=== PATIENT | male | born 1965 | race Caucasian/White ===

== ENCOUNTER 2019-01-01 19:01 | Inpatient (IN) | payer MEDICAID, SELFPAY ==
[2019-01-01 19:13] VITALS: BP 130/84; PULSE 109; RESP 20; TEMP 36.8; O2SAT 98
[2019-01-01] MEDS: Normal Saline 1,000 ML 1000 ML IV (19:34)
[2019-01-01] MEDS: Ondansetron 4 MG/2 ML VIAL IVP (19:34)
[2019-01-01] MEDS: MORPHine 10 MG/ML VIAL 4 MG IVP (19:34)
[2019-01-01 20:32] LABS: Abs Immature Grans 0.02 k/cumm (0.0-0.09); Absolute Basophil Count 0.01 k/cumm (0.0-0.2); Absolute Eosinophil Count 0.01 k/cumm (0.0-0.7); Absolute Lymphocyte Count 0.67 k/cumm (1.2-3.4); Absolute Monocyte Count 0.59 k/cumm (0.11-0.7); Absolute Neutrophil Count 7.16 k/cumm (1.2-6.7); Basophils % 0.1; Eosinophils % 0.1; HGB 15.4 g/dL (13.5-17.5); Immature Grans % 0.2; Lymphocytes % 7.9; Mean Corp. HGB Concentration 32.8 g/dL (32.0-36.0); Mean Corpuscular Hemoglobin 29.2 pg (27.0-33.0); Mean Platelet Volume 9.8 fL (8.0-11.0); Neutrophils % 84.7; Platelet Count 214 x1000/uL (130-400); RBC 5.28 m/cumm (4.50-6.00); RBC Distribution Width 14.1 % (11.8-14.1); White Blood Cell Count 8.46 k/cumm (4.4-10.8)
[2019-01-01 20:46] LABS: ALT 18 U/L (12-78); AST 14 U/L (15-37); Albumin 3.4 g/dL (3.4-5.0); Alkaline Phosphatase 112 U/L (46-116); Anion Gap 7.7 mmol/L (3-11); BUN 26 mg/dL (7-18); Bilirubin, Total 0.3 mg/dL (0.2-1.0); CO2 29.3 mmol/L (21.0-32.0); CREATININE 1.11 mg/dL (0.70-1.30); Calcium 8.3 mg/dL (8.5-10.1); Chloride 107 mmol/L (98-107); Glucose 132 mg/dL (70-100); Potassium 3.6 mmol/L (3.5-5.1); Sodium 144 mmol/L (136-145)
[2019-01-01 21:02] VITALS: BP 134/76; PULSE 68; RESP 18; TEMP 36.7; O2SAT 98
[2019-01-01] MEDS: Omnipaque 350 MG/ML 100 ML BTL IJ (21:10)
[2019-01-01] MEDS: Normal Saline Flush 10 ML SYR IVP (21:11)
--- NOTE | 2019-01-01 21:15 | DI.CT_ITS ---
SYMPTOM/DIAGNOSIS: DIFFUSE ABD PAIN, H/O SMALL BOWEL OBSTRUCTION,CONSTIPATION, VOMITING, ? SMALL BOWEL OBSTRUCTION ABDOMEN AND PELVIC CT: Comparison is made with 08/13/16. CT scan of the abdomen and pelvis was performed following the uneventful administration of intravenous contrast material. Dependent infiltrates are seen in the lung bases. This may represent atelectasis or pneumonia. There do appear to be emphysematous changes in the lung bases. The liver is normal in size. There are areas of fatty infiltration adjacent to the falciform ligament. No hepatic mass is seen. The portal, superior mesenteric and splenic veins are patent. The gallbladder is negative. No biliary ductal dilatation is seen. The pancreas, spleen and adrenal glands are unremarkable. The kidneys show normal and symmetric enhancement. No evidence of a solid renal mass or obstruction. The urinary bladder is intact. The reproductive organs are unremarkable. There is atherosclerosis of the abdominal aorta but no aneurysmal dilatation is present. No significant abdominal or pelvic adenopathy, ascites or pneumoperitoneum is present. There is moderate dilatation of small bowel loops proximally. The distal small bowel appears normal caliber. The transition appears to lie in the pelvis. The colon is of normal caliber. No evidence of inflammatory or infectious process. No findings to suggest an acute appendicitis are present. A normal appendix is seen in the right lower quadrant of the abdomen. Degenerative changes are present in the spine. IMPRESSION: 1. Dilated small bowel proximally. This may represent an obstruction or ileus. The transition appears to lie in the pelvis. 2. Opacities in the dependent portion of the lungs bilaterally. This may represent atelectasis or pneumonia.
--- NOTE | 2019-01-01 21:47 | DI.VRAD_ITS ---
EXAM: CT Abdomen and Pelvis With Contrast EXAM DATE/TIME: 01/01/2019 7:37 PM CLINICAL HISTORY: 53 years old, male; Signs and symptoms; Constipation and nausea and vomiting; Prior surgery; Surgery date: 6+ months; Surgery type: L inguinal hernia repair; Patient HX: Vomiting, constipation, nause TECHNIQUE: Axial computed tomography images of the abdomen and pelvis with intravenous contrast. All CT scans at this facility use at least one of these dose optimization techniques: automated exposure control; mA and/or kV adjustment per patient size (includes targeted exams where dose is matched to clinical indication); or iterative reconstruction. Coronal and sagittal reformatted images were created and reviewed. CONTRAST: 100 ml of omnipaque 350 administered intravenously. COMPARISON: CT ABD PELVIS WITH CONTRAST 08/13/2016 6:26 PM FINDINGS: Lower thorax: Opacities in the lower lobes may represent atelectasis or pneumonia. ABDOMEN: Liver: Normal. No mass. Gallbladder and bile ducts: Normal. No calcified stones. No ductal dilation. Pancreas: Normal. No ductal dilation. Spleen: Normal. No splenomegaly. Adrenals: Normal. No mass. Kidneys and ureters: Normal. No hydronephrosis. Stomach and bowel: Multiple loops of dilated small bowel may represent obstruction or ileus. Transition point is in the pelvis. Appendix: No evidence of appendicitis. PELVIS: Bladder: Unremarkable as visualized. Reproductive: Unremarkable as visualized. ABDOMEN and PELVIS: Intraperitoneal space: Normal. No free air. No significant fluid collection. Bones/joints: No acute fracture. No dislocation. Soft tissues: Unremarkable. Vasculature: Normal. No abdominal aortic aneurysm. Lymph nodes: Normal. No enlarged lymph nodes. IMPRESSION: 1. Opacities in the lower lobes may represent atelectasis or pneumonia. 2. Multiple loops of dilated small bowel may represent obstruction or ileus. Transition point is in the pelvis. Dictated and Authenticated by: Britney Moya MD. Ordering:JYOTHI Canseco MD
[2019-01-01] MEDS: Normal Saline 1,000 ML 125 ML IV (21:50)
[2019-01-01] MEDS: Ketorolac 30 MG/ML VIAL IVP (22:28)
[2019-01-01 22:33] VITALS: BP 156/97; PULSE 67; RESP 18; TEMP 36.8; O2SAT 98
--- NOTE | 2019-01-01 22:48 | ED.GENADUL_ITS ---
Discharge Plan Disposition Patient Disposition: [facility] INPATIENT Condition: Stable Discharge Details Chief Complaint: Abd Prob Clinical Impression: SBO (small bowel obstruction), Nausea and vomiting Reason For Visit: SMALL BOWEL OBSTRUCTION Admit Date/Time: 01/01/19 22:00 Admit Provider: Emy Nugent Attending Provider: Emy Nugent Primary Care Provider: Marco Antonio Villa ED Provider: Harleen Barron Discharge Data Discharge Date/Time-TO BE ENTERED AT DEPARTURE: 01/01/19 23:10 Medical Decision Making 53-year-old male with history of imperforate anus status post repair as an , hernia repair, as well as multiple small bowel obstructions who presents with abdominal pain and vomiting since last night consistent with previous small bowel obstruction. Heart rate tachycardic on arrival, otherwise vitals within normal limits. Afebrile. Abdomen soft and minimally tender in the left mid abdomen. Will place an IV, bolus IV fluids, labs, CT abdomen and pelvis and give a dose of morphine. 2100 --labs and imaging reviewed. Normal white blood cell count, electrolytes. CT notes multiple loops of dilated small bowel which may represent obstruction. There are also opacities in the lower lobes which may represent atelectasis or pneumonia. Patient has a chronic cough, is a smoker but has no fever and a normal white blood cell count. 2144 --findings discussed with general surgery Dr. Nugent -will admit patient overnight for serial abdominal exams and observation. Recommends Toradol, Tylenol, n.p.o. and IV fluids and no narcotics. Hold on NG tube at this time. 2199 --plan was discussed with patient and he was initially agreeable to admission, but then stated he wanted to leave AMA if he did not get morphine. Explained to patient that with constipation, narcotics would not be recommended continually for pain as it can worsen constipation and pain. Patient states the morphine is the only thing that works for his pain. Patient stated fk them and I would rather go home and than stay here and not get morphine. Discussed with patient that as he has had consistent vomiting, and unable to keep any food or medication down, it would be recommended that he stay for IV fluids and continued monitoring. He is now agreeable to stay. A dose of Toradol was given. Medical Records Medical records reviewed: Yes I reviewed the patient's medical records. Imaging Data Radiologic Study: Radiologist's impression: CT Abdomen and Pelvis With Contrast EXAM DATE/TIME: 01/01/2019 7:37 PM FINDINGS: Lower thorax: Opacities in the lower lobes may represent atelectasis or pneumonia. ABDOMEN: Liver: Normal. No mass. Gallbladder and bile ducts: Normal. No calcified stones. No ductal dilation. Pancreas: Normal. No ductal dilation. Spleen: Normal. No splenomegaly. Adrenals: Normal. No mass. Kidneys and ureters: Normal. No hydronephrosis. Stomach and bowel: Multiple loops of dilated small bowel may represent obstruction or ileus. Transition point is in the pelvis. Appendix: No evidence of appendicitis. PELVIS: Bladder: Unremarkable as visualized. Reproductive: Unremarkable as visualized. ABDOMEN and PELVIS: Intraperitoneal space: Normal. No free air. No significant fluid collection. Bones/joints: No acute fracture. No dislocation. Soft tissues: Unremarkable. Vasculature: Normal. No abdominal aortic aneurysm. Lymph nodes: Normal. No enlarged lymph nodes. IMPRESSION: 1. Opacities in the lower lobes may represent atelectasis or pneumonia. 2. Multiple loops of dilated small bowel may represent obstruction or ileus. Transition point is in the pelvis. Lab Data Lab results reviewed: Yes I reviewed the patient's lab results. Laboratory Tests Range/Units 01/01/19 01/01/19 01/01/19 19:25 19:25 20:20 WBC Cancelled 8.46 RBC Cancelled 5.28 Hgb Cancelled 15.4 Hct Cancelled 47.0 MCV Cancelled 89.0 MCH Cancelled 29.2 MCHC Cancelled 32.8 RDW Cancelled 14.1 Plt Count Cancelled 214 MPV Cancelled 9.8 Abs Immat Gran (auto) Cancelled Immature Gran % Cancelled 0.2 Neutrophils % Cancelled 84.7 Band Neutrophils % Cancelled Lymphocytes % Cancelled 7.9 Atypical Lymphs % Cancelled Monocytes % Cancelled 7.0 Eosinophils % Cancelled 0.1 Basophils % Cancelled 0.1 Absolute Neutrophils Cancelled 7.16 H Absolute Lymphocytes Cancelled 0.67 L Absolute Monocytes Cancelled 0.59 Absolute Eosinophils Cancelled 0.01 Absolute Basophils Cancelled 0.01 Metamyelocytes Cancelled Myelocytes Cancelled Promyelocytes Cancelled Nucleated RBCs Cancelled Differential Comment Cancelled Other Cell Type Cancelled RBC Morphology Cancelled Polychromasia Cancelled Hypochromasia Cancelled Poikilocytosis Cancelled Basophilic Stippling Cancelled Anisocytosis Cancelled Microcytosis Cancelled Macrocytosis Cancelled Spherocytes Cancelled Target Cells Cancelled Tear Drop Cells Cancelled Ovalocytes Cancelled Stomatocytes Cancelled [place] Bodies Cancelled Daniel Cells Cancelled Acanthocytes (Spur) Cancelled Schistocytes Cancelled Sodium Cancelled Potassium Cancelled Chloride Cancelled Carbon Dioxide Cancelled Anion Gap Cancelled BUN Cancelled Creatinine Cancelled Estimated GFR/1.73 m2 Cancelled Glucose Cancelled Calcium Cancelled Total Bilirubin Cancelled AST Cancelled ALT Cancelled Alkaline Phosphatase Cancelled Total Protein Cancelled Albumin Cancelled Range/Units 01/01/19 20:20 WBC RBC Hgb Hct MCV MCH MCHC RDW Plt Count MPV Abs Immat Gran (auto) Immature Gran % Neutrophils % Band Neutrophils % Lymphocytes % Atypical Lymphs % Monocytes % Eosinophils % Basophils % Absolute Neutrophils Absolute Lymphocytes Absolute Monocytes Absolute Eosinophils Absolute Basophils Metamyelocytes Myelocytes Promyelocytes Nucleated RBCs Differential Comment Other Cell Type RBC Morphology Polychromasia Hypochromasia Poikilocytosis Basophilic Stippling Anisocytosis Microcytosis Macrocytosis Spherocytes Target Cells Tear Drop Cells Ovalocytes Stomatocytes [place] Bodies Bovey Cells Acanthocytes (Spur) Schistocytes Sodium 144 Potassium 3.6 Chloride 107 Carbon Dioxide 29.3 Anion Gap 7.7 BUN 26 H Creatinine 1.11 Estimated GFR/1.73 m2 >= 60.00 Glucose 132 H Calcium 8.3 L Total Bilirubin 0.3 AST 14 L ALT 18 Alkaline Phosphatase 112 Total Protein 7.0 Albumin 3.4 HPI General Mode of arrival: ambulatory . Date/Time Provider Initiated Documentation: 01/01/19 19:21 . Limitations to Documentation: no limitations . Information obtained by: patient . HPI Narrative: Patient is a 53 male with a history of multiple small bowel obstructions, imperforate anus at with surgery repair, as well as hernia repair who presents with abdominal pain since yesterday. States the pain feels consistent with previous small bowel obstructions. He states the pain is radiating from his upper abdomen down to his lower abdomen. He denies any pain at present. Patient states he has been vomiting nonstop since last night and is unable to keep down any medications for pain. States his last bowel movement was 3 days ago which is not unusual for him. He was last admitted here in May 2018 for small bowel obstruction. He denies any fever. Related Data Home Medications Medication Instructions Recorded Confirmed Unknown [No Known Home Meds] 05/17/18 01/01/19 Allergies Allergy/AdvReac Type Severity Reaction Status Date / Time No Known Allergies Allergy Unverified 05/28/18 10:32 General Stated Complaint: Abd Prob CHAVO: 3 Review of Systems Review of Systems All systems reviewed & are unremarkable except as noted in HPI and below Constitutional Reports as per HPI, Denies chills and Denies fever(s) Eyes Denies blurry vision ENT Denies dizziness, Denies sore throat and Denies throat swelling Cardiovascular Denies chest pain and Denies dyspnea Respiratory Denies cough and Denies dyspnea Gastrointestinal Reports abdominal pain, Denies diarrhea and Reports vomiting Genitourinary Denies hematuria and Denies dysuria Musculoskeletal Denies back pain and Denies numbness Integumentary/Breasts Denies lesions and Denies rash Neurologic Denies dizziness, Denies focal weakness and Denies numbness Allergic/Immunologic Denies throat swelling PFSH Medical History Small bowel obstruction (Acute) Congenital imperforate anus Undescended testicle, unilateral Surgical History Repair of inguinal hernia (02/02/18) Revision, Scar eye surgery imperforate anus repair Social History Smoking and Tabacco status: Current every day alcohol intake: never substance use type: does not use Exam Const General: cooperative, healthy appearing and no acute distress HENMT Head: normal to inspection Face and sinus: normal facial exam Eyes General: appearance normal, both eyes and all related structures EOM: EOM intact bilaterally Neck Neck: normal visual inspection and No submandibular swelling Lymphatic: no lymphadenopathy noted Chest Chest: normal inspection of the chest and no tenderness Resp Effort & Inspection: normal respiratory effort and able to speak in complete sentences Auscultation: clear to auscultation bilaterally Cardio Rate: regular rate Rhythm: regular rhythm GI Inspection: normal to inspection Palpation: soft, not firm, not rigid and tender (L mid abdomen) Auscultation: normal bowel sounds Male General Exam: Yes normal external exam Scrotum: scrotum normal Testes: normal Skin General skin exam: no rashes or lesions noted Neuro General: alert, awake and oriented x3 Cognition: normal cognition Speech: speech normal Motor: muscle tone normal throughout Sensory Exam: no sensory deficits noted Extrem General: normal to inspection, full ROM, normal capillary refill, no calf tenderness bilaterally and no edema Psych Appearance: grossly normal Mental Status: mental status grossly normal Speech and Movement: speech and movement normal Affect: normal affect Course Vital Signs Temperature 98.2 F 01/01/19 19:13 Pulse 109 H 01/01/19 19:13 Respiratory Rate 20 01/01/19 19:13 Blood Pressure 130/84 01/01/19 19:13 Pulse Oximetry 98 01/01/19 19:13 Temperature 98.2 F 01/01/19 22:33 Temperature Source Skin 01/01/19 22:33 Pulse 67 01/01/19 22:33 Respiratory Rate 18 01/01/19 22:33 Respiratory Effort Non-Labored 01/01/19 21:03 Blood Pressure 156/97 H 01/01/19 22:33 Blood Pressure Position Sitting 01/01/19 19:13 Pulse Oximetry 98 01/01/19 22:33 Oxygen Delivery Method Room Air 01/01/19 22:33 Oxygen Flow Rate 0 01/01/19 22:33 Pain Level 2 01/01/19 22:28 Lab/Test Results Lab/Test Results: Laboratory Tests Range/Units 01/01/19 01/01/19 01/01/19 19:25 19:25 20:20 WBC Cancelled 8.46 RBC Cancelled 5.28 Hgb Cancelled 15.4 Hct Cancelled 47.0 MCV Cancelled 89.0 MCH Cancelled 29.2 MCHC Cancelled 32.8 RDW Cancelled 14.1 Plt Count Cancelled 214 MPV Cancelled 9.8 Abs Immat Gran (auto) Cancelled Immature Gran % Cancelled 0.2 Neutrophils % Cancelled 84.7 Band Neutrophils % Cancelled Lymphocytes % Cancelled 7.9 Atypical Lymphs % Cancelled Monocytes % Cancelled 7.0 Eosinophils % Cancelled 0.1 Basophils % Cancelled 0.1 Absolute Neutrophils Cancelled 7.16 H Absolute Lymphocytes Cancelled 0.67 L Absolute Monocytes Cancelled 0.59 Absolute Eosinophils Cancelled 0.01 Absolute Basophils Cancelled 0.01 Metamyelocytes Cancelled Myelocytes Cancelled Promyelocytes Cancelled Nucleated RBCs Cancelled Differential Comment Cancelled Other Cell Type Cancelled RBC Morphology Cancelled Polychromasia Cancelled Hypochromasia Cancelled Poikilocytosis Cancelled Basophilic Stippling Cancelled Anisocytosis Cancelled Microcytosis Cancelled Macrocytosis Cancelled Spherocytes Cancelled Target Cells Cancelled Tear Drop Cells Cancelled Ovalocytes Cancelled Stomatocytes Cancelled [place] Bodies Cancelled [place]y Cells Cancelled Acanthocytes (Spur) Cancelled Schistocytes Cancelled Sodium Cancelled Potassium Cancelled Chloride Cancelled Carbon Dioxide Cancelled Anion Gap Cancelled BUN Cancelled Creatinine Cancelled Estimated GFR/1.73 m2 Cancelled Glucose Cancelled Calcium Cancelled Total Bilirubin Cancelled AST Cancelled ALT Cancelled Alkaline Phosphatase Cancelled Total Protein Cancelled Albumin Cancelled Range/Units 01/01/19 20:20 WBC RBC Hgb Hct MCV MCH MCHC RDW Plt Count MPV Abs Immat Gran (auto) Immature Gran % Neutrophils % Band Neutrophils % Lymphocytes % Atypical Lymphs % Monocytes % Eosinophils % Basophils % Absolute Neutrophils Absolute Lymphocytes Absolute Monocytes Absolute Eosinophils Absolute Basophils Metamyelocytes Myelocytes Promyelocytes Nucleated RBCs Differential Comment Other Cell Type RBC Morphology Polychromasia Hypochromasia Poikilocytosis Basophilic Stippling Anisocytosis Microcytosis Macrocytosis Spherocytes Target Cells Tear Drop Cells Ovalocytes Stomatocytes [place] Bodies Daniel Cells Acanthocytes (Spur) Schistocytes Sodium 144 Potassium 3.6 Chloride 107 Carbon Dioxide 29.3 Anion Gap 7.7 BUN 26 H Creatinine 1.11 Estimated GFR/1.73 m2 >= 60.00 Glucose 132 H Calcium 8.3 L Total Bilirubin 0.3 AST 14 L ALT 18 Alkaline Phosphatase 112 Total Protein 7.0 Albumin 3.4
[2019-01-01 23:20] VITALS: BP 133/77; PULSE 90; RESP 18; TEMP 37.4; O2SAT 95
[2019-01-02] MEDS: Ketorolac 30 MG/ML VIAL IM ×3 (05:01→19:20)
[2019-01-02 05:02] VITALS: BP 108/74; PULSE 83; RESP 18; TEMP 37.1; O2SAT 95
[2019-01-02] MEDS: Normal Saline 1,000 ML 125 ML IV ×3 (05:02→20:28)
[2019-01-02 07:53] VITALS: BP 107/64; PULSE 71; RESP 19; TEMP 36.6; O2SAT 95
[2019-01-02 11:20] VITALS: BP 107/67; PULSE 72; RESP 18; TEMP 36.9; O2SAT 96
--- NOTE | 2019-01-02 13:07 | W.PM.HP.N ---
Date of service: 01/02/19 Time of Service: 07:00 Assessment and Plan (1) SBO (small bowel obstruction): Current visit: No Status: Acute A\\ SBO vs ileus. Known history of SBO P\\ Continue NPO status Up ambulating 3 x a day Toradol and Tylenol for pain ISP q1 hour while awake IV fluids for hydration History of Present Illness Chief Complaint: SBO Narrative: Mr. Galarza is a 53 year old male who came to the ER last night with N/V and abdominal pain. The patient is well known to us from previous admissions for SBO. He has had abdominal surgeries in the past as a child. His last admission was in May of 2018. He had one episode of emesis after admission and none since then. This morning he was complaining of abdominal pain and upset about not getting any morphine for pain. He has Toradol and Acetaminophen ordered. He states that he has passed some flatus. No BM yet. He wants a elle hua. Labs were unremarkable in the ER last night. Review of Systems Constitutional Denies chills and Denies fever(s) Cardiovascular Denies chest pain, Denies chest pain at rest, Denies chest pain with activity, Denies diaphoresis, Denies rapid heart rate, Denies irregular heart rhythm, Denies palpitations, Denies dyspnea and Denies dyspnea on exertion Respiratory Denies chest congestion, Denies cough, Denies dyspnea and Denies dyspnea on exertion Gastrointestinal Reports as per HPI Genitourinary Denies hematuria, Denies difficulty urinating and Denies dysuria Musculoskeletal Reports system reviewed and no additional complaints, except as docu Neurologic Reports system reviewed and no additional complaints, except as docu Endocrine Denies palpitations Hematologic/Lymphatic Denies easy bleeding and Denies easy bruising [facility] Medical History Small bowel obstruction (Acute) Congenital imperforate anus Undescended testicle, unilateral Surgical History Repair of inguinal hernia (02/02/18) Revision, Scar eye surgery imperforate anus repair Social History Smoking and Tabacco status: Current every day alcohol intake: never substance use type: does not use Meds Home Medications Medication Instructions Recorded Confirmed Type Unknown [No Known Home Meds] 05/17/18 01/01/19 History Allergies Allergy/AdvReac Type Severity Reaction Status Date / Time No Known Allergies Allergy Unverified 05/28/18 10:32 Exam Const General: cooperative and no acute distress Orientation: alert and oriented x3 Eyes Pupils: PERRL Resp Effort & Inspection: normal respiratory effort Auscultation: clear to auscultation bilaterally and diminished lung sounds bilaterally in the lower lung montez Cardio Rate: regular rate Rhythm: regular rhythm Heart Sounds: no gallops, no murmurs and no rubs GI Inspection: normal to inspection Palpation: soft, no hepatosplenomegaly and nontender Auscultation: hyperactive bowel sounds Results Labs : 01/01/19 20:20 01/01/19 20:20 Laboratory Results - last 24 hr 01/01/19 01/01/19 01/01/19 19:25 19:25 20:20 WBC Cancelled 8.46 RBC Cancelled 5.28 Hgb Cancelled 15.4 Hct Cancelled 47.0 MCV Cancelled 89.0 MCH Cancelled 29.2 MCHC Cancelled 32.8 RDW Cancelled 14.1 Plt Count Cancelled 214 MPV Cancelled 9.8 Abs Immat Gran (auto) Cancelled Immature Gran % Cancelled 0.2 Neutrophils % Cancelled 84.7 Band Neutrophils % Cancelled Lymphocytes % Cancelled 7.9 Atypical Lymphs % Cancelled Monocytes % Cancelled 7.0 Eosinophils % Cancelled 0.1 Basophils % Cancelled 0.1 Absolute Neutrophils Cancelled 7.16 H Absolute Lymphocytes Cancelled 0.67 L Absolute Monocytes Cancelled 0.59 Absolute Eosinophils Cancelled 0.01 Absolute Basophils Cancelled 0.01 Metamyelocytes Cancelled Myelocytes Cancelled Promyelocytes Cancelled Nucleated RBCs Cancelled Differential Comment Cancelled Other Cell Type Cancelled RBC Morphology Cancelled Polychromasia Cancelled Hypochromasia Cancelled Poikilocytosis Cancelled Basophilic Stippling Cancelled Anisocytosis Cancelled Microcytosis Cancelled Macrocytosis Cancelled Spherocytes Cancelled Target Cells Cancelled Tear Drop Cells Cancelled Ovalocytes Cancelled Stomatocytes Cancelled [place] Bodies Cancelled [place] Cells Cancelled Acanthocytes (Spur) Cancelled Schistocytes Cancelled Sodium Cancelled Potassium Cancelled Chloride Cancelled Carbon Dioxide Cancelled Anion Gap Cancelled BUN Cancelled Creatinine Cancelled Estimated GFR/1.73 m2 Cancelled Glucose Cancelled Calcium Cancelled Total Bilirubin Cancelled AST Cancelled ALT Cancelled Alkaline Phosphatase Cancelled Total Protein Cancelled Albumin Cancelled 01/01/19 20:20 WBC RBC Hgb Hct MCV MCH MCHC RDW Plt Count MPV Abs Immat Gran (auto) Immature Gran % Neutrophils % Band Neutrophils % Lymphocytes % Atypical Lymphs % Monocytes % Eosinophils % Basophils % Absolute Neutrophils Absolute Lymphocytes Absolute Monocytes Absolute Eosinophils Absolute Basophils Metamyelocytes Myelocytes Promyelocytes Nucleated RBCs Differential Comment Other Cell Type RBC Morphology Polychromasia Hypochromasia Poikilocytosis Basophilic Stippling Anisocytosis Microcytosis Macrocytosis Spherocytes Target Cells Tear Drop Cells Ovalocytes Stomatocytes [place] Bodies Daniel Cells Acanthocytes (Spur) Schistocytes Sodium 144 Potassium 3.6 Chloride 107 Carbon Dioxide 29.3 Anion Gap 7.7 BUN 26 H Creatinine 1.11 Estimated GFR/1.73 m2 >= 60.00 Glucose 132 H Calcium 8.3 L Total Bilirubin 0.3 AST 14 L ALT 18 Alkaline Phosphatase 112 Total Protein 7.0 Albumin 3.4 Last Vital Signs Temp 97.9 F 01/02/19 07:53 Pulse 71 01/02/19 07:53 Resp 19 01/02/19 07:53 BP 107/64 01/02/19 07:53 Pulse Ox 95 01/02/19 07:53
--- NOTE | 2019-01-02 13:15 | W.PM.PROGNOT ---
Date of Service Date of service: 01/02/19 Time of Service: 13:15 Assessment and Plan (1) SBO (small bowel obstruction): Current visit: No Status: Acute A\\ May be starting to resolve P\\ Give him ice chips and sips of water needs to ambulate Subjective Interval history since last seen: Patient states pain is better and that he is passing a lot of flatus. No BM Continues to complain that I didn't order any Morphine Is asking for Mónica hua Exam GI Inspection: normal to inspection Palpation: soft, no hepatosplenomegaly and nontender Auscultation: normal bowel sounds Objective Objective Clinical Data: Abnormal lab results 01/01/19 01/01/19 Range/Units 20:20 20:20 Absolute Neutrophils 7.16 H (1.2-6.7) k/cumm Absolute Lymphocytes 0.67 L (1.2-3.4) k/cumm BUN 26 H (7-18) mg/dL Glucose 132 H (70-100) mg/dL Calcium 8.3 L (8.5-10.1) mg/dL AST 14 L (15-37) U/L Vital Signs Temperature 97.9 F 01/02/19 07:53 Temperature Source Tympanic 01/02/19 07:53 Pulse 71 01/02/19 07:53 Pulse Rhythm Regular 01/01/19 23:20 Respiratory Rate 19 01/02/19 07:53 Respiratory Effort 01/01/19 23:20 Respiratory Depth Normal 01/01/19 23:20 Respiratory Pattern Normal 01/01/19 23:20 Blood Pressure 107/64 01/02/19 07:53 Blood Pressure Position Sitting 01/01/19 19:13 Pulse Oximetry 95 01/02/19 07:53 Oxygen Delivery Method Room Air 01/02/19 07:53 Oxygen Flow Rate 0 01/02/19 07:53 Pain Level 3 01/02/19 12:56 Intake & Output 01/01/19 01/02/19 01/02/19 23:59 11:59 23:59 Intake Total 1000 / 1000 900 / 1875 975 / 1875 Output Total 300 / 300 Balance 1000 / 1000 600 / 1575 975 / 1575 Weight 155 lb 0.006 oz Intake: IV 1000 / 1000 900 / 1875 975 / 1875 Output: Emesis 300 / 300 Other: Urine Appearance Clear Emesis Description Undigested Food Bile Laboratory Results WBC 8.46 k/cumm (4.4-10.8) 01/01/19 20:20 RBC 5.28 m/cumm (4.50-6.00) 01/01/19 20:20 Hgb 15.4 g/dL (13.5-17.5) 01/01/19 20:20 Hct 47.0 % (40.0-50.0) 01/01/19 20:20 MCV 89.0 fL (80-95) 01/01/19 20:20 MCH 29.2 pg (27.0-33.0) 01/01/19 20:20 MCHC 32.8 g/dL (32.0-36.0) 01/01/19 20:20 RDW 14.1 % (11.8-14.1) 01/01/19 20:20 Plt Count 214 x1000/uL (130-400) 01/01/19 20:20 MPV 9.8 fL (8.0-11.0) 01/01/19 20:20 Abs Immat Gran (auto) Cancelled 01/01/19 19:25 Immature Gran % 0.2 01/01/19 20:20 Neutrophils % 84.7 01/01/19 20:20 Band Neutrophils % Cancelled 01/01/19 19:25 Lymphocytes % 7.9 01/01/19 20:20 Atypical Lymphs % Cancelled 01/01/19 19:25 Monocytes % 7.0 01/01/19 20:20 Eosinophils % 0.1 01/01/19 20:20 Basophils % 0.1 01/01/19 20:20 Absolute Neutrophils 7.16 k/cumm (1.2-6.7) H 01/01/19 20:20 Absolute Lymphocytes 0.67 k/cumm (1.2-3.4) L 01/01/19 20:20 Absolute Monocytes 0.59 k/cumm (0.11-0.7) 01/01/19 20:20 Absolute Eosinophils 0.01 k/cumm (0.0-0.7) 01/01/19 20:20 Absolute Basophils 0.01 k/cumm (0.0-0.2) 01/01/19 20:20 Metamyelocytes Cancelled 01/01/19 19:25 Myelocytes Cancelled 01/01/19 19:25 Promyelocytes Cancelled 01/01/19 19:25 Nucleated RBCs Cancelled 01/01/19 19:25 Differential Comment Cancelled 01/01/19 19:25 Other Cell Type Cancelled 01/01/19 19:25 RBC Morphology Cancelled 01/01/19 19:25 Polychromasia Cancelled 01/01/19 19:25 Hypochromasia Cancelled 01/01/19 19:25 Poikilocytosis Cancelled 01/01/19 19:25 Basophilic Stippling Cancelled 01/01/19 19:25 Anisocytosis Cancelled 01/01/19 19:25 Microcytosis Cancelled 01/01/19 19:25 Macrocytosis Cancelled 01/01/19 19:25 Spherocytes Cancelled 01/01/19 19:25 Target Cells Cancelled 01/01/19 19:25 Tear Drop Cells Cancelled 01/01/19 19:25 Ovalocytes Cancelled 01/01/19 19:25 Stomatocytes Cancelled 01/01/19 19:25 [place] Bodies Cancelled 01/01/19 19:25 [place] Cells Cancelled 01/01/19 19:25 Acanthocytes (Spur) Cancelled 01/01/19 19:25 Schistocytes Cancelled 01/01/19 19:25 Sodium 144 mmol/L (136-145) 01/01/19 20:20 Potassium 3.6 mmol/L (3.5-5.1) 01/01/19 20:20 Chloride 107 mmol/L (98-107) 01/01/19 20:20 Carbon Dioxide 29.3 mmol/L (21.0-32.0) 01/01/19 20:20 Anion Gap 7.7 mmol/L (3-11) 01/01/19 20:20 BUN 26 mg/dL (7-18) H 01/01/19 20:20 Creatinine 1.11 mg/dL (0.70-1.30) 01/01/19 20:20 Estimated GFR/1.73 m2 >= 60.00 (mL/min/1.73m2) 01/01/19 20:20 Glucose 132 mg/dL (70-100) H 01/01/19 20:20 Calcium 8.3 mg/dL (8.5-10.1) L 01/01/19 20:20 Total Bilirubin 0.3 mg/dL (0.2-1.0) 01/01/19 20:20 AST 14 U/L (15-37) L 01/01/19 20:20 ALT 18 U/L (12-78) 01/01/19 20:20 Alkaline Phosphatase 112 U/L (46-116) 01/01/19 20:20 Total Protein 7.0 g/dL (6.4-8.2) 01/01/19 20:20 Albumin 3.4 g/dL (3.4-5.0) 01/01/19 20:20
--- NOTE | 2019-01-02 15:01 | CHAPLAIN ---
Bebeto said he is feeling a bit better. He and daughter will be in to visit after his is done working today. I explained my role and offered support.
[2019-01-02 16:12] VITALS: BP 111/66; PULSE 66; RESP 18; TEMP 37.1; O2SAT 97
--- NOTE | 2019-01-02 17:37 | PDOC.CMIN ---
Care Management Initial Assess REASON FOR HOSPITALIZATION:: SBO PAST MEDICAL HISTORY/PAST SURGICAL HISTORY:: congenital imperforate anus, undescended testicle unilateral, cataracts, hernia repair, rt eye surgery, revision scar, hx of SBO PREVIOUS FUNCTIONAL STATUS/SOCIAL/FAMILY SUPPORTS:: Bebeto resides with his , Юлия and their daughter in [place], [place]. 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 He reports a long history of bowel issues and reports feeling confident in managing his needs. CURRENT FUNCTIONAL STATUS:: Drake was lying in bed when CM met with him. He reports feeling better. He was forthcoming with information and appropriate in interaction. ADVANCE DIRECTIVES:: None on file. Has patient been provided with information about the portal?: Yes Did the patient sign up for the portal?: No CODE STATUS:: Full Code INSURANCE COVERAGE / FINANCIAL ISSUES:: Medicaid CURRENT HOME/COMMUNITY SERVICES/EQUIPMENT:: No current equipment or services. PRIMARY CARE PHYSICIAN:: Marco Antonio Villa MD: [facility] POTENTIAL DISCHARGE NEEDS:: Follow up appointments. PATIENT/FAMILY EDUCATION NEEDS:: Review discharge instructions, follow up plan of care. ANTICIPATED BARRIERS TO DISCHARGE:: None identifed. TRANSPORTATION:: Via private vehicle with his . PLAN:: Bebeto will return home when ready per MD. He will follow up with his plan of care as prescribed. He will transport via private vehicle with his .
--- NOTE | 2019-01-02 17:41 | INITIAL_ITS ---
Care Management Initial Assess REASON FOR HOSPITALIZATION:: SBO PAST MEDICAL HISTORY/PAST SURGICAL HISTORY:: congenital imperforate anus, undescended testicle unilateral, cataracts, hernia repair, rt eye surgery, revision scar, hx of SBO PREVIOUS FUNCTIONAL STATUS/SOCIAL/FAMILY SUPPORTS:: Bebeto resides with his , Юлия and their daughter in [place], [place]. 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 He reports a long history of bowel issues and reports feeling confident in managing his needs. CURRENT FUNCTIONAL STATUS:: Drake was lying in bed when CM met with him. He reports feeling better. He was forthcoming with information and appropriate in interaction. ADVANCE DIRECTIVES:: None on file. Has patient been provided with information about the portal?: Yes Did the patient sign up for the portal?: No CODE STATUS:: Full Code INSURANCE COVERAGE / FINANCIAL ISSUES:: Medicaid CURRENT HOME/COMMUNITY SERVICES/EQUIPMENT:: No current equipment or services. PRIMARY CARE PHYSICIAN:: Marco Antonio Villa MD: [facility] POTENTIAL DISCHARGE NEEDS:: Follow up appointments. PATIENT/FAMILY EDUCATION NEEDS:: Review discharge instructions, follow up plan of care. ANTICIPATED BARRIERS TO DISCHARGE:: None identifed. TRANSPORTATION:: Via private vehicle with his . PLAN:: Bebeto will return home when ready per MD. He will follow up with his plan of care as prescribed. He will transport via private vehicle with his .
[2019-01-02] MEDS: Normal Saline Flush 10 ML SYR IVP (19:22)
--- NOTE | 2019-01-02 19:34 | NUR.NOTE ---
Nursing Note: Report received from off going nurse, patient is currently in stable condition, resting in bed, reporting abdominal pain at 4/10 and requesting prn pain medication which will be given per MD orders. The bed is in the low and locked position, side rails up x2, call light within reach.
[2019-01-02 19:53] VITALS: BP 132/74; PULSE 72; RESP 18; TEMP 36.7; O2SAT 95
--- NOTE | 2019-01-02 21:53 | NUR.NOTE ---
Nursing Note: Called to bedside by patient, he had vomited in the emesis bag provided to him. Pt. reports that he feels better now no nausea at this time. I offered the patient water to wash his mouth out and a cool washcloth. No further needs at this time.
[2019-01-03] MEDS: Ketorolac 30 MG/ML VIAL IM ×2 (01:29→07:48)
[2019-01-03] MEDS: Normal Saline Flush 10 ML SYR IVP ×3 (01:30→16:57)
[2019-01-03] MEDS: Normal Saline 1,000 ML 125 ML IV ×3 (03:59→19:39)
[2019-01-03] MEDS: Pantoprazole 40 MG VIAL IVP (07:06)
[2019-01-03] MEDS: Enoxaparin 40 MG/0.4 ML SYR SC (07:06)
--- NOTE | 2019-01-03 07:08 | PGE_ITS ---
Date of Service Date of service: 01/03/19 Time of Service: 07:04 Assessment and Plan (1) SBO (small bowel obstruction): Current visit: No Status: Acute A\\ SBO vs ileus. Known history of SBO. Discussed the benefits of NG tube for bowel compression. Reviewed risks and benefits. declines an NG tube at this time. Spoke with his nurse for today, whom will continue patient education re: NG tube placement and will place one if he changes his mind. P\\ Continue NPO status Up ambulating 3 x a day Toradol and Tylenol for pain ISP q1 hour while awake IV fluids for hydration Subjective Interval history since last seen: Mr. Galarza reports that he continues to have abdominal discomfort and that he has been vomiting early this morning. He reports he has stopped taking in PO clear liquids due to his nausea and vomiting. He states that he has been passing gas. Exam Const General: cooperative, healthy appearing and no acute distress Orientation: alert and oriented x3 Resp Effort & Inspection: normal respiratory effort, no audible wheezes and cough Cardio Jugular venous pressure: no JVD Rate: regular rate Rhythm: regular rhythm Heart Sounds: S1 normal, S2 normal and no murmurs GI Inspection: distended Palpation: soft, guarding and tender Percussion: tympanic to percussion Auscultation: normal bowel sounds Objective Objective Clinical Data: Vital Signs Temperature 36.7 C 01/02/19 19:53 Temperature Source Tympanic 01/02/19 19:53 Pulse 72 01/02/19 19:53 Pulse Rhythm Regular 01/02/19 19:41 Respiratory Rate 18 01/02/19 19:53 Respiratory Effort 01/02/19 19:41 Respiratory Depth Normal 01/02/19 19:41 Respiratory Pattern Normal 01/02/19 19:41 Blood Pressure 132/74 01/02/19 19:53 Blood Pressure Position Sitting 01/01/19 19:13 Pulse Oximetry 95 01/02/19 19:53 Oxygen Delivery Method Room Air 01/02/19 19:53 Oxygen Flow Rate 0 01/02/19 19:53 Pain Level 2 01/03/19 02:29 Intake & Output 01/02/19 01/02/19 01/03/19 11:59 23:59 11:59 Intake Total 900 / 2829.167 1929.167 / 2829.167 1000 / 1000 Output Total 300 / 750 450 / 750 350 / 350 Balance 600 / 2078.167 1479.167 / 2078.167 650 / 650 Intake: IV 900 / 9.167 1929.167 / 2828.167 1000 / 999 Output: Urine 200 / 200 Emesis 300 / 750 450 / 750 150 / 150 Other: Urine Color Light Annie Urine Appearance Clear Comment pt stated that he voided once this morning, didnt know how much, stated it was a large amount Emesis Description Undigested Food Undigested Food Bile Bile Bile Clear/Water Voiding Methods Urinal Laboratory Results WBC 8.46 k/cumm (4.4-10.8) 01/01/19 20:20 RBC 5.28 m/cumm (4.50-6.00) 01/01/19 20:20 Hgb 15.4 g/dL (13.5-17.5) 01/01/19 20:20 Hct 47.0 % (40.0-50.0) 01/01/19 20:20 MCV 89.0 fL (80-95) 01/01/19 20:20 MCH 29.2 pg (27.0-33.0) 01/01/19 20:20 MCHC 32.8 g/dL (32.0-36.0) 01/01/19 20:20 RDW 14.1 % (11.8-14.1) 01/01/19 20:20 Plt Count 214 x1000/uL (130-400) 01/01/19 20:20 MPV 9.8 fL (8.0-11.0) 01/01/19 20:20 Abs Immat Gran (auto) Cancelled 01/01/19 19:25 Immature Gran % 0.2 01/01/19 20:20 Neutrophils % 84.7 01/01/19 20:20 Band Neutrophils % Cancelled 01/01/19 19:25 Lymphocytes % 7.9 01/01/19 20:20 Atypical Lymphs % Cancelled 01/01/19 19:25 Monocytes % 7.0 01/01/19 20:20 Eosinophils % 0.1 01/01/19 20:20 Basophils % 0.1 01/01/19 20:20 Absolute Neutrophils 7.16 k/cumm (1.2-6.7) H 01/01/19 20:20 Absolute Lymphocytes 0.67 k/cumm (1.2-3.4) L 01/01/19 20:20 Absolute Monocytes 0.59 k/cumm (0.11-0.7) 01/01/19 20:20 Absolute Eosinophils 0.01 k/cumm (0.0-0.7) 01/01/19 20:20 Absolute Basophils 0.01 k/cumm (0.0-0.2) 01/01/19 20:20 Metamyelocytes Cancelled 01/01/19 19:25 Myelocytes Cancelled 01/01/19 19:25 Promyelocytes Cancelled 01/01/19 19:25 Nucleated RBCs Cancelled 01/01/19 19:25 Differential Comment Cancelled 01/01/19 19:25 Other Cell Type Cancelled 01/01/19 19:25 RBC Morphology Cancelled 01/01/19 19:25 Polychromasia Cancelled 01/01/19 19:25 Hypochromasia Cancelled 01/01/19 19:25 Poikilocytosis Cancelled 01/01/19 19:25 Basophilic Stippling Cancelled 01/01/19 19:25 Anisocytosis Cancelled 01/01/19 19:25 Microcytosis Cancelled 01/01/19 19:25 Macrocytosis Cancelled 01/01/19 19:25 Spherocytes Cancelled 01/01/19 19:25 Target Cells Cancelled 01/01/19 19:25 Tear Drop Cells Cancelled 01/01/19 19:25 Ovalocytes Cancelled 01/01/19 19:25 Stomatocytes Cancelled 01/01/19 19:25 [place] Bodies Cancelled 01/01/19 19:25 Daniel Cells Cancelled 01/01/19 19:25 Acanthocytes (Spur) Cancelled 01/01/19 19:25 Schistocytes Cancelled 01/01/19 19:25 Sodium 144 mmol/L (136-145) 01/01/19 20:20 Potassium 3.6 mmol/L (3.5-5.1) 01/01/19 20:20 Chloride 107 mmol/L (98-107) 01/01/19 20:20 Carbon Dioxide 29.3 mmol/L (21.0-32.0) 01/01/19 20:20 Anion Gap 7.7 mmol/L (3-11) 01/01/19 20:20 BUN 26 mg/dL (7-18) H 01/01/19 20:20 Creatinine 1.11 mg/dL (0.70-1.30) 01/01/19 20:20 Estimated GFR/1.73 m2 >= 60.00 (mL/min/1.73m2) 01/01/19 20:20 Glucose 132 mg/dL (70-100) H 01/01/19 20:20 Calcium 8.3 mg/dL (8.5-10.1) L 01/01/19 20:20 Total Bilirubin 0.3 mg/dL (0.2-1.0) 01/01/19 20:20 AST 14 U/L (15-37) L 01/01/19 20:20 ALT 18 U/L (12-78) 01/01/19 20:20 Alkaline Phosphatase 112 U/L (46-116) 01/01/19 20:20 Total Protein 7.0 g/dL (6.4-8.2) 01/01/19 20:20 Albumin 3.4 g/dL (3.4-5.0) 01/01/19 20:20
[2019-01-03] MEDS: Ondansetron 4 MG/2 ML VIAL IVP ×2 (07:48→16:56)
[2019-01-03 08:00] VITALS: BP 131/77; PULSE 68; RESP 18; TEMP 37; O2SAT 95
[2019-01-03 08:14] LABS: Abs Immature Grans 0.01 k/cumm (0.0-0.09); Absolute Basophil Count 0.01 k/cumm (0.0-0.2); Absolute Eosinophil Count 0.02 k/cumm (0.0-0.7); Absolute Lymphocyte Count 1.05 k/cumm (1.2-3.4); Absolute Monocyte Count 0.82 k/cumm (0.11-0.7); Absolute Neutrophil Count 4.15 k/cumm (1.2-6.7); Basophils % 0.2; Eosinophils % 0.3; HCT 43.7 % (40.0-50.0); HGB 14.1 g/dL (13.5-17.5); Immature Grans % 0.2; Lymphocytes % 17.3; Mean Corp. HGB Concentration 32.3 g/dL (32.0-36.0); Mean Corpuscular Hemoglobin 29.1 pg (27.0-33.0); Mean Corpuscular Volume 90.3 fL (80-95); Mean Platelet Volume 9.9 fL (8.0-11.0); Monocytes % 13.5; Neutrophils % 68.5; Platelet Count 210 x1000/uL (130-400); RBC 4.84 m/cumm (4.50-6.00); RBC Distribution Width 13.7 % (11.8-14.1); White Blood Cell Count 6.06 k/cumm (4.4-10.8)
[2019-01-03 08:28] LABS: ALT 14 U/L (12-78); AST 14 U/L (15-37); Albumin 2.9 g/dL (3.4-5.0); Alkaline Phosphatase 92 U/L (46-116); Anion Gap 10.3 mmol/L (3-11); BUN 30 mg/dL (7-18); Bilirubin, Total 0.5 mg/dL (0.2-1.0); CO2 25.7 mmol/L (21.0-32.0); CREATININE 0.96 mg/dL (0.70-1.30); Calcium 8.4 mg/dL (8.5-10.1); Chloride 110 mmol/L (98-107); Glucose 93 mg/dL (70-100); Potassium 3.9 mmol/L (3.5-5.1); Sodium 146 mmol/L (136-145); Total Protein 6.1 g/dL (6.4-8.2)
[2019-01-03 10:20] VITALS: O2SAT 95
--- NOTE | 2019-01-03 10:32 | PHARADMIT ---
Admission Pharmacy Clinical Review SMALL BOWEL OBSTRUCTION Code Status Full Code Current Weight Wgt-70.3 kg Renally Cleared and Narrow Therapeutic Index Meds CrCl~ 85 mL/min Meds-OK QTc Value / Action Taken NONE BP Control, Fever BP- 131/77 Tmax- 37.4C Electrolytes reviewed Na- 146 K+3.9 DVT Prophylaxis Lovenox Opiate Usage / Scheduled Bowel Regimen Ordered No No Plt/SCr for Heparin / Enoxaparin Plts-210 SCr-0.96 INR for Warfarin NA H/H stable, WBC/Bands H&H- 14.1/43.7 WBC-6.06 Antibiotic appropriateness none Cultures and Sensitivities NONE Surgical ABX d/c within 24 hr na DM control / Insulin Dosing BG- 93 Heart Failure (Check EF%) (FLAVIO's, B-Block, Diuretics) none IV to PO Switch No Home Meds Reviewed Yes Home Meds Not Ordered No Known meds Comments
[2019-01-03 11:50] VITALS: BP 118/75; PULSE 75; RESP 18; TEMP 36.9; O2SAT 94
--- NOTE | 2019-01-03 13:36 | PDOC.CMPRO ---
- If Service Date Differs Date of service: 01/03/19 Time of Service: 13:36 Care Management Progress Note S/O: Bebeto is lying in bed this morning when this handbook writer visits, he is pleasant and receptive to discussion. Bebeto continues to state that he is not feeling well, and having abdominal pain, he states that his nurse is aware. Per provider note Drake is declining NG tube placement at this time. No change in DC plan. A: 53 y/o male admitted 01/01/19 for small bowel obstruction. P: Bebeto will return home with no anticipated services, he will F/U with Dr. Nugent and plan of care as prescribed. Bebeto's will transport when ready.
--- NOTE | 2019-01-03 14:19 | CMPROGNOTE_ITS ---
- If Service Date Differs Date of service: 01/03/19 Time of Service: 13:36 Care Management Progress Note S/O: Bebeto is lying in bed this morning when this ad copy writer visits, he is pleasant and receptive to discussion. Bebeto continues to state that he is not feeling well, and having abdominal pain, he states that his nurse is aware. Per provider note Drake is declining NG tube placement at this time. No change in DC plan. A: 53 y/o male admitted 01/01/19 for small bowel obstruction. P: Bebeto will return home with no anticipated services, he will F/U with Dr. Nugent and plan of care as prescribed. Bebeto's will transport when ready.
--- NOTE | 2019-01-03 14:29 | PGE_ITS ---
Date of Service Date of service: 01/03/19 Time of Service: 14:22 Assessment and Plan (1) SBO (small bowel obstruction): Current visit: No Status: Acute A\\ Patient states he is passing flatus and is feeling well. he wants to go home. I discussed with him that he his abdomen is still distended, he has minimal bowel sounds and he was vomiting all night. P\\ I will give the patient some sips of clears and see how he does. The plan would be to slowly advance his diet as tolerated over the next 24 hours. Patient tells me that he wants to leave AMA. We will provide him with the forms. Subjective Interval history since last seen: Patient tells me has had had no N/V or pain since this am. He had 600 cc of emesis overnight. He tells me that his will be getting of work at 14:30 and he is going home. Exam Const General: comfortable and no acute distress Resp Effort & Inspection: normal respiratory effort Auscultation: clear to auscultation bilaterally Cardio Rate: regular rate Rhythm: regular rhythm Heart Sounds: no gallops, no murmurs and no rubs GI Inspection: normal to inspection and distended Palpation: soft Auscultation: hypoactive bowel sounds Objective Objective Clinical Data: Abnormal lab results 01/03/19 01/03/19 Range/Units 08:00 08:00 Absolute Lymphocytes 1.05 L (1.2-3.4) k/cumm Absolute Monocytes 0.82 H (0.11-0.7) k/cumm Sodium 146 H (136-145) mmol/L Chloride 110 H (98-107) mmol/L BUN 30 H (7-18) mg/dL Calcium 8.4 L (8.5-10.1) mg/dL AST 14 L (15-37) U/L Total Protein 6.1 L (6.4-8.2) g/dL Albumin 2.9 L (3.4-5.0) g/dL Vital Signs Temperature 98.6 F 01/03/19 08:00 Temperature Source Tympanic 01/03/19 08:00 Pulse 68 01/03/19 08:00 Pulse Rhythm Regular 01/03/19 07:33 Respiratory Rate 18 01/03/19 08:00 Respiratory Effort Non-Labored 01/03/19 07:33 Respiratory Depth Normal 01/03/19 07:33 Respiratory Pattern Normal 01/03/19 07:33 Blood Pressure 131/77 01/03/19 08:00 Blood Pressure Position Sitting 01/01/19 19:13 Pulse Oximetry 95 01/03/19 10:20 Oxygen Delivery Method Room Air 01/03/19 10:20 Oxygen Flow Rate 0 01/03/19 10:20 Pain Level 0 01/03/19 08:48 Intake & Output 01/02/19 01/03/19 01/03/19 23:59 11:59 23:59 Intake Total 1928.167 / 2829.167 Output Total 450 / 750 350 / 650 300 / 650 Balance 1479.167 / 2078.167 164.167 / 1348.167 -300 / 1348.167 Intake: IV 1928. / 2828.167 Output: Urine 200 / 500 300 / 500 Emesis 450 / 750 150 / 150 Other: Urine Color Light Annie Light Annie Dark Annie Urine Appearance Clear Clear Urine Odor None Comment pt stated that he voided once this morning, didnt know how much, stated it was a large amount Void x1 in the urinal. Emesis Description Undigested Food Bile Bile Clear/Water Voiding Methods Urinal Urinal Laboratory Results WBC 6.06 k/cumm (4.4-10.8) 01/03/19 08:00 RBC 4.84 m/cumm (4.50-6.00) 01/03/19 08:00 Hgb 14.1 g/dL (13.5-17.5) 01/03/19 08:00 Hct 43.7 % (40.0-50.0) 01/03/19 08:00 MCV 90.3 fL (80-95) 01/03/19 08:00 MCH 29.1 pg (27.0-33.0) 01/03/19 08:00 MCHC 32.3 g/dL (32.0-36.0) 01/03/19 08:00 RDW 13.7 % (11.8-14.1) 01/03/19 08:00 Plt Count 210 x1000/uL (130-400) 01/03/19 08:00 MPV 9.9 fL (8.0-11.0) 01/03/19 08:00 Abs Immat Gran (auto) Cancelled 01/01/19 19:25 Immature Gran % 0.2 01/03/19 08:00 Neutrophils % 68.5 01/03/19 08:00 Band Neutrophils % Cancelled 01/01/19 19:25 Lymphocytes % 17.3 01/03/19 08:00 Atypical Lymphs % Cancelled 01/01/19 19:25 Monocytes % 13.5 01/03/19 08:00 Eosinophils % 0.3 01/03/19 08:00 Basophils % 0.2 01/03/19 08:00 Absolute Neutrophils 4.15 k/cumm (1.2-6.7) 01/03/19 08:00 Absolute Lymphocytes 1.05 k/cumm (1.2-3.4) L 01/03/19 08:00 Absolute Monocytes 0.82 k/cumm (0.11-0.7) H 01/03/19 08:00 Absolute Eosinophils 0.02 k/cumm (0.0-0.7) 01/03/19 08:00 Absolute Basophils 0.01 k/cumm (0.0-0.2) 01/03/19 08:00 Metamyelocytes Cancelled 01/01/19 19:25 Myelocytes Cancelled 01/01/19 19:25 Promyelocytes Cancelled 01/01/19 19:25 Nucleated RBCs Cancelled 01/01/19 19:25 Differential Comment Cancelled 01/01/19 19:25 Other Cell Type Cancelled 01/01/19 19:25 RBC Morphology Cancelled 01/01/19 19:25 Polychromasia Cancelled 01/01/19 19:25 Hypochromasia Cancelled 01/01/19 19:25 Poikilocytosis Cancelled 01/01/19 19:25 Basophilic Stippling Cancelled 01/01/19 19:25 Anisocytosis Cancelled 01/01/19 19:25 Microcytosis Cancelled 01/01/19 19:25 Macrocytosis Cancelled 01/01/19 19:25 Spherocytes Cancelled 01/01/19 19:25 Target Cells Cancelled 01/01/19 19:25 Tear Drop Cells Cancelled 01/01/19 19:25 Ovalocytes Cancelled 01/01/19 19:25 Stomatocytes Cancelled 01/01/19 19:25 [place] Bodies Cancelled 01/01/19 19:25 Daniel Cells Cancelled 01/01/19 19:25 Acanthocytes (Spur) Cancelled 01/01/19 19:25 Schistocytes Cancelled 01/01/19 19:25 Sodium 146 mmol/L (136-145) H 01/03/19 08:00 Potassium 3.9 mmol/L (3.5-5.1) 01/03/19 08:00 Chloride 110 mmol/L (98-107) H 01/03/19 08:00 Carbon Dioxide 25.7 mmol/L (21.0-32.0) 01/03/19 08:00 Anion Gap 10.3 mmol/L (3-11) 01/03/19 08:00 BUN 30 mg/dL (7-18) H 01/03/19 08:00 Creatinine 0.96 mg/dL (0.70-1.30) 01/03/19 08:00 Estimated GFR/1.73 m2 >= 60.00 (mL/min/1.73m2) 01/03/19 08:00 Glucose 93 mg/dL (70-100) 01/03/19 08:00 Calcium 8.4 mg/dL (8.5-10.1) L 01/03/19 08:00 Total Bilirubin 0.5 mg/dL (0.2-1.0) 01/03/19 08:00 AST 14 U/L (15-37) L 01/03/19 08:00 ALT 14 U/L (12-78) 01/03/19 08:00 Alkaline Phosphatase 92 U/L (46-116) 01/03/19 08:00 Total Protein 6.1 g/dL (6.4-8.2) L 01/03/19 08:00 Albumin 2.9 g/dL (3.4-5.0) L 01/03/19 08:00
[2019-01-03 16:27] VITALS: BP 157/87; PULSE 68; RESP 18; TEMP 37.3; O2SAT 95
[2019-01-03] MEDS: Ketorolac 30 MG/ML VIAL IM/IV (16:57)
[2019-01-03 23:49] VITALS: BP 155/83; PULSE 73; RESP 20; TEMP 37.5; O2SAT 96
[2019-01-04] MEDS: Ketorolac 30 MG/ML VIAL IM/IV (01:17)
[2019-01-04] MEDS: Ondansetron 4 MG/2 ML VIAL IVP (01:18)
[2019-01-04] MEDS: Normal Saline Flush 10 ML SYR IVP (01:18)
[2019-01-04] MEDS: Pantoprazole 40 MG VIAL IVP (07:00)
--- NOTE | 2019-01-04 07:21 | W.PM.PROGNOT ---
Date of Service Date of service: 01/04/19 Time of Service: 07:21 Assessment and Plan (1) SBO (small bowel obstruction): Current visit: No Status: Acute Subjective Interval history since last seen: Mr. Galarza reports that he is feeling better this morning. He is having BMs and has tolerated clear liquids over night. Denies nausea or vomiting. Does report feeling gas. Exam Const General: cooperative, healthy appearing and comfortable Orientation: alert and oriented x3 Resp Effort & Inspection: normal respiratory effort and no audible wheezes GI Inspection: normal to inspection and distended Palpation: soft, no guarding and nontender Objective Objective Clinical Data: Abnormal lab results 01/03/19 01/03/19 Range/Units 08:00 08:00 Absolute Lymphocytes 1.05 L (1.2-3.4) k/cumm Absolute Monocytes 0.82 H (0.11-0.7) k/cumm Sodium 146 H (136-145) mmol/L Chloride 110 H (98-107) mmol/L BUN 30 H (7-18) mg/dL Calcium 8.4 L (8.5-10.1) mg/dL AST 14 L (15-37) U/L Total Protein 6.1 L (6.4-8.2) g/dL Albumin 2.9 L (3.4-5.0) g/dL Vital Signs Temperature 37.5 C 01/03/19 23:49 Temperature Source Tympanic 01/03/19 23:49 Pulse 73 01/03/19 23:49 Pulse Rhythm Regular 01/03/19 20:05 Respiratory Rate 20 01/03/19 23:49 Respiratory Effort Non-Labored 01/03/19 20:05 Respiratory Depth Normal 01/03/19 20:05 Respiratory Pattern Normal 01/03/19 20:05 Blood Pressure 155/83 H 01/03/19 23:49 Blood Pressure Position Sitting 01/01/19 19:13 Pulse Oximetry 96 01/03/19 23:49 Oxygen Delivery Method Room Air 01/03/19 23:49 Oxygen Flow Rate 0 01/03/19 23:49 Pain Level 2 01/04/19 02:17 Intake & Output 01/03/19 01/03/19 01/04/19 11:59 23:59 11:59 Intake Total 1998.167 / 3649.167 1650 / 3649.167 1200 / 1200 Output Total 350 / 650 300 / 650 200 / 200 Balance 1649.167 / 2999.167 1350 / 2999.167 1000 / 1000 Intake: IV 1998.167 / 3049.167 1050 / 3049.167 1000 / 1000 Oral 600 / 600 200 / 200 Output: Urine 200 / 500 300 / 500 200 / 200 Emesis 150 / 150 Other: Urine Color Light Annie Light Annie Yellow Dark Annie Urine Appearance Clear Clear Urine Odor None Normal Comment Void x1 in the urinal. Emesis Description Bile Clear/Water Voiding Methods Urinal Urinal Laboratory Results WBC 6.06 k/cumm (4.4-10.8) 01/03/19 08:00 RBC 4.84 m/cumm (4.50-6.00) 01/03/19 08:00 Hgb 14.1 g/dL (13.5-17.5) 01/03/19 08:00 Hct 43.7 % (40.0-50.0) 01/03/19 08:00 MCV 90.3 fL (80-95) 01/03/19 08:00 MCH 29.1 pg (27.0-33.0) 01/03/19 08:00 MCHC 32.3 g/dL (32.0-36.0) 01/03/19 08:00 RDW 13.7 % (11.8-14.1) 01/03/19 08:00 Plt Count 210 x1000/uL (130-400) 01/03/19 08:00 MPV 9.9 fL (8.0-11.0) 01/03/19 08:00 Abs Immat Gran (auto) Cancelled 01/01/19 19:25 Immature Gran % 0.2 01/03/19 08:00 Neutrophils % 68.5 01/03/19 08:00 Band Neutrophils % Cancelled 01/01/19 19:25 Lymphocytes % 17.3 01/03/19 08:00 Atypical Lymphs % Cancelled 01/01/19 19:25 Monocytes % 13.5 01/03/19 08:00 Eosinophils % 0.3 01/03/19 08:00 Basophils % 0.2 01/03/19 08:00 Absolute Neutrophils 4.15 k/cumm (1.2-6.7) 01/03/19 08:00 Absolute Lymphocytes 1.05 k/cumm (1.2-3.4) L 01/03/19 08:00 Absolute Monocytes 0.82 k/cumm (0.11-0.7) H 01/03/19 08:00 Absolute Eosinophils 0.02 k/cumm (0.0-0.7) 01/03/19 08:00 Absolute Basophils 0.01 k/cumm (0.0-0.2) 01/03/19 08:00 Metamyelocytes Cancelled 01/01/19 19:25 Myelocytes Cancelled 01/01/19 19:25 Promyelocytes Cancelled 01/01/19 19:25 Nucleated RBCs Cancelled 01/01/19 19:25 Differential Comment Cancelled 01/01/19 19:25 Other Cell Type Cancelled 01/01/19 19:25 RBC Morphology Cancelled 01/01/19 19:25 Polychromasia Cancelled 01/01/19 19:25 Hypochromasia Cancelled 01/01/19 19:25 Poikilocytosis Cancelled 01/01/19 19:25 Basophilic Stippling Cancelled 01/01/19 19:25 Anisocytosis Cancelled 01/01/19 19:25 Microcytosis Cancelled 01/01/19 19:25 Macrocytosis Cancelled 01/01/19 19:25 Spherocytes Cancelled 01/01/19 19:25 Target Cells Cancelled 01/01/19 19:25 Tear Drop Cells Cancelled 01/01/19 19:25 Ovalocytes Cancelled 01/01/19 19:25 Stomatocytes Cancelled 01/01/19 19:25 [place] Bodies Cancelled 01/01/19 19:25 Daniel Cells Cancelled 01/01/19 19:25 Acanthocytes (Spur) Cancelled 01/01/19 19:25 Schistocytes Cancelled 01/01/19 19:25 Sodium 146 mmol/L (136-145) H 01/03/19 08:00 Potassium 3.9 mmol/L (3.5-5.1) 01/03/19 08:00 Chloride 110 mmol/L (98-107) H 01/03/19 08:00 Carbon Dioxide 25.7 mmol/L (21.0-32.0) 01/03/19 08:00 Anion Gap 10.3 mmol/L (3-11) 01/03/19 08:00 BUN 30 mg/dL (7-18) H 01/03/19 08:00 Creatinine 0.96 mg/dL (0.70-1.30) 01/03/19 08:00 Estimated GFR/1.73 m2 >= 60.00 (mL/min/1.73m2) 01/03/19 08:00 Glucose 93 mg/dL (70-100) 01/03/19 08:00 Calcium 8.4 mg/dL (8.5-10.1) L 01/03/19 08:00 Total Bilirubin 0.5 mg/dL (0.2-1.0) 01/03/19 08:00 AST 14 U/L (15-37) L 01/03/19 08:00 ALT 14 U/L (12-78) 01/03/19 08:00 Alkaline Phosphatase 92 U/L (46-116) 01/03/19 08:00 Total Protein 6.1 g/dL (6.4-8.2) L 01/03/19 08:00 Albumin 2.9 g/dL (3.4-5.0) L 01/03/19 08:00
[2019-01-04 07:50] VITALS: BP 132/75; PULSE 73; RESP 20; TEMP 36.6; O2SAT 96
--- NOTE | 2019-01-04 09:21 | PGE_ITS ---
Date of Service Date of service: 01/04/19 Time of Service: 09:18 Assessment and Plan (1) SBO (small bowel obstruction): Start date: 01/04/19 Start time: 09:20 Current visit: No Status: Acute pt symptoms have resolved denies N/V tolerating liquids will advance poss dc today Subjective Patient reports: no new complaints, feels better, pain is less, tolerating liquids well and voiding w/o difficulty Interval history since last seen: SBO seems to have resolved Exam Const General: cooperative Nutritional Appearance: average body habitus Orientation: alert, awake and oriented x3 GI Inspection: normal to inspection and distended Palpation: soft Percussion: normal to percussion Auscultation: normal bowel sounds Objective Objective Clinical Data: Vital Signs Temperature 36.6 C 01/04/19 07:50 Temperature Source Tympanic 01/04/19 07:50 Pulse 73 01/04/19 07:50 Pulse Rhythm Regular 01/03/19 20:05 Respiratory Rate 20 01/04/19 07:50 Respiratory Effort Non-Labored 01/03/19 20:05 Respiratory Depth Normal 01/03/19 20:05 Respiratory Pattern Normal 01/03/19 20:05 Blood Pressure 132/75 01/04/19 07:50 Blood Pressure Position Sitting 01/01/19 19:13 Pulse Oximetry 96 01/04/19 07:50 Oxygen Delivery Method Room Air 01/04/19 07:50 Oxygen Flow Rate 0 01/04/19 07:50 Pain Level 2 01/04/19 02:17 Intake & Output 01/03/19 01/03/19 01/04/19 11:59 23:59 11:59 Intake Total 1998.167 / 3649.167 1650 / 3649.167 1200 / 1200 Output Total 350 / 650 300 / 650 200 / 200 Balance 1649.167 / 2999.167 1350 / 2999.167 1000 / 1000 Intake: IV 1998.167 / 3049.167 1050 / 3049.167 1000 / 1000 Oral 600 / 600 200 / 200 Output: Urine 200 / 500 300 / 500 200 / 200 Emesis 150 / 150 Other: Urine Color Light Annie Light Annie Yellow Dark Annie Urine Appearance Clear Clear Urine Odor None Normal Comment Void x1 in the urinal. Emesis Description Bile Clear/Water Voiding Methods Urinal Urinal Laboratory Results WBC 6.06 k/cumm (4.4-10.8) 01/03/19 08:00 RBC 4.84 m/cumm (4.50-6.00) 01/03/19 08:00 Hgb 14.1 g/dL (13.5-17.5) 01/03/19 08:00 Hct 43.7 % (40.0-50.0) 01/03/19 08:00 MCV 90.3 fL (80-95) 01/03/19 08:00 MCH 29.1 pg (27.0-33.0) 01/03/19 08:00 MCHC 32.3 g/dL (32.0-36.0) 01/03/19 08:00 RDW 13.7 % (11.8-14.1) 01/03/19 08:00 Plt Count 210 x1000/uL (130-400) 01/03/19 08:00 MPV 9.9 fL (8.0-11.0) 01/03/19 08:00 Abs Immat Gran (auto) Cancelled 01/01/19 19:25 Immature Gran % 0.2 01/03/19 08:00 Neutrophils % 68.5 01/03/19 08:00 Band Neutrophils % Cancelled 01/01/19 19:25 Lymphocytes % 17.3 01/03/19 08:00 Atypical Lymphs % Cancelled 01/01/19 19:25 Monocytes % 13.5 01/03/19 08:00 Eosinophils % 0.3 01/03/19 08:00 Basophils % 0.2 01/03/19 08:00 Absolute Neutrophils 4.15 k/cumm (1.2-6.7) 01/03/19 08:00 Absolute Lymphocytes 1.05 k/cumm (1.2-3.4) L 01/03/19 08:00 Absolute Monocytes 0.82 k/cumm (0.11-0.7) H 01/03/19 08:00 Absolute Eosinophils 0.02 k/cumm (0.0-0.7) 01/03/19 08:00 Absolute Basophils 0.01 k/cumm (0.0-0.2) 01/03/19 08:00 Metamyelocytes Cancelled 01/01/19 19:25 Myelocytes Cancelled 01/01/19 19:25 Promyelocytes Cancelled 01/01/19 19:25 Nucleated RBCs Cancelled 01/01/19 19:25 Differential Comment Cancelled 01/01/19 19:25 Other Cell Type Cancelled 01/01/19 19:25 RBC Morphology Cancelled 01/01/19 19:25 Polychromasia Cancelled 01/01/19 19:25 Hypochromasia Cancelled 01/01/19 19:25 Poikilocytosis Cancelled 01/01/19 19:25 Basophilic Stippling Cancelled 01/01/19 19:25 Anisocytosis Cancelled 01/01/19 19:25 Microcytosis Cancelled 01/01/19 19:25 Macrocytosis Cancelled 01/01/19 19:25 Spherocytes Cancelled 01/01/19 19:25 Target Cells Cancelled 01/01/19 19:25 Tear Drop Cells Cancelled 01/01/19 19:25 Ovalocytes Cancelled 01/01/19 19:25 Stomatocytes Cancelled 01/01/19 19:25 [place] Bodies Cancelled 01/01/19 19:25 [place] Cells Cancelled 01/01/19 19:25 Acanthocytes (Spur) Cancelled 01/01/19 19:25 Schistocytes Cancelled 01/01/19 19:25 Sodium 146 mmol/L (136-145) H 01/03/19 08:00 Potassium 3.9 mmol/L (3.5-5.1) 01/03/19 08:00 Chloride 110 mmol/L (98-107) H 01/03/19 08:00 Carbon Dioxide 25.7 mmol/L (21.0-32.0) 01/03/19 08:00 Anion Gap 10.3 mmol/L (3-11) 01/03/19 08:00 BUN 30 mg/dL (7-18) H 01/03/19 08:00 Creatinine 0.96 mg/dL (0.70-1.30) 01/03/19 08:00 Estimated GFR/1.73 m2 >= 60.00 (mL/min/1.73m2) 01/03/19 08:00 Glucose 93 mg/dL (70-100) 01/03/19 08:00 Calcium 8.4 mg/dL (8.5-10.1) L 01/03/19 08:00 Total Bilirubin 0.5 mg/dL (0.2-1.0) 01/03/19 08:00 AST 14 U/L (15-37) L 01/03/19 08:00 ALT 14 U/L (12-78) 01/03/19 08:00 Alkaline Phosphatase 92 U/L (46-116) 01/03/19 08:00 Total Protein 6.1 g/dL (6.4-8.2) L 01/03/19 08:00 Albumin 2.9 g/dL (3.4-5.0) L 01/03/19 08:00
--- NOTE | 2019-01-04 09:22 | DSE_ITS ---
Date of service: 01/04/19 Time of Service: 09:22 DS: Diagnosis Discharge Diagnosis (1) SBO (small bowel obstruction): Status: Acute Discharge Plan Disposition Patient Disposition: HOME Condition: Stable Discharge Details Chief Complaint: Abd Prob Clinical Impression: SBO (small bowel obstruction), Nausea and vomiting Reason For Visit: SMALL BOWEL OBSTRUCTION Admit Date/Time: 01/01/19 22:00 Admit Provider: Emy Nugent Attending Provider: Emy Nugent Primary Care Provider: Marco Antonio Villa ED Provider: Harleen Barron Hospital Course Hospital Course: Patient was admitted from the emergency department with signs and symptoms of a small bowel obstruction. Patient has a long history of multiple surgeries and multiple small bowel obstructions over the years since . Patient was instructed that he needed an NG tube upon admission and refused. Patient also was continuing to drink water while he was n.p.o. and was noncompliant with his treatment. Despite this activity the patient's condition improved with passing of gas and no longer having any nausea or vomiting. Patient was started on clear liquid diet which he tolerated well and advance this morning. Patient was instructed on his condition as well as the possibility for a need for surgery and a future NG tube if this were to recur patient is well aware and is refusing all other activities saying that the frequency is anywhere from 3-5 years that this happens to him and he is willing to indoor this type of symptoms. Patient CT was reviewed in total and there appears to be a transition point most likely consistent with adhesions. Patient to be discharged today with advancing of diet as tolerated at home. Patient to follow-up in the office in 2-3 weeks. Home Meds and New Rx's Prescriptions: Continued No Known Home Meds RF: 0 Discharge Instructions Referrals: Emy Nugent MD [ [facility] STAFF PHYSICIAN] - Activity:: Activity as Tolerated Equipment/Supplies:: No Equipment Needed Diet:: As Tolerated Discharge Orders Discharge Orders: Discharge Order (Routine); Ordered 01/04/19 Ordered By: Obdulio Soler III DS: Data Vitals/I&O Vitals and I&O: Vital Signs Temperature 36.6 C 01/04/19 07:50 Temperature Source Tympanic 01/04/19 07:50 Pulse 73 01/04/19 07:50 Pulse Rhythm Regular 01/03/19 20:05 Respiratory Rate 20 02/14/19 07:50 Respiratory Effort Non-Labored 01/03/19 20:05 Respiratory Depth Normal 01/03/19 20:05 Respiratory Pattern Normal 01/03/19 20:05 Blood Pressure 132/75 01/04/19 07:50 Blood Pressure Position Sitting 01/01/19 19:13 Pulse Oximetry 96 01/04/19 07:50 Oxygen Delivery Method Room Air 01/04/19 07:50 Oxygen Flow Rate 0 01/04/19 07:50 Pain Level 2 01/04/19 02:17 Intake & Output 01/03/19 01/03/19 01/04/19 11:59 23:59 11:59 Intake Total 1998.167 / 3649.167 1650 / 3649.167 1200 / 1200 Output Total 350 / 650 300 / 650 200 / 200 Balance 1649.167 / 2999.167 1350 / 2999.167 1000 / 1000 Intake: IV 1998.167 / 3049.167 1050 / 3049.167 1000 / 1000 Oral 600 / 600 200 / 200 Output: Urine 200 / 500 300 / 500 200 / 200 Emesis 150 / 150 Other: Urine Color Light Annie Light Annie Yellow Dark Annie Urine Appearance Clear Clear Urine Odor None Normal Comment Void x1 in the urinal. Emesis Description Bile Clear/Water Voiding Methods Urinal Urinal [facility] Medical History Small bowel obstruction (Acute) Congenital imperforate anus Undescended testicle, unilateral Surgical History Repair of inguinal hernia (02/02/18) Revision, Scar eye surgery imperforate anus repair Social History Smoking and Tabacco status: Current every day alcohol intake: never substance use type: does not use
--- NOTE | 2019-01-04 17:57 | PDOC.CMDIS ---
LACE Index Scoring Tool - Questions: Length of Stay (in days): 4 - 6 Acuity (Admit via E.D.?): Yes E.D. Visits: 3 - Answers: Total Score: 10 Risk of Readmission: High Risk Care Management Discharge Reason for Hospitalization: SBO Discharge Plan: Drake will return home when ready per MD. He will follow up with his plan of care as prescribed as well as Dr. Nugent and his PCP. He will transport via private vehicle with his . Patient/Family Education Needs: Review of discharge instructions, discuss Ask Me Three.
== END 2019-01-04 14:20 | disposition home or self-care (01) | DRG 390 ==
LOC: ER 22:47 → MS 23:20
PROVIDERS: Admitting Provider Surgery; Emergency Provider Physician Assistant; PCP Internal Medicine; Visit Provider Surgery
DX: K56.50 Intestinal adhesions [bands], unspecified as to partial versus complete obstruction (principal); R11.10 Vomiting, unspecified; Z91.19 Patient's noncompliance with other medical treatment and regimen; F17.210 Nicotine dependence, cigarettes, uncomplicated; Z98.890 Other specified postprocedural states
CPT/HCPCS: 36415; 80053; 96361; 96372; 96374; 96375; 99223; 99232; 99285; J1650; NC; 74177; 85025; G0378; J1885; J2270; J2405; J3490

== ENCOUNTER 2019-01-10 18:11 | Inpatient (IN) | payer MEDICAID, SELFPAY ==
[2019-01-10 18:14] VITALS: BP 113/76; PULSE 100; RESP 14; TEMP 36.3; O2SAT 96
--- NOTE | 2019-01-10 18:42 | DI.CT_ITS ---
SYMPTOM/DIAGNOSIS: ABD PAIN, H/O SMALL BOWEL OBSTRUCTION ABDOMEN AND PELVIC CT: CT scan of the abdomen and pelvis was performed following the uneventful administration of intravenous and oral contrast. Comparison is made with 01/01/19. There is dependent atelectasis in the lung bases, right greater than left. The liver is normal in size. No suspicious hepatic mass is seen. The portal, superior mesenteric and splenic veins are patent. The gallbladder is negative. No biliary ductal dilatation is seen. The pancreas, spleen and adrenal glands are unremarkable. The kidneys show no evidence of obstruction or inflammation. The urinary bladder is intact. The reproductive organs appear grossly unremarkable. The aorta is of normal caliber. No significant abdominal or pelvic adenopathy or pneumoperitoneum is seen. There is a trace amount of perihepatic and pelvic ascites present. There are markedly dilated loops of small bowel proximally. The distal small bowel is of normal caliber as is the colon. There is a normal appendix present. IMPRESSION: Findings suggestive of small bowel obstruction.
[2019-01-10] MEDS: Normal Saline 1,000 ML 1000 ML IV (19:10)
[2019-01-10 19:26] LABS: Abs Immature Grans 0.04 k/cumm (0.0-0.09); Absolute Basophil Count 0.04 k/cumm (0.0-0.2); Absolute Eosinophil Count 0.48 k/cumm (0.0-0.7); Absolute Monocyte Count 1.23 k/cumm (0.11-0.7); Basophils % 0.3; Eosinophils % 3.8; HGB 15.7 g/dL (13.5-17.5); Immature Grans % 0.3; Lymphocytes % 15.8; Mean Corp. HGB Concentration 33.4 g/dL (32.0-36.0); Mean Corpuscular Hemoglobin 29.3 pg (27.0-33.0); Mean Corpuscular Volume 87.9 fL (80-95); Mean Platelet Volume 9.6 fL (8.0-11.0); Monocytes % 9.7; Neutrophils % 70.1; Platelet Count 293 x1000/uL (130-400); RBC 5.35 m/cumm (4.50-6.00); RBC Distribution Width 13.8 % (11.8-14.1); White Blood Cell Count 12.65 k/cumm (4.4-10.8)
[2019-01-10 19:27] LABS: Absolute Neutrophil Count 8.87 k/cumm (1.2-6.7)
[2019-01-10 19:44] LABS: ALT 57 U/L (12-78); AST 25 U/L (15-37); Albumin 3.4 g/dL (3.4-5.0); Alkaline Phosphatase 114 U/L (46-116); Anion Gap 11.1 mmol/L (3-11); BUN 17 mg/dL (7-18); Bilirubin, Total 0.4 mg/dL (0.2-1.0); CO2 28.9 mmol/L (21.0-32.0); CREATININE 0.91 mg/dL (0.70-1.30); Calcium 9.1 mg/dL (8.5-10.1); Chloride 103 mmol/L (98-107); Glucose 101 mg/dL (70-100); Lipase 53 U/L (73-393); Potassium 4.2 mmol/L (3.5-5.1); Sodium 143 mmol/L (136-145); Total Protein 7.3 g/dL (6.4-8.2)
[2019-01-10] MEDS: Breeza Beverage 473 ML BTL PO (20:29)
[2019-01-10] MEDS: Omnipaque 350 MG/ML 100 ML BTL IJ (20:30)
[2019-01-10 21:24] LABS: Bilirubin Small (Negative); Blood Negative (Negative); Clarity Clear; Glucose Negative (Negative); Ketones 40 mg/dL (Negative); Leukocyte Esterase Negative (Negative); Nitrite Negative (Negative); pH 6.5 (5-8)
[2019-01-10 21:29] LABS: Bacteria Rare HPF (Negative); C & S Indicated? No; Casts Negative LPF (Negative); Crystals Negative HPF (Negative); Epithelial Cells Rare HPF (Negative); Mucus Negative (Negative); RBC 0-2 (0-2); WBC 0-2 HPF (0-5)
[2019-01-10] MEDS: Omnipaque 350 MG/ML 50 ML BTL IJ (21:36)
[2019-01-10 22:01] VITALS: BP 152/92; PULSE 73; RESP 16; TEMP 36.6; O2SAT 96
[2019-01-10 22:04] VITALS: O2SAT 96
--- NOTE | 2019-01-10 22:07 | DI.VRAD_ITS ---
EXAM: CT Abdomen and Pelvis With Contrast EXAM DATE/TIME: 01/10/2019 6:43 PM CLINICAL HISTORY: 53 years old, male; Signs and symptoms; Bloating; Additional info: HX sbo x1week ago TECHNIQUE: Axial computed tomography images of the abdomen and pelvis with intravenous contrast. All CT scans at this facility use at least one of these dose optimization techniques: automated exposure control; mA and/or kV adjustment per patient size (includes targeted exams where dose is matched to clinical indication); or iterative reconstruction. Coronal and sagittal reformatted images were created and reviewed. CONTRAST: Contrast Material: 97 ml of [id number]; Contrast Route: iv COMPARISON: CT ABDOMEN PELVIS W 01/01/2019 9:07 PM FINDINGS: Lower thorax: Minimal dependent atelectasis. ABDOMEN: Liver: No suspicious lesions. Gallbladder and bile ducts: No acute or concerning findings. Pancreas: Unremarkable. No ductal dilation. Spleen: No suspicious lesions. Adrenals: Unremarkalbe. No suspicious mass. Kidneys and ureters: Unremarkable. No hydro. No suspicious lesions. Stomach and bowel: Proximal small bowel loops are very dilated. There are air fluid levels. Distal small bowel loops are decompressed. Appendix: No evidence of appendicitis. PELVIS: Bladder: Unremarkable as visualized. Reproductive: Unremarkable as visualized. ABDOMEN and PELVIS: Intraperitoneal space: No free air. No significant fluid collection. Bones/joints: No acute fracture. No dislocation. Soft tissues: Unremarkable. Vasculature: Unremarkable. No acute findings Lymph nodes: Unremarkable. IMPRESSION: Small bowel obstruction, most likely from adhesions. Dictated and Authenticated by: Marco Antonio Lerner MD. Ordering:SHA Rosales MD
--- NOTE | 2019-01-10 22:33 | ED.GENADUL_ITS ---
Discharge Plan Disposition Patient Disposition: [facility] INPATIENT Condition: Stable Discharge Details Chief Complaint: Abd Prob Clinical Impression: SBO (small bowel obstruction), Left lower quadrant pain, Nausea and vomiting Reason For Visit: SBO Admit Date/Time: 01/10/19 22:34 Admit Provider: Shani Bynum Attending Provider: Shani Bynum Primary Care Provider: Marco Antonio Villa ED Provider: Bobby Jeffries Discharge Data Discharge Date/Time-TO BE ENTERED AT DEPARTURE: 01/11/19 00:40 Medical Decision Making Patient presenting the emergency department for chief complaint of abdominal pain for the past 2 days. Patient states long ongoing history of small bowel obstructions due to multiple adhesions from surgeries he had as a child. Patient states similar presentation to other episodes that he has been having f or 30 years. Patient states some nausea and vomiting subsided this morning. Patient denies any fever chills, and states he is passing gas. Abdominal is diffusely tender with more tenderness in the left lower quadrant, no CVA tenderness, normal cardiac and respiratory examination, hyperactive bowel sounds in all 4 quadrants. Patient does state that pain is intermittent. Plan to do labs and repeat CT imaging with oral contrast. Pending results patient given IV fluids, Phenergan, and morphine for pain. Review of labs shows nonspecific leukocytosis without bandemia, no lipase elevation, nondiagnostic CMP. CT scan shows small bowel obstruction with concern for adhesion. General surgeon was called and agreed to have patient admitted and placed orders. Patient is agreeable to this plan. HPI General Mode of arrival: ambulatory . Date/Time Provider Initiated Documentation: 01/10/19 18:24 . Limitations to Documentation: no limitations . Information obtained by: patient and RN notes reviewed . History of Present Illness 53 year old M presents to the emergency department with the chief complaint of abd pain, described as similar to prior episodes, with intensity rated at 8. Quality is described as sharp, and is localized to the abdomen. Patient started experiencing this day(s) (2) and it has been intermittent. Patient notes no other symptoms.. Patient did receive the following treatments prior to arrival, none Related Data Home Medications Medication Instructions Recorded Confirmed Unknown [No Known Home Meds] 05/17/18 01/11/19 ibuprofen See Rx Instructions .ROUTE 01/11/19 01/11/19 .COMPLEX PRN Allergies Allergy/AdvReac Type Severity Reaction Status Date / Time No Known Allergies Allergy Unverified 05/28/18 10:32 General Stated Complaint: Abd Prob CHAVO: 3 Review of Systems Constitutional Denies chills, Denies fever(s) and Reports poor appetite Cardiovascular Denies chest pain and Denies dyspnea Respiratory Denies cough and Denies dyspnea Gastrointestinal Reports as per HPI, Reports abdominal pain, Denies melena, Denies change in bowel habits, Denies constipation, Denies diarrhea, Reports nausea and Reports vomiting Genitourinary Denies hematuria, Denies difficulty urinating, Denies urinary hesitancy, Denies urinary incontinence and Denies urinary urgency Integumentary/Breasts Denies rash [facility] Medical History Small bowel obstruction (Acute) Congenital imperforate anus Undescended testicle, unilateral Surgical History Repair of inguinal hernia (02/02/18) Revision, Scar eye surgery imperforate anus repair Social History Smoking and Tabacco status: Current every day alcohol intake: never substance use type: does not use Exam Const General: cooperative Orientation: alert, awake and oriented x3 Resp Effort & Inspection: normal respiratory effort and able to speak in complete sentences Auscultation: clear to auscultation bilaterally Cardio Rate: regular rate Rhythm: regular rhythm Heart Sounds: S1 normal and S2 normal GI Palpation: soft, no hepatosplenomegaly, not firm, no guarding, no masses, no pulsatile masses, not rigid, no splenomegaly and tender in the LLQ and other (difuse) Auscultation: hyperactive bowel sounds Back/Spine/Pelvis Back: no CVA tenderness Neuro General: alert, awake, oriented x3, gait normal and moves all extremities Course Vital Signs Temperature 36.3 C L 01/10/19 18:14 Pulse 100 H 01/10/19 18:14 Respiratory Rate 14 01/10/19 18:14 Blood Pressure 113/76 01/10/19 18:14 Pulse Oximetry 96 01/10/19 18:14 Temperature 36.6 C 01/10/19 22:01 Temperature Source Skin 01/10/19 22:01 Pulse 73 01/10/19 22:01 Respiratory Rate 16 01/10/19 22:01 Respiratory Effort Non-Labored 01/10/19 18:16 Blood Pressure 152/92 H 01/10/19 22:01 Blood Pressure Position Sitting 01/10/19 18:14 Pulse Oximetry 96 01/10/19 22:04 Oxygen Delivery Method Room Air 01/10/19 22:01 Oxygen Flow Rate 0 01/10/19 22:01 Pain Level 3 01/10/19 18:14 Lab/Test Results Lab/Test Results: Laboratory Tests Range/Units 01/10/19 01/10/19 01/10/19 19:10 19:10 19:10 WBC (4.4-10.8) k/cumm 12.65 H RBC (4.50-6.00) m/cumm 5.35 Hgb (13.5-17.5) g/dL 15.7 Hct (40.0-50.0) % 47.0 MCV (80-95) fL 87.9 MCH (27.0-33.0) pg 29.3 MCHC (32.0-36.0) g/dL 33.4 RDW (11.8-14.1) % 13.8 Plt Count (130-400) x1000/uL 293 MPV (8.0-11.0) fL 9.6 Immature Gran % 0.3 Neutrophils % 70.1 Lymphocytes % 15.8 Monocytes % 9.7 Eosinophils % 3.8 Basophils % 0.3 Absolute Neutrophils (1.2-6.7) k/cumm 8.87 H Absolute Lymphocytes (1.2-3.4) k/cumm 2.00 Absolute Monocytes (0.11-0.7) k/cumm 1.23 H Absolute Eosinophils (0.0-0.7) k/cumm 0.48 Absolute Basophils (0.0-0.2) k/cumm 0.04 Sodium (136-145) mmol/L 143 Potassium (3.5-5.1) mmol/L 4.2 Chloride (98-107) mmol/L 103 Carbon Dioxide (21.0-32.0) mmol/L 28.9 Anion Gap (3-11) mmol/L 11.1 H BUN (7-18) mg/dL 17 Creatinine (0.70-1.30) mg/dL 0.91 Estimated GFR/1.73 m2 (mL/min/1.73m2) >= 60.00 Glucose (70-100) mg/dL 101 H Lactate (0.6-1.4) mmol/L 1.0 Calcium (8.5-10.1) mg/dL 9.1 Total Bilirubin (0.2-1.0) mg/dL 0.4 AST (15-37) U/L 25 ALT (12-78) U/L 57 Alkaline Phosphatase (46-116) U/L 114 Total Protein (6.4-8.2) g/dL 7.3 Albumin (3.4-5.0) g/dL 3.4 Lipase (73-393) U/L 53 L Urine Color (Yellow) Urine Clarity Urine pH (5-8) Ur Specific Brandt (1.005-1.025) Urine Protein (Negative) mg/dL Urine Ketones (Negative) mg/dL Urine Blood (Negative) Urine Nitrite (Negative) Urine Bilirubin (Negative) Urine Urobilinogen (Up TO 0.2) EU/dL Ur Leukocyte Esterase (Negative) Urine RBC (0-2) Urine WBC (0-5) HPF Ur Epithelial Cells (Negative) HPF Urine Crystals (Negative) HPF Urine Bacteria (Negative) HPF Urine Casts (Negative) LPF Urine Mucus (Negative) Ur Culture Indicated? Urine Glucose (Negative) mg/dL Range/Units 01/10/19 21:05 WBC (4.4-10.8) k/cumm RBC (4.50-6.00) m/cumm Hgb (13.5-17.5) g/dL Hct (40.0-50.0) % MCV (80-95) fL MCH (27.0-33.0) pg MCHC (32.0-36.0) g/dL RDW (11.8-14.1) % Plt Count (130-400) x1000/uL MPV (8.0-11.0) fL Immature Gran % Neutrophils % Lymphocytes % Monocytes % Eosinophils % Basophils % Absolute Neutrophils (1.2-6.7) k/cumm Absolute Lymphocytes (1.2-3.4) k/cumm Absolute Monocytes (0.11-0.7) k/cumm Absolute Eosinophils (0.0-0.7) k/cumm Absolute Basophils (0.0-0.2) k/cumm Sodium (136-145) mmol/L Potassium (3.5-5.1) mmol/L Chloride (98-107) mmol/L Carbon Dioxide (21.0-32.0) mmol/L Anion Gap (3-11) mmol/L BUN (7-18) mg/dL Creatinine (0.70-1.30) mg/dL Estimated GFR/1.73 m2 (mL/min/1.73m2) Glucose (70-100) mg/dL Lactate (0.6-1.4) mmol/L Calcium (8.5-10.1) mg/dL Total Bilirubin (0.2-1.0) mg/dL AST (15-37) U/L ALT (12-78) U/L Alkaline Phosphatase (46-116) U/L Total Protein (6.4-8.2) g/dL Albumin (3.4-5.0) g/dL Lipase (73-393) U/L Urine Color (Yellow) Yellow Urine Clarity Clear Urine pH (5-8) 6.5 Ur Specific Brandt (1.005-1.025) 1.020 Urine Protein (Negative) mg/dL Trace H Urine Ketones (Negative) mg/dL 40 H Urine Blood (Negative) Negative Urine Nitrite (Negative) Negative Urine Bilirubin (Negative) Small H Urine Urobilinogen (Up TO 0.2) EU/dL 1.0 H Ur Leukocyte Esterase (Negative) Negative Urine RBC (0-2) 0-2 Urine WBC (0-5) HPF 0-2 Ur Epithelial Cells (Negative) HPF Rare Urine Crystals (Negative) HPF Negative Urine Bacteria (Negative) HPF Rare Urine Casts (Negative) LPF Negative Urine Mucus (Negative) Negative Ur Culture Indicated? No Urine Glucose (Negative) mg/dL Negative
[2019-01-10 23:01] VITALS: BP 142/89; PULSE 57
[2019-01-11 00:05] LABS: Magnesium 2.2 mg/dL (1.8-2.4)
[2019-01-11] MEDS: MORPHine 10 MG/ML VIAL 4 MG IVP (00:20)
[2019-01-11] MEDS: Normal Saline Flush 10 ML SYR IVP (00:21)
[2019-01-11 00:48] VITALS: BP 119/71; PULSE 67; RESP 18; TEMP 37.1; O2SAT 95
--- NOTE | 2019-01-11 00:51 | NUR.NOTE ---
Nursing Note: Patient arrived to floor in stable condition. HELMET BINDER assisting with admission.
[2019-01-11] MEDS: Lactated Ringers 1,000 ML 125 ML IV ×3 (01:14→18:35)
[2019-01-11] MEDS: FAMOTIDINE 20 MG/50 ML BAG 200 MG IVPB ×2 (01:14→22:57)
[2019-01-11 02:03] VITALS: BP 125/86; PULSE 75; RESP 16; TEMP 36.5; O2SAT 96
[2019-01-11 07:18] LABS: Platelet Count 251 x1000/uL (130-400)
[2019-01-11 07:35] VITALS: BP 116/75; PULSE 73; RESP 16; TEMP 36.5; O2SAT 94
[2019-01-11 07:37] LABS: Anion Gap 9.4 mmol/L (3-11); BUN 15 mg/dL (7-18); CO2 26.6 mmol/L (21.0-32.0); CREATININE 0.81 mg/dL (0.70-1.30); Calcium 8.5 mg/dL (8.5-10.1); Chloride 106 mmol/L (98-107); Glucose 80 mg/dL (70-100); Potassium 4.4 mmol/L (3.5-5.1); Sodium 142 mmol/L (136-145)
--- NOTE | 2019-01-11 08:36 | DI.RAD_ITS ---
SYMPTOMS/DIAGNOSIS: SMALL BOWEL OBSTRUCTION, RECURRENT FLAT AND UPRIGHT ABDOMEN: There are again seen dilated loops of small bowel with fluid levels present. The contrast has passed into the colon. No pneumoperitoneum or organomegaly is seen. The visualized lung bases are clear. Degenerative changes are seen in the spine. There is contrast seen in the urinary bladder. IMPRESSION: The oral contrast has advanced into the colon. The findings may represent a partial obstruction vs ileus.
--- NOTE | 2019-01-11 08:58 | W.PM.HP.N ---
Date of service: 01/11/19 Time of Service: 08:59 Assessment and Plan (1) SBO (small bowel obstruction): Current visit: Yes Status: Acute -pt has a hx of intermittent SBO secondary to sx as child. currently feeling better. wants to eat- try sips and chips. if has bm can progress to cl liq ambulate -still signif obs on xray today in sm bowl- but does have contrast in colon. repeat xray in am -supportive care pt has a long standing hx of SBO. Pt also has a hx of medical non compliance. He was in last week w/ SBO. He refused an NGT. When he couldn't get narcotics he left ama. He returns b/c of continuing n/v. Review of Systems Review of Systems All systems reviewed & are unremarkable except as noted in HPI and below ENT Reports system reviewed and no additional complaints, except as docu Comments: + glasses Cardiovascular Reports system reviewed and no additional complaints, except as docu Respiratory Reports system reviewed and no additional complaints, except as docu Gastrointestinal Comments: last pm very distended and bloated. +N/V. today he is passing some gas. no pain. he has not had bm yet. Genitourinary Comments: no pain or burning w/ urination. no blood Endocrine Comments: no DM PFSH Medical History Small bowel obstruction (Acute) Congenital imperforate anus Undescended testicle, unilateral Surgical History Repair of inguinal hernia (02/02/18) Revision, Scar eye surgery imperforate anus repair Social History Smoking and Tabacco status: Current every day alcohol intake: never substance use type: does not use Meds Home Medications Medication Instructions Recorded Confirmed Type Unknown [No Known Home Meds] 05/17/18 01/11/19 History ibuprofen See Rx Instructions .ROUTE 01/11/19 01/11/19 History .COMPLEX PRN Allergies Allergy/AdvReac Type Severity Reaction Status Date / Time No Known Allergies Allergy Unverified 05/28/18 10:32 Exam Const General: cooperative, healthy appearing, no acute distress and well developed Nutritional Appearance: average body habitus and well nourished Orientation: alert and oriented x3 HENMT Head: normal to inspection Teeth and gingiva: dentition normal Eyes Conjunctivae: conjunctivae normal Sclera: sclerae normal Chest Chest: normal inspection of the chest Resp Effort & Inspection: normal respiratory effort Auscultation: clear to auscultation bilaterally Cardio Palpation: normal PMI Rate: regular rate Rhythm: regular rhythm GI Inspection: normal to inspection and scar (pot sx changes noted. no hernias.) Palpation: soft, no hepatosplenomegaly, no hernias and no masses Auscultation: normal bowel sounds Skin General skin exam: no rashes or lesions noted Hair: normal Extrem General: normal to inspection, full ROM and no clubbing, cyanosis or edema Results Labs : 01/11/19 06:58 01/11/19 06:58 Laboratory Results - last 24 hr 01/10/19 01/10/19 01/10/19 19:01 19:10 19:10 WBC RBC Hgb Hct MCV MCH MCHC RDW Plt Count MPV Immature Gran % Neutrophils % Lymphocytes % Monocytes % Eosinophils % Basophils % Absolute Neutrophils Absolute Lymphocytes Absolute Monocytes Absolute Eosinophils Absolute Basophils Sodium 143 Potassium 4.2 Chloride 103 Carbon Dioxide 28.9 Anion Gap 11.1 H BUN 17 Creatinine 0.91 Estimated GFR/1.73 m2 >= 60.00 Glucose 101 H Lactate 1.0 Calcium 9.1 Magnesium 2.2 Total Bilirubin 0.4 AST 25 ALT 57 Alkaline Phosphatase 114 Total Protein 7.3 Albumin 3.4 Lipase 53 L Urine Color Urine Clarity Urine pH Ur Specific Nicholson Urine Protein Urine Ketones Urine Blood Urine Nitrite Urine Bilirubin Urine Urobilinogen Ur Leukocyte Esterase Urine RBC Urine WBC Ur Epithelial Cells Urine Crystals Urine Bacteria Urine Casts Urine Mucus Ur Culture Indicated? Urine Glucose 01/10/19 01/10/19 01/11/19 19:10 21:05 06:58 WBC 12.65 H RBC 5.35 Hgb 15.7 Hct 47.0 MCV 87.9 MCH 29.3 MCHC 33.4 RDW 13.8 Plt Count 293 MPV 9.6 Immature Gran % 0.3 Neutrophils % 70.1 Lymphocytes % 15.8 Monocytes % 9.7 Eosinophils % 3.8 Basophils % 0.3 Absolute Neutrophils 8.87 H Absolute Lymphocytes 2.00 Absolute Monocytes 1.23 H Absolute Eosinophils 0.48 Absolute Basophils 0.04 Sodium Potassium Chloride Carbon Dioxide Anion Gap BUN Creatinine Estimated GFR/1.73 m2 Glucose Lactate Calcium Magnesium 2.0 Total Bilirubin AST ALT Alkaline Phosphatase Total Protein Albumin Lipase Urine Color Yellow Urine Clarity Clear Urine pH 6.5 Ur Specific Nicholson 1.020 Urine Protein Trace H Urine Ketones 40 H Urine Blood Negative Urine Nitrite Negative Urine Bilirubin Small H Urine Urobilinogen 1.0 H Ur Leukocyte Esterase Negative Urine RBC 0-2 Urine WBC 0-2 Ur Epithelial Cells Rare Urine Crystals Negative Urine Bacteria Rare Urine Casts Negative Urine Mucus Negative Ur Culture Indicated? No Urine Glucose Negative 01/11/19 01/11/19 06:58 06:58 WBC RBC Hgb Hct MCV MCH MCHC RDW Plt Count 251 MPV Immature Gran % Neutrophils % Lymphocytes % Monocytes % Eosinophils % Basophils % Absolute Neutrophils Absolute Lymphocytes Absolute Monocytes Absolute Eosinophils Absolute Basophils Sodium 142 Potassium 4.4 Chloride 106 Carbon Dioxide 26.6 Anion Gap 9.4 BUN 15 Creatinine 0.81 Estimated GFR/1.73 m2 >= 60.00 Glucose 80 Lactate Calcium 8.5 Magnesium Total Bilirubin AST ALT Alkaline Phosphatase Total Protein Albumin Lipase Urine Color Urine Clarity Urine pH Ur Specific Nicholson Urine Protein Urine Ketones Urine Blood Urine Nitrite Urine Bilirubin Urine Urobilinogen Ur Leukocyte Esterase Urine RBC Urine WBC Ur Epithelial Cells Urine Crystals Urine Bacteria Urine Casts Urine Mucus Ur Culture Indicated? Urine Glucose Last Vital Signs Temp 36.5 C 01/11/19 07:35 Pulse 73 01/11/19 07:35 Resp 16 01/11/19 07:35 BP 116/75 01/11/19 07:35 Pulse Ox 94 L 01/11/19 07:35
--- NOTE | 2019-01-11 09:23 | NUR.NOTE ---
Nursing Note: patient declined to receive his ordered enoxaparin. He was given information r/t benefits and risks of medication, he refused a second time. no further intervention at this time
[2019-01-11 11:43] VITALS: BP 132/75; PULSE 65; RESP 18; TEMP 36.5; O2SAT 98
--- NOTE | 2019-01-11 13:51 | PDOC.CMIN ---
Care Management Initial Assess REASON FOR HOSPITALIZATION:: SBO PAST MEDICAL HISTORY/PAST SURGICAL HISTORY:: congenital imperforate anus, undescended testicle unilateral, cataracts, hernia repair, rt eye surgery, revision scar, hx of SBO PREVIOUS FUNCTIONAL STATUS/SOCIAL/FAMILY SUPPORTS:: Bebeto resides with his , Юлия and their daughter in [place], [place]. 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 He reports a long history of bowel issues and reports feeling confident in managing his needs. CURRENT FUNCTIONAL STATUS:: Drake was lying in bed when CM met with him. He shared concerns around changes in treatment upon admission. He stated he has had recurrent symptoms and SBO since 2008, and has always responded well to IV Morphine and was usually home within fourty eight hours as he reports the Morphine relaxed his bowels enough to move. He reported now he is being given alternative medications that do not manage his pain as the MD is stating morphine has been found to slow down bowel movement and cause constipation. He states he is an active citizen and not a drug seeker but feels his recovery is being delayed by changes in treatment approach. ADVANCE DIRECTIVES:: None on file. Has patient been provided with information about the portal?: Yes Did the patient sign up for the portal?: No CODE STATUS:: Full Code INSURANCE COVERAGE / FINANCIAL ISSUES:: Medicaid CURRENT HOME/COMMUNITY SERVICES/EQUIPMENT:: No current equipment or services. PRIMARY CARE PHYSICIAN:: Marco Antonio Villa MD: [facility] POTENTIAL DISCHARGE NEEDS:: Follow up appointments. PATIENT/FAMILY EDUCATION NEEDS:: Review discharge instructions, follow up plan of care. ANTICIPATED BARRIERS TO DISCHARGE:: None identifed. TRANSPORTATION:: Via private vehicle with his . PLAN:: Bebeto will return home when ready per MD. He will follow up with his plan of care as prescribed. He will transport via private vehicle with his . Readmission - Within the Past 30 Days Yes or No: Y - Date of First Admission Date of 1st Admission: 01/01/19 - Date of this Admission Date of Admission: 01/10/19 This admission was: Through ED - Office Visit Since 1st Admission Have you seen your PCP in the office since discharge?: No Had an appointment Been Scheduled?: No - Ask the Care Team Members: What do you think caused the patient to be readmitted: Recurrence of symptoms, refusal of NGT. - ED visits How many ED visits in the past 12 months: 4 - Assessment for Readmission Summary of readmission circumstances, based upon interviews: RECURRENCE OF SYMPTOMS Drake was lying in bed when CM met with him. He shared concerns around changes in treatment upon admission. He stated he has had recurrent symptoms and SBO since 2008, and has always responded well to IV Morphine and was usually home within fourty eight hours as he reports the Morphine relaxed his bowels enough to move. He reported now he is being given alternative medications that do not manage his pain as the MD is stating morphine has been found to slow down bowel movement and cause constipation. He states he is an active citizen and not a drug seeker but feels his recovery is being delayed by changes in treatment approach.
--- NOTE | 2019-01-11 14:29 | INITIAL_ITS ---
Care Management Initial Assess REASON FOR HOSPITALIZATION:: SBO PAST MEDICAL HISTORY/PAST SURGICAL HISTORY:: congenital imperforate anus, undescended testicle unilateral, cataracts, hernia repair, rt eye surgery, revision scar, hx of SBO PREVIOUS FUNCTIONAL STATUS/SOCIAL/FAMILY SUPPORTS:: Bebeto resides with his , Юлия and their daughter in [place], [place]. 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 and is independent with all ADLs in the community. He reports a long history of bowel issues and reports feeling confident in managing his needs. CURRENT FUNCTIONAL STATUS:: Drake was lying in bed when CM met with him. He shared concerns around changes in treatment upon admission. He stated he has had recurrent symptoms and SBO since 2008, and has always responded well to IV Morphine and was usually home within fourty eight hours as he reports the Mor[place] ne relaxed his bowels enough to move. He reported now he is being given alternative medications that do not manage his pain as the MD is stating morphine has been found to slow down bowel movement and cause constipation. He states he is an active citizen and not a drug seeker but feels his recovery is being delayed by changes in treatment approach. ADVANCE DIRECTIVES:: None on file. Has patient been provided with information about the portal?: Yes Did the patient sign up for the portal?: No CODE STATUS:: Full Code INSURANCE COVERAGE / FINANCIAL ISSUES:: Medicaid CURRENT HOME/COMMUNITY SERVICES/EQUIPMENT:: No current equipment or services. PRIMARY CARE PHYSICIAN:: Marco Antonio Villa MD: [facility] POTENTIAL DISCHARGE NEEDS:: Follow up appointments. PATIENT/FAMILY EDUCATION NEEDS:: Review discharge instructions, follow up plan of care. ANTICIPATED BARRIERS TO DISCHARGE:: None identifed. TRANSPORTATION:: Via private vehicle with his . PLAN:: Bebeto will return home when ready per MD. He will follow up with his plan of care as prescribed. He will transport via private vehicle with his . Readmission - Within the Past 30 Days Yes or No: Y - Date of First Admission Date of 1st Admission: 01/01/19 - Date of this Admission Date of Admission: 01/10/19 This admission was: Through ED - Office Visit Since 1st Admission Have you seen your PCP in the office since discharge?: No Had an appointment Been Scheduled?: No - Ask the Care Team Members: What do you think caused the patient to be readmitted: Recurrence of symptoms, refusal of NGT. - ED visits How many ED visits in the past 12 months: 4 - Assessment for Readmission Summary of readmission circumstances, based upon interviews: RECURRENCE OF SYMPTOMS Drake was lying in bed when CM met with him. He shared concerns around changes in treatment upon admission. He stated he has had recurrent symptoms and SBO since 2008, and has always responded well to IV Morphine and was usually home within fourty eight hours as he reports the Morphine relaxed his bowels enough to move. He reported now he is being given alternative medications that do not manage his pain as the MD is stating morphine has been found to slow down bowel movement and cause constipation. He states he is an active citizen and not a drug seeker but feels his recovery is being delayed by changes in treatment approach.
[2019-01-11 17:10] VITALS: BP 142/81; PULSE 72; RESP 18; TEMP 36.6; O2SAT 95
[2019-01-11 18:35] LABS: CRP, High Sensitivity 5.95 mg/L
--- NOTE | 2019-01-12 | DI.RAD_ITS ---
SYMPTOM/DIAGNOSIS: RECURRENT SMALL BOWEL OBSTRUCTION ABDOMEN: Three views were obtained and show contrast material in the colon following contrast enhanced CT of 01/10. There is decreased prominence of small bowel dilatation although some dilatated small bowel loops persist, particularly in the left upper quadrant. CONCLUSION: Findings consistent with partial small bowel obstruction with improvement since 01/11.
--- NOTE | 2019-01-12 00:18 | NUR.NOTE ---
Nursing Note: Patient is on NPO yet insists to have atleast a popsicle to eat. Education given to patient regarding significance of NPO and being not allowed to have popsicle. Patient stated if you are not gonna allow me then i will just take this IV and go down to the vending machine Patient got out of bed and left his room going to the elevators. This RN and Charge Nurse Richard reminded him of his NPO status and that he is not allowed to leave the floor. He was given an option to sign AMA so he could leave. Patient did not want to call his at this late to get him. Patient went back to his room displeased. Patient refused to be hooked back to IV fluids. This RN will continue to monitor through out the night.
[2019-01-12 01:20] VITALS: BP 160/91; PULSE 74; RESP 18; TEMP 36.8; O2SAT 96
[2019-01-12 08:39] VITALS: BP 143/78; PULSE 68; RESP 20; TEMP 36.7; O2SAT 96
--- NOTE | 2019-01-12 10:18 | PGE_ITS ---
Date of Service Date of service: 01/12/19 Time of Service: 10:12 Assessment and Plan (1) SBO (small bowel obstruction): Current visit: Yes Status: Acute Recurrent partial small bowel obstruction. Discussed with patient that follow-up AXR this am shows improvement with some decreased distention of the small bowel and oral contrast throughout the colon. Discussed starting him on a clear liquid diet and slowly advancing to a regular diet as tolerated. Discussed that diet should be advanced slowly as liquids are likely to pass easier than solids. Discussed possible discharge 01/13/19 if he is able to tolerate a diet and have a bowel movement. Patient indicated that he is awaiting his 's arrival and intends to cut out today. We discussed that I would recommend the plan as outlined above but it is his decision if he wishes to leave against medical advice. Discussed with patient's nurse. Subjective Interval history since last seen: Patient is passing some flatus but no BM. Notes active bowel sounds. C/o headache. Refused IVF per nurse. AXR this am showed further passage of oral contrast into colon with some decreased small bowel distention. Films and report reviewed. Exam Const General: no acute distress Nutritional Appearance: well nourished Orientation: alert and oriented x3 Eyes Sclera: sclerae normal Resp Effort & Inspection: normal respiratory effort and able to speak in complete sentences GI Palpation: soft, not firm, no guarding, not rigid and nontender Auscultation: normal bowel sounds Skin General skin exam: no rashes or lesions noted and no jaundice Objective Objective Clinical Data: Vital Signs Temperature 36.7 C 01/12/19 08:39 Temperature Source Tympanic 01/12/19 08:39 Pulse 68 01/12/19 08:39 Pulse Rhythm Regular 01/12/19 02:18 Respiratory Rate 20 01/12/19 08:39 Respiratory Effort 01/12/19 02:18 Respiratory Depth Normal 01/12/19 02:18 Respiratory Pattern Normal 01/12/19 02:18 Blood Pressure 143/78 H 01/12/19 08:39 Blood Pressure Mean 104 01/10/19 23:01 Blood Pressure Position Sitting 01/10/19 18:14 Pulse Oximetry 96 01/12/19 08:39 Oxygen Delivery Method Room Air 01/12/19 08:39 Oxygen Flow Rate 0 01/12/19 08:39 Pain Level 0 01/11/19 11:43 Intake & Output 01/11/19 01/11/19 01/12/19 11:59 23:59 11:59 Intake Total 1050 / 2100 1050 / 2100 1570.834 / 1570.834 Output Total 340 / 340 1000 / 1000 Balance 1050 / 1760 710 / 1760 570.834 / 570.834 Weight 68 kg Intake: IV 1050 / 2100 1050 / 2100 1570.834 / 1570.834 Output: Urine 340 / 340 1000 / 1000 Other: Urine Color Light Annie Straw Urine Appearance Clear Clear Clear Urine Odor None Voiding Methods Diaper Urinal Laboratory Results WBC 12.65 k/cumm (4.4-10.8) H 01/10/19 19:10 RBC 5.35 m/cumm (4.50-6.00) 01/10/19 19:10 Hgb 15.7 g/dL (13.5-17.5) 01/10/19 19:10 Hct 47.0 % (40.0-50.0) 01/10/19 19:10 MCV 87.9 fL (80-95) 01/10/19 19:10 MCH 29.3 pg (27.0-33.0) 01/10/19 19:10 MCHC 33.4 g/dL (32.0-36.0) 01/10/19 19:10 RDW 13.8 % (11.8-14.1) 01/10/19 19:10 Plt Count 251 x1000/uL (130-400) 01/11/19 06:58 MPV 9.6 fL (8.0-11.0) 01/10/19 19:10 Immature Gran % 0.3 01/10/19 19:10 Neutrophils % 70.1 01/10/19 19:10 Lymphocytes % 15.8 01/10/19 19:10 Monocytes % 9.7 01/10/19 19:10 Eosinophils % 3.8 01/10/19 19:10 Basophils % 0.3 01/10/19 19:10 Absolute Neutrophils 8.87 k/cumm (1.2-6.7) H 01/10/19 19:10 Absolute Lymphocytes 2.00 k/cumm (1.2-3.4) 01/10/19 19:10 Absolute Monocytes 1.23 k/cumm (0.11-0.7) H 01/10/19 19:10 Absolute Eosinophils 0.48 k/cumm (0.0-0.7) 01/10/19 19:10 Absolute Basophils 0.04 k/cumm (0.0-0.2) 01/10/19 19:10 Sodium 142 mmol/L (136-145) 01/11/19 06:58 Potassium 4.4 mmol/L (3.5-5.1) 01/11/19 06:58 Chloride 106 mmol/L (98-107) 01/11/19 06:58 Carbon Dioxide 26.6 mmol/L (21.0-32.0) 01/11/19 06:58 Anion Gap 9.4 mmol/L (3-11) 01/11/19 06:58 BUN 15 mg/dL (7-18) 01/11/19 06:58 Creatinine 0.81 mg/dL (0.70-1.30) 01/11/19 06:58 Estimated GFR/1.73 m2 >= 60.00 (mL/min/1.73m2) 01/11/19 06:58 Glucose 80 mg/dL (70-100) 01/11/19 06:58 Lactate 1.0 mmol/L (0.6-1.4) 01/10/19 19:10 Calcium 8.5 mg/dL (8.5-10.1) 01/11/19 06:58 Magnesium 2.0 mg/dL (1.8-2.4) 01/11/19 06:58 Total Bilirubin 0.4 mg/dL (0.2-1.0) 01/10/19 19:10 AST 25 U/L (15-37) 01/10/19 19:10 ALT 57 U/L (12-78) 01/10/19 19:10 Alkaline Phosphatase 114 U/L (46-116) 01/10/19 19:10 C-React Prot High Sens 5.95 mg/L 01/11/19 06:58 Total Protein 7.3 g/dL (6.4-8.2) 01/10/19 19:10 Albumin 3.4 g/dL (3.4-5.0) 01/10/19 19:10 Lipase 53 U/L (73-393) L 01/10/19 19:10 Urine Color Yellow (Yellow) 01/10/19 21:05 Urine Clarity Clear 01/10/19 21:05 Urine pH 6.5 (5-8) 01/10/19 21:05 Ur Specific [place] 1.020 (1.005-1.025) 01/10/19 21:05 Urine Protein Trace mg/dL (Negative) H 01/10/19 21:05 Urine Ketones 40 mg/dL (Negative) H 01/10/19 21:05 Urine Blood Negative (Negative) 01/10/19 21:05 Urine Nitrite Negative (Negative) 01/10/19 21:05 Urine Bilirubin Small (Negative) H 01/10/19 21:05 Urine Urobilinogen 1.0 EU/dL (Up TO 0.2) H 01/10/19 21:05 Ur Leukocyte Esterase Negative (Negative) 01/10/19 21:05 Urine RBC 0-2 (0-2) 01/10/19 21:05 Urine WBC 0-2 HPF (0-5) 01/10/19 21:05 Ur Epithelial Cells Rare HPF (Negative) 01/10/19 21:05 Urine Crystals Negative HPF (Negative) 01/10/19 21:05 Urine Bacteria Rare HPF (Negative) 01/10/19 21:05 Urine Casts Negative LPF (Negative) 01/10/19 21:05 Urine Mucus Negative (Negative) 01/10/19 21:05 Ur Culture Indicated? No 01/10/19 21:05 Urine Glucose Negative mg/dL (Negative) 01/10/19 21:05 Objective Narrative Objective Narrative: Patient Name: TRESSA GONSALVES #: [id number]: MS Ordering Provider: Shani Bynum DOAccount #: [id number]: ADM IN Primary Care Provider: Marco Antonio Villa M.D.Date of Exam: 01/12/19Sex: M Admission Date: 01/10/19 : 1965 Age: 53 Exam(s) a RAD:XR abdomen flat & upright SYMPTOM/DIAGNOSIS: RECURRENT SMALL BOWEL OBSTRUCTION ABDOMEN: Three views were obtained and show contrast material in the colon following contrast enhanced CT of 01/10. There is decreased prominence of small bowel dilatation although some dilatated small bowel loops persist, particularly in the left upper quadrant. CONCLUSION: Findings consistent with partial small bowel obstruction with improvement since 01/11. Ordered By: Shani Bynum DO CC: Dictated By: Bennett Esquivel M.D. 01/12/19 0850 Transcribed By: Megan Rhodes 01/12/19 0932 This is privileged, confidential information intended only for the provider named. Any use or distribution by any person other than this provider is strictly prohibited. If you receive this report in error, please notify us immediately at [phone] and return the original report to us at the address above. Thank-you.
[2019-01-12] MEDS: Ibuprofen 400 MG TAB PO (10:26)
[2019-01-12 11:10] VITALS: BP 131/65; PULSE 68; RESP 20; TEMP 37.1; O2SAT 98
--- NOTE | 2019-01-12 11:13 | PDOC.CMPRO ---
Care Management Progress Note S/O: Bebeto continues to share frustrations around his treatment, please note excerpt from initial assessment. He states he is attuned to his body and knows what he needs to recover. He stated upon admission it was like getting punched in the gut every few minutes. He feels he is not being heard and is consistent with his concerns. He shared concerns around changes in treatment upon admission. He stated he has had recurrent symptoms and SBO since 2008, and has always responded well to IV Morphine and was usually home within forty eight hours as he reports the Morphine relaxed his bowels enough to move. He reported now he is being given alternative medications that do not manage his pain as the MD is stating morphine has been found to slow down bowel movement and cause constipation. He states he is an active citizen and not a drug seeker but feels his recovery is being delayed by changes in treatment approach. He reported not requiring pain medication and ambulating through the hallways regularly. CM to discuss concerns with surgical services due to patient mistrust and frustration. Per report, Bebeto has consistently been reporting wanting to leave AMA. A: 53 year old male admitted to [facility] 01/10/19 for SBO P: Bebeto will return home when ready per MD. He will follow up with his plan of care as prescribed. He will transport via private vehicle with his .
--- NOTE | 2019-01-12 11:28 | CMPROGNOTE_ITS ---
Care Management Progress Note S/O: Bebeto continues to share frustrations around his treatment, please note excerpt from initial assessment. He states he is attuned to his body and knows what he needs to recover. He stated upon admission it was like getting punched in the gut every few minutes. He feels he is not being heard and is consistent with his concerns. He shared concerns around changes in treatment upon admission. He stated he has had recurrent symptoms and SBO since 2008, and has always responded well to IV Morphine and was usually home within forty eight hours as he reports the Morphine relaxed his bowels enough to move. He reported now he is being given alternative medications that do not manage his pain as the MD is stating morphi ne has been found to slow down bowel movement and cause constipation. He states he is an active citizen and not a drug seeker but feels his recovery is being delayed by changes in treatment approach. He reported not requiring pain medication and ambulating through the hallways regularly. CM to discuss concerns with surgical services due to patient mistrust and frustration. Per report, Bebeto has consistently been reporting wanting to leave AMA. A: 53 year old male admitted to [facility] 01/10/19 for SBO P: Bebeto will return home when ready per MD. He will follow up with his plan of care as prescribed. He will transport via private vehicle with his .
--- NOTE | 2019-01-12 13:15 | W.PM.DS.N ---
Date of service: 01/12/19 Time of Service: 13:15 DS: Diagnosis Discharge Diagnosis (1) SBO (small bowel obstruction): Status: Acute Discharge Plan Disposition Patient Disposition: AGAINST MEDICAL ADVICE Condition: Stable Discharge Details Chief Complaint: Abd Prob Reason For Visit: SBO Admit Date/Time: 01/10/19 22:34 Admit Provider: Shani Bynum Attending Provider: Shani Bynum Primary Care Provider: Marco Antonio Villa ED Provider: Bobby Jeffries Hospital Course Hospital Course: 53 y/o male with a history or recurrent partial small bowel obstructions including admission last week with discharge on 01/04/19. He was readmitted on 01/11/19 for recurrent nausea and vomiting. Symptoms improved and he was passing some flatus but no bowel movement. CT scan with oral contrast was performed on this admission. The contrast did progress to his colon on subsequent abdominal xrays. Patient was started on clear liquids today. Plan of care reviewed with patient as noted in progress notes. We discussed advancing his diet slowly as tolerated and possible discharge in a day or so if he is tolerating a diet and having bowel movements. However, patient insisted on leaving against medical advice today. Home Meds and New Rx's Prescriptions: No Action ibuprofen 200 mg Tablet See Rx Instructions .ROUTE .COMPLEX PRNRF: 0 No Known Home Meds RF: 0 Discharge Instructions Equipment/Supplies:: No Equipment Needed Discharge Data Discharge Date/Time-TO BE ENTERED AT DEPARTURE: 01/12/19 12:47 DS: Data Vitals/I&O Vitals and I&O: Vital Signs Temperature 37.1 C 01/12/19 11:10 Temperature Source Tympanic 01/12/19 11:10 Pulse 68 01/12/19 11:10 Pulse Rhythm Regular 01/12/19 12:29 Respiratory Rate 20 01/12/19 11:10 Respiratory Effort 01/12/19 12:29 Respiratory Depth Normal 01/12/19 12:29 Respiratory Pattern Normal 01/12/19 12:29 Blood Pressure 131/65 01/12/19 11:10 Blood Pressure Mean 104 01/10/19 23:01 Blood Pressure Position Sitting 01/10/19 18:14 Pulse Oximetry 98 01/12/19 11:10 Oxygen Delivery Method Room Air 01/12/19 11:10 Oxygen Flow Rate 0 01/12/19 11:10 Pain Level 6 01/12/19 10:26 Intake & Output 01/11/19 01/12/19 01/12/19 23:59 11:59 23:59 Intake Total 1050 / 2100 1570.834 / 1570.834 Output Total 340 / 340 1000 / 1000 Balance 710 / 1760 570.834 / 570.834 Intake: IV 1050 / 2100 1570.834 / 1570.834 Output: Urine 340 / 340 1000 / 1000 Other: Urine Color Light Annie Straw Urine Appearance Clear Clear Clear Urine Odor None Voiding Methods Diaper Urinal Labs on day of discharge: Labs from last 24 hours 01/12/19 01/11/19 14:01 06:58 WBC Pending RBC Pending Hgb Pending Hct Pending MCV Pending MCH Pending MCHC Pending RDW Pending Plt Count Pending MPV Pending Immature Gran % Pending Neutrophils % Pending Lymphocytes % Pending Monocytes % Pending Eosinophils % Pending Basophils % Pending Absolute Neutrophils Pending Absolute Lymphocytes Pending Absolute Monocytes Pending Absolute Eosinophils Pending Absolute Basophils Pending C-React Prot High Sens 5.95 PFSH Medical History Small bowel obstruction (Acute) Congenital imperforate anus Undescended testicle, unilateral Surgical History Repair of inguinal hernia (02/02/18) Revision, Scar eye surgery imperforate anus repair Social History Smoking and Tabacco status: Current every day alcohol intake: never substance use type: does not use
--- NOTE | 2019-01-12 15:55 | PDOC.CMDIS ---
LACE Index Scoring Tool - Questions: Length of Stay (in days): 3 Acuity (Admit via E.D.?): Yes E.D. Visits: 4 - Answers: Total Score: 10 Risk of Readmission: High Risk Care Management Discharge Reason for Hospitalization: SBO Discharge Plan: AMA
== END 2019-01-12 12:47 | disposition left against medical advice (07) | DRG 390 ==
LOC: ER 01-11 00:41 → MS 01-11 00:41
PROVIDERS: Admitting Provider Surgery; Emergency Provider Nurse Practitioner Family; PCP Internal Medicine; Visit Provider Surgery
DX: K56.600 Partial intestinal obstruction, unspecified as to cause (principal); Z53.21 Procedure and treatment not carried out due to patient leaving prior to being seen by health care provider; F17.210 Nicotine dependence, cigarettes, uncomplicated
CPT/HCPCS: 36415; 80048; 80053; 83690; 86141; 96361; 96365; 96375; 99223; 99232; 99238; 99285; 74019; 74177; 81003; 81015; 83605; 83735; 85025; 85049; 99284; J2270; J3490; Q9967

== ENCOUNTER 2019-01-23 08:28 | Inpatient (IN) | payer MEDICAID, SELFPAY ==
[2019-01-23 08:49] VITALS: BP 115/80; PULSE 87; RESP 18; TEMP 36.6; O2SAT 98
--- NOTE | 2019-01-23 09:33 | W.ED.GENAD ---
Discharge Plan Disposition Patient Disposition: [facility] INPATIENT Condition: Stable Discharge Details Chief Complaint: Abd Prob Clinical Impression: SBO (small bowel obstruction) Primary Care Provider: None,None ED Provider: Bennett Galo Home Meds and New Rx's Prescriptions: No Action ibuprofen 200 mg Tablet See Rx Instructions .ROUTE .COMPLEX PRNRF: 0 No Known Home Meds RF: 0 Medical Decision Making 53-year-old male with history of recurrent small bowel obstructions. He arrives with normal vital signs, mild distention of the abdomen and mild tenderness but does not demonstrate a surgical abdomen. He is noted to have left the hospital AGAINST MEDICAL ADVICE during recent admission at the end of December. He does voice some frustrations with previous care both in the emergency department as as an inpatient Differential includes ileus, constipation, small bowel obstruction, dehydrate. Patient IV access established, labs obtained, patient given fluids. He was offered antiemetics and analgesics at the bedside which he deferred. He did also complain of sebaceous cyst at the occipital area which was anesthetized, cleansed, incised with 18-gauge needle and 1-2 cc of thick gelatinous material removed. Normal CBC. Chemistries were reassuring with a BUN of 17, creatinine 0.8, anion gap of 12. Plain radiograph reviewed, consistent with a small bowel obstruction with some improvement when compared with the previous exam. After 2L IVF, patient with some improvement. He voices concern regarding inability to take liquids by mouth. He certainly does have partial small bowel obstruction. After 7 hours of care in the ER he has not progressed to the point of discharge and will be admitted to the surgical service Lab Data Lab results reviewed: Yes I reviewed the patient's lab results. Laboratory Results - last 24 hr 01/23/19 01/23/19 01/23/19 10:25 10:25 10:25 WBC 8.02 RBC 4.92 Hgb 14.4 Hct 43.2 MCV 87.8 MCH 29.3 MCHC 33.3 RDW 13.4 Plt Count 236 MPV 9.8 Immature Gran % 0.2 Neutrophils % 59.9 Lymphocytes % 25.4 Monocytes % 11.0 Eosinophils % 3.1 Basophils % 0.4 Absolute Neutrophils 4.80 Absolute Lymphocytes 2.04 Absolute Monocytes 0.88 H Absolute Eosinophils 0.25 Absolute Basophils 0.03 Sodium 141 Potassium 3.6 Chloride 104 Carbon Dioxide 24.7 Anion Gap 12.3 H BUN 17 Creatinine 0.87 Estimated GFR/1.73 m2 >= 60.00 Glucose 84 Calcium 8.4 L Magnesium 1.8 Total Bilirubin 0.3 AST 11 L ALT 15 Alkaline Phosphatase 105 Total Protein 6.2 L Albumin 3.3 L Lipase 44 L HPI General Mode of arrival: ambulatory. Date/Time Provider Initiated Documentation: 01/23/19 09:19. Limitations to Documentation: no limitations. Information obtained by: patient. History of Present Illness 53 year old M presents to the emergency department with the chief complaint of Recurrent abdominal pain, described as similar to prior episodes, Quality is described as dull and constant, and is localized to the abdomen. Patient reports no radiation. Patient started experiencing this day(s) and it has been constant. No relieving factors improve symptom(s), No exacerbating factors reported . Patient notes denies fever/chills. Patient did receive the following treatments prior to arrival, none Related Data Home Medications Medication Instructions Recorded Confirmed Unknown [No Known Home Meds] 05/17/18 01/11/19 ibuprofen See Rx Instructions .ROUTE 01/11/19 01/11/19 .COMPLEX PRN Allergies Allergy/AdvReac Type Severity Reaction Status Date / Time No Known Allergies Allergy Unverified 05/28/18 10:32 General Stated Complaint: Abd Prob CHAVO: 3 Review of Systems Review of Systems Last admitted for recurrent small bowel obstruction January 12 and left AGAINST MEDICAL ADVICE. Denies other complaint. 6 systems reviewed and otherwise negative [facility] Medical History Small bowel obstruction (Acute) Congenital imperforate anus Undescended testicle, unilateral Surgical History Repair of inguinal hernia (02/02/18) Revision, Scar eye surgery imperforate anus repair Social History Smoking and Tabacco status: Current every day alcohol intake: never substance use type: does not use Exam Narrative Exam Narrative: GEN: awake, alert, oriented 3. Pleasant, well groomed, interactive. HEAD: Normocephalic, atraumatic ENT: Mucous membranes moist, oropharynx unremarkable, External ear exam unremarkable EYES: PERRL, EOMI NECK: Full ROM, no STEFANY, no menigismus. Probable left posterior superior neck sebaceous cyst with prominent swelling and mild tenderness. CHEST/RESP: Nontender, clear to auscultation bilateral, no wheeze/rhonchi/rales CARDIOVASCULAR: RRR, no murmur, rub nory. 2+ Rad pulse bilateral ABDOMEN: Soft, distended, slightly tympanitic. EXT: Full ROM, no edema, no rash Neuro: Grossly normal neurologic exam, conversant, interactive. Psych: Speech fluent, thoughts congruent, affect normal Course Vital Signs Temperature 36.6 C 01/23/19 08:49 Pulse 87 01/23/19 08:49 Respiratory Rate 18 01/23/19 08:49 Blood Pressure 115/80 01/23/19 08:49 Pulse Oximetry 98 01/23/19 08:49 Temperature 36.6 C 01/23/19 08:49 Temperature Source Temporal Artery Scan 01/23/19 08:49 Pulse 87 01/23/19 08:49 Respiratory Rate 18 01/23/19 08:49 Respiratory Effort Non-Labored 01/23/19 08:53 Blood Pressure 115/80 01/23/19 08:49 Blood Pressure Position Sitting 01/23/19 08:49 Pulse Oximetry 98 01/23/19 08:49 Oxygen Delivery Method Room Air 01/23/19 08:49 Oxygen Flow Rate 0 01/23/19 08:49 Pain Level 0 01/23/19 08:49 Procedures Abscess I/D Site: Scalp Local Anesthetic: Lidocaine 1% Amount of anesthesia used (mL): 2 Technique: Needle Aspiration Amount of fluid expressed (mL): 2
--- NOTE | 2019-01-23 09:53 | DI.RAD_ITS ---
SYMPTOMS/DIAGNOSIS: RECURRENT SMALL BOWEL OBSTRUCTION, ABD PAIN PA CHEST AND FLAT AND UPRIGHT ABDOMEN: Comparison is made with [id number]. There is a dilated loop of small bowel in the left upper quadrant with an air fluid level. The findings are slightly less prominent when compared with the previous exam. Stool is seen throughout the colon. The colon is not abnormally dilated. No free air is seen. The heart size is normal. The lungs are clear. IMPRESSION: Findings consistent with a small bowel obstruction with some improvement when compared with the previous exam.
[2019-01-23] MEDS: Normal Saline 1,000 ML 1000 ML IV (10:02)
[2019-01-23 10:33] LABS: Abs Immature Grans 0.02 k/cumm (0.0-0.09); Absolute Basophil Count 0.03 k/cumm (0.0-0.2); Absolute Eosinophil Count 0.25 k/cumm (0.0-0.7); Absolute Lymphocyte Count 2.04 k/cumm (1.2-3.4); Absolute Monocyte Count 0.88 k/cumm (0.11-0.7); Basophils % 0.4; Eosinophils % 3.1; HCT 43.2 % (40.0-50.0); HGB 14.4 g/dL (13.5-17.5); Immature Grans % 0.2; Lymphocytes % 25.4; Mean Corp. HGB Concentration 33.3 g/dL (32.0-36.0); Mean Corpuscular Hemoglobin 29.3 pg (27.0-33.0); Mean Corpuscular Volume 87.8 fL (80-95); Mean Platelet Volume 9.8 fL (8.0-11.0); Neutrophils % 59.9; Platelet Count 236 x1000/uL (130-400); RBC 4.92 m/cumm (4.50-6.00); RBC Distribution Width 13.4 % (11.8-14.1); White Blood Cell Count 8.02 k/cumm (4.4-10.8)
[2019-01-23 10:41] LABS: Lipase 44 U/L (73-393); Magnesium 1.8 mg/dL (1.8-2.4)
[2019-01-23] MEDS: Lactated Ringers 1,000 ML 1000 ML IV (10:41)
--- NOTE | 2019-01-23 10:41 | NUR.NOTE ---
Nursing Note: Pt off unit in XR at this time
[2019-01-23 10:47] LABS: ALT 15 U/L (12-78); AST 11 U/L (15-37); Albumin 3.3 g/dL (3.4-5.0); Alkaline Phosphatase 105 U/L (46-116); Anion Gap 12.3 mmol/L (3-11); BUN 17 mg/dL (7-18); Bilirubin, Total 0.3 mg/dL (0.2-1.0); CO2 24.7 mmol/L (21.0-32.0); CREATININE 0.87 mg/dL (0.70-1.30); Calcium 8.4 mg/dL (8.5-10.1); Chloride 104 mmol/L (98-107); Glucose 84 mg/dL (70-100); Potassium 3.6 mmol/L (3.5-5.1); Sodium 141 mmol/L (136-145); Total Protein 6.2 g/dL (6.4-8.2)
[2019-01-23 11:09] VITALS: BP 132/80; PULSE 73; RESP 18; TEMP 36.6; O2SAT 97
[2019-01-23 14:03] VITALS: BP 132/84; PULSE 71; RESP 18; TEMP 36.9; O2SAT 98
--- NOTE | 2019-01-23 15:06 | NUR.NOTE ---
Nursing Note: Provider in speaking with patient at this time
--- NOTE | 2019-01-23 16:13 | NUR.NOTE ---
Nursing Note: Admission paged out, awaiting bed placement and call back for report. Pt medicated with 2mg morphine per verbal order from MD Galo. no acute distress. will continue to monitor.
--- NOTE | 2019-01-23 16:25 | W.PM.HP.N ---
Date of service: 01/23/19 Time of Service: 16:25 Assessment and Plan (1) Left lower quadrant pain: Current visit: No Status: Acute as below (2) Nausea and vomiting: Current visit: No Status: Acute As below Qualifiers: Vomiting Intractability: non-intractable (3) Constipation by delayed colonic transit: Current visit: Yes Status: Acute As below (4) Partial small bowel obstruction: Current visit: Yes Status: Acute Patient returns today with partial SBO. He still has contrast in his colon for the last hospital admission. He will be admitted for IV hydration NG tube decompression. His pain will be controlled with nonnarcotic adjuvants. Patient needs to have a bowel movement. Make citrate written for. (5) Smoker unmotivated to quit: Current visit: Yes Status: Acute As above (6) Noncompliance by refusing intervention or support: Current visit: Yes Status: Acute As above History of Present Illness Chief Complaint: N/V & ABDOM PAIN Consults Consult date: 01/23/19 Requesting physician: NISHANT HERRING Narrative: pt returns to ED c/o n/v and abdom pain for third time in 3 wks. He leaves AMA b/c he doesn't get narcotics and before he has a BM. He still has contrast in colon from last time he has here. No fever or chills. Positive nausea and vomiting. He has been having small bowel movements. No blood. Abdominal pain which is diffuse in nature. He has a incision in the left lower quadrant. He had a hernia repair in the past. He did receive 2 mg of morphine in the ED. Currently he is comfortable and has no pain. He has no peritonitis he is hemodynamically stable. I did review his x-ray, he has a few small dilated loops of small bowel. He still is contrast in his colon from his last admission. Review of Systems Review of Systems All systems reviewed & are unremarkable except as noted in HPI and below Constitutional Reports anorexia, Reports body ache(s) and Reports poor appetite Eyes Reports as per HPI ENT Reports system reviewed and no additional complaints, except as docu Comments: His membranes are moist. Dentition is fair. No eye pain or eye redness. Cardiovascular Denies chest pain, Denies pedal edema, Denies leg ulcers and Denies dyspnea on exertion Respiratory Denies chest congestion, Denies cough and Denies dyspnea on exertion Gastrointestinal Reports as per HPI Comments: Third bowel obstruction in 3 weeks. He is never had a complete bowel movement. He leaves all AMA when he cannot get narcotics, and before he has a. Genitourinary Reports system reviewed and no additional complaints, except as docu Musculoskeletal Reports system reviewed and no additional complaints, except as docu Comments: No joint pain or swelling Integumentary/Breasts Denies bleeding lesions Comments: No rashes or lesions Hematologic/Lymphatic Denies easy bleeding, Denies easy bruising and Denies lymphadenopathy [facility] Medical History Small bowel obstruction (Acute) Congenital imperforate anus Undescended testicle, unilateral Surgical History Repair of inguinal hernia (02/02/18) Revision, Scar eye surgery imperforate anus repair Social History Smoking and Tabacco status: Current every day alcohol intake: never substance use type: does not use Meds Home Medications Medication Instructions Recorded Confirmed Type Unknown [No Known Home Meds] 05/17/18 01/11/19 History Allergies Allergy/AdvReac Type Severity Reaction Status Date / Time No Known Allergies Allergy Unverified 05/28/18 10:32 Exam Const General: healthy appearing and comfortable Orientation: alert, awake and oriented x3 HENMT Head: normal to inspection, normocephalic and atraumatic Ears: hearing grossly normal bilaterally General nose exam: external nose normal Face and sinus: normal facial exam and sinuses nontender Mouth: oral mucosae normal and moist mucous membranes Teeth and gingiva: fair dentition Eyes Conjunctivae: conjunctivae normal Sclera: sclerae normal Chest Chest: normal inspection of the chest Resp Effort & Inspection: normal respiratory effort Auscultation: no rales, no rhonchi and no wheezes Cardio Rate: regular rate Rhythm: regular rhythm GI Inspection: normal to inspection, abdominal wall ecchymosis and incision (Postsurgical changes noted. Well-healed. No open areas. No hernias. ) Palpation: soft, no hernias and No ascites Auscultation: normal bowel sounds Skin General skin exam: no rashes or lesions noted Wounds: no wounds Neuro General: alert, awake, oriented x3 and CN's II-XI intact bilaterally Extrem General: normal to inspection, full ROM, no joint enlargement, no clubbing, cyanosis or edema and no pedal edema Results Labs : 01/23/19 10:25 01/23/19 10:25 Laboratory Results - last 24 hr 01/23/19 01/23/19 01/23/19 10:25 10:25 10:25 WBC 8.02 RBC 4.92 Hgb 14.4 Hct 43.2 MCV 87.8 MCH 29.3 MCHC 33.3 RDW 13.4 Plt Count 236 MPV 9.8 Immature Gran % 0.2 Neutrophils % 59.9 Lymphocytes % 25.4 Monocytes % 11.0 Eosinophils % 3.1 Basophils % 0.4 Absolute Neutrophils 4.80 Absolute Lymphocytes 2.04 Absolute Monocytes 0.88 H Absolute Eosinophils 0.25 Absolute Basophils 0.03 Sodium 141 Potassium 3.6 Chloride 104 Carbon Dioxide 24.7 Anion Gap 12.3 H BUN 17 Creatinine 0.87 Estimated GFR/1.73 m2 >= 60.00 Glucose 84 Calcium 8.4 L Magnesium 1.8 Total Bilirubin 0.3 AST 11 L ALT 15 Alkaline Phosphatase 105 Total Protein 6.2 L Albumin 3.3 L Lipase 44 L Last Vital Signs Temp 36.9 C 01/23/19 14:03 Pulse 71 01/23/19 14:03 Resp 18 01/23/19 14:03 BP 132/84 01/23/19 14:03 Pulse Ox 98 01/23/19 14:03
[2019-01-23 16:45] VITALS: BP 121/73; PULSE 89; RESP 12; TEMP 36.6; O2SAT 99
[2019-01-23] MEDS: Normal Saline 1,000 ML 125 ML IV (18:00)
[2019-01-23 19:15] VITALS: BP 125/79; PULSE 74; RESP 18; TEMP 37.1; O2SAT 100
[2019-01-24 00:10] VITALS: BP 127/79; PULSE 79; RESP 17; TEMP 37.1; O2SAT 97
[2019-01-24] MEDS: Normal Saline 1,000 ML 125 ML IV ×3 (02:03→20:03)
[2019-01-24] MEDS: Ondansetron 4 MG/2 ML VIAL IVP (06:52)
--- NOTE | 2019-01-24 07:00 | DI.RAD_ITS ---
SYMPTOM/DIAGNOSIS: F/U SMALL BOWEL OBSTRUCTION FLAT AND UPRIGHT ABDOMEN: Comparison is made with 01/23/19. There is again seen residual oral contrast in the descending sigmoid colon and rectum. There are again seen dilated loops of small bowel with air fluid levels in the right upper quadrant. This may represent an ileus versus partial small bowel obstruction. No organomegaly or pneumoperitoneum is seen. The lung bases are clear. Degenerative changes are seen in the spine. IMPRESSION: Overall the appearance of the abdomen is unchanged compared to 01/23/19. Ileus versus partial small bowel obstruction.
[2019-01-24 07:10] VITALS: BP 142/80; PULSE 74; RESP 16; TEMP 36.8; O2SAT 97
--- NOTE | 2019-01-24 10:11 | PDOC.CMIN ---
Care Management Initial Assess REASON FOR HOSPITALIZATION:: Partial SBO PAST MEDICAL HISTORY/PAST SURGICAL HISTORY:: congenital imperforate anus, undescended testicle unilateral, cataracts, hernia repair, rt eye surgery, revision scar, hx of SBO PREVIOUS FUNCTIONAL STATUS/SOCIAL/FAMILY SUPPORTS:: Bebeto resides with his , Юлия and their daughter in [place], [place]. 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 He reports a long history of bowel issues and reports feeling confident in managing his needs. CURRENT FUNCTIONAL STATUS:: From last admission: Drake continues to share concerns around changes in treatment upon admission. He stated he has had recurrent symptoms and SBO since 2008, and has always responded well to IV Morphine and was usually home within fourty eight hours as he reports the Morphine relaxed his bowels enough to move. He reported now he is being given alternative medications that do not manage his pain as the MD is stating morphine has been found to slow down bowel movement and cause constipation. He states he is an active citizen and not a drug seeker but feels his recovery is being delayed by changes in treatment approach. ADVANCE DIRECTIVES:: None on file. Has patient been provided with information about the portal?: Yes Did the patient sign up for the portal?: No CODE STATUS:: Full Code INSURANCE COVERAGE / FINANCIAL ISSUES:: Medicaid CURRENT HOME/COMMUNITY SERVICES/EQUIPMENT:: No current equipment or services. PRIMARY CARE PHYSICIAN:: Marco Antonio Villa MD: [facility] POTENTIAL DISCHARGE NEEDS:: Follow up appointments. PATIENT/FAMILY EDUCATION NEEDS:: Review discharge instructions, follow up plan of care. ANTICIPATED BARRIERS TO DISCHARGE:: None identifed. TRANSPORTATION:: Via private vehicle with his . PLAN:: Bebeto will return home when ready per MD. He will follow up with his plan of care as prescribed. He will transport via private vehicle with his . Readmission - Assessment for Readmission Summary of readmission circumstances, based upon interviews: Medical staff feels Drake is seeking opiates, and re-admissions will cease if Morphine is not readily available. Drake feels his SBO are only managed with the use of morphine and is frustrated with what he identifies as shifts in treatments that worked prior. CM consulted with Dr. Murguia who then had P2P with Dr. Nugent re; Drake's care. Will consider PC consult in future if trend of re-admissions continues.
--- NOTE | 2019-01-24 10:27 | INITIAL_ITS ---
Care Management Initial Assess REASON FOR HOSPITALIZATION:: Partial SBO PAST MEDICAL HISTORY/PAST SURGICAL HISTORY:: congenital imperforate anus, undescended testicle unilateral, cataracts, hernia repair, rt eye surgery, revision scar, hx of SBO PREVIOUS FUNCTIONAL STATUS/SOCIAL/FAMILY SUPPORTS:: Bebeto resides with his , Юлия and their daughter in [place], [place]. 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 He reports a long history of bowel issues and reports feeling confident in managing his needs. CURRENT FUNCTIONAL STATUS:: From last admission: Drake continues to share concerns around changes in treatment upon admission. He stated he has had recurrent symptoms and SBO since 2008, and has always responded well to IV Morphine and was usually home within fourty eight hours as he reports the Morphi ne relaxed his bowels enough to move. He reported now he is being given alternative medications that do not manage his pain as the MD is stating morphine has been found to slow down bowel movement and cause constipation. He states he is an active citizen and not a drug seeker but feels his recovery is being delayed by changes in treatment approach. ADVANCE DIRECTIVES:: None on file. Has patient been provided with information about the portal?: Yes Did the patient sign up for the portal?: No CODE STATUS:: Full Code INSURANCE COVERAGE / FINANCIAL ISSUES:: Medicaid CURRENT HOME/COMMUNITY SERVICES/EQUIPMENT:: No current equipment or services. PRIMARY CARE PHYSICIAN:: Marco Antonio Villa MD: [facility] POTENTIAL DISCHARGE NEEDS:: Follow up appointments. PATIENT/FAMILY EDUCATION NEEDS:: Review discharge instructions, follow up plan of care. ANTICIPATED BARRIERS TO DISCHARGE:: None identifed. TRANSPORTATION:: Via private vehicle with his . PLAN:: Bebeto will return home when ready per MD. He will follow up with his plan of care as prescribed. He will transport via private vehicle with his . Readmission - Assessment for Readmission Summary of readmission circumstances, based upon interviews: Medical staff feels Drake is seeking opiates, and re-admissions will cease if Morphine is not readily available. Drake feels his SBO are only managed with the use of morphine and is frustrated with what he identifies as shifts in treatments that worked prior. CM consulted with Dr. Murguia who then had P2P with Dr. Nugent re; Drake's care. Will consider PC consult in future if trend of re-admissions continues.
--- NOTE | 2019-01-24 11:44 | W.PM.PROGNOT ---
Date of Service Date of service: 01/24/19 Time of Service: 11:00 Assessment and Plan (1) Partial small bowel obstruction: Current visit: Yes Status: Acute A\\ PSBO or ileus P\\ Long discussion with Mr. Galarza again regarding NG tube placement for decompression. This may finally open his PSBO completely. Patient still frustrated about not getting morphine for pain. Has toradol and Tylenol. Patient agreeable for NG tube now. Will give him some ativan and will use lidocaine ointment for his nose. May compromise and give him some morphine. Subjective Interval history since last seen: Just had about 2L of emesis. Bilious. Continues to want Morphine This has always worked for me in the past. Has lost some weight. Has been admitted x3. leaves AMA after a few days. Exam GI Palpation: soft and nontender Auscultation: normal bowel sounds Objective Objective Clinical Data: Vital Signs Temperature 98.2 F 01/24/19 07:10 Temperature Source Tympanic 01/24/19 07:10 Pulse 74 01/24/19 07:10 Pulse Rhythm Regular 01/24/19 00:12 Respiratory Rate 16 01/24/19 07:10 Respiratory Effort 01/24/19 08:30 Respiratory Depth Normal 01/24/19 00:12 Respiratory Pattern Normal 01/24/19 00:12 Blood Pressure 142/80 H 01/24/19 07:10 Blood Pressure Position Sitting 01/23/19 08:49 Pulse Oximetry 97 01/24/19 07:10 Oxygen Delivery Method Room Air 01/24/19 07:10 Oxygen Flow Rate 0 01/24/19 07:10 Pain Level 8 01/24/19 00:10 Comment 01/24/19 00:10 Intake & Output 01/23/19 01/23/19 01/24/19 11:59 23:59 11:59 Intake Total 1999 1030 / 1030 Output Total 2400 / 2400 Balance 1999 -1370 / -1370 Weight 138 lb 0.009 oz 138 lb 0.009 oz Intake: IV 1999 1000 / 1000 Oral 30 / 30 Output: Urine 400 / 400 Emesis 1999 Other: Urine Color Yellow Urine Appearance Clear Clear Urine Odor Normal Comment pt gets up AD MISTY to void. Voiding Methods Urinal Laboratory Results WBC 8.02 k/cumm (4.4-10.8) 01/23/19 10:25 RBC 4.92 m/cumm (4.50-6.00) 01/23/19 10:25 Hgb 14.4 g/dL (13.5-17.5) 01/23/19 10:25 Hct 43.2 % (40.0-50.0) 01/23/19 10:25 MCV 87.8 fL (80-95) 01/23/19 10:25 MCH 29.3 pg (27.0-33.0) 01/23/19 10:25 MCHC 33.3 g/dL (32.0-36.0) 01/23/19 10:25 RDW 13.4 % (11.8-14.1) 01/23/19 10:25 Plt Count 236 x1000/uL (130-400) 01/23/19 10:25 MPV 9.8 fL (8.0-11.0) 01/23/19 10:25 Immature Gran % 0.2 01/23/19 10:25 Neutrophils % 59.9 01/23/19 10:25 Lymphocytes % 25.4 01/23/19 10:25 Monocytes % 11.0 01/23/19 10:25 Eosinophils % 3.1 01/23/19 10:25 Basophils % 0.4 01/23/19 10:25 Absolute Neutrophils 4.80 k/cumm (1.2-6.7) 01/23/19 10:25 Absolute Lymphocytes 2.04 k/cumm (1.2-3.4) 01/23/19 10:25 Absolute Monocytes 0.88 k/cumm (0.11-0.7) H 01/23/19 10:25 Absolute Eosinophils 0.25 k/cumm (0.0-0.7) 01/23/19 10:25 Absolute Basophils 0.03 k/cumm (0.0-0.2) 01/23/19 10:25 Sodium 141 mmol/L (136-145) 01/23/19 10:25 Potassium 3.6 mmol/L (3.5-5.1) 01/23/19 10:25 Chloride 104 mmol/L (98-107) 01/23/19 10:25 Carbon Dioxide 24.7 mmol/L (21.0-32.0) 01/23/19 10:25 Anion Gap 12.3 mmol/L (3-11) H 01/23/19 10:25 BUN 17 mg/dL (7-18) 01/23/19 10:25 Creatinine 0.87 mg/dL (0.70-1.30) 01/23/19 10:25 Estimated GFR/1.73 m2 >= 60.00 (mL/min/1.73m2) 01/23/19 10:25 Glucose 84 mg/dL (70-100) 01/23/19 10:25 Calcium 8.4 mg/dL (8.5-10.1) L 01/23/19 10:25 Magnesium 1.8 mg/dL (1.8-2.4) 01/23/19 10:25 Total Bilirubin 0.3 mg/dL (0.2-1.0) 01/23/19 10:25 AST 11 U/L (15-37) L 01/23/19 10:25 ALT 15 U/L (12-78) 01/23/19 10:25 Alkaline Phosphatase 105 U/L (46-116) 01/23/19 10:25 Total Protein 6.2 g/dL (6.4-8.2) L 01/23/19 10:25 Albumin 3.3 g/dL (3.4-5.0) L 01/23/19 10:25 Lipase 44 U/L (73-393) L 01/23/19 10:25
[2019-01-24] MEDS: LORazepam 2 MG/ML VIAL 1 MG IVP (12:02)
[2019-01-24] MEDS: Lidocaine 2% Jelly 6 ML SYR TP (12:06)
--- NOTE | 2019-01-24 12:08 | W.PM.PROGNOT ---
Date of Service Date of service: 01/24/19 Time of Service: 12:09 Assessment and Plan (1) Skin lesion: Current visit: Yes Status: Acute ? Sebaceous cyst. Significant swelling and erythema surrounding the nodule. Drained the nodule of thick, white what appeared to be sebacous material. Covered the area with gauze and a band-aid. Patient tolerated the procedure well. Subjective Interval history since last seen: Complaints of a lump on posterior neck, that he had drained in the ER, however it continues to be painful and he would like the area looked at. Exam Const General: cooperative, healthy appearing and comfortable Orientation: alert and oriented x3 Skin Full body images: 1. 3 cm Nodule with surrounding erythema with a punture wound from previous drainage in the ER. Pain with palpation. Area of fluctulance over the superior portion of the nodule. Objective Objective Clinical Data: Vital Signs Temperature 36.8 C 01/24/19 07:10 Temperature Source Tympanic 01/24/19 07:10 Pulse 74 01/24/19 07:10 Pulse Rhythm Regular 01/24/19 00:12 Respiratory Rate 16 01/24/19 07:10 Respiratory Effort 01/24/19 08:30 Respiratory Depth Normal 01/24/19 00:12 Respiratory Pattern Normal 01/24/19 00:12 Blood Pressure 142/80 H 01/24/19 07:10 Blood Pressure Position Sitting 01/23/19 08:49 Pulse Oximetry 97 01/24/19 07:10 Oxygen Delivery Method Room Air 01/24/19 07:10 Oxygen Flow Rate 0 01/24/19 07:10 Pain Level 8 01/24/19 00:10 Comment 01/24/19 00:10 Intake & Output 01/23/19 01/24/19 01/24/19 23:59 11:59 23:59 Intake Total 2029 Output Total 2400 / 2400 Balance -370 / -370 Weight 62.596 kg Intake: IV 1999 Oral Output: Urine 400 / 400 Emesis 1999 Other: Urine Color Yellow Urine Appearance Clear Clear Urine Odor Normal Comment pt gets up AD MISTY to void. Voiding Methods Urinal Laboratory Results WBC 8.02 k/cumm (4.4-10.8) 01/23/19 10:25 RBC 4.92 m/cumm (4.50-6.00) 01/23/19 10:25 Hgb 14.4 g/dL (13.5-17.5) 01/23/19 10:25 Hct 43.2 % (40.0-50.0) 01/23/19 10:25 MCV 87.8 fL (80-95) 01/23/19 10:25 MCH 29.3 pg (27.0-33.0) 01/23/19 10:25 MCHC 33.3 g/dL (32.0-36.0) 01/23/19 10:25 RDW 13.4 % (11.8-14.1) 01/23/19 10:25 Plt Count 236 x1000/uL (130-400) 01/23/19 10:25 MPV 9.8 fL (8.0-11.0) 01/23/19 10:25 Immature Gran % 0.2 01/23/19 10:25 Neutrophils % 59.9 01/23/19 10:25 Lymphocytes % 25.4 01/23/19 10:25 Monocytes % 11.0 01/23/19 10:25 Eosinophils % 3.1 01/23/19 10:25 Basophils % 0.4 01/23/19 10:25 Absolute Neutrophils 4.80 k/cumm (1.2-6.7) 01/23/19 10:25 Absolute Lymphocytes 2.04 k/cumm (1.2-3.4) 01/23/19 10:25 Absolute Monocytes 0.88 k/cumm (0.11-0.7) H 01/23/19 10:25 Absolute Eosinophils 0.25 k/cumm (0.0-0.7) 01/23/19 10:25 Absolute Basophils 0.03 k/cumm (0.0-0.2) 01/23/19 10:25 Sodium 141 mmol/L (136-145) 01/23/19 10:25 Potassium 3.6 mmol/L (3.5-5.1) 01/23/19 10:25 Chloride 104 mmol/L (98-107) 01/23/19 10:25 Carbon Dioxide 24.7 mmol/L (21.0-32.0) 01/23/19 10:25 Anion Gap 12.3 mmol/L (3-11) H 01/23/19 10:25 BUN 17 mg/dL (7-18) 01/23/19 10:25 Creatinine 0.87 mg/dL (0.70-1.30) 01/23/19 10:25 Estimated GFR/1.73 m2 >= 60.00 (mL/min/1.73m2) 01/23/19 10:25 Glucose 84 mg/dL (70-100) 01/23/19 10:25 Calcium 8.4 mg/dL (8.5-10.1) L 01/23/19 10:25 Magnesium 1.8 mg/dL (1.8-2.4) 01/23/19 10:25 Total Bilirubin 0.3 mg/dL (0.2-1.0) 01/23/19 10:25 AST 11 U/L (15-37) L 01/23/19 10:25 ALT 15 U/L (12-78) 01/23/19 10:25 Alkaline Phosphatase 105 U/L (46-116) 01/23/19 10:25 Total Protein 6.2 g/dL (6.4-8.2) L 01/23/19 10:25 Albumin 3.3 g/dL (3.4-5.0) L 01/23/19 10:25 Lipase 44 U/L (73-393) L 01/23/19 10:25 Procedures Abscess I/D Site: neck Site: neck Anesthetic used: lidocaine 2% (4cc) Technique: incised with #11 blade Amount of fluid (mL): 6 Irrigation: No Packing used?: none
--- NOTE | 2019-01-24 12:30 | DI.RAD_ITS ---
SYMPTOMS/DIAGNOSIS: NG TUBE PLACEMENT PORTABLE SINGLE FRONTAL VIEW OF THE CHEST: Comparison 01/23/19. The heart size and pulmonary vasculature are within normal limits. The lungs are clear. There has been interval placement of a nasogastric tube. The tip of the nasogastric tube is seen beneath the hemidiaphragms in the stomach. The bones appear intact. IMPRESSION: Tip of the nasogastric tube is seen in the stomach.
--- NOTE | 2019-01-24 12:32 | PHARADMIT ---
Addendum entered by Juan Carlos Ellsworth III 02/09/19 17:00: Pharmacy Note Subjective TPN restarted late (1800) Objective VS-OK Lytes,SCr,H&H, Assessment Plan Plan is for possible transfer to [facility] no MD note Addendum entered by Juan Carlos Ellsworth III 02/08/19 11:07: Pharmacy Note Subjective Patient not feeling well, has refused IV Famotidine & Metoclopramide. Provider to discuss future plan with patient today. Objective VS-OK Pain:02/28 No Labs, Wgt-61.8 kg No BM passing flatus Assessment TPN DC'D, Using IV Toradol, PO APA for pain. Plan Continue ambulation Addendum entered by Alessandra Coles 02/04/19 14:29: Pharmacy Note Subjective pt post op having some liquid stools and gas pains, no N/V Objective mag 1.7,labs stable, vs ok, Assessment epidural stopped, Iv mag ordered Plan expect TPN to be weaned starting possibly tomorrow if pt able to eat Addendum entered by Juan Carlos Ellsworth III 02/02/19 11:36: Pharmacy Note Subjective Continues ambulation, passing flatus Objective VS-OK Na-143 K+3.6 Phos-2.3 Mag-1.7 SCr-0.73 No BM yet Assessment Epidural controlling pain adequately. Plan Trial no Epidural tomorrow, if tolerates pull catheter on Tuesday. Addendum entered by Juan Carlos Ellsworth III 02/01/19 16:17: Pharmacy Note Subjective No new MD note today, CM notes patient is ambulating. Objective VS-OK Na-131 K+3.4 Phos-2.6 Mag-1.8 H&H-OK Plts-131 WBC-7.22 Assessment Epidural continues, followed by anesthesia Plan Zosyn continues Original Note: Addendum entered by Cindy Mercer 01/31/19 15:58: Pharmacy Note Subjective low urine output overnight per nursing Objective VS-okay h/h-13.1/39.4 Assessment TPN continues zosyn continue (day 2 starts this evening) epidural for pain control Lactated ringers rate increased Plan continue to watch labs, VS and for med changes Original Note: Addendum entered by Che Martinez 01/29/19 16:24: Pharmacy Note Subjective Per MD, no improvement in SBO, unable to eat, going to the OR Tuesday01/30/19 Pt is frustrated per nursing Objective Afebrile, VS ok, Lytes in range, Albumin 2.8 Assessment TPN started 01/28/19 evening, formula reviewed by Dietary 01/29/19 as appropriate formulation No additional electrolytes needed Refusing Famotidine IVPB for many days Refusing Gabpentin Lovenox on hold for procedure He is an active smoker, but declining replacement Last BM reported as 01/27/19 Plan Unasyn 3gram 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 to the OR for 01/30/19...med in Med surg , we are almost out of stock of Unasyn, if MD orders it post-op, it will need to be changed, [facility] back order MD mentions possible epidural for post-op pain, anticipated post-op recovery one week Original Note: Admission Pharmacy Clinical Review partial SBO Code Status Full Code Current Weight Wgt-62.6 kg Renally Cleared and Narrow Therapeutic Index Meds CrCl~ 85.9 mL/min QTc Value / Action Taken NA BP Control, Fever BP- 142/80 Tmax-37.1C Electrolytes reviewed Na- 141 K+3.6 Mag-1.8 DVT Prophylaxis Lovenox Opiate Usage / Scheduled Bowel Regimen Ordered Yes No Plt/SCr for Heparin / Enoxaparin Plts- 236 SCr-0.87 INR for Warfarin na H/H stable, WBC/Bands H&H- 14.4/43.2 WBC- 8.02 Antibiotic appropriateness none Cultures and Sensitivities none Surgical ABX d/c within 24 hr na DM control / Insulin Dosing BG-84 Heart Failure (Check EF%) (FLAVIO's, B-Block, Diuretics) none IV to PO Switch No Home Meds Reviewed Yes Home Meds Not Ordered Ibuprofen Comments
[2019-01-24 15:35] VITALS: BP 134/88; PULSE 77; RESP 18; TEMP 36.7; O2SAT 94
--- NOTE | 2019-01-24 16:11 | W.PM.PROGNOT ---
Date of Service Date of service: 01/24/19 Time of Service: 16:30 Assessment and Plan (1) SBO (small bowel obstruction): Current visit: No Status: Acute still no bm. cont supportive care. my require CR consult for eval. pt may require sx for lysis of adhesions. Pt complicated hx should be sent to [facility] pt has a Hx of noncompliance and drug seeking behaviors. see orders cont concervative medical measure adn supportive care. Subjective Interval history since last seen: pt still sleeping from NGT insertion. d/w RN's. pt not passing gas. refused Mag Citrate. no BM. had lg emesis this am and agreed to NGT. pt still has constrast from last CT. Pt states he nl has to use an enema to have BM. pt has hx of imperferate anus. Exam Const Other: pt sleeping and pt not examined Objective Objective Clinical Data: Vital Signs Temperature 36.8 C 01/24/19 07:10 Temperature Source Tympanic 01/24/19 07:10 Pulse 74 01/24/19 07:10 Pulse Rhythm Regular 01/24/19 00:12 Respiratory Rate 16 01/24/19 07:10 Respiratory Effort 01/24/19 08:30 Respiratory Depth Normal 01/24/19 00:12 Respiratory Pattern Normal 01/24/19 00:12 Blood Pressure 142/80 H 01/24/19 07:10 Blood Pressure Position Sitting 01/23/19 08:49 Pulse Oximetry 97 01/24/19 07:10 Oxygen Delivery Method Room Air 01/24/19 07:10 Oxygen Flow Rate 0 01/24/19 07:10 Pain Level 8 01/24/19 00:10 Comment 01/24/19 00:10 Intake & Output 01/23/19 01/24/19 01/24/19 23:59 11:59 23:59 Intake Total 2029 / 2557.083 527.083 / 2557.083 Output Total 2400 / 2700 300 / 2700 Balance -370 / -142.917 227.083 / -142.917 Weight 62.596 kg Intake: IV 1999.083 527.083 / 2527.083 Oral 30 / 30 Output: Gastric Drainage 300 / 300 Right Nare 300 / 300 Urine 400 / 400 Emesis 1999 Other: Urine Color Yellow Urine Appearance Clear Clear Urine Odor Normal Comment pt gets up AD MISTY to void. Gastric Occult Blood Right Nare Negative Voiding Methods Urinal Laboratory Results WBC 8.02 k/cumm (4.4-10.8) 01/23/19 10:25 RBC 4.92 m/cumm (4.50-6.00) 01/23/19 10:25 Hgb 14.4 g/dL (13.5-17.5) 01/23/19 10:25 Hct 43.2 % (40.0-50.0) 01/23/19 10:25 MCV 87.8 fL (80-95) 01/23/19 10:25 MCH 29.3 pg (27.0-33.0) 01/23/19 10:25 MCHC 33.3 g/dL (32.0-36.0) 01/23/19 10:25 RDW 13.4 % (11.8-14.1) 01/23/19 10:25 Plt Count 236 x1000/uL (130-400) 01/23/19 10:25 MPV 9.8 fL (8.0-11.0) 01/23/19 10:25 Immature Gran % 0.2 01/23/19 10:25 Neutrophils % 59.9 01/23/19 10:25 Lymphocytes % 25.4 01/23/19 10:25 Monocytes % 11.0 01/23/19 10:25 Eosinophils % 3.1 01/23/19 10:25 Basophils % 0.4 01/23/19 10:25 Absolute Neutrophils 4.80 k/cumm (1.2-6.7) 01/23/19 10:25 Absolute Lymphocytes 2.04 k/cumm (1.2-3.4) 01/23/19 10:25 Absolute Monocytes 0.88 k/cumm (0.11-0.7) H 01/23/19 10:25 Absolute Eosinophils 0.25 k/cumm (0.0-0.7) 01/23/19 10:25 Absolute Basophils 0.03 k/cumm (0.0-0.2) 01/23/19 10:25 Sodium 141 mmol/L (136-145) 01/23/19 10:25 Potassium 3.6 mmol/L (3.5-5.1) 01/23/19 10:25 Chloride 104 mmol/L (98-107) 01/23/19 10:25 Carbon Dioxide 24.7 mmol/L (21.0-32.0) 01/23/19 10:25 Anion Gap 12.3 mmol/L (3-11) H 01/23/19 10:25 BUN 17 mg/dL (7-18) 01/23/19 10:25 Creatinine 0.87 mg/dL (0.70-1.30) 01/23/19 10:25 Estimated GFR/1.73 m2 >= 60.00 (mL/min/1.73m2) 01/23/19 10:25 Glucose 84 mg/dL (70-100) 01/23/19 10:25 Calcium 8.4 mg/dL (8.5-10.1) L 01/23/19 10:25 Magnesium 1.8 mg/dL (1.8-2.4) 01/23/19 10:25 Total Bilirubin 0.3 mg/dL (0.2-1.0) 01/23/19 10:25 AST 11 U/L (15-37) L 01/23/19 10:25 ALT 15 U/L (12-78) 01/23/19 10:25 Alkaline Phosphatase 105 U/L (46-116) 01/23/19 10:25 Total Protein 6.2 g/dL (6.4-8.2) L 01/23/19 10:25 Albumin 3.3 g/dL (3.4-5.0) L 01/23/19 10:25 Lipase 44 U/L (73-393) L 01/23/19 10:25
[2019-01-25 00:30] VITALS: BP 141/83; PULSE 80; RESP 16; TEMP 36.2; O2SAT 94
[2019-01-25] MEDS: Normal Saline Flush 10 ML SYR IVP ×3 (02:37→22:06)
[2019-01-25 08:00] VITALS: BP 169/90; PULSE 70; RESP 20; TEMP 36.8; O2SAT 96
--- NOTE | 2019-01-25 09:39 | W.PM.PROGNOT ---
Documented by User: YESI Lange 01/25/19 09:44 Date of Service Date of service: 01/25/19 Time of Service: 07:00 Assessment and Plan (1) Partial small bowel obstruction: Current visit: Yes Status: Acute NG tube is in place, however does not appear to have been on suction overnight. Once replaced on suction was able to get an additional 350ccs out of green, thick material. Following this abdomen was soft and less tender with palpation. Offered benzacaine lozenges for comfort with NG tube, which patient declined. DIET- NPO, Ice chips only. ACTIVITY- Encouraged ambulation and sitting up out of bed. Abdominal Xray PENDING P// Continue with bowel rest with NG tube in place. Subjective Interval history since last seen: I slept okay. I haven't been having as much gas pain. The patient reports the NG tube has been irritating his Right eye, causing it to be sore and tearful. Denies nausea or vomiting. Exam Const General: cooperative and comfortable Orientation: alert and oriented x3 Resp Effort & Inspection: normal respiratory effort, no audible wheezes and no cough Auscultation: clear to auscultation bilaterally Cardio Jugular venous pressure: no JVD Palpation: normal PMI Heart Sounds: S1 normal, S2 normal and no murmurs GI Inspection: normal to inspection and distended Palpation: not soft, no guarding and tender in the RLQ and in the LUQ Auscultation: hypoactive bowel sounds Objective Objective Clinical Data: Vital Signs Temperature 36.8 C 01/25/19 08:00 Temperature Source Tympanic 01/25/19 08:00 Pulse 70 01/25/19 08:00 Pulse Rhythm Regular 01/24/19 21:32 Respiratory Rate 20 01/25/19 08:00 Respiratory Effort 01/24/19 21:32 Respiratory Depth Normal 01/24/19 21:32 Respiratory Pattern Normal 01/24/19 21:32 Blood Pressure 169/90 H 01/25/19 08:00 Blood Pressure Position Sitting 01/23/19 08:49 Pulse Oximetry 96 01/25/19 08:00 Oxygen Delivery Method Room Air 01/25/19 08:00 Oxygen Flow Rate 0 01/25/19 08:00 Pain Level 2 01/25/19 02:38 Comment 01/24/19 00:10 Intake & Output 01/24/19 01/24/19 01/25/19 11:59 23:59 11:59 Intake Total 2029 / 3030.000 1000.000 / 3030.000 120 / 120 Output Total 2400 / 2950 550 / 2950 1150 / 1150 Balance -370 / 80.000 450.000 / 80.000 -1030 / -1030 Intake: IV 1999 / 3000.000 1000.000 / 3000.000 0 / 0 Oral 30 / 30 120 / 120 Output: Gastric Drainage 300 / 300 800 / 800 Right Nare 300 / 300 800 / 800 Urine 400 / 650 250 / 650 350 / 350 Emesis 1999 Other: Urine Color Yellow Yellow Yellow Urine Appearance Clear Clear Clear Urine Odor Normal Normal Comment pt gets up AD MISTY to void. Gastric Occult Blood Right Nare Negative Voiding Methods Urinal Urinal Urinal Laboratory Results WBC 8.02 k/cumm (4.4-10.8) 01/23/19 10:25 RBC 4.92 m/cumm (4.50-6.00) 01/23/19 10:25 Hgb 14.4 g/dL (13.5-17.5) 01/23/19 10:25 Hct 43.2 % (40.0-50.0) 01/23/19 10:25 MCV 87.8 fL (80-95) 01/23/19 10:25 MCH 29.3 pg (27.0-33.0) 01/23/19 10:25 MCHC 33.3 g/dL (32.0-36.0) 01/23/19 10:25 RDW 13.4 % (11.8-14.1) 01/23/19 10:25 Plt Count 236 x1000/uL (130-400) 01/23/19 10:25 MPV 9.8 fL (8.0-11.0) 01/23/19 10:25 Immature Gran % 0.2 01/23/19 10:25 Neutrophils % 59.9 01/23/19 10:25 Lymphocytes % 25.4 01/23/19 10:25 Monocytes % 11.0 01/23/19 10:25 Eosinophils % 3.1 01/23/19 10:25 Basophils % 0.4 01/23/19 10:25 Absolute Neutrophils 4.80 k/cumm (1.2-6.7) 01/23/19 10:25 Absolute Lymphocytes 2.04 k/cumm (1.2-3.4) 01/23/19 10:25 Absolute Monocytes 0.88 k/cumm (0.11-0.7) H 01/23/19 10:25 Absolute Eosinophils 0.25 k/cumm (0.0-0.7) 01/23/19 10:25 Absolute Basophils 0.03 k/cumm (0.0-0.2) 01/23/19 10:25 Sodium 141 mmol/L (136-145) 01/23/19 10:25 Potassium 3.6 mmol/L (3.5-5.1) 01/23/19 10:25 Chloride 104 mmol/L (98-107) 01/23/19 10:25 Carbon Dioxide 24.7 mmol/L (21.0-32.0) 01/23/19 10:25 Anion Gap 12.3 mmol/L (3-11) H 01/23/19 10:25 BUN 17 mg/dL (7-18) 01/23/19 10:25 Creatinine 0.87 mg/dL (0.70-1.30) 01/23/19 10:25 Estimated GFR/1.73 m2 >= 60.00 (mL/min/1.73m2) 01/23/19 10:25 Glucose 84 mg/dL (70-100) 01/23/19 10:25 Calcium 8.4 mg/dL (8.5-10.1) L 01/23/19 10:25 Magnesium 1.8 mg/dL (1.8-2.4) 01/23/19 10:25 Total Bilirubin 0.3 mg/dL (0.2-1.0) 01/23/19 10:25 AST 11 U/L (15-37) L 01/23/19 10:25 ALT 15 U/L (12-78) 01/23/19 10:25 Alkaline Phosphatase 105 U/L (46-116) 01/23/19 10:25 Total Protein 6.2 g/dL (6.4-8.2) L 01/23/19 10:25 Albumin 3.3 g/dL (3.4-5.0) L 01/23/19 10:25 Lipase 44 U/L (73-393) L 01/23/19 10:25 Documented by User: Shani Wilkins Fletcher, 01/25/19 11:28 Assessment and Plan (1) Partial small bowel obstruction: Current visit: Yes Status: Acute pt seen and examined by myself. agree w/ above pt has extensive Hx of non compliance. Did not take Mg Citrate. still has at least 300cc out via NGT per shift. (NGT was hooked up wrong last pm and was not drawing) Abdom is soft and flat today. no peritonitis. He has nl BS. Still has dilated loops of sm bowel on xray. -don't want to pull NGT or give anything orally. can clamp NGT to walk -will try to stimulate gut from below w/ enemas and x1 low dose reglan. -pt dose not like NGT and is threatening to pull it out. -d/w pt that if he continues in this fashion- that he is hampering his own health care and is not going to get better. -pt does have narcotics ordered (which hill hamper and slow down return of bowel function). pt demands that he receives narcotics. *staff has been extremely accommodating to pt and to try to meet there demands and to make him comfortable. continue supportive care. -eventually pt should see colorectal and have a colonic transit time eval and poss elective laprascopic lysis of adhesions. 45 mins was spent w/ pt, YESI Rosales, and nursing in d/w pt and reviewing his care and progress. (2) Constipation by delayed colonic transit: Current visit: Yes Status: Acute (3) Noncompliance by refusing intervention or support: Current visit: Yes Status: Acute
--- NOTE | 2019-01-25 10:18 | CMPROGNOTE_ITS ---
- If Service Date Differs Date of service: 01/25/19 Time of Service: 10:18 Care Management Progress Note S/O: Bebeto continues to have an NG tube in place, and is NPO at this time. Ricardo is scheduled for an abdominal xray for today. No change in plan. A: 53 y/o male admitted 01/23/19 for Partial SBO P: Bebeto will return home with no services. He will F/U with [facility] and plan of care as prescribed. Family to transport.
--- NOTE | 2019-01-25 10:42 | DI.RAD_ITS ---
SYMPTOMS/DIAGNOSIS: SMALL BOWEL OBSTRUCTION FLAT AND UPRIGHT ABDOMEN: Comparison 01/24/19. There has been interval placement of a nasogastric tube. The tip of the catheter is seen in the stomach. There is residual oral contrast seen in the distal colon. There are persistent mildly dilated loops of small bowel predominantly in the left upper quadrant with air fluid levels. Overall the appearance of the bowel is unchanged compared to 01/24/19. No pneumoperitoneum or organomegaly is seen. The lung bases are clear. Degenerative changes are seen in the spine. IMPRESSION: Stable appearance of the abdomen with persistent mildly dilated loops of small bowel present in the upper abdomen.
[2019-01-25] MEDS: Mineral Oil-Enema 133 ML BTL PR (11:18)
[2019-01-25] MEDS: Metoclopramide 10 MG/2 ML VIAL 5 MG IVP (12:55)
[2019-01-25] MEDS: Normal Saline 1,000 ML 125 ML IV ×2 (12:55→20:50)
[2019-01-25] MEDS: Ondansetron 4 MG/2 ML VIAL IVP ×2 (12:56→22:02)
--- NOTE | 2019-01-25 14:59 | W.PM.PROGNOT ---
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 We discussed his AXR films which still show some dilated small bowel loops and retained barium in the colon. There also appears to be a fair amount of stool in the right colon on my review of the films. Discussed with patient re: trying a dose of Magnesium citrate via the NG tube with clamping x 1 hour. Discussed with him that if he fails to improve with NG decompression and laxatives/enemas, then we may need to consider surgery. Patient is adamant that he does not wish to consider surgical intervention. He is agreeable to trying the Magnesium citrate. Will check another follow-up AXR in the am. Subjective Interval history since last seen: Patient c/o NG tube bothering his right eye. He had previous traumatic cataract surgery in his right eye. Self-administered enema with result of small, soft, formed stool balls. AXR today essentially unchanged from 01/24/19 per report. On my review of films, there appears to be a fair amount of stool in his right colon. Exam Const General: cooperative and no acute distress Orientation: alert and oriented x3 HENMT Head: normocephalic and atraumatic Resp Effort & Inspection: normal respiratory effort and able to speak in complete sentences Cardio Jugular venous pressure: no JVD GI Inspection: non-distended, scar and other (NG - green, bilious fluid in tubing/canister; 450 cc x 8 hours) Palpation: soft, not firm, no guarding, no masses and not rigid Auscultation: normal bowel sounds Objective Objective Clinical Data: Vital Signs Temperature 36.8 C 01/25/19 08:00 Temperature Source Tympanic 01/25/19 08:00 Pulse 70 01/25/19 08:00 Pulse Rhythm Regular 01/24/19 21:32 Respiratory Rate 20 01/25/19 08:00 Respiratory Effort 01/24/19 21:32 Respiratory Depth Normal 01/24/19 21:32 Respiratory Pattern Normal 01/24/19 21:32 Blood Pressure 169/90 H 01/25/19 08:00 Blood Pressure Position Sitting 01/23/19 08:49 Pulse Oximetry 96 01/25/19 08:00 Oxygen Delivery Method Room Air 01/25/19 08:00 Oxygen Flow Rate 0 01/25/19 08:00 Pain Level 2 01/25/19 02:38 Comment 01/24/19 00:10 Intake & Output 01/24/19 01/25/19 01/25/19 23:59 11:59 23:59 Intake Total 1000.000 / 3030.000 120 / 1120 1000 / 1120 Output Total 550 / 2950 1550 / 1550 Balance 450.000 / 80.000 -1430 / -430 1000 / -430 Intake: IV 1000.000 / 3000.000 0 / 1000 1000 / 1000 Oral 120 / 120 Output: Gastric Drainage 300 / 300 1200 / 1200 Right Nare 300 / 300 1200 / 1200 Urine 250 / 650 350 / 350 Other: Urine Color Yellow Yellow Urine Appearance Clear Clear Urine Odor Normal Gastric Occult Blood Right Nare Negative Voiding Methods Urinal Urinal Laboratory Results WBC 8.02 k/cumm (4.4-10.8) 01/23/19 10:25 RBC 4.92 m/cumm (4.50-6.00) 01/23/19 10:25 Hgb 14.4 g/dL (13.5-17.5) 01/23/19 10:25 Hct 43.2 % (40.0-50.0) 01/23/19 10:25 MCV 87.8 fL (80-95) 01/23/19 10:25 MCH 29.3 pg (27.0-33.0) 01/23/19 10:25 MCHC 33.3 g/dL (32.0-36.0) 01/23/19 10:25 RDW 13.4 % (11.8-14.1) 01/23/19 10:25 Plt Count 236 x1000/uL (130-400) 01/23/19 10:25 MPV 9.8 fL (8.0-11.0) 01/23/19 10:25 Immature Gran % 0.2 01/23/19 10:25 Neutrophils % 59.9 01/23/19 10:25 Lymphocytes % 25.4 01/23/19 10:25 Monocytes % 11.0 01/23/19 10:25 Eosinophils % 3.1 01/23/19 10:25 Basophils % 0.4 01/23/19 10:25 Absolute Neutrophils 4.80 k/cumm (1.2-6.7) 01/23/19 10:25 Absolute Lymphocytes 2.04 k/cumm (1.2-3.4) 01/23/19 10:25 Absolute Monocytes 0.88 k/cumm (0.11-0.7) H 01/23/19 10:25 Absolute Eosinophils 0.25 k/cumm (0.0-0.7) 01/23/19 10:25 Absolute Basophils 0.03 k/cumm (0.0-0.2) 01/23/19 10:25 Sodium 141 mmol/L (136-145) 01/23/19 10:25 Potassium 3.6 mmol/L (3.5-5.1) 01/23/19 10:25 Chloride 104 mmol/L (98-107) 01/23/19 10:25 Carbon Dioxide 24.7 mmol/L (21.0-32.0) 01/23/19 10:25 Anion Gap 12.3 mmol/L (3-11) H 01/23/19 10:25 BUN 17 mg/dL (7-18) 01/23/19 10:25 Creatinine 0.87 mg/dL (0.70-1.30) 01/23/19 10:25 Estimated GFR/1.73 m2 >= 60.00 (mL/min/1.73m2) 01/23/19 10:25 Glucose 84 mg/dL (70-100) 01/23/19 10:25 Calcium 8.4 mg/dL (8.5-10.1) L 01/23/19 10:25 Magnesium 1.8 mg/dL (1.8-2.4) 01/23/19 10:25 Total Bilirubin 0.3 mg/dL (0.2-1.0) 01/23/19 10:25 AST 11 U/L (15-37) L 01/23/19 10:25 ALT 15 U/L (12-78) 01/23/19 10:25 Alkaline Phosphatase 105 U/L (46-116) 01/23/19 10:25 Total Protein 6.2 g/dL (6.4-8.2) L 01/23/19 10:25 Albumin 3.3 g/dL (3.4-5.0) L 01/23/19 10:25 Lipase 44 U/L (73-393) L 01/23/19 10:25
[2019-01-25] MEDS: Magnesium Citrate 300 ML BTL PO (15:44)
[2019-01-25 20:23] VITALS: BP 150/92; PULSE 86; RESP 18; TEMP 37.3; O2SAT 97
--- NOTE | 2019-01-25 21:09 | NUR.NOTE ---
Nursing Note: 3-7 nurse reports canister was changed on her shift. Another nurse checked on pt tonight and set sx to continuous and got out 1000cc brown fluid. Canister changed and no additional drainage so returned setting to LIS as ordered. Tubing disconnected to confirm suction is on. Pt is cooperative and apologetic about his rude behavior and explains how he is extremely frustrated. He states that he refuses surgery, will go home and under a tree or his surgery will be with a .40 colin. He rants a little, talking to himself about how his bowels need to move and that it needs to get out of there. He states he needs to just hit it and make it move, then he does actually hit his abdomen 3 times with a closed fist. I was next to his bed hanging IV fluid, when my arms were up putting it on pole pt poked MY stomach to show me where he thought his blockage was. He didn't hurt me or intend to but was inappropriate. I did not say anything to him, just moved away. Pt refuses pain medication even though rates at 5/10. States it will not help anyway and he believes he should have received Morphine for this issue at the beginning of this hospital stay or a month ago if we wanted to help him. I believe the pt has misconstrued views of his condition and what an effective treatment and healthy diet look like. He stated he will pull the tube out, cannot stand it and will eat all the pizza he wants. I listed to pt emphatically and let him vent, asked him to hang in there with us and allow treatment. He does not have any needs I can help him with at this time but I encouraged him to call if I can help.
[2019-01-26] MEDS: Normal Saline 1,000 ML 125 ML IV (04:34)
[2019-01-26 06:30] VITALS: BP 126/78; PULSE 72; RESP 16; TEMP 37.2; O2SAT 96
--- NOTE | 2019-01-26 07:06 | NUR.NOTE ---
Nursing Note: LIS suspected to not be working correctly. NOC shift attempted to trouble-shoot to no avail. It was partially working but because of recent issues the unit was checked every hour from 2330 to 0630, and at every check the unit was turned to cont. sx to clear tubing (approx 20-30 seconds each time) and returned to LIS until next hour check. There are notes in charting for amounts each hour, the shift total from 1900 on 01/25 to 0630 on 01/26 is 3,075cc brown to green colored bile (green beginning of shift, changed to brown last few hours). Pt c/o nausea and at hs took zofran x 1, Morphine 2mg x 1 for rumbling in his intestines and pain about 2. Denied nausea and pain was zero to two rest of shift. No pain or nausea at 0600 and VSS. Reported to charge nurse that labs had not been done since 01/23. Pt slept well and appeared comfortable t.o shift.
--- NOTE | 2019-01-26 07:12 | NUR.NOTE ---
Nursing Note: Last urine output at hs for 300 clear yellow.
[2019-01-26 07:30] LABS: Platelet Count 200 x1000/uL (130-400)
[2019-01-26 07:41] VITALS: BP 124/76; PULSE 78; RESP 16; TEMP 37.2; O2SAT 95
[2019-01-26 08:18] LABS: Anion Gap 9.9 mmol/L (3-11); BUN 7 mg/dL (7-18); CO2 25.1 mmol/L (21.0-32.0); CREATININE 0.79 mg/dL (0.70-1.30); Calcium 8.5 mg/dL (8.5-10.1); Chloride 100 mmol/L (98-107); Glucose 53 mg/dL (70-100); Potassium 3.7 mmol/L (3.5-5.1); Sodium 135 mmol/L (136-145)
--- NOTE | 2019-01-26 08:42 | DI.RAD_ITS ---
SYMPTOM/DIAGNOSIS: F/U SMALL BOWEL OBSTRUCTION FLAT AND UPRIGHT ABDOMEN: The lung bases are clear. There is a nasogastric tube seen in the stomach. The mildly dilated loop of small bowel in the upper abdomen appears stable. This is nonspecific and may represent an ileus. Oral contrast is again seen in the colon. No organomegaly or pneumoperitoneum is seen. Overall the appearance of the abdomen is stable.
--- NOTE | 2019-01-26 09:39 | NUR.NOTE ---
Nursing Note: 0745: RN and PA in room with pt. pt makes statement if this xray is not better, I'm pulling this out (in reference to the NG tube), getting out of here and going home to lay under a tree outside and let nature take it's course. RN unsettled by this statement and discusses concern with PA outside the room. RN discussed need for mental health consult with PA. PA states she will discuss with MD. continue to monitor.
--- NOTE | 2019-01-26 11:26 | W.PM.PROGNOT ---
Documented by User: YESI Lange 01/26/19 11:34 Date of Service Date of service: 01/26/19 Time of Service: 11:27 Assessment and Plan (1) Partial small bowel obstruction: Current visit: Yes Status: Acute NG tube remains in place 3L out overnight. ? Passing gas. ABD Xray showed continued ileus with contrast in the colon. Minimal/no response to Mag citrate or enema's performed yesterday. P// Mental Health Consult for evaluation of suicidal ideations. Continue NPO with NG tube in place to decompress bowel (2) Constipation by delayed colonic transit: Current visit: Yes Status: Acute (3) Noncompliance by refusing intervention or support: Current visit: Yes Status: Acute Subjective Interval history since last seen: Mr. Galarza reports his stomach is feeling better. At times there is a lot of gurgling. He reports that he has started passing flatus. Denies nausea or vomiting. Mr. Galarza also reported frustration with having to be in the hospital and that he feels that he has not had much improvement. He then proceeded to make comments about suicidal ideation, I am ready just go home and lay under a tree to . Hypothermia will take care of me. Exam Const General: cooperative and comfortable Orientation: alert and oriented x3 Resp Effort & Inspection: normal respiratory effort, no audible wheezes and no cough Auscultation: clear to auscultation bilaterally Cardio Rate: regular rate Rhythm: regular rhythm Heart Sounds: S1 normal, S2 normal and no murmurs GI Inspection: normal to inspection and non-distended Palpation: soft, no guarding and tender in the LUQ Auscultation: high-pitched sounds Objective Objective Clinical Data: Abnormal lab results 01/26/19 Range/Units 07:15 Sodium 135 L (136-145) mmol/L Glucose 53 L (70-100) mg/dL Vital Signs Temperature 37.2 C 01/26/19 07:41 Temperature Source Tympanic 01/26/19 07:41 Pulse 78 01/26/19 07:41 Pulse Rhythm Regular 01/25/19 16:10 Respiratory Rate 16 01/26/19 07:41 Respiratory Effort Non-Labored 01/25/19 16:10 Respiratory Depth Normal 01/25/19 16:10 Respiratory Pattern Normal 01/25/19 16:10 Blood Pressure 124/76 01/26/19 07:41 Blood Pressure Position Sitting 01/23/19 08:49 Pulse Oximetry 95 01/26/19 07:41 Oxygen Delivery Method Room Air 01/26/19 07:41 Oxygen Flow Rate 0 01/26/19 07:41 Pain Level 0 01/26/19 07:41 Comment 01/25/19 15:59 Intake & Output 01/25/19 01/25/19 01/26/19 11:59 23:59 11:59 Intake Total 120 / 2349.583 2229.583 / 2349.583 966.667 / 966.667 Output Total 1550 / 4575 3025 / 4575 1000 / 1000 Balance -1430 / -2225.417 -795.417 / -2225.417 -33.333 / -33.333 Intake: IV 0 / 2625.097 9260.583 / 1988.583 966.667 / 966.667 Oral 120 / 360 240 / 360 Output: Gastric Drainage 1200 / 3225 2025 / 3225 1000 / 1000 Right Nare 1200 / 3225 2025 / 3225 1000 / 1000 Urine 350 / 1350 1000 / 1350 Other: Urine Color Yellow Yellow Urine Appearance Clear Clear Urine Odor None Comment reports voiding w/o difficulty Voiding Methods Urinal Urinal Laboratory Results WBC 8.02 k/cumm (4.4-10.8) 01/23/19 10:25 RBC 4.92 m/cumm (4.50-6.00) 01/23/19 10:25 Hgb 14.4 g/dL (13.5-17.5) 01/23/19 10:25 Hct 43.2 % (40.0-50.0) 01/23/19 10:25 MCV 87.8 fL (80-95) 01/23/19 10:25 MCH 29.3 pg (27.0-33.0) 01/23/19 10:25 MCHC 33.3 g/dL (32.0-36.0) 01/23/19 10:25 RDW 13.4 % (11.8-14.1) 01/23/19 10:25 Plt Count 200 x1000/uL (130-400) 01/26/19 06:10 MPV 9.8 fL (8.0-11.0) 01/23/19 10:25 Immature Gran % 0.2 01/23/19 10:25 Neutrophils % 59.9 01/23/19 10:25 Lymphocytes % 25.4 01/23/19 10:25 Monocytes % 11.0 01/23/19 10:25 Eosinophils % 3.1 01/23/19 10:25 Basophils % 0.4 01/23/19 10:25 Absolute Neutrophils 4.80 k/cumm (1.2-6.7) 01/23/19 10:25 Absolute Lymphocytes 2.04 k/cumm (1.2-3.4) 01/23/19 10:25 Absolute Monocytes 0.88 k/cumm (0.11-0.7) H 01/23/19 10:25 Absolute Eosinophils 0.25 k/cumm (0.0-0.7) 01/23/19 10:25 Absolute Basophils 0.03 k/cumm (0.0-0.2) 01/23/19 10:25 Sodium 135 mmol/L (136-145) L 01/26/19 07:15 Potassium 3.7 mmol/L (3.5-5.1) 01/26/19 07:15 Chloride 100 mmol/L (98-107) 01/26/19 07:15 Carbon Dioxide 25.1 mmol/L (21.0-32.0) 01/26/19 07:15 Anion Gap 9.9 mmol/L (3-11) 01/26/19 07:15 BUN 7 mg/dL (7-18) 01/26/19 07:15 Creatinine 0.79 mg/dL (0.70-1.30) 01/26/19 07:15 Estimated GFR/1.73 m2 >= 60.00 (mL/min/1.73m2) 01/26/19 07:15 Glucose 53 mg/dL (70-100) L 01/26/19 07:15 Calcium 8.5 mg/dL (8.5-10.1) 01/26/19 07:15 Magnesium 1.8 mg/dL (1.8-2.4) 01/23/19 10:25 Total Bilirubin 0.3 mg/dL (0.2-1.0) 01/23/19 10:25 AST 11 U/L (15-37) L 01/23/19 10:25 ALT 15 U/L (12-78) 01/23/19 10:25 Alkaline Phosphatase 105 U/L (46-116) 01/23/19 10:25 Total Protein 6.2 g/dL (6.4-8.2) L 01/23/19 10:25 Albumin 3.3 g/dL (3.4-5.0) L 01/23/19 10:25 Lipase 44 U/L (73-393) L 01/23/19 10:25 Documented by User: Shani Bynum DO 01/26/19 14:26
--- NOTE | 2019-01-26 11:35 | W.INMHPGNOTE ---
Date of service: 01/26/19 Time of Service: 11:36 Mental Health Crisis Note Presenting Issue How did you arrive at the ED and why did you come: Ricardo has been getting treatment for on-going bowel blockage for approximately 30 years. He recently came in for treatment and reports he had some complications with his care. Through frustration he had made some comments to a nurse that was interpreted as passive suicidal ideation with a plan that could potentially lead to a suicide during this time of year due to freezing temperatures. Precipitating Factors Ricardo does not report a history of suicidal ideation, planning, intent, or attempts. He owned the comment he told the nurse and explained to this typewriter assembler his frustration with the complexity of his treatment when he feels his treatment was working previously. He identified his and family as strong supports. Furthermore, he reports he has never run away from home when he is angry. He also identified wanting to return to his job. He was futuristic and was able to focus his thought process on the frustration specific to his medical issue and the care he receives for it. Disposition BEHAVIOR: cooperative, elaborate, relaxed EYE CONTACT: good MOOD: euthymic AFFECT: full APPETITE: good SLEEP(trouble falling/staying asleep: no issues reported Plan Plan will be to continue with medical treatment at [facility] that he was admitted for and be discharged according to initial plan set by [facility] medical and care team. Signature Clinician's Name/Title: Charly López MA [facility] [place]
--- NOTE | 2019-01-26 11:43 | MHPN_ITS ---
Date of service: 01/26/19 Time of Service: 11:36 Mental Health Crisis Note Presenting Issue How did you arrive at the ED and why did you come: Ricardo has been getting treatment for on-going bowel blockage for approximately 30 years. He recently came in for treatment and reports he had some complications with his care. Through frustration he had made some comments to a nurse that was interpreted as passive suicidal ideation with a plan that could potentially lead to a suicide during this time of year due to freezing temperatures. Precipitating Factors Ricardo does not report a history of suicidal ideation, planning, intent, or attempts. He owned the comment he told the nurse and explained to this va underwriter his frustration with the complexity of his treatment when he feels his treatment was working previously. He identified his and family as strong supports. Furthermore, he reports he has never run away from home when he is angry. He also identified wanting to return to his job. He was futuristic and was able to focus his thought process on the frustration specific to his medical issue and the care he receives for it. Disposition BEHAVIOR: cooperative, elaborate, relaxed EYE CONTACT: good MOOD: euthymic AFFECT: full APPETITE: good SLEEP(trouble falling/staying asleep: no issues reported Plan Plan will be to continue with medical treatment at [facility] that he was admitted for and be discharged according to initial plan set by [facility] medical and care team. Signature Clinician's Name/Title: Charly López MA [facility]
--- NOTE | 2019-01-26 11:47 | PDOC.CMPRO ---
Care Management Progress Note S/O: Bebeto continues to have an NG tube in place, and is NPO at this time. CM checked in with Bebeto and his , they again reviewed their frustrations with Bebeto's care over the last month central to changes in how his care is managed, discharge readiness and lack of bed availability. They stated Ricardo was discharged a month ago after four days without repeat imaging. They reported he was going to be discharged from the ED due to lack of bed availability and did not feel confident that course of action was considered. PA: Maritza called to notify this justowriter operator of concerns she had regarding Drake's mental status due to SI statements he reportedly made during her interaction with him. She reported speaking to Dr. Mendoza who directed her to call [facility] for a MH Crisis Screening. CM met with Denilson [facility] and provided case review, please see his note for more details. CM will continue to follow. A: 53 y/o male admitted 01/23/19 for Partial SBO P: Bebeto will return home with no services. He will F/U with [facility] Surgical associates and plan of care as prescribed. Family to transport.
[2019-01-26] MEDS: DEXTROSE 5%-LACTATED RINGERS 1,000 ML 125 ML IV ×2 (12:24→20:47)
[2019-01-26] MEDS: Normal Saline Flush 10 ML SYR IVP ×2 (12:39→20:46)
--- NOTE | 2019-01-26 14:27 | W.PM.PROGNOT ---
Date of Service Date of service: 01/26/19 Time of Service: 14:29 Assessment and Plan (1) Noncompliance by refusing intervention or support: Current visit: Yes Status: Acute as below (2) Smoker unmotivated to quit: Current visit: Yes Status: Acute spirometry walk (3) Partial small bowel obstruction: Current visit: Yes Status: Acute d/w pt taking medication for SBO. pt refuses to take meds b/c he is worried about side affects. d/w pt that there are more S.A. from morphine than tylenol. Pt is concerned that he is not getting enough fluids. assured him that we are following his I/O and he is not dehydrated. I did d/w pt that it is vital that he is up walking. He needs to do this to stimulate bowel function to get them working. Pt said he would do an enema- but wanted to do it himself. Pt is frustrated that he isn't getting better- but he is refusing all medications/refusing to walk/refusing to participate in cares He says he is passing gas. He does have good BS and no fever/elevated WBC and no signs of peritonitis- cont. w/ conservative care at this time. Upon d/c I think pt should F/u w/ colorectal for further work-Up and consideration of elective laprascopic lysis of adhesions 30mins spent w/ pt and reviewing case w/ nursing Subjective Interval history since last seen: pt threatened suicide earlier today. He did have a mental health eval adn was determined not to be a harm to himself. Currently pt is refusing to do all medical interventions to try to help resolve the SBO. He says he is passing gas. He can't walk right now b/c he has a headache. which he refuses tylenol for and willl only take morphine. He is worried about the side affects of medications, but trusts morphine b/c he has taken it before. once the headache is resolved he says he will ealk. He says he will do an enema tonight Exam Chest Other: no CP or SOB. no productive cough. NSR VSS Resp Effort & Inspection: normal respiratory effort and able to speak in complete sentences Auscultation: clear to auscultation bilaterally, no rales, no rhonchi and no wheezes Cardio Rate: regular rate Rhythm: regular rhythm GI Inspection: normal to inspection Palpation: soft Rectal Exam: visual inspection normal Other: post sx changes noted. no hernias. +BS. no peritonitis. no R/R/G Skin Other: no breakdown Extrem General: normal to inspection and no clubbing, cyanosis or edema Objective Objective Clinical Data: Abnormal lab results 01/26/19 Range/Units 07:15 Sodium 135 L (136-145) mmol/L Glucose 53 L (70-100) mg/dL Vital Signs Temperature 37.2 C 01/26/19 07:41 Temperature Source Tympanic 01/26/19 07:41 Pulse 78 01/26/19 07:41 Pulse Rhythm Regular 01/26/19 12:41 Respiratory Rate 16 01/26/19 07:41 Respiratory Effort Non-Labored 01/26/19 12:41 Respiratory Depth Normal 01/26/19 12:41 Respiratory Pattern Normal 01/26/19 12:41 Blood Pressure 124/76 01/26/19 07:41 Blood Pressure Position Sitting 01/23/19 08:49 Pulse Oximetry 95 01/26/19 07:41 Oxygen Delivery Method Room Air 01/26/19 07:41 Oxygen Flow Rate 0 01/26/19 07:41 Pain Level 0 01/26/19 07:41 Comment 01/26/19 13:10 Intake & Output 01/25/19 01/26/19 01/26/19 23:59 11:59 23:59 Intake Total 2229.583 / 2349.583 96.7 / 2018.58 105584 Output Total 3025 / 4575 999 / 2049 1049 / 2049 Balance -795.417 / -2225.417 -33.333 / -30.416 2.917 / -30.416 Intake: IV 58 / 58.7 / 4044.233 1820.7 / 1973.584 Oral 240 / 360 45 / 45 Output: Gastric Drainage 2024 1000 / 1750 750 / 1750 Right Nare 2024 / 1750 750 / 1750 Urine 1000 / 1350 300 / 300 Other: Urine Color Yellow Light Annie Urine Appearance Clear Clear Urine Odor None Normal Comment reports voiding w/o difficulty Voiding Methods Urinal Urinal Laboratory Results WBC 8.02 k/cumm (4.4-10.8) 01/23/19 10:25 RBC 4.92 m/cumm (4.50-6.00) 01/23/19 10:25 Hgb 14.4 g/dL (13.5-17.5) 01/23/19 10:25 Hct 43.2 % (40.0-50.0) 01/23/19 10:25 MCV 87.8 fL (80-95) 01/23/19 10:25 MCH 29.3 pg (27.0-33.0) 01/23/19 10:25 MCHC 33.3 g/dL (32.0-36.0) 01/23/19 10:25 RDW 13.4 % (11.8-14.1) 01/23/19 10:25 Plt Count 200 x1000/uL (130-400) 01/26/19 06:10 MPV 9.8 fL (8.0-11.0) 01/23/19 10:25 Immature Gran % 0.2 01/23/19 10:25 Neutrophils % 59.9 01/23/19 10:25 Lymphocytes % 25.4 01/23/19 10:25 Monocytes % 11.0 01/23/19 10:25 Eosinophils % 3.1 01/23/19 10:25 Basophils % 0.4 01/23/19 10:25 Absolute Neutrophils 4.80 k/cumm (1.2-6.7) 01/23/19 10:25 Absolute Lymphocytes 2.04 k/cumm (1.2-3.4) 01/23/19 10:25 Absolute Monocytes 0.88 k/cumm (0.11-0.7) H 01/23/19 10:25 Absolute Eosinophils 0.25 k/cumm (0.0-0.7) 01/23/19 10:25 Absolute Basophils 0.03 k/cumm (0.0-0.2) 01/23/19 10:25 Sodium 135 mmol/L (136-145) L 01/26/19 07:15 Potassium 3.7 mmol/L (3.5-5.1) 01/26/19 07:15 Chloride 100 mmol/L (98-107) 01/26/19 07:15 Carbon Dioxide 25.1 mmol/L (21.0-32.0) 01/26/19 07:15 Anion Gap 9.9 mmol/L (3-11) 01/26/19 07:15 BUN 7 mg/dL (7-18) 01/26/19 07:15 Creatinine 0.79 mg/dL (0.70-1.30) 01/26/19 07:15 Estimated GFR/1.73 m2 >= 60.00 (mL/min/1.73m2) 01/26/19 07:15 Glucose 53 mg/dL (70-100) L 01/26/19 07:15 Calcium 8.5 mg/dL (8.5-10.1) 01/26/19 07:15 Magnesium 1.8 mg/dL (1.8-2.4) 01/23/19 10:25 Total Bilirubin 0.3 mg/dL (0.2-1.0) 01/23/19 10:25 AST 11 U/L (15-37) L 01/23/19 10:25 ALT 15 U/L (12-78) 01/23/19 10:25 Alkaline Phosphatase 105 U/L (46-116) 01/23/19 10:25 Total Protein 6.2 g/dL (6.4-8.2) L 01/23/19 10:25 Albumin 3.3 g/dL (3.4-5.0) L 01/23/19 10:25 Lipase 44 U/L (73-393) L 01/23/19 10:25
[2019-01-26 16:14] VITALS: BP 143/75; PULSE 66; RESP 17; TEMP 36.7; O2SAT 97
--- NOTE | 2019-01-26 18:30 | CMPROGNOTE_ITS ---
Care Management Progress Note S/O: Bebeto continues to have an NG tube in place, and is NPO at this time. CM checked in with Bebeto and his , they again reviewed their frustrations with Bebeto's care over the last month central to changes in how his care is managed, discharge readiness and lack of bed availability. They stated Ricardo was discharged a month ago after four days without repeat imaging. They reported he was going to be discharged from the ED due to lack of bed availability and did not feel confident that course of action was considered. PA: Maritza called to notify this film writer of concerns she had regarding Drake's mental status due to SI statements he reportedly made during her interaction with him. She reported speaking to Dr. Mendoza who directed her to call [facility] for a MH Crisis Screening. CM met with Denilson [facility] and provided case review, please see his note for more details. CM will continue to follow. A: 53 y/o male admitted 01/23/19 for Partial SBO P: Bebeto will return home with no services. He will F/U with [facility] Surgical associates and plan of care as prescribed. Family to transport.
--- NOTE | 2019-01-27 07:00 | DI.RAD_ITS ---
SYMPTOM/DIAGNOSIS: F/U SMALL BOWEL OBSTRUCTION, CONSTIPATION FLAT AND UPRIGHT ABDOMEN: Comparison is made with 01/26/19. The visualized lung bases are clear. There are again seen dilated loops of small bowel with air fluid levels in the central abdomen. No organomegaly or pneumoperitoneum is seen. Degenerative changes are seen in the spine. IMPRESSION: Findings suspicious for small bowel obstruction versus ileus.
[2019-01-27 07:11] LABS: Abs Immature Grans 0.02 k/cumm (0.0-0.09); Absolute Basophil Count 0.03 k/cumm (0.0-0.2); Absolute Eosinophil Count 0.24 k/cumm (0.0-0.7); Absolute Lymphocyte Count 1.27 k/cumm (1.2-3.4); Absolute Neutrophil Count 6.02 k/cumm (1.2-6.7); Basophils % 0.4; Eosinophils % 2.9; HGB 14.9 g/dL (13.5-17.5); Immature Grans % 0.2; Lymphocytes % 15.2; Mean Corp. HGB Concentration 33.9 g/dL (32.0-36.0); Mean Corpuscular Hemoglobin 29.4 pg (27.0-33.0); Mean Platelet Volume 10.1 fL (8.0-11.0); Monocytes % 9.5; Neutrophils % 71.8; Platelet Count 225 x1000/uL (130-400); RBC 5.06 m/cumm (4.50-6.00); RBC Distribution Width 13.3 % (11.8-14.1); White Blood Cell Count 8.38 k/cumm (4.4-10.8)
[2019-01-27 07:24] VITALS: BP 119/75; PULSE 74; RESP 16; TEMP 35.9; O2SAT 96
[2019-01-27 07:42] LABS: Anion Gap 11.2 mmol/L (3-11); BUN 7 mg/dL (7-18); CO2 27.8 mmol/L (21.0-32.0); CREATININE 1.01 mg/dL (0.70-1.30); Calcium 9.1 mg/dL (8.5-10.1); Chloride 104 mmol/L (98-107); Glucose 129 mg/dL (70-100); Magnesium 1.7 mg/dL (1.8-2.4); Potassium 3.4 mmol/L (3.5-5.1); Sodium 143 mmol/L (136-145)
[2019-01-27 07:55] LABS: PHOSPHORUS 2.4 mg/dL (2.6-4.7)
--- NOTE | 2019-01-27 08:34 | DI.VRAD_ITS ---
EXAM: XR Abdomen, 2 Views EXAM DATE/TIME: 01/27/2019 12:01 AM CLINICAL HISTORY: 53 years old, male; Signs and symptoms; Constipation; Patient HX: Small bowel obstruction, constipation TECHNIQUE: Frontal view of the abdomen/pelvis with upright view of the abdomen. COMPARISON: CR XR abdomen flat upright 01/26/2019 8:27 AM FINDINGS: Gastrointestinal tract: Multiple dilated loops of bowel with air-fluid levels consistent with small bowel obstruction. Intraperitoneal space: Normal. No free air. Bones/joints: Unremarkable for age. IMPRESSION: Multiple dilated loops of bowel with air-fluid levels consistent with small bowel obstruction. Dictated and Authenticated by: Britney Moya MD. Ordering:TOMER Frederick MD
--- NOTE | 2019-01-27 10:29 | W.PM.PROGNOT ---
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 We discussed his AXR films which still show some dilated small bowel loops with air fluid levels but the retained barium in the colon appears to have passed. Bowel sounds are active. Will resume po with soft diet. May leave NG/IV out as long as he is tolerating po. Recommended that he stay until tomorrow morning to ensure that he is tolerating po well before discharge. He has a recent history of leaving AMA when he is feeling better, resuming a diet at home, and then returning shortly thereafter with recurrent symptoms. Patient inquired about smoking. Offered a nicotine patch which he declined. Discussed that he may need to consider surgery and lysis of adhesions at some point if his symptoms continue to persist, become more frequent, or worsen. Consider seeing a colorectal surgeon for this with his previous surgical history for imperforate anus. Discussed that he may wish to establish himself with a colorectal surgeon at [facility] electively as an outpatient. His sister is encouraging him to stay as recommended. He is thinking it over. Also discussed plans with patient's nurse. Subjective Interval history since last seen: Patient seen with sister at the bedside. Patient self-administered a soap suds enema this am and reportedly had a large BM with formed and liquid stool and mucus. His IV came out and he has refused to have it replaced at this time. Patient also removed his NG tube this am. AXR reviewed. VRADS report noted. Dilated small bowel loops with air-fluid levels seen. On my review, it appears that the retained contrast in his colon has cleared. Exam Const General: no acute distress Orientation: alert and oriented x3 [facility] Head: normocephalic and atraumatic Eyes Sclera: sclerae normal Resp Effort & Inspection: normal respiratory effort and able to speak in complete sentences Cardio Jugular venous pressure: no JVD GI Inspection: non-distended and scar (midline) Palpation: soft, not firm, no guarding, not rigid and nontender Auscultation: normal bowel sounds Skin General skin exam: no rashes or lesions noted and no jaundice Neuro General: alert and oriented x3 Speech: speech normal Objective Objective Clinical Data: Abnormal lab results 03/08/0901/27/19 01/27/19 Range/Units 06:40 06:40 06:40 Absolute Monocytes 0.80 H (0.11-0.7) k/cumm Potassium 3.4 L (3.5-5.1) mmol/L Anion Gap 11.2 H (3-11) mmol/L Glucose 129 H D (70-100) mg/dL Phosphorus 2.4 L (2.6-4.7) mg/dL Magnesium 1.7 L (1.8-2.4) mg/dL Vital Signs Temperature 35.9 C L 01/27/19 07:24 Temperature Source Tympanic 01/27/19 07:24 Pulse 74 01/27/19 07:24 Pulse Rhythm Regular 01/27/19 08:02 Respiratory Rate 16 01/27/19 07:24 Respiratory Effort Non-Labored 01/27/19 08:02 Respiratory Depth Normal 01/27/19 08:02 Respiratory Pattern Normal 01/27/19 08:02 Blood Pressure 119/75 01/27/19 07:24 Blood Pressure Position Sitting 01/23/19 08:49 Pulse Oximetry 96 01/27/19 07:24 Oxygen Delivery Method Room Air 01/27/19 07:24 Oxygen Flow Rate 0 01/27/19 07:24 Pain Level 0 01/27/19 07:24 Comment 01/26/19 13:10 Intake & Output 01/26/19 01/26/19 01/27/19 11:59 23:59 11:59 Intake Total 966.667 / 3029.584 2062.917 / 3029.584 1045.417 / 1045.417 Output Total 1000 / 2150 1150 / 2150 350 / 350 Balance -33.333 / 879.584 912.917 / 879.584 695.417 / 695.417 Intake: IV 966.667 / 2984.584 2016.7 / 2984.584 985.417 / 985.417 Oral 45 / 45 60 / 60 Output: Gastric Drainage 1000 / 1850 850 / 1850 150 / 150 Right Nare 1000 / 1850 850 / 1850 150 / 150 Urine 300 / 300 200 / 200 Other: Urine Color Light Annie Light Annie Urine Appearance Clear Clear Urine Odor Normal Normal Stool Size Copious Stool Characteristics Soft Formed Liquid Brown Green Voiding Methods Urinal Urinal Laboratory Results WBC 8.38 k/cumm (4.4-10.8) 01/27/19 06:40 RBC 5.06 m/cumm (4.50-6.00) 01/27/19 06:40 Hgb 14.9 g/dL (13.5-17.5) 01/27/19 06:40 Hct 44.0 % (40.0-50.0) 01/27/19 06:40 MCV 87.0 fL (80-95) 01/27/19 06:40 MCH 29.4 pg (27.0-33.0) 01/27/19 06:40 MCHC 33.9 g/dL (32.0-36.0) 01/27/19 06:40 RDW 13.3 % (11.8-14.1) 01/27/19 06:40 Plt Count 225 x1000/uL (130-400) 01/27/19 06:40 MPV 10.1 fL (8.0-11.0) 01/27/19 06:40 Immature Gran % 0.2 01/27/19 06:40 Neutrophils % 71.8 01/27/19 06:40 Lymphocytes % 15.2 01/27/19 06:40 Monocytes % 9.5 01/27/19 06:40 Eosinophils % 2.9 01/27/19 06:40 Basophils % 0.4 01/27/19 06:40 Absolute Neutrophils 6.02 k/cumm (1.2-6.7) 01/27/19 06:40 Absolute Lymphocytes 1.27 k/cumm (1.2-3.4) 01/27/19 06:40 Absolute Monocytes 0.80 k/cumm (0.11-0.7) H 01/27/19 06:40 Absolute Eosinophils 0.24 k/cumm (0.0-0.7) 01/27/19 06:40 Absolute Basophils 0.03 k/cumm (0.0-0.2) 01/27/19 06:40 Sodium 143 mmol/L (136-145) 01/27/19 06:40 Potassium 3.4 mmol/L (3.5-5.1) L 01/27/19 06:40 Chloride 104 mmol/L (98-107) 01/27/19 06:40 Carbon Dioxide 27.8 mmol/L (21.0-32.0) 01/27/19 06:40 Anion Gap 11.2 mmol/L (3-11) H 01/27/19 06:40 BUN 7 mg/dL (7-18) 01/27/19 06:40 Creatinine 1.01 mg/dL (0.70-1.30) 01/27/19 06:40 Estimated GFR/1.73 m2 >= 60.00 (mL/min/1.73m2) 01/27/19 06:40 Glucose 129 mg/dL (70-100) H D 01/27/19 06:40 Calcium 9.1 mg/dL (8.5-10.1) 01/27/19 06:40 Phosphorus 2.4 mg/dL (2.6-4.7) L 01/27/19 06:40 Magnesium 1.7 mg/dL (1.8-2.4) L 01/27/19 06:40 Total Bilirubin 0.3 mg/dL (0.2-1.0) 01/23/19 10:25 AST 11 U/L (15-37) L 01/23/19 10:25 ALT 15 U/L (12-78) 01/23/19 10:25 Alkaline Phosphatase 105 U/L (46-116) 01/23/19 10:25 Total Protein 6.2 g/dL (6.4-8.2) L 01/23/19 10:25 Albumin 3.3 g/dL (3.4-5.0) L 01/23/19 10:25 Lipase 44 U/L (73-393) L 01/23/19 10:25 Objective Narrative Objective Narrative: Patient Name: TRESSA GONSALVES #: [id number]: MS Ordering Provider: : ADM IN Primary Care Provider: Raffaele Washington M.D.Date of Exam: 01/27/19Sex: M : 1965Age: 53 Exam(s) EXAM: XR Abdomen, 2 Views EXAM DATE/TIME: 01/27/2019 12:01 AM CLINICAL HISTORY: 53 years old, male; Signs and symptoms; Constipation; Patient HX: Small bowel obstruction, constipation TECHNIQUE: Frontal view of the abdomen/pelvis with upright view of the abdomen. COMPARISON: CR XR abdomen flat upright 01/26/2019 8:27 AM FINDINGS: Gastrointestinal tract: Multiple dilated loops of bowel with air-fluid levels consistent with small bowel obstruction. Intraperitoneal space: Normal. No free air. Bones/joints: Unremarkable for age. IMPRESSION: Multiple dilated loops of bowel with air-fluid levels consistent with small bowel obstruction. Dictated and Authenticated by: Britney Moya MD. Ordering:TOMER Frederick MD Ordered By: CC: Dictated By: Reports vrad 01/27/19 0001 01/27/19 0833 Transcribed By: Teresita Gaona This is privileged, confidential information intended only for the provider named. Any use or distribution by any person other than this provider is strictly prohibited. If you receive this report in error, please notify us immediately at [phone] and return the original report to us at the address above. Thank-you.
--- NOTE | 2019-01-27 10:32 | PGE_ITS ---
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 We discussed his AXR films which still show some dilated small bowel loops with air fluid levels but the retained barium in the colon appears to have passed. Bowel sounds are active. Will resume po with soft diet. May leave NG/IV out as long as he is tolerating po. Recommended that he stay until tomorrow morning to ensure that he is tolerating po well before discharge. He has a recent history of leaving AMA when he is feeling better, resuming a diet at home, and then returning shortly thereafter with recurrent symptoms. Patient inquired about smoking. Offered a nicotine patch which he declined. Discussed that he may need to consider surgery and lysis of adhesions at some point if his symptoms continue to persist, become more frequent, or worsen. Consider seeing a colorectal surgeon for this with his previous surgical history for imperforate anus. Discussed that he may wish to establish himself with a colorectal surgeon at [facility] electively as an outpatient. His sister is encouraging him to stay as recommended. He is thinking it over. Also discussed plans with patient's nurse. Subjective Interval history since last seen: Patient seen with sister at the bedside. Patient self-administered a soap suds enema this am and reportedly had a large BM with formed and liquid stool and mucus. His IV came out and he has refused to have it replaced at this time. Patient also removed his NG tube this am. AXR reviewed. VRADS report noted. Dilated small bowel loops with air-fluid levels seen. On my review, it appears that the retained contrast in his colon has cleared. Exam Const General: no acute distress Orientation: alert and oriented x3 [facility] Head: normocephalic and atraumatic Eyes Sclera: sclerae normal Resp Effort & Inspection: normal respiratory effort and able to speak in complete sentences Cardio Jugular venous pressure: no JVD GI Inspection: non-distended and scar (midline) Palpation: soft, not firm, no guarding, not rigid and nontender Auscultation: normal bowel sounds Skin General skin exam: no rashes or lesions noted and no jaundice Neuro General: alert and oriented x3 Speech: speech normal Objective Objective Clinical Data: Abnormal lab results 03/08/0901/27/19 01/27/19 Range/Units 06:40 06:40 06:40 Absolute Monocytes 0.80 H (0.11-0.7) k/cumm Potassium 3.4 L (3.5-5.1) mmol/L Anion Gap 11.2 H (3-11) mmol/L Glucose 129 H D (70-100) mg/dL Phosphorus 2.4 L (2.6-4.7) mg/dL Magnesium 1.7 L (1.8-2.4) mg/dL Vital Signs Temperature 35.9 C L 01/27/19 07:24 Temperature Source Tympanic 01/27/19 07:24 Pulse 74 01/27/19 07:24 Pulse Rhythm Regular 01/27/19 08:02 Respiratory Rate 16 01/27/19 07:24 Respiratory Effort Non-Labored 01/27/19 08:02 Respiratory Depth Normal 01/27/19 08:02 Respiratory Pattern Normal 01/27/19 08:02 Blood Pressure 119/75 01/27/19 07:24 Blood Pressure Position Sitting 01/23/19 08:49 Pulse Oximetry 96 01/27/19 07:24 Oxygen Delivery Method Room Air 01/27/19 07:24 Oxygen Flow Rate 0 01/27/19 07:24 Pain Level 0 01/27/19 07:24 Comment 01/26/19 13:10 Intake & Output 01/26/19 01/26/19 01/27/19 11:59 23:59 11:59 Intake Total 966.667 / 3029.584 2062.917 / 3029.584 1045.417 / 1045.417 Output Total 1000 / 2150 1150 / 2150 350 / 350 Balance -33.333 / 879.584 912.917 / 879.584 695.417 / 695.417 Intake: IV 966.667 / 2984.584 2016.7 / 2984.584 985.417 / 985.417 Oral 45 / 45 60 / 60 Output: Gastric Drainage 1000 / 1850 850 / 1850 150 / 150 Right Nare 1000 / 1850 850 / 1850 150 / 150 Urine 300 / 300 200 / 200 Other: Urine Color Light Annie Light Annie Urine Appearance Clear Clear Urine Odor Normal Normal Stool Size Copious Stool Characteristics Soft Formed Liquid Brown Green Voiding Methods Urinal Urinal Laboratory Results WBC 8.38 k/cumm (4.4-10.8) 01/27/19 06:40 RBC 5.06 m/cumm (4.50-6.00) 01/27/19 06:40 Hgb 14.9 g/dL (13.5-17.5) 01/27/19 06:40 Hct 44.0 % (40.0-50.0) 01/27/19 06:40 MCV 87.0 fL (80-95) 01/27/19 06:40 MCH 29.4 pg (27.0-33.0) 01/27/19 06:40 MCHC 33.9 g/dL (32.0-36.0) 01/27/19 06:40 RDW 13.3 % (11.8-14.1) 01/27/19 06:40 Plt Count 225 x1000/uL (130-400) 01/27/19 06:40 MPV 10.1 fL (8.0-11.0) 01/27/19 06:40 Immature Gran % 0.2 01/27/19 06:40 Neutrophils % 71.8 01/27/19 06:40 Lymphocytes % 15.2 01/27/19 06:40 Monocytes % 9.5 01/27/19 06:40 Eosinophils % 2.9 01/27/19 06:40 Basophils % 0.4 01/27/19 06:40 Absolute Neutrophils 6.02 k/cumm (1.2-6.7) 01/27/19 06:40 Absolute Lymphocytes 1.27 k/cumm (1.2-3.4) 01/27/19 06:40 Absolute Monocytes 0.80 k/cumm (0.11-0.7) H 01/27/19 06:40 Absolute Eosinophils 0.24 k/cumm (0.0-0.7) 01/27/19 06:40 Absolute Basophils 0.03 k/cumm (0.0-0.2) 01/27/19 06:40 Sodium 143 mmol/L (136-145) 01/27/19 06:40 Potassium 3.4 mmol/L (3.5-5.1) L 01/27/19 06:40 Chloride 104 mmol/L (98-107) 01/27/19 06:40 Carbon Dioxide 27.8 mmol/L (21.0-32.0) 01/27/19 06:40 Anion Gap 11.2 mmol/L (3-11) H 01/27/19 06:40 BUN 7 mg/dL (7-18) 01/27/19 06:40 Creatinine 1.01 mg/dL (0.70-1.30) 01/27/19 06:40 Estimated GFR/1.73 m2 >= 60.00 (mL/min/1.73m2) 01/27/19 06:40 Glucose 129 mg/dL (70-100) H D 01/27/19 06:40 Calcium 9.1 mg/dL (8.5-10.1) 01/27/19 06:40 Phosphorus 2.4 mg/dL (2.6-4.7) L 01/27/19 06:40 Magnesium 1.7 mg/dL (1.8-2.4) L 01/27/19 06:40 Total Bilirubin 0.3 mg/dL (0.2-1.0) 01/23/19 10:25 AST 11 U/L (15-37) L 01/23/19 10:25 ALT 15 U/L (12-78) 01/23/19 10:25 Alkaline Phosphatase 105 U/L (46-116) 01/23/19 10:25 Total Protein 6.2 g/dL (6.4-8.2) L 01/23/19 10:25 Albumin 3.3 g/dL (3.4-5.0) L 01/23/19 10:25 Lipase 44 U/L (73-393) L 01/23/19 10:25 Objective Narrative Objective Narrative: Patient Name: TRESSA GONSALVES #: [id number]: MS Ordering Provider: : ADM IN Primary Care Provider: Raffaele Washington M.D.Date of Exam: 01/27/19Sex: M : 1965Age: 53 Exam(s) EXAM: XR Abdomen, 2 Views EXAM DATE/TIME: 01/27/2019 12:01 AM CLINICAL HISTORY: 53 years old, male; Signs and symptoms; Constipation; Patient HX: Small bowel obstruction, constipation TECHNIQUE: Frontal view of the abdomen/pelvis with upright view of the abdomen. COMPARISON: CR XR abdomen flat upright 01/26/2019 8:27 AM FINDINGS: Gastrointestinal tract: Multiple dilated loops of bowel with air-fluid levels consistent with small bowel obstruction. Intraperitoneal space: Normal. No free air. Bones/joints: Unremarkable for age. IMPRESSION: Multiple dilated loops of bowel with air-fluid levels consistent with small bowel obstruction. Dictated and Authenticated by: Britney Moya MD. Ordering:TOMER Frederick MD Ordered By: CC: Dictated By: Reports vrad 01/27/19 0001 01/27/19 0833 Transcribed By: Teresita Gaona This is privileged, confidential information intended only for the provider named. Any use or distribution by any person other than this provider is strictly prohibited. If you receive this report in error, please notify us immediately at [phone] and return the original report to us at the address above. Thank-you.
--- NOTE | 2019-01-27 15:09 | PDOC.CMPRO ---
Care Management Progress Note S/O: Drake is content with bowel movement, he removed his NG tube and IV, and reported anticipating returning home today. He is encouraged to stay the night for continued observation with diet advancement. No change to overall plan. A: 53 y/o male admitted 01/23/19 for Partial SBO P: Bebeto will return home with no services. He will F/U with [facility] Surgical associates and plan of care as prescribed. Family to transport.
[2019-01-27 16:38] VITALS: BP 133/87; PULSE 74; RESP 19; TEMP 37; O2SAT 94
[2019-01-27] MEDS: Normal Saline Flush 10 ML SYR IVP (19:45)
--- NOTE | 2019-01-28 07:00 | DI.RAD_ITS ---
SYMPTOM/DIAGNOSIS: F/U BOWEL OBSTRUCTION FLAT AND UPRIGHT ABDOMEN: Comparison is made with the day prior. The visualized lung bases are clear. There are again seen mildly dilated loops of small bowel in the central abdomen with air fluid levels. Small bowel obstruction versus ileus. Overall the appearance of the abdomen is unchanged compared to the prior examination. No pneumoperitoneum or organomegaly is seen. Degenerative changes are seen in the spine.
[2019-01-28 07:25] LABS: Abs Immature Grans 0.01 k/cumm (0.0-0.09); Absolute Basophil Count 0.03 k/cumm (0.0-0.2); Absolute Eosinophil Count 0.37 k/cumm (0.0-0.7); Absolute Lymphocyte Count 2.03 k/cumm (1.2-3.4); Absolute Monocyte Count 0.77 k/cumm (0.11-0.7); Absolute Neutrophil Count 4.13 k/cumm (1.2-6.7); Basophils % 0.4; HCT 43.3 % (40.0-50.0); HGB 14.5 g/dL (13.5-17.5); Immature Grans % 0.1; Lymphocytes % 27.7; Mean Corp. HGB Concentration 33.5 g/dL (32.0-36.0); Mean Corpuscular Hemoglobin 29.4 pg (27.0-33.0); Mean Corpuscular Volume 87.8 fL (80-95); Mean Platelet Volume 10.2 fL (8.0-11.0); Monocytes % 10.5; Neutrophils % 56.3; Platelet Count 216 x1000/uL (130-400); RBC 4.93 m/cumm (4.50-6.00); RBC Distribution Width 13.3 % (11.8-14.1); White Blood Cell Count 7.34 k/cumm (4.4-10.8)
[2019-01-28 07:41] LABS: Anion Gap 4.6 mmol/L (3-11); BUN 6 mg/dL (7-18); CO2 33.4 mmol/L (21.0-32.0); CREATININE 0.95 mg/dL (0.70-1.30); Chloride 106 mmol/L (98-107); Glucose 137 mg/dL (70-100); Magnesium 1.8 mg/dL (1.8-2.4); Potassium 3.6 mmol/L (3.5-5.1); Sodium 144 mmol/L (136-145)
[2019-01-28] MEDS: Normal Saline Flush 10 ML SYR IVP ×3 (07:50→19:41)
[2019-01-28 08:05] VITALS: BP 112/75; PULSE 76; RESP 18; TEMP 36.5; O2SAT 95
--- NOTE | 2019-01-28 08:18 | DI.VRAD_ITS ---
EXAM: XR Abdomen, 2 Views EXAM DATE/TIME: 01/28/2019 12:00 AM CLINICAL HISTORY: 53 years old, male; Signs and symptoms; Other: Bowel obstruction TECHNIQUE: Frontal view of the abdomen/pelvis with upright view of the abdomen. COMPARISON: CR XR abdomen flat upright 01/27/2019 7:39 AM FINDINGS: Gastrointestinal tract: Dilated loops of bowel appear to be small bowel measuring up to 3.7 cm. Small bowel obstruction not excluded in the correct clinical setting. Intraperitoneal space: Normal. No free air. Bones/joints: Unremarkable for age. IMPRESSION: Dilated loops of bowel appear to be small bowel measuring up to 3.7 cm. Small bowel obstruction not excluded in the correct clinical setting. Dictated and Authenticated by: Martell Leyva MD. Ordering:TOMER Frederick MD
--- NOTE | 2019-01-28 11:58 | W.PM.PROGNOT ---
Date of Service Date of service: 01/28/19 Time of Service: 11:58 Assessment and Plan (1) Partial small bowel obstruction: Current visit: Yes Status: Acute 53 y/o male with recurrent PSBO. Long discussion with patient and re: clinical course. Nurse present at bedside for discussion. We discussed his AXR films which still show some dilated small bowel loops with some air in the colon. His obstruction is not complete as he is passing flatus, but it it still significant enough that he is not able to eat. Mucus rectal output suggests that the colon is fairly well cleaned out at this point. He is frustrated with his lack of progress. He is frustrated that he is not allowed to smoke but again declines a nicotine patch. We discussed placing a PICC line for TPN. He is agreeable to this at this time. We discussed reinserting the NG tube for decompression but he declines. We discussed that he may have ice chips and up to 8 ounces baby food/day today as a compromise. We discussed that we may need to consider surgery as he is failing conservative management. He is adamant that he does not wish to even consider surgery at this time. We discussed the option of transfer to a tertiary center for further evaluation and management but he declines this as well. Will start TPN after PICC placed. Follow-up labs and AXR in am. Subjective Interval history since last seen: Patient seen with and nurse at bedside. He attempted to eat yesterday and had a reported 800 cc emesis. IV restarted and IVF resumed. Patient made NPO again. Mucus BM last night. (+) flatus. Patient refused to have NG tube reinserted. AXR this am still shows some dilated loops of small bowel. I do see air in the colon. He thinks that his gut has forgotten how to handle food. His notes that he was able to tolerate a couple jars of baby food a day at home. She is asking if we will allow him to have small amounts of po so that he will agree to stay and not leave AMA. We also discussed PICC line placement and TPN for nutritional support. Exam Const General: no acute distress and other (Pt intermittently angry/ tearful during discussion but cooperative w/ exam.) Orientation: alert and oriented x3 [facility] Head: normocephalic and atraumatic Eyes Sclera: sclerae normal Resp Effort & Inspection: normal respiratory effort and able to speak in complete sentences Cardio Jugular venous pressure: no JVD GI Inspection: non-distended Palpation: soft, not firm, no guarding, no masses, not rigid and nontender Auscultation: hypoactive bowel sounds Skin General skin exam: no rashes or lesions noted and no jaundice Neuro General: alert and oriented x3 Speech: speech normal Objective Objective Clinical Data: Abnormal lab results 01/28/19 01/28/19 Range/Units 06:52 06:52 Absolute Monocytes 0.77 H (0.11-0.7) k/cumm Carbon Dioxide 33.4 H (21.0-32.0) mmol/L BUN 6 L (7-18) mg/dL Glucose 137 H (70-100) mg/dL Vital Signs Temperature 36.5 C 01/28/19 08:05 Temperature Source Tympanic 01/28/19 08:05 Pulse 76 01/28/19 08:05 Pulse Rhythm Regular 01/28/19 08:00 Respiratory Rate 18 01/28/19 08:05 Respiratory Effort Non-Labored 01/28/19 08:00 Respiratory Depth Normal 01/28/19 08:00 Respiratory Pattern Normal 01/28/19 08:00 Blood Pressure 112/75 01/28/19 08:05 Blood Pressure Position Sitting 01/23/19 08:49 Pulse Oximetry 95 01/28/19 08:05 Oxygen Delivery Method Room Air 01/28/19 08:05 Oxygen Flow Rate 0 01/28/19 08:05 Pain Level 4 01/27/19 19:45 Comment 01/27/19 23:40 Intake & Output 01/27/19 01/27/19 01/28/19 11:59 23:59 12:59 Intake Total 1045.417 / 1445.417 400 / 1445.417 966.25 / 966.25 Output Total 350 / 1150 800 / 1150 200 / 200 Balance 695.417 / 295.417 -400 / 295.417 766.25 / 766.25 Intake: IV 985.417 / 985.417 966.25 / 966.25 Oral 60 / 460 400 / 460 0 / 0 Output: Gastric Drainage 150 / 150 Right Nare 150 / 150 Urine 200 / 200 200 / 200 Emesis 800 / 800 Other: Urine Color Light Annie Light Annie Urine Appearance Clear Clear Urine Odor Normal Normal Comment pt voiding independently voids in urinal sometimes and oob to br indep to void during noc Stool Size Copious Stool Characteristics Soft Mucoid Formed Liquid Brown Green Emesis Description Fecal Voiding Methods Urinal Toilet Toilet Urinal Laboratory Results WBC 7.34 k/cumm (4.4-10.8) 01/28/19 06:52 RBC 4.93 m/cumm (4.50-6.00) 01/28/19 06:52 Hgb 14.5 g/dL (13.5-17.5) 01/28/19 06:52 Hct 43.3 % (40.0-50.0) 01/28/19 06:52 MCV 87.8 fL (80-95) 01/28/19 06:52 MCH 29.4 pg (27.0-33.0) 01/28/19 06:52 MCHC 33.5 g/dL (32.0-36.0) 01/28/19 06:52 RDW 13.3 % (11.8-14.1) 01/28/19 06:52 Plt Count 216 x1000/uL (130-400) 01/28/19 06:52 MPV 10.2 fL (8.0-11.0) 01/28/19 06:52 Immature Gran % 0.1 01/28/19 06:52 Neutrophils % 56.3 01/28/19 06:52 Lymphocytes % 27.7 01/28/19 06:52 Monocytes % 10.5 01/28/19 06:52 Eosinophils % 5.0 01/28/19 06:52 Basophils % 0.4 01/28/19 06:52 Absolute Neutrophils 4.13 k/cumm (1.2-6.7) 01/28/19 06:52 Absolute Lymphocytes 2.03 k/cumm (1.2-3.4) 01/28/19 06:52 Absolute Monocytes 0.77 k/cumm (0.11-0.7) H 01/28/19 06:52 Absolute Eosinophils 0.37 k/cumm (0.0-0.7) 01/28/19 06:52 Absolute Basophils 0.03 k/cumm (0.0-0.2) 01/28/19 06:52 Sodium 144 mmol/L (136-145) 01/28/19 06:52 Potassium 3.6 mmol/L (3.5-5.1) 01/28/19 06:52 Chloride 106 mmol/L (98-107) 01/28/19 06:52 Carbon Dioxide 33.4 mmol/L (21.0-32.0) H 01/28/19 06:52 Anion Gap 4.6 mmol/L (3-11) 01/28/19 06:52 BUN 6 mg/dL (7-18) L 01/28/19 06:52 Creatinine 0.95 mg/dL (0.70-1.30) 01/28/19 06:52 Estimated GFR/1.73 m2 >= 60.00 (mL/min/1.73m2) 01/28/19 06:52 Glucose 137 mg/dL (70-100) H 01/28/19 06:52 Calcium 9.0 mg/dL (8.5-10.1) 01/28/19 06:52 Phosphorus 2.4 mg/dL (2.6-4.7) L 01/27/19 06:40 Magnesium 1.8 mg/dL (1.8-2.4) 01/28/19 06:52 Total Bilirubin 0.3 mg/dL (0.2-1.0) 01/23/19 10:25 AST 11 U/L (15-37) L 01/23/19 10:25 ALT 15 U/L (12-78) 01/23/19 10:25 Alkaline Phosphatase 105 U/L (46-116) 01/23/19 10:25 Total Protein 6.2 g/dL (6.4-8.2) L 01/23/19 10:25 Albumin 3.3 g/dL (3.4-5.0) L 01/23/19 10:25 Lipase 44 U/L (73-393) L 01/23/19 10:25 Objective Narrative Objective Narrative: Patient Name: TRESSA GONSALVES #: [id number]: MS Ordering Provider: : ADM IN Primary Care Provider: Raffaele Washington M.D.Date of Exam: 01/28/19Sex: M : 1965Age: 53 Exam(s) EXAM: XR Abdomen, 2 Views EXAM DATE/TIME: 01/28/2019 12:00 AM CLINICAL HISTORY: 53 years old, male; Signs and symptoms; Other: Bowel obstruction TECHNIQUE: Frontal view of the abdomen/pelvis with upright view of the abdomen. COMPARISON: CR XR abdomen flat upright 01/27/2019 7:39 AM FINDINGS: Gastrointestinal tract: Dilated loops of bowel appear to be small bowel measuring up to 3.7 cm. Small bowel obstruction not excluded in the correct clinical setting. Intraperitoneal space: Normal. No free air. Bones/joints: Unremarkable for age. IMPRESSION: Dilated loops of bowel appear to be small bowel measuring up to 3.7 cm. Small bowel obstruction not excluded in the correct clinical setting. Dictated and Authenticated by: Martell Leyva MD. Ordering:TOMER Frederick MD Ordered By: CC: Dictated By: Reports vrad 01/28/19 0000 01/28/19 0817 Transcribed By: Teresita Gaona This is privileged, confidential information intended only for the provider named. Any use or distribution by any person other than this provider is strictly prohibited. If you receive this report in error, please notify us immediately at [phone] and return the original report to us at the address above. Thank-you.
[2019-01-28] MEDS: LORazepam 1 MG TAB PO (12:25)
--- NOTE | 2019-01-28 14:15 | DI.RAD_ITS ---
SYMPTOM/DIAGNOSIS: PICC PLACEMENT PORTABLE AP CHEST at 213 pm: The tip of the right PICC line is seen in the right atrium in good position. The lungs are clear and well expanded. Heart size is within normal limits. The bones appear intact. IMPRESSION: Tip of the right PICC line in the right atrium.
--- NOTE | 2019-01-28 14:49 | DI.VRAD_ITS ---
EXAM: XR Chest, 1 View EXAM DATE/TIME: 01/28/2019 1:58 PM CLINICAL HISTORY: 53 years old, male; Device placement; Picc TECHNIQUE: XR of the chest, 1 view. COMPARISON: CR XR PORTABLE CHEST AP POST LINE 01/24/2019 12:29 PM FINDINGS: Interval insertion of right-sided PICC line in good position with tip projecting over the right atrium. No focal consolidation. No pleural effusion. IMPRESSION: Right-sided PICC line in good position. Dictated and Authenticated by: Tu Mascorro MD. Ordering:TOMER Frederick MD
[2019-01-28 16:09] VITALS: BP 128/84; PULSE 77; RESP 13; TEMP 36.7; O2SAT 95
--- NOTE | 2019-01-28 16:46 | PDOC.CMPRO ---
Care Management Progress Note S/O: Drake became ill last night, vomiting approximately five hours after diet advancement. He had a PICC line placed this afternoon for TPN. CM discussed advance directives with Drake and Юлия. Юлия does not want to be Drake's agent and would like his wishes to be documented. Per discussion, Drake remains a full code and would want emergent surgery for twisted bowel or other intervention with explanation of procedure including imaging. He processed his mistrust of doctors; and years of traumatic medical events. He explained he prefers morphine because he knows how it effects him and does not trust new drugs or procedures. He reports having a protruding hernia for over a month because he did not want surgery and is unable to report if he is happy he went through the surgery as he carries concerns about the mesh, reports he can still feel it and worries about complications. He is appropriate in interaction, alert, oriented, well spoken and uses good humor appropriately. He does not want exploratory surgery. He reported his sister, Kelsi Serrano visited yesterday and he feels she is good support person. CM reviewed outreach information and information systems consultant CM availability, and CM will continue to follow. A: 53 y/o male admitted 01/23/19 for Partial SBO P: Bebeto will return home with no services. He will F/U with [facility] Surgical associates and plan of care as prescribed. He will transport via private vehicle with his , Юлия.
--- NOTE | 2019-01-28 17:23 | CMPROGNOTE_ITS ---
Care Management Progress Note S/O: Drake became ill last night, vomiting approximately five hours after diet advancement. He had a PICC line placed this afternoon for TPN. CM discussed advance directives with Drake and Юлия. Юлия does not want to be Drake's agent and would like his wishes to be documented. Per discussion, Drake remains a full code and would want emergent surgery for twisted bowel or other intervention with explanation of procedure including imaging. He processed his mistrust of doctors; and years of traumatic medical events. He explained he prefers morphine because he knows how it effects him and does not trust new drugs or procedures. He reports having a protruding hernia for over a month because he did not want surgery and is unable to report if he is happy he went through the surgery as he carries concerns about the mesh, reports he can still feel it and worries about complications. He is appropriate in interaction, alert, oriented, well spoken and uses good humor appropriately. He does not want exploratory surgery. He reported his sister, Kelsi Serrano visited yesterday and he feels she is good support person. CM reviewed outreach information and division sales manager CM availability, and CM will continue to follow. A: 53 y/o male admitted 01/23/19 for Partial SBO P: Bebeto will return home with no services. He will F/U with [facility] Surgical associates and plan of care as prescribed. He will transport via private vehicle with his , Юлия.
[2019-01-28] MEDS: Insulin Aspart 300 UNITS/3 ML PEN SC (18:32)
[2019-01-28 20:04] VITALS: BP 137/90; PULSE 74; RESP 12; TEMP 37.1; O2SAT 97
[2019-01-29 05:41] VITALS: BP 125/77; PULSE 74; RESP 18; TEMP 36.5; O2SAT 95
--- NOTE | 2019-01-29 07:00 | DI.RAD_ITS ---
SYMPTOM/DIAGNOSIS: F/U BOWEL OBSTRUCTION FLAT AND UPRIGHT ABDOMEN:' Comparison is made with 01/28/19. There are again seen air fluid levels within mildly dilated loops of small bowel. The small bowel predominantly involves the left upper and left lower quadrants. The number and appearance of the bowel loops appear stable compared to the prior examination. There does appear to be air seen distally in the colon. No pneumoperitoneum or organomegaly is seen. The lung bases are clear. Degenerative changes are seen in the spine. IMPRESSION: Overall similar appearance of the abdomen compared to 01/28/19. The findings remain suggestive of at least a partial small bowel obstruction versus ileus.
[2019-01-29 08:28] VITALS: BP 131/89; PULSE 80; RESP 20; TEMP 36.8; O2SAT 96
--- NOTE | 2019-01-29 08:32 | W.NUTCONSULT ---
Date of service: 01/29/19 Time of Service: 08:32 Nutritional Consult ASSESSMENT: Nutrition consult for TPN recommendations. Pt. has started 2.0 L of 515 clinimix and lipids. Per EHR, he is also eating small amounts of baby food but he did get ill eating this last night. He is otherwise NPO. He is 69 and 62.5 kg. His BMI is 20 kg/m2 which is WNL. His weight on 01/01/19 was 70.3 kg and has steadily declined. He has lost 11% of his body weight in one month which is significant. Other than the small amount of baby food, he has essentially been NPO since 01/23/19. His estimated energy needs are 1900 kcal/day (30 kcal/kg/day). His estimated protein needs are 69-81g/day (1.0-1.3g/kg/day. His estimated fluid needs are 1900 ml/day day (30 ml/kg/day) NUTRITIONAL DIAGNOSIS: Severe malnutrition as evidenced by 11% unintentional weight loss in one month and eating less than 50% of estimated energy needs for greater than 5 days. Inability to take oral foods and fluids. INTERVENTION: Agree with current TPN formulation as it provides 1920 calories and 100 grams of protein per day. MONITORING AND EVALUATION: 1. Will monitor weight and will watch for advance to PO. 2. Will evaluate nutrition care plan ongoing and adjust as needed. Time Spent in Nutritional Counseling and Treatment: LAILA
[2019-01-29 08:33] LABS: HCT 43.8 % (40.0-50.0); HGB 14.6 g/dL (13.5-17.5); Mean Corp. HGB Concentration 33.3 g/dL (32.0-36.0); Mean Corpuscular Hemoglobin 29.7 pg (27.0-33.0); Mean Platelet Volume 11.6 fL (8.0-11.0); Platelet Count 124 x1000/uL (130-400); RBC 4.92 m/cumm (4.50-6.00); RBC Distribution Width 13.4 % (11.8-14.1); White Blood Cell Count 7.38 k/cumm (4.4-10.8)
[2019-01-29 09:16] LABS: ALT 20 U/L (12-78); AST 17 U/L (15-37); Albumin 2.8 g/dL (3.4-5.0); Alkaline Phosphatase 96 U/L (46-116); Anion Gap 7.1 mmol/L (3-11); BUN 13 mg/dL (7-18); Bilirubin, Total 0.2 mg/dL (0.2-1.0); CO2 31.9 mmol/L (21.0-32.0); CREATININE 0.76 mg/dL (0.70-1.30); Calcium 8.6 mg/dL (8.5-10.1); Chloride 105 mmol/L (98-107); Glucose 91 mg/dL (70-100); Magnesium 1.9 mg/dL (1.8-2.4); PHOSPHORUS 2.8 mg/dL (2.6-4.7); Potassium 4.2 mmol/L (3.5-5.1); Sodium 144 mmol/L (136-145); Total Protein 5.6 g/dL (6.4-8.2)
--- NOTE | 2019-01-29 10:27 | W.PM.PROGNOT ---
Date of Service Date of service: 01/29/19 Time of Service: 10:28 Assessment and Plan (1) Partial small bowel obstruction: Current visit: Yes Status: Acute PICC line in place, started TPN last night. ABD Xray pending Mr. Galarza has declined replacement of NG tube as well as transfer to a tertiary facility for further evaluation for possible surgery for lysis of adhesions. Dr. Tillman had a lengthy discussion with both Mr. Galarza and his yesterday regarding options. Which at this time, Mr. Galarza does not want surgery. Encouraged ambulation throughout the day. Subjective Interval history since last seen: Mr. Galarza is extremely frustrated with his current circumstances. He reports that he tried baby food and ice chips last night, but I have to stop. Per nsg he had nausea and vomiting after trying this. He reports some flatus. My stomach is gurgling and growling all night long. Exam Const General: cooperative and acute distress mild Orientation: alert and oriented x3 GI Inspection: distended Palpation: firm in the RLQ and in the LUQ, no guarding and tender in the RLQ and in the LUQ; with no rebound tenderness Auscultation: high-pitched sounds and hyperactive bowel sounds Objective Objective Clinical Data: Abnormal lab results 01/29/19 01/29/19 Range/Units 07:43 07:43 Plt Count 124 L (130-400) x1000/uL MPV 11.6 H (8.0-11.0) fL Total Protein 5.6 L (6.4-8.2) g/dL Albumin 2.8 L (3.4-5.0) g/dL Vital Signs Temperature 36.8 C 01/29/19 08:28 Temperature Source Tympanic 01/29/19 08:28 Pulse 80 01/29/19 08:28 Pulse Rhythm Regular 01/29/19 08:58 Respiratory Rate 20 01/29/19 08:28 Respiratory Effort Non-Labored 01/29/19 08:58 Respiratory Depth Normal 01/29/19 08:58 Respiratory Pattern Normal 01/29/19 08:58 Blood Pressure 131/89 01/29/19 08:28 Blood Pressure Position Sitting 01/23/19 08:49 Pulse Oximetry 96 01/29/19 08:28 Oxygen Delivery Method Room Air 01/29/19 08:28 Oxygen Flow Rate 0 01/29/19 08:28 Pain Level 4 01/28/19 19:41 Comment 01/27/19 23:40 Intake & Output 01/28/19 01/28/19 01/29/19 11:59 23:59 11:59 Intake Total 1245 / 2211.25 1051 / 1051 Output Total 250 / 450 250 / 250 Balance 995 / 1761.25 801 / 801 Intake: IV 1245 / 2211.25 1051 / 1051 Oral 0 / 0 Output: Urine 250 / 450 250 / 250 Other: Urine Color Dark Annie Yellow Urine Appearance Cloudy Clear Urine Odor Comment Voiding Methods Urinal Laboratory Results WBC 7.38 k/cumm (4.4-10.8) 01/29/19 07:43 RBC 4.92 m/cumm (4.50-6.00) 01/29/19 07:43 Hgb 14.6 g/dL (13.5-17.5) 01/29/19 07:43 Hct 43.8 % (40.0-50.0) 01/29/19 07:43 MCV 89.0 fL (80-95) 01/29/19 07:43 MCH 29.7 pg (27.0-33.0) 01/29/19 07:43 MCHC 33.3 g/dL (32.0-36.0) 01/29/19 07:43 RDW 13.4 % (11.8-14.1) 01/29/19 07:43 Plt Count 124 x1000/uL (130-400) L 01/29/19 07:43 MPV 11.6 fL (8.0-11.0) H 01/29/19 07:43 Immature Gran % 0.1 01/28/19 06:52 Neutrophils % 56.3 01/28/19 06:52 Lymphocytes % 27.7 01/28/19 06:52 Monocytes % 10.5 01/28/19 06:52 Eosinophils % 5.0 01/28/19 06:52 Basophils % 0.4 01/28/19 06:52 Absolute Neutrophils 4.13 k/cumm (1.2-6.7) 01/28/19 06:52 Absolute Lymphocytes 2.03 k/cumm (1.2-3.4) 01/28/19 06:52 Absolute Monocytes 0.77 k/cumm (0.11-0.7) H 01/28/19 06:52 Absolute Eosinophils 0.37 k/cumm (0.0-0.7) 01/28/19 06:52 Absolute Basophils 0.03 k/cumm (0.0-0.2) 01/28/19 06:52 PT 10.0 sec (9.3-11.0) 01/29/19 09:20 INR 1.0 (0.9-1.1) 01/29/19 09:20 Sodium 144 mmol/L (136-145) 01/29/19 07:43 Potassium 4.2 mmol/L (3.5-5.1) 01/29/19 07:43 Chloride 105 mmol/L (98-107) 01/29/19 07:43 Carbon Dioxide 31.9 mmol/L (21.0-32.0) 01/29/19 07:43 Anion Gap 7.1 mmol/L (3-11) 01/29/19 07:43 BUN 13 mg/dL (7-18) D 01/29/19 07:43 Creatinine 0.76 mg/dL (0.70-1.30) 01/29/19 07:43 Estimated GFR/1.73 m2 >= 60.00 (mL/min/1.73m2) 01/29/19 07:43 Glucose 91 mg/dL (70-100) 01/29/19 07:43 Calcium 8.6 mg/dL (8.5-10.1) 01/29/19 07:43 Phosphorus 2.8 mg/dL (2.6-4.7) 01/29/19 07:43 Magnesium 1.9 mg/dL (1.8-2.4) 01/29/19 07:43 Total Bilirubin 0.2 mg/dL (0.2-1.0) 01/29/19 07:43 AST 17 U/L (15-37) 01/29/19 07:43 ALT 20 U/L (12-78) 01/29/19 07:43 Alkaline Phosphatase 96 U/L (46-116) 01/29/19 07:43 Total Protein 5.6 g/dL (6.4-8.2) L 01/29/19 07:43 Albumin 2.8 g/dL (3.4-5.0) L 01/29/19 07:43 Lipase 44 U/L (73-393) L 01/23/19 10:25
--- NOTE | 2019-01-29 16:06 | W.PM.PROGNOT ---
Date of Service Date of service: 01/29/19 Time of Service: 16:06 Assessment and Plan (1) Partial small bowel obstruction: Current visit: Yes Status: Acute A\\ PSBO. PAD #7 No improvement on XRays and is still unable to eat anything. Long discussion with patient and his regarding the situation. We discussed the findings on his CT scan and subsequent XRays. Even though there is air in the colon now there is still one loop of bowel that is dilated in the Left flank are which is were he feels the pain. We have tried bowel rest, NG decompression without any improvement in his symptoms. This is his 3 admission in 4 weeks and he is loosing weight. We have started TPN to try and give him some nutrition but obviously not the best solution. We are at the point were we need to discuss surgery. I explained that more then likely the PSBO is due to scar tissue/adhesions. I can't explain to him why his obstruction is not resolving this time around. There is no indication that there is a mass in the small bowel but I wont be able to definitively say that until I am in his abdomen and looking at everything. I went over the possible complications of surgery- infection, wound dehisence, incisional hernia, injury to the bowel, occult injury to the bowel, anastamostic leak if bowel has to be removed, bleeding and adverse reaction to the medications. Their questions were entertained and answered to their satisfaction and he wished to proceed. I discussed with Drake an epidural which I have asked anesthesia to place for postoperative pain control. I also discussed expectations with him after surgery regarding getting up and walking, using his incentive spirometer, using as little narcotic pain medication as possible. I also discussed that he will wake up with an NG tube in his nose again and that will stay in until he starts passing flatus after surgery. We also discussed recovery. He will most likely be here for another week. He will need to be on limitations regarding lifting, pulling and pushing >20 lb x 4 weeks after surgery. Subjective Interval history since last seen: Drake still doesn't feel well. He has intermittent sharp pain. He is passing flatus but is unable to eat. His Abdominal Xray shows no-improvement. Exam GI Inspection: normal to inspection Palpation: soft and tender periumbilically (mild) Auscultation: hypoactive bowel sounds Objective Objective Clinical Data: Abnormal lab results 01/29/19 01/29/19 Range/Units 07:43 07:43 Plt Count 124 L (130-400) x1000/uL MPV 11.6 H (8.0-11.0) fL Total Protein 5.6 L (6.4-8.2) g/dL Albumin 2.8 L (3.4-5.0) g/dL Vital Signs Temperature 98.2 F 01/29/19 08:28 Temperature Source Tympanic 01/29/19 08:28 Pulse 80 01/29/19 08:28 Pulse Rhythm Regular 01/29/19 08:58 Respiratory Rate 20 01/29/19 08:28 Respiratory Effort Non-Labored 01/29/19 08:58 Respiratory Depth Normal 01/29/19 08:58 Respiratory Pattern Normal 01/29/19 08:58 Blood Pressure 131/89 01/29/19 08:28 Blood Pressure Position Sitting 01/23/19 08:49 Pulse Oximetry 96 01/29/19 08:28 Oxygen Delivery Method Room Air 01/29/19 08:28 Oxygen Flow Rate 0 01/29/19 08:28 Pain Level 4 01/28/19 19:41 Comment 01/27/19 23:40 Intake & Output 01/28/19 01/29/19 01/29/19 23:59 11:59 23:59 Intake Total 1245 / 2211.25 1051 / 1051 Output Total 250 / 450 250 / 250 Balance 995 / 1761.25 801 / 801 Intake: IV 1245 / 2211.25 1051 / 1051 Oral 0 / 0 Output: Urine 250 / 450 250 / 250 Other: Urine Color Dark Annie Yellow Urine Appearance Cloudy Clear Voiding Methods Urinal Laboratory Results WBC 7.38 k/cumm (4.4-10.8) 01/29/19 07:43 RBC 4.92 m/cumm (4.50-6.00) 01/29/19 07:43 Hgb 14.6 g/dL (13.5-17.5) 01/29/19 07:43 Hct 43.8 % (40.0-50.0) 01/29/19 07:43 MCV 89.0 fL (80-95) 01/29/19 07:43 MCH 29.7 pg (27.0-33.0) 01/29/19 07:43 MCHC 33.3 g/dL (32.0-36.0) 01/29/19 07:43 RDW 13.4 % (11.8-14.1) 01/29/19 07:43 Plt Count 124 x1000/uL (130-400) L 01/29/19 07:43 MPV 11.6 fL (8.0-11.0) H 01/29/19 07:43 Immature Gran % 0.1 01/28/19 06:52 Neutrophils % 56.3 01/28/19 06:52 Lymphocytes % 27.7 01/28/19 06:52 Monocytes % 10.5 01/28/19 06:52 Eosinophils % 5.0 01/28/19 06:52 Basophils % 0.4 01/28/19 06:52 Absolute Neutrophils 4.13 k/cumm (1.2-6.7) 01/28/19 06:52 Absolute Lymphocytes 2.03 k/cumm (1.2-3.4) 01/28/19 06:52 Absolute Monocytes 0.77 k/cumm (0.11-0.7) H 01/28/19 06:52 Absolute Eosinophils 0.37 k/cumm (0.0-0.7) 01/28/19 06:52 Absolute Basophils 0.03 k/cumm (0.0-0.2) 01/28/19 06:52 PT 10.0 sec (9.3-11.0) 01/29/19 09:20 INR 1.0 (0.9-1.1) 01/29/19 09:20 Sodium 144 mmol/L (136-145) 01/29/19 07:43 Potassium 4.2 mmol/L (3.5-5.1) 01/29/19 07:43 Chloride 105 mmol/L (98-107) 01/29/19 07:43 Carbon Dioxide 31.9 mmol/L (21.0-32.0) 01/29/19 07:43 Anion Gap 7.1 mmol/L (3-11) 01/29/19 07:43 BUN 13 mg/dL (7-18) D 01/29/19 07:43 Creatinine 0.76 mg/dL (0.70-1.30) 01/29/19 07:43 Estimated GFR/1.73 m2 >= 60.00 (mL/min/1.73m2) 01/29/19 07:43 Glucose 91 mg/dL (70-100) 01/29/19 07:43 Calcium 8.6 mg/dL (8.5-10.1) 01/29/19 07:43 Phosphorus 2.8 mg/dL (2.6-4.7) 01/29/19 07:43 Magnesium 1.9 mg/dL (1.8-2.4) 01/29/19 07:43 Total Bilirubin 0.2 mg/dL (0.2-1.0) 01/29/19 07:43 AST 17 U/L (15-37) 01/29/19 07:43 ALT 20 U/L (12-78) 01/29/19 07:43 Alkaline Phosphatase 96 U/L (46-116) 01/29/19 07:43 Total Protein 5.6 g/dL (6.4-8.2) L 01/29/19 07:43 Albumin 2.8 g/dL (3.4-5.0) L 01/29/19 07:43 Lipase 44 U/L (73-393) L 01/23/19 10:25
--- NOTE | 2019-01-29 16:46 | PDOC.CMPRO ---
Care Management Progress Note S/O: CM met with Drake and his , Юлия multiple times throughout the day. Drake required much support exploring his feelings and fears around his current medical status and decision making. CM wrote down items for Drake to review with the MD including questions, clarifications and his wishes. Drake met with Dr. Nugent later in the day and opted to go through with surgery tomorrow morning. CM requested Dr. Nugent order a Palliative Care order, and notified the PC office of pending order. Luisito of reported Dr. Murguia would likely be in to see Drake tomorrow. CM will continue to follow. A: 53 y/o male admitted 01/23/19 for Partial SBO P: Bebeto is scheduled for surgical intervention tomorrow morning, 01/30/19. CM will continue to follow.
[2019-01-29] MEDS: Normal Saline Flush 10 ML SYR IVP (18:01)
[2019-01-29 18:03] VITALS: BP 137/80; PULSE 71; RESP 19; TEMP 37; O2SAT 97
[2019-01-30] VITALS (16 sets, daily range): BP systolic 83–128; BP diastolic 46–81; PULSE 62–82; RESP 15–24; TEMP 36–37.1; O2SAT 95–98
[2019-01-30] MEDS: Normal Saline Flush 10 ML SYR IVP ×4 (02:01→21:35)
[2019-01-30] MEDS: FAMOTIDINE 20 MG/50 ML BAG 200 MG IVPB (03:00)
[2019-01-30] MEDS: Lactated Ringers 1,000 ML 150 ML IV (07:50)
[2019-01-30 08:01] LABS: PHOSPHORUS 3.3 mg/dL (2.6-4.7)
[2019-01-30] MEDS: AMPICILLIN/SULBACTAM 3 GM in Normal Saline 100 ML IVPB ×2 (08:11→11:00)
[2019-01-30 08:13] LABS: ALT 34 U/L (12-78); AST 31 U/L (15-37); Albumin 2.9 g/dL (3.4-5.0); Alkaline Phosphatase 100 U/L (46-116); Anion Gap 7.8 mmol/L (3-11); BUN 17 mg/dL (7-18); Bilirubin, Total 0.2 mg/dL (0.2-1.0); CO2 27.2 mmol/L (21.0-32.0); CREATININE 0.72 mg/dL (0.70-1.30); Calcium 8.7 mg/dL (8.5-10.1); Chloride 106 mmol/L (98-107); Glucose 87 mg/dL (70-100); Magnesium 1.9 mg/dL (1.8-2.4); Potassium 4.2 mmol/L (3.5-5.1); Sodium 141 mmol/L (136-145); Total Protein 5.9 g/dL (6.4-8.2)
--- NOTE | 2019-01-30 09:11 | PDOC.CMPRO ---
- If Service Date Differs Date of service: 01/30/19 Time of Service: 09:11 Care Management Progress Note S/O:Drake is in the OR this morning. CM was able to meet with his spouse to provide support. CM will continue to support patient and family discharge planning. Palliative care consult discontinued by per no longer needed. A: 53 y/o male admitted 01/23/19 for Partial SBO; Lysis of adhesions on 01/30/19 P: Bebeto in the OR this morning he will remain acute at this time. Bebeto will need to follow up with surgeon and primary care after discharge. Spouse will transport him home when medically ready per provider. CM will continue to follow.
[2019-01-30 09:23] LABS: Prealbumin 14 mg/dL (20-40)
--- NOTE | 2019-01-30 11:06 | APP_PTH ---
PATIENT: Drake Galarza LOC: U#:[id number] AGE/SX: 53/M ROOM: 216 RE01/25/[address]: Shani Bynum : 1965 BED: A DIS: 02/10/2019 SPEC #: [id number] RECD: 01/30/19 12:45 STATUS: SHANT REQ #: [id number] MIKE: 01/30/19 11:[address]: Shani Bynum DEPT: Surgical Specimen RECD BY: Adenike James ENTERED: 01/30/19 12:48 SP TYPE: Appendix OTHR DR: Raffaele Washington Tissues: 1 - APPENDIX NOT INCIDENTAL Procedures: GROSS AND MICRO LEVEL 3 Comments: [id number]
--- NOTE | 2019-01-30 13:51 | W.PM.OP ---
Date of service: 01/30/19 Time of Service: 13:51 Operative Note DATE OF PROCEDURE: 01/30/19 PRE-OP DIAGNOSIS: Partial Small bowel obstruction POST-OP DIAGNOSIS: same PROCEDURE: Exploratory Laparotomy with extensive lysis of adhesions Repair of bladder enterotomy Incidental Appendectomy SURGEON: Emy Nugent CLINICAL EDUCATION ACADEMIC COORDINATOR: Maritza Rosales ANESTHESIA: GETA and epidural ESTIMATED BLOOD LOSS: 100 PATHOLOGY: other (appendix) COMPLICATIONS: None Patient was transported to: PACU Patient's condition: stable Indications: Mr. Galarza is a pleasant 53 year old male who was admitted for the 3rd time in 4 weeks for a PSBO. HE has failed non-surgical treatment at this point. There has been no improvement of the dilated small bowel on follow up Abdominal Xrays. Long discussion with patient and his regarding the situation. We discussed the findings on his CT scan and subsequent XRays. Even though there is air in the colon now there is still one loop of bowel that is dilated in the Left flank are which is were he feels the pain. We have tried bowel rest, NG decompression without any improvement in his symptoms. This is his 3 admission in 4 weeks and he is loosing weight. We have started TPN to try and give him some nutrition but obviously not the best solution. We are at the point were we need to discuss surgery. I explained that more then likely the PSBO is due to scar tissue/adhesions. I can't explain to him why his obstruction is not resolving this time around. There is no indication that there is a mass in the small bowel but I wont be able to definitively say that until I am in his abdomen and looking at everything. I went over the possible complications of surgery- infection, wound dehisence, incisional hernia, injury to the bowel, occult injury to the bowel, anastamostic leak if bowel has to be removed, bleeding and adverse reaction to the medications. Their questions were entertained and answered to their satisfaction and he wished to proceed. I discussed with Drake an epidural which I have asked anesthesia to place for postoperative pain control. I also discussed expectations with him after surgery regarding getting up and walking, using his incentive spirometer, using as little narcotic pain medication as possible. I also discussed that he will wake up with an NG tube in his nose again and that will stay in until he starts passing flatus after surgery. We also discussed recovery. He will most likely be here for another week. He will need to be on limitations regarding lifting, pulling and pushing >20 lb x 4 weeks after surgery. Findings: Proximal bowel was found to be chronically dilated and thickened. There was a central area of adhered bowel both dilated and decompressed. The distal bowel was decompressed. There was a normal appendix. 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 The bladder was adhered to the abdominal wall about 2 inches above the pubic symphasis. I did make an enterotomy trying to free the bladder from the abdominal wall and this was fixed with the assistance of Dr. Waite. Liver felt smooth on palpation. Also noted was a sharp turn in the sigmoid colon as it came out of the pelvis. I was unable to safely free the sigmoid from its adhesions. Procedure Description: After informed consent was obtained an epidural was placed in the PACU. Once the epidural was in place the patient was taken to the operating room and placed in a supine position. SCD's were applied. An NG tube was placed while the patient was awake. The patient was then placed under general anesthesia and intubated. An attempt was made to place a regular 16 fr carrion. The carrion would not go through the prostate. I then was able to place a 16 fr cuday catheter. clear yeallo urine was noted in the carrion prior to inflation of the balloon. His abdomen was then clipped and prepped and draped in a standard fashion. A time out was done at this point and the patients name, , allergies to medications, antibiotic prophilaxis, DVT prophilaxis and Procedure to be done and fire risk were all reviewed. It was discussed that patient was typed and screened. Next an incision was made with a 10 blade around his old midline scar. The skin was removed. Cautery was used to go down to the fascia. A hemostat was used to slowly get through the fascia to the peritoneum. The peritoneum was entered at the most superior part of the incision. The fascia was grasped with cockers and while lifting up cautery and scissors were used to lyse adhesions. At the most distal part of the incision there were thick adhesions to what I thought was a loop of bowel. As I tried to get through the scar tissue an enterotomy was created and I felt the carrion. A romeo was placed and the bladder enterotomy was closed in two layers with 2-0 Vircryl with the help of Dr. Waite Once the bladder was repaired it was placed back down into the pelvis. Attention was then diverted to the small bowel. Just to the left of the umbilicus a ball of dilated and decompressed bowel was noted. I palpated the ligament of treitz and the bowel was followed distally and adhesions were lysed as we went along. 2 1/2 hours were spend lysing adhesions. A loop of thickened small bowel was then released from the left flank just above the line of toldt. Once released it was brought to the midline. The bowel was unkinked by lysing adhesions and this is were the partial obstruction was at. The proximal bowel from the point to the ligament of treitz was thickened and dilated to 5 cm. Air and fluid was then milked back into the stomach to decompress the small bowel. Two small serosal tears were noted and sutured with 2-0 silk. Once the partial obstruction was relieved the decompressed bowel was followed down to the cecum. A normal appendix was identified and I made the decision of doing an incidental appendectomy. Once the appendectomy was done the abdomen was irrigated with 2 L of warm saline. The small bowel was placed back into the abdomen and sheets of intercept were placed between the loops of bowel to help with adhesion formation. The effluent was clear at the end of irrigation. The stomach was palpated and the NG tube was felt just at the cardia. I asked anesthesia to advance the NG tube until it was in the mid stomach. A ribbon was used under the fascia while the fascia was closed with 1-0 Vicryl figure of eight interrupted sutures, to protect the bowel. The subcutaneous tissue was irrigated and the skin was closed with ayan. The skin was cleaned and dried and a mepilex border dressing was applied. Blood loss was 100 cc. Urine output was 200 cc and fluid given by anesthesia was 500 cc. He was given 3 gm of Unasyn pre-operatively and again 2 hours later. Sponge, instrument and needle counts were correct at the end of the case x 2.
[2019-01-30] MEDS: Ketorolac 30 MG/ML VIAL IVP ×2 (15:02→21:35)
--- NOTE | 2019-01-30 15:38 | ROE_ITS ---
DATE OF OPERATION: January 30, 2019 PREOPERATIVE DIAGNOSIS: Cystostomy. POSTOPERATIVE DIAGNOSIS: Cystotomy. PROCEDURE: Closure of cystotomy. SURGEONS: Brennon Waite M.D. and Emy Nugent M.D. ANESTHESIA: General. COMPLICATIONS: None. HISTORY: This is a 53-year-old gentleman who has a history of multiple bowel surgeries. He is [facility] hospitalized with a small bowel obstruction and undergoing an adhesiolysis and exploratory lapar otomy. During the course of dissection his bladder was found to be adherent to the underside of the rectus muscle, a cystostomy was performed during the exposure, and I was called to help with closure of the bladder injury. At the time of the urologic portion of this surgery, a small, 4-cm, anterior bladder injury was ident ified. The edges were clean. OPERATIVE REPORT: The patient was seen while he was already under anesthesia. His bladder injury wa s easily identifiable at the dome of the bladder. The bladder was freed from its adhesions on the un derside of the rectus muscle. The edges of the bladder were reapproximated in two layers. We used a running layer through the mucosa using #2-0 Vicryl sutures. We then used a second layer to pull the serosa back over the top of the initial suture line. We used interrupted #2-0 Vicryl for this measu re. He tolerated this portion of the procedure well. We will recommend leaving his Quiles catheter in roddy ce for a minimum of five days, but preferably seven days, before giving him a voiding trial.
--- NOTE | 2019-01-30 16:02 | PGE_ITS ---
Date of Service Date of service: 01/30/19 Time of Service: 15:59 Assessment and Plan (1) S/P exploratory laparotomy: Current visit: Yes Status: Acute A\\ s/p ex-lap with extensive DURGA and bladder repair P\\ NG to LIWS NPO Nutrition- TPN for now Ambulation- tid and prn Carrion to gravity drainage x 7 days to allow bladder to heal Pain- Epidual, Toradol and Tylenol IV May have ice chips, had candy and chewing gum Subjective Interval history since last seen: POst-op note: Ricardo is doing OK. Pain level is 5/10. using his epidural button. ng tube with minimal output 30 minutes spend with Ricardo and his regarding surgery and findings during surgery. Discussed bladder injury and repair. Discussed need for the carrion to stay in for 7 days. NG tube to stay in until he has passed some flatus. Discussed importance of him telling us the truth and not just what we want to hear. Discussed Tobacco secession. He has a Nicotine patch and Nicotine IH as needed. He needs to ambulate tid and sit in chair. NG tube may be clamped for 20 minutes for ambulation Exam Resp Effort & Inspection: normal respiratory effort Auscultation: clear to auscultation bilaterally Cardio Rate: regular rate Rhythm: regular rhythm Heart Sounds: no gallops, no murmurs and no rubs GI Inspection: incision (dressing is clean, dry and intact.) Auscultation: hypoactive bowel sounds Objective Objective Clinical Data: Abnormal lab results 01/29/19 01/30/19 Range/Units 07:43 07:00 Total Protein 5.9 L (6.4-8.2) g/dL Albumin 2.9 L (3.4-5.0) g/dL Prealbumin 14 L (20-40) mg/dL Vital Signs Temperature 97.2 F L 01/30/19 14:40 Temperature Source Tympanic 01/30/19 14:40 Pulse 71 01/30/19 14:40 Pulse Rhythm Regular 01/29/19 21:00 Respiratory Rate 18 01/30/19 14:40 Respiratory Effort Non-Labored 01/29/19 21:00 Respiratory Depth Normal 01/29/19 21:00 Respiratory Pattern Normal 01/29/19 21:00 Blood Pressure 121/73 01/30/19 14:40 Blood Pressure Position Sitting 01/23/19 08:49 Pulse Oximetry 98 01/30/19 14:40 Respiratory End-tidal CO2 26 01/30/19 13:10 Oxygen Delivery Method Room Air 01/30/19 14:40 Oxygen Flow Rate 0 01/30/19 14:40 Pain Level 5 01/30/19 13:55 Comment 01/27/19 23:40 Intake & Output 01/29/19 01/30/19 01/30/19 23:59 11:59 23:59 Intake Total 1040 / 2341 193 / 1 200 / 2131 Output Total 1000 / 1000 Balance 1039 / 2090 931 / 1131 200 / 1131 Intake: IV 1040 / 2341 1930 / 2130 200 / 2131 Output: Urine 850 / 850 Estimated Blood Loss 150 / 150 Other: Urine Color Dark Annie Dark Annie Urine Appearance Clear Clear Clear Emesis Description None None Voiding Methods Urinal Laboratory Results WBC 7.38 k/cumm (4.4-10.8) 01/29/19 07:43 RBC 4.92 m/cumm (4.50-6.00) 01/29/19 07:43 Hgb 14.6 g/dL (13.5-17.5) 01/29/19 07:43 Hct 43.8 % (40.0-50.0) 01/29/19 07:43 MCV 89.0 fL (80-95) 01/29/19 07:43 MCH 29.7 pg (27.0-33.0) 01/29/19 07:43 MCHC 33.3 g/dL (32.0-36.0) 01/29/19 07:43 RDW 13.4 % (11.8-14.1) 01/29/19 07:43 Plt Count 124 x1000/uL (130-400) L 01/29/19 07:43 MPV 11.6 fL (8.0-11.0) H 01/29/19 07:43 Immature Gran % 0.1 01/28/19 06:52 Neutrophils % 56.3 01/28/19 06:52 Band Neutrophils % Cancelled 01/30/19 07:00 Lymphocytes % 27.7 01/28/19 06:52 Atypical Lymphs % Cancelled 01/30/19 07:00 Monocytes % 10.5 01/28/19 06:52 Eosinophils % 5.0 01/28/19 06:52 Basophils % 0.4 01/28/19 06:52 Metamyelocytes % Cancelled 01/30/19 07:00 Myelocytes % Cancelled 01/30/19 07:00 Promyelocytes % Cancelled 01/30/19 07:00 Absolute Neutrophils 4.13 k/cumm (1.2-6.7) 01/28/19 06:52 Absolute Lymphocytes 2.03 k/cumm (1.2-3.4) 01/28/19 06:52 Absolute Monocytes 0.77 k/cumm (0.11-0.7) H 01/28/19 06:52 Absolute Eosinophils 0.37 k/cumm (0.0-0.7) 01/28/19 06:52 Absolute Basophils 0.03 k/cumm (0.0-0.2) 01/28/19 06:52 Nucleated RBCs Cancelled 01/30/19 07:00 Differential Comment Cancelled 01/30/19 07:00 Other Cell Type Cancelled 01/30/19 07:00 RBC Morphology Cancelled 01/30/19 07:00 Polychromasia Cancelled 01/30/19 07:00 Hypochromasia Cancelled 01/30/19 07:00 Poikilocytosis Cancelled 01/30/19 07:00 Basophilic Stippling Cancelled 01/30/19 07:00 Anisocytosis Cancelled 01/30/19 07:00 Microcytosis Cancelled 01/30/19 07:00 Macrocytosis Cancelled 01/30/19 07:00 Spherocytes Cancelled 01/30/19 07:00 Target Cells Cancelled 01/30/19 07:00 Tear Drop Cells Cancelled 01/30/19 07:00 Ovalocytes Cancelled 01/30/19 07:00 Stomatocytes Cancelled 01/30/19 07:00 Sancehz-[place] Bodies Cancelled 01/30/19 07:00 [place] Cells Cancelled 01/30/19 07:00 Acanthocytes (Spur) Cancelled 01/30/19 07:00 Schistocytes Cancelled 01/30/19 07:00 PT 10.0 sec (9.3-11.0) 01/29/19 09:20 INR 1.0 (0.9-1.1) 01/29/19 09:20 Sodium 141 mmol/L (136-145) 01/30/19 07:00 Potassium 4.2 mmol/L (3.5-5.1) 01/30/19 07:00 Chloride 106 mmol/L (98-107) 01/30/19 07:00 Carbon Dioxide 27.2 mmol/L (21.0-32.0) 01/30/19 07:00 Anion Gap 7.8 mmol/L (3-11) 01/30/19 07:00 BUN 17 mg/dL (7-18) 01/30/19 07:00 Creatinine 0.72 mg/dL (0.70-1.30) 01/30/19 07:00 Estimated GFR/1.73 m2 >= 60.00 (mL/min/1.73m2) 01/30/19 07:00 Glucose 87 mg/dL (70-100) 01/30/19 07:00 Calcium 8.7 mg/dL (8.5-10.1) 01/30/19 07:00 Phosphorus 3.3 mg/dL (2.6-4.7) 01/30/19 07:00 Magnesium 1.9 mg/dL (1.8-2.4) 01/30/19 07:00 Total Bilirubin 0.2 mg/dL (0.2-1.0) 01/30/19 07:00 AST 31 U/L (15-37) 01/30/19 07:00 ALT 34 U/L (12-78) 01/30/19 07:00 Alkaline Phosphatase 100 U/L (46-116) 01/30/19 07:00 Total Protein 5.9 g/dL (6.4-8.2) L 01/30/19 07:00 Albumin 2.9 g/dL (3.4-5.0) L 01/30/19 07:00 Prealbumin 14 mg/dL (20-40) L 01/29/19 07:43 Lipase 44 U/L (73-393) L 01/23/19 10:25 Patient ABO/Rh O Positive 01/29/19 16:27 Antibody Screen Negative 01/29/19 16:27
--- NOTE | 2019-01-30 16:34 | NUR.NOTE ---
Nursing Note: Pt arrived from PACU on own bed @ . VSS. TPN running in PICC line. NG tube hooked up to intermittent suction. sheyla patent. abd jessikag mepilex Ag, c/d/i. Pt sleepy but arouseable. Will continue to monitor.
[2019-01-30] MEDS: PIPERACILLIN/TAZO 3.375 GM in Normal Saline 50 ML IVPB (18:00)
[2019-01-30] MEDS: Insulin Aspart 300 UNITS/3 ML PEN SC (18:18)
[2019-01-30] MEDS: Metoclopramide 10 MG/2 ML VIAL IVP (18:29)
[2019-01-31] VITALS (12 sets, daily range): BP systolic 105–135; BP diastolic 62–80; PULSE 67–88; RESP 18–20; TEMP 36.2–37.6; O2SAT 95–98
[2019-01-31] MEDS: Insulin Aspart 300 UNITS/3 ML PEN SC (00:16)
[2019-01-31] MEDS: Normal Saline Flush 10 ML SYR IVP ×5 (00:17→21:49)
[2019-01-31] MEDS: PIPERACILLIN/TAZO 3.375 GM in Normal Saline 50 ML IVPB ×5 (00:17→23:25)
[2019-01-31] MEDS: FAMOTIDINE 20 MG/50 ML BAG 200 MG IVPB ×2 (01:33→14:38)
[2019-01-31] MEDS: Metoclopramide 10 MG/2 ML VIAL IVP ×4 (03:51→21:49)
[2019-01-31] MEDS: Lactated Ringers 1,000 ML 80 ML IV ×2 (03:57→23:04)
[2019-01-31] MEDS: Ketorolac 30 MG/ML VIAL IVP ×2 (04:05→19:20)
[2019-01-31] MEDS: Lactated Ringers 1,000 ML 500 ML IV (06:57)
[2019-01-31 07:16] LABS: HCT 39.4 % (40.0-50.0); HGB 13.1 g/dL (13.5-17.5); Mean Corp. HGB Concentration 33.2 g/dL (32.0-36.0); Mean Corpuscular Hemoglobin 29.4 pg (27.0-33.0); Mean Corpuscular Volume 88.3 fL (80-95); Mean Platelet Volume 10.5 fL (8.0-11.0); Platelet Count 163 x1000/uL (130-400); RBC 4.46 m/cumm (4.50-6.00); RBC Distribution Width 13.6 % (11.8-14.1); White Blood Cell Count 10.26 k/cumm (4.4-10.8)
[2019-01-31 07:27] LABS: Anion Gap 8.3 mmol/L (3-11); BUN 22 mg/dL (7-18); CO2 24.7 mmol/L (21.0-32.0); Calcium 7.8 mg/dL (8.5-10.1); Chloride 105 mmol/L (98-107); Glucose 140 mg/dL (70-100); Magnesium 1.9 mg/dL (1.8-2.4); PHOSPHORUS 3.5 mg/dL (2.6-4.7); Potassium 3.8 mmol/L (3.5-5.1); Sodium 138 mmol/L (136-145)
--- NOTE | 2019-01-31 07:30 | PGE_ITS ---
Date of Service Date of service: 01/31/19 Time of Service: 07:27 Assessment and Plan (1) S/P exploratory laparotomy: Current visit: Yes Status: Acute POD #1 s/p exploratory laparotomy with lysis of adhesions and bladder repair P\\ NG to LIWS- ~375cc output over night of Dark, bile colored fluid. NPO Nutrition- TPN for now Ambulation- tid and prn Quiles- Per nsg. low urine output overnight. Increased LR to 150ml/hr. Will recheck urine out put this afternoon. Quiles to gravity drainage x 7 days to allow bladder to heal. Pain-Currently well managed with: Epidural, Toradol and Tylenol IV May have ice chips, had candy and chewing gum Subjective Interval history since last seen: Didn't sleep much last night, with the frequent visits from my nurse. Pain is currently tolerable. Denies passing flatus, nausea or vomiting. He is expressing eagerness to ambulate and start moving. Exam Const General: cooperative and comfortable Orientation: alert and oriented x3 Resp Effort & Inspection: normal respiratory effort, no audible wheezes and no cough GI Inspection: normal to inspection and incision (Lower abd. midline incision. Dressing in place. ) Palpation: soft, no guarding and tender (generalized tenderness with palpation) Auscultation: hypoactive bowel sounds Objective Objective Clinical Data: Abnormal lab results 01/29/19 01/30/19 01/31/19 Range/Units 07:43 07:00 06:20 RBC 4.46 L (4.50-6.00) m/cumm Hgb 13.1 L (13.5-17.5) g/dL Hct 39.4 L (40.0-50.0) % Total Protein 5.9 L (6.4-8.2) g/dL Albumin 2.9 L (3.4-5.0) g/dL Prealbumin 14 L (20-40) mg/dL Vital Signs Temperature 37.1 C 01/31/19 04:02 Temperature Source Tympanic 01/31/19 04:02 Pulse 67 01/31/19 04:02 Pulse Rhythm Regular 01/31/19 00:30 Respiratory Rate 20 01/31/19 06:35 Respiratory Effort 01/31/19 00:30 Respiratory Depth Normal 01/31/19 00:30 Respiratory Pattern Normal 01/31/19 00:30 Blood Pressure 105/64 01/31/19 04:02 Blood Pressure Position Sitting 01/23/19 08:49 Pulse Oximetry 97 01/31/19 04:02 Respiratory End-tidal CO2 26 01/30/19 13:10 Oxygen Delivery Method Room Air 01/31/19 06:35 Oxygen Flow Rate 0 01/31/19 06:35 Pain Level 2 01/31/19 06:35 Comment 01/27/19 23:40 Intake & Output 01/30/19 01/30/19 01/31/19 11:59 23:59 11:59 Intake Total 1931 / 2197.667 266.667 / 2197.667 1677.333 / 1677.333 Output Total 1000 / 1600 600 / 1600 325 / 325 Balance 931 / 597.667 -333.333 / 051.083 3885.333 / 1352.333 Intake: IV 1931 / 2197.667 266.667 / 2197.667 1677.333 / 1677.333 Oral 0 / 0 Output: Gastric Drainage 200 / 200 275 / 275 Right Nare 200 / 200 275 / 275 Urine 850 / 1250 400 / 1250 50 / 50 Estimated Blood Loss 150 / 150 Other: Urine Color Dark Annie Dark Annie Yellow Urine Appearance Clear Clear Clear Comment low u/o chedking for retention Emesis Description None None Voiding Methods Urinal Laboratory Results WBC 10.26 k/cumm (4.4-10.8) 01/31/19 06:20 RBC 4.46 m/cumm (4.50-6.00) L 01/31/19 06:20 Hgb 13.1 g/dL (13.5-17.5) L 01/31/19 06:20 Hct 39.4 % (40.0-50.0) L 01/31/19 06:20 MCV 88.3 fL (80-95) 01/31/19 06:20 MCH 29.4 pg (27.0-33.0) 01/31/19 06:20 MCHC 33.2 g/dL (32.0-36.0) 01/31/19 06:20 RDW 13.6 % (11.8-14.1) 01/31/19 06:20 Plt Count 163 x1000/uL (130-400) 01/31/19 06:20 MPV 10.5 fL (8.0-11.0) 01/31/19 06:20 Immature Gran % 0.1 01/28/19 06:52 Neutrophils % 56.3 01/28/19 06:52 Band Neutrophils % Cancelled 01/30/19 07:00 Lymphocytes % 27.7 01/28/19 06:52 Atypical Lymphs % Cancelled 01/30/19 07:00 Monocytes % 10.5 01/28/19 06:52 Eosinophils % 5.0 01/28/19 06:52 Basophils % 0.4 01/28/19 06:52 Metamyelocytes % Cancelled 01/30/19 07:00 Myelocytes % Cancelled 01/30/19 07:00 Promyelocytes % Cancelled 01/30/19 07:00 Absolute Neutrophils 4.13 k/cumm (1.2-6.7) 01/28/19 06:52 Absolute Lymphocytes 2.03 k/cumm (1.2-3.4) 01/28/19 06:52 Absolute Monocytes 0.77 k/cumm (0.11-0.7) H 01/28/19 06:52 Absolute Eosinophils 0.37 k/cumm (0.0-0.7) 01/28/19 06:52 Absolute Basophils 0.03 k/cumm (0.0-0.2) 01/28/19 06:52 Nucleated RBCs Cancelled 01/30/19 07:00 Differential Comment Cancelled 01/30/19 07:00 Other Cell Type Cancelled 01/30/19 07:00 RBC Morphology Cancelled 01/30/19 07:00 Polychromasia Cancelled 01/30/19 07:00 Hypochromasia Cancelled 01/30/19 07:00 Poikilocytosis Cancelled 01/30/19 07:00 Basophilic Stippling Cancelled 01/30/19 07:00 Anisocytosis Cancelled 01/30/19 07:00 Microcytosis Cancelled 01/30/19 07:00 Macrocytosis Cancelled 01/30/19 07:00 Spherocytes Cancelled 01/30/19 07:00 Target Cells Cancelled 01/30/19 07:00 Tear Drop Cells Cancelled 01/30/19 07:00 Ovalocytes Cancelled 01/30/19 07:00 Stomatocytes Cancelled 01/30/19 07:00 [place] Bodies Cancelled 01/30/19 07:00 Daniel Cells Cancelled 01/30/19 07:00 Acanthocytes (Spur) Cancelled 01/30/19 07:00 Schistocytes Cancelled 01/30/19 07:00 PT 10.0 sec (9.3-11.0) 01/29/19 09:20 INR 1.0 (0.9-1.1) 01/29/19 09:20 Sodium 141 mmol/L (136-145) 01/30/19 07:00 Potassium 4.2 mmol/L (3.5-5.1) 01/30/19 07:00 Chloride 106 mmol/L (98-107) 01/30/19 07:00 Carbon Dioxide 27.2 mmol/L (21.0-32.0) 01/30/19 07:00 Anion Gap 7.8 mmol/L (3-11) 01/30/19 07:00 BUN 17 mg/dL (7-18) 01/30/19 07:00 Creatinine 0.72 mg/dL (0.70-1.30) 01/30/19 07:00 Estimated GFR/1.73 m2 >= 60.00 (mL/min/1.73m2) 01/30/19 07:00 Glucose 87 mg/dL (70-100) 01/30/19 07:00 Calcium 8.7 mg/dL (8.5-10.1) 01/30/19 07:00 Phosphorus 3.3 mg/dL (2.6-4.7) 01/30/19 07:00 Magnesium 1.9 mg/dL (1.8-2.4) 01/30/19 07:00 Total Bilirubin 0.2 mg/dL (0.2-1.0) 01/30/19 07:00 AST 31 U/L (15-37) 01/30/19 07:00 ALT 34 U/L (12-78) 01/30/19 07:00 Alkaline Phosphatase 100 U/L (46-116) 01/30/19 07:00 Total Protein 5.9 g/dL (6.4-8.2) L 01/30/19 07:00 Albumin 2.9 g/dL (3.4-5.0) L 01/30/19 07:00 Prealbumin 14 mg/dL (20-40) L 01/29/19 07:43 Lipase 44 U/L (73-393) L 01/23/19 10:25 Patient ABO/Rh O Positive 01/29/19 16:27 Antibody Screen Negative 01/29/19 16:27
[2019-01-31] MEDS: Lactated Ringers 1,000 ML 150 ML IV (13:25)
--- NOTE | 2019-01-31 13:37 | PDOC.ANES ---
Date of service: 01/31/19 Time of Service: 11:30 Anesthesia Note Report Anesthesia Note: POD 1 patient states pain is currently 3-5/10. Has been able to deep breath, but is having sharp pain with coughing. Earlier today was up and walking and was having right thigh weakness. Pt still endorsed this increased weakness and numbness on his right thigh. discussed options to resolve weakness and decision was made to pull catheter back 1 cm. Patient was educated about the PCEA button aspect and how it can help with his pain. Epidural catheter was pulled back (now at 9 cm) with sterile gloves, hat, and mask. Different sterile gloves where used to remove dressing then to pull back and apply new dressing. Additional mastisol was placed and a CHG dressing was placed over the site. Pt tolerated to procedure well. Catheter site is without signs or symptoms of infection.
--- NOTE | 2019-01-31 13:53 | PDOC.CMPRO ---
Care Management Progress Note S/O: Recommendation for Drake to ambulate three times per day and sit in his chair; he getting up once today and planning on getting up and walking again this evening. He reported walking as far as CM office and back. He is permitted ice chips, hard candy and chewing gum, with TPN for nutrition through his PICC. Plan for gravity carrion to remain for seven days to allow bladder to heal. His pain continues to be closely monitored with epidural, Toradol and Tylenol available IV. He was pleasant in interaction and appeared relaxed and reported he was relieved at this point to have some answers and understanding. He had two visitors at his bedside; his sister and his friend. CM will continue to follow. A: 53 y/o male admitted 01/23/19 for Partial SBO; Lysis of adhesions on 01/30/19 P: Bebeto will return home when ready per MD. He will follow up with surgical services, his PCP and plan of care as prescribed. Bebeto will need to follow up with surgeon and primary care after discharge. Spouse will transport him home when medically ready per provider. CM will continue to follow.
[2019-01-31] MEDS: Enoxaparin 40 MG/0.4 ML SYR SC (15:38)
--- NOTE | 2019-01-31 17:36 | NUR.NOTE ---
Nursing Note: Attempted to get patient out of bed for a walk. Patient complained that his whole right leg was completely numb and stated that he probably could not walk. Patient sat up on the edge of the bed and then stated that his right leg was paralysed and that he could not move it to get it back into the bed. Clinical coordinator Megan Patricio RN notified of the above
[2019-02-01] MEDS: FAMOTIDINE 20 MG/50 ML BAG 200 MG IVPB ×2 (02:59→13:27)
[2019-02-01] MEDS: Metoclopramide 10 MG/2 ML VIAL IVP ×2 (03:00→10:34)
[2019-02-01 03:35] VITALS: BP 121/74; PULSE 84; RESP 19; TEMP 37.2; O2SAT 93
[2019-02-01] MEDS: PIPERACILLIN/TAZO 3.375 GM in Normal Saline 50 ML IVPB ×4 (06:41→23:12)
--- NOTE | 2019-02-01 06:51 | PDOC.ANES ---
Date of service: 01/31/19 Time of Service: 19:00 Anesthesia Note Report Anesthesia Note: Called by floor for patient complaint of leg is paralyzed. Epidural currently running at 10 mL/hr with 4 mL demand dose every 15 minutes. On arrival pt states that his numbness is not worse than his numbness that he has been having throughout the day. His numbness is primarily in L3, 4, 5 distribution. discussed risks vs benefits of decreasing or turning off the epidural. Pt not interested in epidural being turned off just to get leg strength back. in discussion with pt the decision was made to decrease the hourly rate to 5 mL/hr and the demand dose increased to 5 mL. This morning (02/01/19, 0645) pt states that is numbness is improving and that his pain is toughly the same.
[2019-02-01] MEDS: Ketorolac 30 MG/ML VIAL IVP ×3 (06:55→21:56)
[2019-02-01 07:03] LABS: HCT 34.7 % (40.0-50.0); HGB 11.3 g/dL (13.5-17.5); Mean Corp. HGB Concentration 32.6 g/dL (32.0-36.0); Mean Corpuscular Hemoglobin 29.1 pg (27.0-33.0); Mean Corpuscular Volume 89.4 fL (80-95); Mean Platelet Volume 10.4 fL (8.0-11.0); Platelet Count 131 x1000/uL (130-400); RBC 3.88 m/cumm (4.50-6.00); RBC Distribution Width 13.4 % (11.8-14.1); White Blood Cell Count 7.22 k/cumm (4.4-10.8)
[2019-02-01 07:14] LABS: Anion Gap -1.6 mmol/L (3-11); BUN 17 mg/dL (7-18); CO2 29.6 mmol/L (21.0-32.0); CREATININE 0.69 mg/dL (0.70-1.30); Calcium 7.8 mg/dL (8.5-10.1); Chloride 103 mmol/L (98-107); Glucose 100 mg/dL (70-100); Magnesium 1.8 mg/dL (1.8-2.4); PHOSPHORUS 2.6 mg/dL (2.6-4.7); Potassium 3.4 mmol/L (3.5-5.1); Sodium 131 mmol/L (136-145)
[2019-02-01 07:40] VITALS: BP 113/75; PULSE 81; RESP 18; TEMP 37.3; O2SAT 96
--- NOTE | 2019-02-01 09:20 | PGE_ITS ---
Date of Service Date of service: 02/01/19 Time of Service: 09:20 Assessment and Plan (1) S/P exploratory laparotomy: Current visit: Yes Status: Acute POD#2 doing well bowel functioning is starting to return epidural is still in and anesthesia did adjust to try to improve leg function/mobility giving excellent pain control abx/lovenox/ NPO- is having few ice chips. cont to walk maintain carrion for next ten days will d/w anethesia when they are going to pull epidural and if need to hold lovenox (2) Smoker unmotivated to quit: Current visit: Yes Status: Acute pulm toilet jonas patch (3) Noncompliance by refusing intervention or support: Current visit: Yes Status: Acute copperating Subjective Patient reports: feels better, flatus, vomiting and afebrile; denies bowel movement, nausea and shortness of breath Interval history since last seen: pt is doing OK. Having about 300 per shift out of NGT. urine is cl yellow. no CP or SOB. no productive cough, Has left NGT in place. He is passing some gas today. epidural is still in place and functioning well. Has some numbness in R upper thigh- but is able to walk w/ assist. no leg pain or swelling. carrion is still in place adn clear yellow- no blood. pt is in could spirits adn is cooperating w/ nursing adn cares. He has been up and walking. Exam Const General: cooperative, healthy appearing, comfortable, no acute distress, well developed and well groomed Nutritional Appearance: average body habitus and well nourished Orientation: alert, awake and oriented x3 [facility] Head: normal to inspection, normocephalic and atraumatic Ears: hearing grossly normal bilaterally and external ears normal General nose exam: external nose normal Face and sinus: normal facial exam and sinuses nontender Mouth: oral mucosae normal, lip normal, tongue normal and moist mucous membranes Teeth and gingiva: dentition normal Eyes General: appearance normal, both eyes and all related structures Conjunctivae: conjunctivae normal Sclera: sclerae normal Pupils: PERRL Neck Neck: normal visual inspection and full ROM Chest Chest: normal inspection of the chest Resp Effort & Inspection: normal respiratory effort, able to speak in complete sentences, no cough, no nasal flaring, not tachypneic and no use of accessory muscles Auscultation: clear to auscultation bilaterally, no rales, no rhonchi and no wheezes Cardio Jugular venous pressure: no JVD Rate: regular rate Rhythm: regular rhythm GI Inspection: normal to inspection, no edema and non-distended Palpation: soft, no masses, nontender and No ascites Auscultation: hypoactive bowel sounds Other: BS are present today. incision is C/D/I. Skin General skin exam: no rashes or lesions noted Trauma: no lacerations or abrasions Neuro General: alert, oriented x3, oriented, gait normal, moves all extremities, no focal motor deficits and CN's II-XI intact bilaterally Cognition: normal cognition Speech: speech normal Gait: normal gait Motor: muscle tone normal throughout Extrem General: normal to inspection, full ROM and no clubbing, cyanosis or edema Psych Appearance: grossly normal and well kempt Mental Status: mental status grossly normal Speech and Movement: speech and movement normal Affect: normal affect Objective Objective Clinical Data: Abnormal lab results 02/01/19 02/01/19 Range/Units 06:50 06:50 RBC 3.88 L (4.50-6.00) m/cumm Hgb 11.3 L (13.5-17.5) g/dL Hct 34.7 L (40.0-50.0) % Sodium 131 L (136-145) mmol/L Potassium 3.4 L (3.5-5.1) mmol/L Anion Gap -1.6 L (3-11) mmol/L Creatinine 0.69 L (0.70-1.30) mg/dL Calcium 7.8 L (8.5-10.1) mg/dL Vital Signs Temperature 37.3 C 02/01/19 07:40 Temperature Source Tympanic 02/01/19 07:40 Pulse 81 02/01/19 07:40 Pulse Rhythm Regular 02/01/19 08:27 Respiratory Rate 18 02/01/19 07:40 Respiratory Effort Non-Labored 02/01/19 08:27 Respiratory Depth Normal 02/01/19 08:27 Respiratory Pattern Normal 02/01/19 08:27 Blood Pressure 113/75 02/01/19 07:40 Blood Pressure Position Sitting 01/23/19 08:49 Pulse Oximetry 96 02/01/19 07:40 Respiratory End-tidal CO2 26 01/30/19 13:10 Oxygen Delivery Method Room Air 02/01/19 07:40 Oxygen Flow Rate 0 02/01/19 07:40 Pain Level 3 02/01/19 07:40 Comment 01/27/19 23:40 Intake & Output 01/31/19 01/31/19 02/01/19 11:59 23:59 11:59 Intake Total 3758.333 / 5940.417 2182.084 / 5940.417 50 / 50 Output Total 475 / 1775 1300 / 1775 800 / 800 Balance 3283.333 / 4165.417 882.084 / 4165.417 -750 / -750 Intake: IV 3758.333 / 5940.417 2182.084 / 5940.417 50 / 50 Oral 0 / 0 Output: Gastric Drainage 275 / 1175 900 / 1175 400 / 400 Right Nare 275 / 1175 900 / 1175 400 / 400 Urine 200 / 600 400 / 600 400 / 400 Other: Urine Color Light Annie Straw Light Annie Urine Appearance Clear Clear Clear Comment low u/o chedking for retention Laboratory Results WBC 7.22 k/cumm (4.4-10.8) 02/01/19 06:50 RBC 3.88 m/cumm (4.50-6.00) L 02/01/19 06:50 Hgb 11.3 g/dL (13.5-17.5) L 02/01/19 06:50 Hct 34.7 % (40.0-50.0) L 02/01/19 06:50 MCV 89.4 fL (80-95) 02/01/19 06:50 MCH 29.1 pg (27.0-33.0) 02/01/19 06:50 MCHC 32.6 g/dL (32.0-36.0) 02/01/19 06:50 RDW 13.4 % (11.8-14.1) 02/01/19 06:50 Plt Count 131 x1000/uL (130-400) 02/01/19 06:50 MPV 10.4 fL (8.0-11.0) 02/01/19 06:50 Immature Gran % 0.1 01/28/19 06:52 Neutrophils % 56.3 01/28/19 06:52 Band Neutrophils % Cancelled 01/30/19 07:00 Lymphocytes % 27.7 01/28/19 06:52 Atypical Lymphs % Cancelled 01/30/19 07:00 Monocytes % 10.5 01/28/19 06:52 Eosinophils % 5.0 01/28/19 06:52 Basophils % 0.4 01/28/19 06:52 Metamyelocytes % Cancelled 01/30/19 07:00 Myelocytes % Cancelled 01/30/19 07:00 Promyelocytes % Cancelled 01/30/19 07:00 Absolute Neutrophils 4.13 k/cumm (1.2-6.7) 01/28/19 06:52 Absolute Lymphocytes 2.03 k/cumm (1.2-3.4) 01/28/19 06:52 Absolute Monocytes 0.77 k/cumm (0.11-0.7) H 01/28/19 06:52 Absolute Eosinophils 0.37 k/cumm (0.0-0.7) 01/28/19 06:52 Absolute Basophils 0.03 k/cumm (0.0-0.2) 01/28/19 06:52 Nucleated RBCs Cancelled 01/30/19 07:00 Differential Comment Cancelled 01/30/19 07:00 Other Cell Type Cancelled 01/30/19 07:00 RBC Morphology Cancelled 01/30/19 07:00 Polychromasia Cancelled 01/30/19 07:00 Hypochromasia Cancelled 01/30/19 07:00 Poikilocytosis Cancelled 01/30/19 07:00 Basophilic Stippling Cancelled 01/30/19 07:00 Anisocytosis Cancelled 01/30/19 07:00 Microcytosis Cancelled 01/30/19 07:00 Macrocytosis Cancelled 01/30/19 07:00 Spherocytes Cancelled 01/30/19 07:00 Target Cells Cancelled 01/30/19 07:00 Tear Drop Cells Cancelled 01/30/19 07:00 Ovalocytes Cancelled 01/30/19 07:00 Stomatocytes Cancelled 01/30/19 07:00 [place] Bodies Cancelled 01/30/19 07:00 Daniel Cells Cancelled 01/30/19 07:00 Acanthocytes (Spur) Cancelled 01/30/19 07:00 Schistocytes Cancelled 01/30/19 07:00 PT 10.0 sec (9.3-11.0) 01/29/19 09:20 INR 1.0 (0.9-1.1) 01/29/19 09:20 Sodium 131 mmol/L (136-145) L 02/01/19 06:50 Potassium 3.4 mmol/L (3.5-5.1) L 02/01/19 06:50 Chloride 103 mmol/L (98-107) 02/01/19 06:50 Carbon Dioxide 29.6 mmol/L (21.0-32.0) 02/01/19 06:50 Anion Gap -1.6 mmol/L (3-11) L 02/01/19 06:50 BUN 17 mg/dL (7-18) 02/01/19 06:50 Creatinine 0.69 mg/dL (0.70-1.30) L 02/01/19 06:50 Estimated GFR/1.73 m2 >= 60.00 (mL/min/1.73m2) 02/01/19 06:50 Glucose 100 mg/dL (70-100) 02/01/19 06:50 Calcium 7.8 mg/dL (8.5-10.1) L 02/01/19 06:50 Phosphorus 2.6 mg/dL (2.6-4.7) 02/01/19 06:50 Magnesium 1.8 mg/dL (1.8-2.4) 02/01/19 06:50 Total Bilirubin 0.2 mg/dL (0.2-1.0) 01/30/19 07:00 AST 31 U/L (15-37) 01/30/19 07:00 ALT 34 U/L (12-78) 01/30/19 07:00 Alkaline Phosphatase 100 U/L (46-116) 01/30/19 07:00 Total Protein 5.9 g/dL (6.4-8.2) L 01/30/19 07:00 Albumin 2.9 g/dL (3.4-5.0) L 01/30/19 07:00 Prealbumin 14 mg/dL (20-40) L 01/29/19 07:43 Lipase 44 U/L (73-393) L 01/23/19 10:25 Patient ABO/Rh O Positive 01/29/19 16:27 Antibody Screen Negative 01/29/19 16:27
[2019-02-01] MEDS: POTASSIUM CHLORIDE 10 MEQ/100 ML BAG 100 MEQ IVPB (10:41)
[2019-02-01] MEDS: Normal Saline Flush 10 ML SYR IVP ×5 (11:21→15:40)
[2019-02-01] MEDS: Lactated Ringers 1,000 ML 80 ML IV (11:23)
--- NOTE | 2019-02-01 11:35 | PDOC.CMPRO ---
Care Management Progress Note S/O: Drake continues to be closely monitored as he recovers, and is ambulating in the hallways a few times a day. CM greeted him in the hallway and later in his room, he was lying in bed. He has been pleasant and fully engaged with this music writer. CM will continue to follow. A: 53 y/o male admitted 01/23/19 for Partial SBO; Lysis of adhesions on 01/30/19 P: Drake is permitted ice chips, hard candy and chewing gum, with TPN for nutrition through his PICC. Plan for gravity carrion to remain for seven days to allow bladder to heal. Drake's pain continues to be closely monitored with epidural, Toradol and Tylenol available IV. He was pleasant in interaction and appeared much more relaxed post surgically than previously and during past admissions. Bebeto will return home when ready per MD. He will follow up with surgical services, his PCP and plan of care as prescribed. Юлия will transport him home when medically ready per provider. CM will continue to follow.
--- NOTE | 2019-02-01 11:39 | CMPROGNOTE_ITS ---
Care Management Progress Note S/O: Drake continues to be closely monitored as he recovers, and is ambulating in the hallways a few times a day. CM greeted him in the hallway and later in his room, he was lying in bed. He has been pleasant and fully engaged with this journalists and other writers. CM will continue to follow. A: 53 y/o male admitted 01/23/19 for Partial SBO; Lysis of adhesions on 01/30/19 P: Drake is permitted ice chips, hard candy and chewing gum, with TPN for nutrition through his PICC. Plan for gravity carrion to remain for seven days to allow bladder to heal. Drake's pain continues to be closely monitored with epidural, Toradol and Tylenol available IV. He was pleasant in interaction and appeared much more relaxed post surgically than previously and during past admissions. Bebeto will return home when ready per MD. He will follow up with surgical services, his PCP and plan of care as prescribed. Юлия will transport him home when medically ready per provider. CM will continue to follow.
[2019-02-01 11:47] VITALS: BP 136/82; PULSE 71; RESP 20; TEMP 37.1; O2SAT 97
--- NOTE | 2019-02-01 14:28 | PDOC.ANES ---
Date of service: 02/01/19 Time of Service: 11:30 Anesthesia Note Report Anesthesia Note: Pt seen on unit by SHAILESH Holland. Epidural site clean and intact. Pt states that RLE circumferential numbness around his knee and thigh has improved from epidural basal rate and bolus dosing change done early this AM. Pt now states that sensory numbness is only present on anterior superficial thigh. Pt able to move BLE with no deficits. Pt states that he ambulated this AM with no issues. Will continue to monitor.
[2019-02-01 15:40] VITALS: BP 126/80; PULSE 75; RESP 18; TEMP 37.3; O2SAT 100
--- NOTE | 2019-02-01 17:00 | NUR.NOTE ---
Nursing Note: Patient refusing scheduled medications. Education provided and patient still refused. Patient also stating he might take a walk later. He also refused to move so this RN could listen to his lungs posteriorly. Clinical coordinator, Aster Durham RN notified who in turn notified the MD
[2019-02-01] MEDS: Normal Saline 500 ML IV (19:00)
[2019-02-01] MEDS: Enoxaparin 40 MG/0.4 ML SYR SC (19:46)
[2019-02-01 23:48] VITALS: BP 150/75; PULSE 77; RESP 18; TEMP 37.1; O2SAT 100
[2019-02-02] MEDS: Lactated Ringers 1,000 ML 80 ML IV ×2 (00:30→13:06)
[2019-02-02] MEDS: FAMOTIDINE 20 MG/50 ML BAG 200 MG IVPB ×2 (01:20→15:21)
[2019-02-02] MEDS: PIPERACILLIN/TAZO 3.375 GM in Normal Saline 50 ML IVPB ×2 (06:05→12:53)
[2019-02-02 07:40] VITALS: BP 160/92; PULSE 74; RESP 18; TEMP 36.4; O2SAT 97
[2019-02-02 07:41] LABS: Anion Gap 6.8 mmol/L (3-11); BUN 13 mg/dL (7-18); CO2 28.2 mmol/L (21.0-32.0); CREATININE 0.73 mg/dL (0.70-1.30); Calcium 8.1 mg/dL (8.5-10.1); Chloride 108 mmol/L (98-107); Glucose 107 mg/dL (70-100); Magnesium 1.7 mg/dL (1.8-2.4); PHOSPHORUS 2.3 mg/dL (2.6-4.7); Potassium 3.6 mmol/L (3.5-5.1); Sodium 143 mmol/L (136-145)
--- NOTE | 2019-02-02 08:12 | PGE_ITS ---
Documented by User: YESI Lange 02/02/19 08:31 Date of Service Date of service: 02/02/19 Time of Service: 08:10 Assessment and Plan (1) S/P exploratory laparotomy: Current visit: Yes Status: Acute POD#3 PAIN- Well controlled with epidural. DIET- NPO; Ice chips only NG tube- Total Output for (02/01) 1,175mL ACTIVITY- Discussed continued ambulation TID and sitting up in the chair throughout the day. DVT Prevention- Continue Lovenox and activity BLADDER INJURY- Carrion in place today is Day 3, will stay in place for 7 more days. Disposition- D/C home once able to remove carrion and and having BMs. Subjective Interval history since last seen: Things are sore, but I am doing alright. Reports passing flatus, no BM. Denies nausea or vomiting. Slept okay last night. Exam Const General: cooperative and comfortable Orientation: alert and oriented x3 Resp Effort & Inspection: normal respiratory effort, no audible wheezes and no cough GI Inspection: normal to inspection Palpation: soft, no guarding and tender (around midline incision) Auscultation: normal bowel sounds Objective Objective Clinical Data: Abnormal lab results 02/02/19 Range/Units 06:50 Chloride 108 H (98-107) mmol/L Glucose 107 H (70-100) mg/dL Calcium 8.1 L (8.5-10.1) mg/dL Phosphorus 2.3 L (2.6-4.7) mg/dL Magnesium 1.7 L (1.8-2.4) mg/dL Vital Signs Temperature 37.1 C 02/01/19 23:48 Temperature Source Temporal Artery Scan 02/01/19 23:48 Pulse 77 02/01/19 23:48 Pulse Rhythm Regular 02/01/19 23:35 Respiratory Rate 18 02/01/19 23:48 Respiratory Effort Non-Labored 02/01/19 23:35 Respiratory Depth Normal 02/01/19 23:35 Respiratory Pattern Normal 02/01/19 23:35 Blood Pressure 150/75 H 02/01/19 23:48 Blood Pressure Position Sitting 01/23/19 08:49 Pulse Oximetry 100 02/01/19 23:48 Respiratory End-tidal CO2 26 01/30/19 13:10 Oxygen Delivery Method Room Air 02/01/19 23:48 Oxygen Flow Rate 0 02/01/19 23:48 Pain Level 3 02/02/19 07:35 Comment 01/27/19 23:40 Intake & Output 02/01/19 02/02/19 02/02/19 18:59 06:59 18:59 Intake Total 2521.416 / 4496.333 1974.917 / 4496.333 Output Total 1325 / 4225 2900 / 4225 Balance 1196.416 / 271.333 -925.083 / 271.333 Weight 67.1 kg Intake: IV 2521.416 / 4496.333 1974.917 / 4496.333 Output: Gastric Drainage 325 / 925 600 / 925 Right Nare 325 / 925 600 / 925 Urine 1000 / 3300 2300 / 3300 Other: Urine Color Yellow [place] Urine Appearance Clear Clear Laboratory Results WBC 7.22 k/cumm (4.4-10.8) 02/01/19 06:50 RBC 3.88 m/cumm (4.50-6.00) L 02/01/19 06:50 Hgb 11.3 g/dL (13.5-17.5) L 02/01/19 06:50 Hct 34.7 % (40.0-50.0) L 02/01/19 06:50 MCV 89.4 fL (80-95) 02/01/19 06:50 MCH 29.1 pg (27.0-33.0) 02/01/19 06:50 MCHC 32.6 g/dL (32.0-36.0) 02/01/19 06:50 RDW 13.4 % (11.8-14.1) 02/01/19 06:50 Plt Count 131 x1000/uL (130-400) 02/01/19 06:50 MPV 10.4 fL (8.0-11.0) 02/01/19 06:50 Immature Gran % 0.1 01/28/19 06:52 Neutrophils % 56.3 01/28/19 06:52 Band Neutrophils % Cancelled 01/30/19 07:00 Lymphocytes % 27.7 01/28/19 06:52 Atypical Lymphs % Cancelled 01/30/19 07:00 Monocytes % 10.5 01/28/19 06:52 Eosinophils % 5.0 01/28/19 06:52 Basophils % 0.4 01/28/19 06:52 Metamyelocytes % Cancelled 01/30/19 07:00 Myelocytes % Cancelled 01/30/19 07:00 Promyelocytes % Cancelled 01/30/19 07:00 Absolute Neutrophils 4.13 k/cumm (1.2-6.7) 01/28/19 06:52 Absolute Lymphocytes 2.03 k/cumm (1.2-3.4) 01/28/19 06:52 Absolute Monocytes 0.77 k/cumm (0.11-0.7) H 01/28/19 06:52 Absolute Eosinophils 0.37 k/cumm (0.0-0.7) 01/28/19 06:52 Absolute Basophils 0.03 k/cumm (0.0-0.2) 01/28/19 06:52 Nucleated RBCs Cancelled 01/30/19 07:00 Differential Comment Cancelled 01/30/19 07:00 Other Cell Type Cancelled 01/30/19 07:00 RBC Morphology Cancelled 01/30/19 07:00 Polychromasia Cancelled 01/30/19 07:00 Hypochromasia Cancelled 01/30/19 07:00 Poikilocytosis Cancelled 01/30/19 07:00 Basophilic Stippling Cancelled 01/30/19 07:00 Anisocytosis Cancelled 01/30/19 07:00 Microcytosis Cancelled 01/30/19 07:00 Macrocytosis Cancelled 01/30/19 07:00 Spherocytes Cancelled 01/30/19 07:00 Target Cells Cancelled 01/30/19 07:00 Tear Drop Cells Cancelled 01/30/19 07:00 Ovalocytes Cancelled 01/30/19 07:00 Stomatocytes Cancelled 01/30/19 07:00 [place] Bodies Cancelled 01/30/19 07:00 Daniel Cells Cancelled 01/30/19 07:00 Acanthocytes (Spur) Cancelled 01/30/19 07:00 Schistocytes Cancelled 01/30/19 07:00 PT 10.0 sec (9.3-11.0) 01/29/19 09:20 INR 1.0 (0.9-1.1) 01/29/19 09:20 Sodium 143 mmol/L (136-145) D 02/02/19 06:50 Potassium 3.6 mmol/L (3.5-5.1) 02/02/19 06:50 Chloride 108 mmol/L (98-107) H 02/02/19 06:50 Carbon Dioxide 28.2 mmol/L (21.0-32.0) 02/02/19 06:50 Anion Gap 6.8 mmol/L (3-11) 02/02/19 06:50 BUN 13 mg/dL (7-18) 02/02/19 06:50 Creatinine 0.73 mg/dL (0.70-1.30) 02/02/19 06:50 Estimated GFR/1.73 m2 >= 60.00 (mL/min/1.73m2) 02/02/19 06:50 Glucose 107 mg/dL (70-100) H 02/02/19 06:50 Calcium 8.1 mg/dL (8.5-10.1) L 02/02/19 06:50 Phosphorus 2.3 mg/dL (2.6-4.7) L 02/02/19 06:50 Magnesium 1.7 mg/dL (1.8-2.4) L 02/02/19 06:50 Total Bilirubin 0.2 mg/dL (0.2-1.0) 01/30/19 07:00 AST 31 U/L (15-37) 01/30/19 07:00 ALT 34 U/L (12-78) 01/30/19 07:00 Alkaline Phosphatase 100 U/L (46-116) 01/30/19 07:00 Total Protein 5.9 g/dL (6.4-8.2) L 01/30/19 07:00 Albumin 2.9 g/dL (3.4-5.0) L 01/30/19 07:00 Prealbumin 14 mg/dL (20-40) L 01/29/19 07:43 Lipase 44 U/L (73-393) L 01/23/19 10:25 Patient ABO/Rh O Positive 01/29/19 16:27 Antibody Screen Negative 01/29/19 16:27 Documented by User: Shani [email or web address], DO 02/02/19 12:40 Assessment and Plan (1) S/P exploratory laparotomy: Current visit: Yes Status: Acute pt seen and examined. agree w/ above will clamp NGT adn see how he does. If any N/v return to [facility]. hopefully d/c in am and start cl liq. pt had <50cc since 7am and is passing gas. s/w anesthesia. will wean epidural infusion on sat adn pull cath on tuesday. pt is doing very well w/ this and has very min. pain. pt esteban go home w/ carrion ? if they want him to be on abx. at home - d/w w/ uro
[2019-02-02] MEDS: Ketorolac 30 MG/ML VIAL IVP ×3 (08:57→21:22)
[2019-02-02] MEDS: Normal Saline Flush 10 ML SYR IVP ×3 (08:58→16:07)
--- NOTE | 2019-02-02 09:14 | PDOC.ANES ---
Date of service: 02/02/19 Time of Service: 09:08 Anesthesia Note Report Anesthesia Note: Plan of care discussed with Dr. Bynum. Plan to leave epidural infusion as is through tomorrow am, then stop infusion and if tolerates trial of no epidural, will pull the catheter Tuesday am. No interruption of Lovenox dosing necessary since it is Qday at 1600. Current pain level 3/10, VSS, NG in place draining bile-colored fluid, patient denies nausea, is passing flatus, epidural dressing dry and intact, catheter at 9 cm at skin. Patient informed of plan and agreeable. Slight numbness of right thigh, equal strength.
[2019-02-02 11:41] VITALS: BP 156/85; PULSE 69; RESP 18; TEMP 37; O2SAT 98
--- NOTE | 2019-02-02 11:53 | PDOC.CMPRO ---
Care Management Progress Note S/O: Drake was ambulating through the hallways with FOOD PRODUCTION SUPERVISOR; Luke. He appeared in good spirits and was conversant. He continues to be monitored closely during recovery with no change to overall plan. CM will continue to follow. A: 53 y/o male admitted 01/23/19 for Partial SBO; Lysis of adhesions on 01/30/19 P: Drake is permitted ice chips, hard candy and chewing gum, with TPN for nutrition through his PICC. Plan for gravity carrion to remain for seven days to allow bladder to heal. Drake's pain continues to be closely monitored with epidural, Toradol and Tylenol available IV. He will follow up with surgical services, his PCP and plan of care as prescribed. Юлия will transport him home when medically ready per provider.
[2019-02-02 11:59] LABS: ALT 20 U/L (12-78); AST 14 U/L (15-37); Albumin 1.9 g/dL (3.4-5.0); Alkaline Phosphatase 92 U/L (46-116); Bilirubin, Total 0.2 mg/dL (0.2-1.0); Total Protein 4.9 g/dL (6.4-8.2)
--- NOTE | 2019-02-02 13:42 | CMPROGNOTE_ITS ---
Care Management Progress Note S/O: Drake was ambulating through the hallways with CHEMICAL ANALYST; Luke. He appeared in good spirits and was conversant. He continues to be monitored closely during recovery with no change to overall plan. CM will continue to follow. A: 53 y/o male admitted 01/23/19 for Partial SBO; Lysis of adhesions on 01/30/19 P: Drake is permitted ice chips, hard candy and chewing gum, with TPN for nutrition through his PICC. Plan for gravity carrion to remain for seven days to allow bladder to heal. Drake's pain continues to be closely monitored with epidural, Toradol and Tylenol available IV. He will follow up with surgical services, his PCP and plan of care as prescribed. Юлия will transport him home when medically ready per provider.
--- NOTE | 2019-02-02 15:11 | PGE_ITS ---
Date of Service Date of service: 02/02/19 Time of Service: 15:06 Assessment and Plan (1) S/P exploratory laparotomy: Current visit: Yes Status: Acute A\\ having some flatus. No BM NG clamped P\\ Continue current treatment plan. If no N/V with NG clamped may start him on some popsicles and sips of clears tomorrow. With the chronicity of the PSBO I am going to go slow and not push his bowel. This was discussed with Ricardo and he is in agreement. We also discussed importance of getting up more then just 2 x a day. Subjective Interval history since last seen: Doing OK. He has been passing some flatus. No N/V since the NG tube was clamped at 1 pm. Got up and walked at 9 am. Discussed getting up at least TID. Exam Resp Effort & Inspection: normal respiratory effort Auscultation: clear to auscultation bilaterally Cardio Rate: regular rate Rhythm: regular rhythm Heart Sounds: no gallops, no murmurs and no rubs GI Inspection: incision (c/d/i) Palpation: soft and tender (mild along the midline incision) Auscultation: hypoactive bowel sounds Abdomen image: 1. midline incison Objective Objective Clinical Data: Abnormal lab results 02/02/19 Range/Units 06:50 Chloride 108 H (98-107) mmol/L Glucose 107 H (70-100) mg/dL Calcium 8.1 L (8.5-10.1) mg/dL Phosphorus 2.3 L (2.6-4.7) mg/dL Magnesium 1.7 L (1.8-2.4) mg/dL AST 14 L (15-37) U/L Total Protein 4.9 L (6.4-8.2) g/dL Albumin 1.9 L (3.4-5.0) g/dL Vital Signs Temperature 98.6 F 02/02/19 11:41 Temperature Source Tympanic 02/02/19 11:41 Pulse 69 02/02/19 11:41 Pulse Rhythm Regular 02/02/19 07:35 Respiratory Rate 18 02/02/19 11:41 Respiratory Effort Non-Labored 02/02/19 07:35 Respiratory Depth Normal 02/02/19 07:35 Respiratory Pattern Normal 02/02/19 07:35 Blood Pressure 156/85 H 02/02/19 11:41 Blood Pressure Position Sitting 01/23/19 08:49 Pulse Oximetry 98 02/02/19 11:41 Respiratory End-tidal CO2 26 01/30/19 13:10 Oxygen Delivery Method Room Air 02/02/19 11:41 Oxygen Flow Rate 0 02/02/19 11:41 Pain Level 3 02/02/19 13:00 Comment 01/27/19 23:40 Intake & Output 02/01/19 02/02/19 02/02/19 23:59 11:59 23:59 Intake Total 2074.917 / 4746.333 1131 / 2131 1000 / 2131 Output Total 1925 / 3325 2100 / 3250 1150 / 3250 Balance 149.917 / 1421.333 -969 / -1119 -150 / -1119 Weight 147 lb 14.883 oz 147 lb 7.828 oz Intake: IV 2074.917 / 4746.333 1131 / 2131 1000 / 2131 Output: Gastric Drainage 625 / 1025 300 / 400 100 / 400 Right Nare 625 / 1025 300 / 400 100 / 400 Urine 1300 / 2300 1800 / 2850 1050 / 2850 Other: Urine Color [place] Urine Appearance Clear Clear Clear Laboratory Results WBC 7.22 k/cumm (4.4-10.8) 02/01/19 06:50 RBC 3.88 m/cumm (4.50-6.00) L 02/01/19 06:50 Hgb 11.3 g/dL (13.5-17.5) L 02/01/19 06:50 Hct 34.7 % (40.0-50.0) L 02/01/19 06:50 MCV 89.4 fL (80-95) 02/01/19 06:50 MCH 29.1 pg (27.0-33.0) 02/01/19 06:50 MCHC 32.6 g/dL (32.0-36.0) 02/01/19 06:50 RDW 13.4 % (11.8-14.1) 02/01/19 06:50 Plt Count 131 x1000/uL (130-400) 02/01/19 06:50 MPV 10.4 fL (8.0-11.0) 02/01/19 06:50 Immature Gran % 0.1 01/28/19 06:52 Neutrophils % 56.3 01/28/19 06:52 Band Neutrophils % Cancelled 01/30/19 07:00 Lymphocytes % 27.7 01/28/19 06:52 Atypical Lymphs % Cancelled 01/30/19 07:00 Monocytes % 10.5 01/28/19 06:52 Eosinophils % 5.0 01/28/19 06:52 Basophils % 0.4 01/28/19 06:52 Metamyelocytes % Cancelled 01/30/19 07:00 Myelocytes % Cancelled 01/30/19 07:00 Promyelocytes % Cancelled 01/30/19 07:00 Absolute Neutrophils 4.13 k/cumm (1.2-6.7) 01/28/19 06:52 Absolute Lymphocytes 2.03 k/cumm (1.2-3.4) 01/28/19 06:52 Absolute Monocytes 0.77 k/cumm (0.11-0.7) H 01/28/19 06:52 Absolute Eosinophils 0.37 k/cumm (0.0-0.7) 01/28/19 06:52 Absolute Basophils 0.03 k/cumm (0.0-0.2) 01/28/19 06:52 Nucleated RBCs Cancelled 01/30/19 07:00 Differential Comment Cancelled 01/30/19 07:00 Other Cell Type Cancelled 01/30/19 07:00 RBC Morphology Cancelled 01/30/19 07:00 Polychromasia Cancelled 01/30/19 07:00 Hypochromasia Cancelled 01/30/19 07:00 Poikilocytosis Cancelled 01/30/19 07:00 Basophilic Stippling Cancelled 01/30/19 07:00 Anisocytosis Cancelled 01/30/19 07:00 Microcytosis Cancelled 01/30/19 07:00 Macrocytosis Cancelled 01/30/19 07:00 Spherocytes Cancelled 01/30/19 07:00 Target Cells Cancelled 01/30/19 07:00 Tear Drop Cells Cancelled 01/30/19 07:00 Ovalocytes Cancelled 01/30/19 07:00 Stomatocytes Cancelled 01/30/19 07:00 [place] Bodies Cancelled 01/30/19 07:00 [place] Cells Cancelled 01/30/19 07:00 Acanthocytes (Spur) Cancelled 01/30/19 07:00 Schistocytes Cancelled 01/30/19 07:00 PT 10.0 sec (9.3-11.0) 01/29/19 09:20 INR 1.0 (0.9-1.1) 01/29/19 09:20 Sodium 143 mmol/L (136-145) D 02/02/19 06:50 Potassium 3.6 mmol/L (3.5-5.1) 02/02/19 06:50 Chloride 108 mmol/L (98-107) H 02/02/19 06:50 Carbon Dioxide 28.2 mmol/L (21.0-32.0) 02/02/19 06:50 Anion Gap 6.8 mmol/L (3-11) 02/02/19 06:50 BUN 13 mg/dL (7-18) 02/02/19 06:50 Creatinine 0.73 mg/dL (0.70-1.30) 02/02/19 06:50 Estimated GFR/1.73 m2 >= 60.00 (mL/min/1.73m2) 02/02/19 06:50 Glucose 107 mg/dL (70-100) H 02/02/19 06:50 Calcium 8.1 mg/dL (8.5-10.1) L 02/02/19 06:50 Phosphorus 2.3 mg/dL (2.6-4.7) L 02/02/19 06:50 Magnesium 1.7 mg/dL (1.8-2.4) L 02/02/19 06:50 Total Bilirubin 0.2 mg/dL (0.2-1.0) 02/02/19 06:50 AST 14 U/L (15-37) L 02/02/19 06:50 ALT 20 U/L (12-78) 02/02/19 06:50 Alkaline Phosphatase 92 U/L (46-116) 02/02/19 06:50 Total Protein 4.9 g/dL (6.4-8.2) L 02/02/19 06:50 Albumin 1.9 g/dL (3.4-5.0) L 02/02/19 06:50 Prealbumin 14 mg/dL (20-40) L 01/29/19 07:43 Lipase 44 U/L (73-393) L 01/23/19 10:25 Patient ABO/Rh O Positive 01/29/19 16:27 Antibody Screen Negative 01/29/19 16:27
[2019-02-02] MEDS: Enoxaparin 40 MG/0.4 ML SYR SC (15:21)
[2019-02-02] MEDS: MAGNESIUM SULFATE 2 GM/50 ML BAG IVPB (16:07)
[2019-02-02 17:12] VITALS: BP 139/79; PULSE 74; RESP 18; TEMP 36.6; O2SAT 96
[2019-02-02] MEDS: Insulin Aspart 300 UNITS/3 ML PEN SC (18:02)
[2019-02-02 23:53] VITALS: BP 153/88; PULSE 76; RESP 18; TEMP 37.1; O2SAT 99
[2019-02-03] MEDS: FAMOTIDINE 20 MG/50 ML BAG 200 MG IVPB ×2 (01:58→14:19)
[2019-02-03 06:20] VITALS: BP 168/88; PULSE 76; RESP 16; TEMP 37.1; O2SAT 97
[2019-02-03 07:28] LABS: HCT 36.9 % (40.0-50.0); Mean Corp. HGB Concentration 32.5 g/dL (32.0-36.0); Mean Corpuscular Hemoglobin 28.8 pg (27.0-33.0); Mean Corpuscular Volume 88.7 fL (80-95); Mean Platelet Volume 10.6 fL (8.0-11.0); Platelet Count 193 x1000/uL (130-400); RBC 4.16 m/cumm (4.50-6.00); RBC Distribution Width 13.5 % (11.8-14.1); White Blood Cell Count 5.13 k/cumm (4.4-10.8)
[2019-02-03 07:35] VITALS: BP 137/81; PULSE 77; RESP 18; TEMP 37.1; O2SAT 98
[2019-02-03 07:42] LABS: Anion Gap 8.9 mmol/L (3-11); BUN 11 mg/dL (7-18); CO2 25.1 mmol/L (21.0-32.0); CREATININE 0.81 mg/dL (0.70-1.30); Calcium 8.6 mg/dL (8.5-10.1); Chloride 106 mmol/L (98-107); Glucose 92 mg/dL (70-100); Sodium 140 mmol/L (136-145)
[2019-02-03 07:45] LABS: PHOSPHORUS 2.5 mg/dL (2.6-4.7)
--- NOTE | 2019-02-03 11:19 | PGE_ITS ---
Date of Service Date of service: 02/03/19 Time of Service: 09:30 Assessment and Plan (1) S/P exploratory laparotomy: Current visit: Yes Status: Acute P\\ 1. Diet: start on clears. Try some ensure clear mixed 50/50 with Mónica Shayla Continue TPN for now. If doing well tomorrow with taking some food then will start to wean. 2. Pain control: Epidural stopped. Continue Toradol and IV Tylenol. Once epidural out will supplement with a little Morphine 3. Activity: Continue ambulation TID or more 4. DVT Prophilaxis: Continue with Lovenox. Will hold for anesthesia once they are ready to remove the epidural. 5. Antibiotics: none at this time. Patient Afebrile and WBC count normal. (2) Intraoperative bladder injury: Current visit: Yes Status: Acute A\\ Good UOP. No blood P\\ Carrion to stay in for 7-10 days. May need to go home with carrion and see Dr. Waite as outpatient. (3) Hypomagnesemia: Current visit: Yes Status: Acute A\\ magnesium replaced yesterday. Normal level today P\\ Monitor (4) Enlarged prostate: Current visit: Yes Status: Acute A\\ Difficulty with placing Catheter in the OR. Patient admits to difficulty starting a stream and incomplete emptying of his bladder P\\ may need flomax once catheter removed. Will see how he does Will have him Follow up as an outpatient with Dr. Waite Subjective Interval history since last seen: Drake is doing well. he had a small liquid BM last night. He tolerated sips of clears and ice chips with his NG tube clamped for over 12 hours without increased pain, N/V. He feels hungry. His epidural has been stopped for now. His pain is well controlled. t this time with toradol and tylenol. Exam Const General: cooperative, comfortable and no acute distress Orientation: alert and oriented x3 Resp Effort & Inspection: normal respiratory effort Auscultation: clear to auscultation bilaterally Cardio Rate: regular rate Rhythm: regular rhythm Heart Sounds: no gallops, no murmurs and no rubs GI Inspection: incision (c/d/i. No erythema. ayan intact) Palpation: soft, no hepatosplenomegaly and tender (minimal tenderness along incision) Auscultation: normal bowel sounds Objective Objective Clinical Data: Abnormal lab results 02/02/19 02/03/19 02/03/19 Range/Units 06:50 06:50 06:50 RBC 4.16 L (4.50-6.00) m/cumm Hgb 12.0 L (13.5-17.5) g/dL Hct 36.9 L (40.0-50.0) % Chloride 108 H (98-107) mmol/L Glucose 107 H (70-100) mg/dL Calcium 8.1 L (8.5-10.1) mg/dL Phosphorus 2.5 L (2.6-4.7) mg/dL AST 14 L (15-37) U/L Total Protein 4.9 L (6.4-8.2) g/dL Albumin 1.9 L (3.4-5.0) g/dL Vital Signs Temperature 98.8 F 02/03/19 07:35 Temperature Source Tympanic 02/03/19 07:35 Pulse 77 02/03/19 07:35 Pulse Rhythm Regular 02/02/19 20:41 Respiratory Rate 18 02/03/19 07:35 Respiratory Effort Non-Labored 02/02/19 20:41 Respiratory Depth Normal 02/02/19 20:41 Respiratory Pattern Normal 02/02/19 20:41 Blood Pressure 137/81 02/03/19 07:35 Blood Pressure Position Sitting 01/23/19 08:49 Pulse Oximetry 98 02/03/19 07:35 Respiratory End-tidal CO2 26 01/30/19 13:10 Oxygen Delivery Method Room Air 02/03/19 07:35 Oxygen Flow Rate 0 02/03/19 07:35 Pain Level 1 02/03/19 09:17 Comment 02/03/19 06:20 Intake & Output 02/02/19 02/02/19 02/03/19 11:59 23:59 11:59 Intake Total 1401 / 3773.512 2372.512 / 3773.512 1708.363 / 1708.363 Output Total 2100 / 4350 2250 / 4350 1850 / 1850 Balance -699 / -576.488 122.512 / -576.488 -141.637 / -141.637 Weight 147 lb 7.828 oz 141 lb 15.643 oz Intake: IV 1401 / 3698.512 2297.512 / 3698.512 1648.363 / 1648.363 Oral 75 / 75 60 / 60 Output: Gastric Drainage 300 / 400 100 / 400 Right Nare 300 / 400 100 / 400 Urine 1800 / 3950 2150 / 3950 1850 / 1850 Other: Urine Color Straw [place] Straw Urine Appearance Clear Clear Clear Stool Size Small Stool Characteristics Liquid Brown Laboratory Results WBC 5.13 k/cumm (4.4-10.8) 02/03/19 06:50 RBC 4.16 m/cumm (4.50-6.00) L 02/03/19 06:50 Hgb 12.0 g/dL (13.5-17.5) L 02/03/19 06:50 Hct 36.9 % (40.0-50.0) L 02/03/19 06:50 MCV 88.7 fL (80-95) 02/03/19 06:50 MCH 28.8 pg (27.0-33.0) 02/03/19 06:50 MCHC 32.5 g/dL (32.0-36.0) 02/03/19 06:50 RDW 13.5 % (11.8-14.1) 02/03/19 06:50 Plt Count 193 x1000/uL (130-400) 02/03/19 06:50 MPV 10.6 fL (8.0-11.0) 02/03/19 06:50 Immature Gran % 0.1 01/28/19 06:52 Neutrophils % 56.3 01/28/19 06:52 Band Neutrophils % Cancelled 01/30/19 07:00 Lymphocytes % 27.7 01/28/19 06:52 Atypical Lymphs % Cancelled 01/30/19 07:00 Monocytes % 10.5 01/28/19 06:52 Eosinophils % 5.0 01/28/19 06:52 Basophils % 0.4 01/28/19 06:52 Metamyelocytes % Cancelled 01/30/19 07:00 Myelocytes % Cancelled 01/30/19 07:00 Promyelocytes % Cancelled 01/30/19 07:00 Absolute Neutrophils 4.13 k/cumm (1.2-6.7) 01/28/19 06:52 Absolute Lymphocytes 2.03 k/cumm (1.2-3.4) 01/28/19 06:52 Absolute Monocytes 0.77 k/cumm (0.11-0.7) H 01/28/19 06:52 Absolute Eosinophils 0.37 k/cumm (0.0-0.7) 01/28/19 06:52 Absolute Basophils 0.03 k/cumm (0.0-0.2) 01/28/19 06:52 Nucleated RBCs Cancelled 01/30/19 07:00 Differential Comment Cancelled 01/30/19 07:00 Other Cell Type Cancelled 01/30/19 07:00 RBC Morphology Cancelled 01/30/19 07:00 Polychromasia Cancelled 01/30/19 07:00 Hypochromasia Cancelled 01/30/19 07:00 Poikilocytosis Cancelled 01/30/19 07:00 Basophilic Stippling Cancelled 01/30/19 07:00 Anisocytosis Cancelled 01/30/19 07:00 Microcytosis Cancelled 01/30/19 07:00 Macrocytosis Cancelled 01/30/19 07:00 Spherocytes Cancelled 01/30/19 07:00 Target Cells Cancelled 01/30/19 07:00 Tear Drop Cells Cancelled 01/30/19 07:00 Ovalocytes Cancelled 01/30/19 07:00 Stomatocytes Cancelled 01/30/19 07:00 [place] Bodies Cancelled 01/30/19 07:00 [place] Cells Cancelled 01/30/19 07:00 Acanthocytes (Spur) Cancelled 01/30/19 07:00 Schistocytes Cancelled 01/30/19 07:00 PT 10.0 sec (9.3-11.0) 01/29/19 09:20 INR 1.0 (0.9-1.1) 01/29/19 09:20 Sodium 140 mmol/L (136-145) 02/03/19 06:50 Potassium 4.0 mmol/L (3.5-5.1) 02/03/19 06:50 Chloride 106 mmol/L (98-107) 02/03/19 06:50 Carbon Dioxide 25.1 mmol/L (21.0-32.0) 02/03/19 06:50 Anion Gap 8.9 mmol/L (3-11) 02/03/19 06:50 BUN 11 mg/dL (7-18) 02/03/19 06:50 Creatinine 0.81 mg/dL (0.70-1.30) 02/03/19 06:50 Estimated GFR/1.73 m2 >= 60.00 (mL/min/1.73m2) 02/03/19 06:50 Glucose 92 mg/dL (70-100) 02/03/19 06:50 Calcium 8.6 mg/dL (8.5-10.1) 02/03/19 06:50 Phosphorus 2.5 mg/dL (2.6-4.7) L 02/03/19 06:50 Magnesium 2.0 mg/dL (1.8-2.4) 02/03/19 06:50 Total Bilirubin 0.2 mg/dL (0.2-1.0) 02/02/19 06:50 AST 14 U/L (15-37) L 02/02/19 06:50 ALT 20 U/L (12-78) 02/02/19 06:50 Alkaline Phosphatase 92 U/L (46-116) 02/02/19 06:50 Total Protein 4.9 g/dL (6.4-8.2) L 02/02/19 06:50 Albumin 1.9 g/dL (3.4-5.0) L 02/02/19 06:50 Prealbumin 14 mg/dL (20-40) L 01/29/19 07:43 Lipase 44 U/L (73-393) L 01/23/19 10:25 Patient ABO/Rh O Positive 01/29/19 16:27 Antibody Screen Negative 01/29/19 16:27
[2019-02-03 11:35] VITALS: BP 144/79; PULSE 76; RESP 16; TEMP 37; O2SAT 99
[2019-02-03] MEDS: Normal Saline Flush 10 ML SYR IVP ×2 (11:49→18:35)
[2019-02-03] MEDS: Ketorolac 30 MG/ML VIAL IVP ×3 (11:49→23:49)
--- NOTE | 2019-02-03 11:52 | PDOC.ANES ---
Date of service: 02/03/19 Time of Service: 11:25 Anesthesia Note Report Anesthesia Note: As per plan, Epidural infusion stopped at approx. 0900, pain level through the night had been 0-2/10. Passing flatus, and had BM this am. Patient re-evaluated at 1120 and pain level still 2/10. Ambulated in schaefer and sat up in the chair. NG out. Tolerating sips of clear liquids. Epidural catheter pulled without resistance and blue tip intact. Next dose of Lovenox not due until 1600. VSS. Dr. Nugent aware of the above.
[2019-02-03] MEDS: Normal Saline 500 ML 200 ML IV (14:19)
[2019-02-03] MEDS: ACETAMINOPHEN 1,000 MG/100 ML BTL 400 MG IVPB (14:53)
[2019-02-03] MEDS: Lactated Ringers 1,000 ML 40 ML IV (15:15)
--- NOTE | 2019-02-03 16:45 | CMPROGNOTE_ITS ---
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 He appeared in good spirits and was conversant. He continues to be monitored closely during recovery with no change to overall plan. CM will continue to follow. A: 53 y/o male admitted 01/23/19 for Partial SBO; Lysis of adhesions on 01/30/19 P: Drake is permitted ice chips, hard candy and chewing gum, with TPN for nutrition through his PICC. Plan for gravity carrion to remain for six more days to allow bladder to heal. Drake's pain continues to be closely monitored with epidural, Toradol and Tylenol available IV. He will follow up with surgical services, his PCP and plan of care as prescribed. Юлия will transport him home when medically ready per provider.
[2019-02-03] MEDS: Enoxaparin 40 MG/0.4 ML SYR SC (17:06)
[2019-02-03 18:05] VITALS: BP 153/86; PULSE 71; RESP 18; TEMP 36.9; O2SAT 98
[2019-02-03 23:39] VITALS: BP 152/89; PULSE 71; RESP 18; TEMP 36.9; O2SAT 97
[2019-02-04] MEDS: Simethicone 80 MG CHEW PO ×2 (01:39→20:48)
[2019-02-04] MEDS: FAMOTIDINE 20 MG/50 ML BAG 200 MG IVPB ×2 (01:40→14:08)
[2019-02-04 05:35] VITALS: BP 160/97; PULSE 70; RESP 16; TEMP 36.7; O2SAT 97
[2019-02-04] MEDS: Ketorolac 30 MG/ML VIAL IVP ×2 (05:59→19:28)
[2019-02-04 07:29] LABS: HCT 31.6 % (40.0-50.0); HGB 10.2 g/dL (13.5-17.5); Mean Corp. HGB Concentration 32.3 g/dL (32.0-36.0); Mean Corpuscular Hemoglobin 29.1 pg (27.0-33.0); Mean Platelet Volume 10.5 fL (8.0-11.0); Platelet Count 158 x1000/uL (130-400); RBC 3.51 m/cumm (4.50-6.00); RBC Distribution Width 13.4 % (11.8-14.1); White Blood Cell Count 4.39 k/cumm (4.4-10.8)
[2019-02-04 07:34] VITALS: BP 159/75; PULSE 74; RESP 16; TEMP 36.5; O2SAT 98
[2019-02-04 07:47] LABS: Anion Gap 8.1 mmol/L (3-11); BUN 11 mg/dL (7-18); CO2 23.9 mmol/L (21.0-32.0); CREATININE 0.56 mg/dL (0.70-1.30); Calcium 8.1 mg/dL (8.5-10.1); Chloride 108 mmol/L (98-107); Glucose 95 mg/dL (70-100); Magnesium 1.7 mg/dL (1.8-2.4); PHOSPHORUS 2.5 mg/dL (2.6-4.7); Potassium 3.9 mmol/L (3.5-5.1); Sodium 140 mmol/L (136-145)
--- NOTE | 2019-02-04 09:19 | PGE_ITS ---
Date of Service Date of service: 02/04/19 Time of Service: 09:19 Assessment and Plan (1) Intraoperative bladder injury: Current visit: Yes Status: Acute A\\ Doing well. No blood in his urine P\\ Continue with [place] drainage for 7- 10 days (2) S/P exploratory laparotomy: Current visit: Yes Status: Acute A\\ Doing well Seems to have resolved his post-op ileus P\\ Advance diet to soft, post-surgical diet If tolerats food will start to wean his TPN (3) Hypomagnesemia: Current visit: Yes Status: Acute A\\ Mag 1.7 P\\ replace with 4 GM of IV Magnesium Subjective Interval history since last seen: Doing well. Having some gas pain. Had several accidents over night with liquid stools. Hungry. Would like to try something other then clearl liquids. Had clear liquids all day yesterday without N/V. Exam Resp Effort & Inspection: normal respiratory effort Auscultation: clear to auscultation bilaterally Cardio Rate: regular rate Rhythm: regular rhythm Heart Sounds: no gallops, no murmurs and no rubs GI Inspection: incision (c/d/i. Some bruising noted) Palpation: soft and nontender Auscultation: normal bowel sounds Objective Objective Clinical Data: Abnormal lab results 02/04/19 02/04/19 Range/Units 06:30 06:30 WBC 4.39 L (4.4-10.8) k/cumm RBC 3.51 L (4.50-6.00) m/cumm Hgb 10.2 L (13.5-17.5) g/dL Hct 31.6 L (40.0-50.0) % Chloride 108 H (98-107) mmol/L Creatinine 0.56 L (0.70-1.30) mg/dL Calcium 8.1 L (8.5-10.1) mg/dL Phosphorus 2.5 L (2.6-4.7) mg/dL Magnesium 1.7 L (1.8-2.4) mg/dL Vital Signs Temperature 97.7 F 02/04/19 07:34 Temperature Source Skin 02/04/19 07:34 Pulse 74 02/04/19 07:34 Pulse Rhythm Regular 02/03/19 20:36 Respiratory Rate 16 02/04/19 07:34 Respiratory Effort Non-Labored 02/03/19 20:36 Respiratory Depth Normal 02/03/19 20:36 Respiratory Pattern Normal 02/03/19 20:36 Blood Pressure 159/75 H 02/04/19 07:34 Blood Pressure Position Sitting 01/23/19 08:49 Pulse Oximetry 98 02/04/19 07:34 Respiratory End-tidal CO2 26 01/30/19 13:10 Oxygen Delivery Method Room Air 02/04/19 07:34 Oxygen Flow Rate 0 02/04/19 07:34 Pain Level 0 02/04/19 07:34 Comment 02/03/19 06:20 Intake & Output 02/03/19 02/03/19 02/04/19 11:59 23:59 11:59 Intake Total 1828.363 / 4047.696 2219.333 / 4047.696 1356.313 / 1356.313 Output Total 1850 / 4450 2600 / 4450 1100 / 1100 Balance -21.637 / -402.304 -380.667 / -402.304 256.313 / 256.313 Weight 141 lb 15.643 oz Intake: IV 1668.363 / 3447.696 1779.333 / 3447.696 1356.313 / 1356.313 Oral 160 / 600 440 / 600 Output: Urine 1850 / 4450 2600 / 4450 1100 / 1100 Other: Urine Color Straw [place] Straw Urine Appearance Clear Clear Clear Stool Size Small Smear Stool Characteristics Liquid Liquid Brown Brown Laboratory Results WBC 4.39 k/cumm (4.4-10.8) L 02/04/19 06:30 RBC 3.51 m/cumm (4.50-6.00) L 02/04/19 06:30 Hgb 10.2 g/dL (13.5-17.5) L 02/04/19 06:30 Hct 31.6 % (40.0-50.0) L 02/04/19 06:30 MCV 90.0 fL (80-95) 02/04/19 06:30 MCH 29.1 pg (27.0-33.0) 02/04/19 06:30 MCHC 32.3 g/dL (32.0-36.0) 02/04/19 06:30 RDW 13.4 % (11.8-14.1) 02/04/19 06:30 Plt Count 158 x1000/uL (130-400) 02/04/19 06:30 MPV 10.5 fL (8.0-11.0) 02/04/19 06:30 Immature Gran % 0.1 01/28/19 06:52 Neutrophils % 56.3 01/28/19 06:52 Band Neutrophils % Cancelled 01/30/19 07:00 Lymphocytes % 27.7 01/28/19 06:52 Atypical Lymphs % Cancelled 01/30/19 07:00 Monocytes % 10.5 01/28/19 06:52 Eosinophils % 5.0 01/28/19 06:52 Basophils % 0.4 01/28/19 06:52 Metamyelocytes % Cancelled 01/30/19 07:00 Myelocytes % Cancelled 01/30/19 07:00 Promyelocytes % Cancelled 01/30/19 07:00 Absolute Neutrophils 4.13 k/cumm (1.2-6.7) 01/28/19 06:52 Absolute Lymphocytes 2.03 k/cumm (1.2-3.4) 01/28/19 06:52 Absolute Monocytes 0.77 k/cumm (0.11-0.7) H 01/28/19 06:52 Absolute Eosinophils 0.37 k/cumm (0.0-0.7) 01/28/19 06:52 Absolute Basophils 0.03 k/cumm (0.0-0.2) 01/28/19 06:52 Nucleated RBCs Cancelled 01/30/19 07:00 Differential Comment Cancelled 01/30/19 07:00 Other Cell Type Cancelled 01/30/19 07:00 RBC Morphology Cancelled 01/30/19 07:00 Polychromasia Cancelled 01/30/19 07:00 Hypochromasia Cancelled 01/30/19 07:00 Poikilocytosis Cancelled 01/30/19 07:00 Basophilic Stippling Cancelled 01/30/19 07:00 Anisocytosis Cancelled 01/30/19 07:00 Microcytosis Cancelled 01/30/19 07:00 Macrocytosis Cancelled 01/30/19 07:00 Spherocytes Cancelled 01/30/19 07:00 Target Cells Cancelled 01/30/19 07:00 Tear Drop Cells Cancelled 01/30/19 07:00 Ovalocytes Cancelled 01/30/19 07:00 Stomatocytes Cancelled 01/30/19 07:00 [place] Bodies Cancelled 01/30/19 07:00 Daniel Cells Cancelled 01/30/19 07:00 Acanthocytes (Spur) Cancelled 01/30/19 07:00 Schistocytes Cancelled 01/30/19 07:00 PT 10.0 sec (9.3-11.0) 01/29/19 09:20 INR 1.0 (0.9-1.1) 01/29/19 09:20 Sodium 140 mmol/L (136-145) 02/04/19 06:30 Potassium 3.9 mmol/L (3.5-5.1) 02/04/19 06:30 Chloride 108 mmol/L (98-107) H 02/04/19 06:30 Carbon Dioxide 23.9 mmol/L (21.0-32.0) 02/04/19 06:30 Anion Gap 8.1 mmol/L (3-11) 02/04/19 06:30 BUN 11 mg/dL (7-18) 02/04/19 06:30 Creatinine 0.56 mg/dL (0.70-1.30) L 02/04/19 06:30 Estimated GFR/1.73 m2 >= 60.00 (mL/min/1.73m2) 02/04/19 06:30 Glucose 95 mg/dL (70-100) 02/04/19 06:30 Calcium 8.1 mg/dL (8.5-10.1) L 02/04/19 06:30 Phosphorus 2.5 mg/dL (2.6-4.7) L 02/04/19 06:30 Magnesium 1.7 mg/dL (1.8-2.4) L 02/04/19 06:30 Total Bilirubin 0.2 mg/dL (0.2-1.0) 02/02/19 06:50 AST 14 U/L (15-37) L 02/02/19 06:50 ALT 20 U/L (12-78) 02/02/19 06:50 Alkaline Phosphatase 92 U/L (46-116) 02/02/19 06:50 Total Protein 4.9 g/dL (6.4-8.2) L 02/02/19 06:50 Albumin 1.9 g/dL (3.4-5.0) L 02/02/19 06:50 Prealbumin 14 mg/dL (20-40) L 01/29/19 07:43 Lipase 44 U/L (73-393) L 01/23/19 10:25 Patient ABO/Rh O Positive 01/29/19 16:27 Antibody Screen Negative 01/29/19 16:27
[2019-02-04] MEDS: MAGNESIUM SULFATE 4 GM/100 ML BAG IVPB (10:19)
[2019-02-04 11:20] VITALS: BP 150/87; PULSE 66; RESP 14; TEMP 37; O2SAT 99
[2019-02-04] MEDS: Insulin Aspart 300 UNITS/3 ML PEN SC (12:17)
[2019-02-04] MEDS: Normal Saline Flush 10 ML SYR IVP ×4 (14:46→20:49)
--- NOTE | 2019-02-04 17:27 | PDOC.CMPRO ---
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 He appeared in good spirits and was conversant. He continues to be monitored closely during recovery with no change to overall plan. Talked about his 5 children and the three he has a home. Hopes they will all become independent this year. He works for [employer] in [place] and hopes to get back on the job next month. He realized that he will need to be on light duty for a while. A: 53 y/o male admitted 01/23/19 for Partial SBO; Lysis of adhesions on 01/30/19 P: Drake is permitted ice chips, hard candy and chewing gum, with TPN for nutrition through his PICC. Plan for gravity carrion to remain for five more days to allow bladder to heal. Drake's pain continues to be closely monitored with epidural, Toradol and Tylenol available IV. He will follow up with surgical services, his PCP and plan of care as prescribed. Юлия will transport him home when medically ready for discharge.
[2019-02-04] MEDS: Enoxaparin 40 MG/0.4 ML SYR SC (17:28)
--- NOTE | 2019-02-04 17:31 | CMPROGNOTE_ITS ---
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 He appeared in good spirits and was conversant. He continues to be monitored closely during recovery with no change to overall plan. Talked about his 5 children and the three he has a home. Hopes they will all become independent this year. He works for [employer] in [employer] and hopes to get back on the job next month. He realized that he will need to be on light duty for a while. A: 53 y/o male admitted 01/23/19 for Partial SBO; Lysis of adhesions on 01/30/19 P: Drake is permitted ice chips, hard candy and chewing gum, with TPN for nutrition through his PICC. Plan for gravity carrion to remain for five more days to allow bladder to heal. Drake's pain continues to be closely monitored with epidural, Toradol and Tylenol available IV. He will follow up with surgical services, his PCP and plan of care as prescribed. Юлия will transport him home when medically ready for discharge.
[2019-02-04 19:29] VITALS: PULSE 85; TEMP 37.1; O2SAT 97
[2019-02-05 00:05] VITALS: BP 144/78; PULSE 69; RESP 18; TEMP 36.8; O2SAT 98
[2019-02-05] MEDS: FAMOTIDINE 20 MG/50 ML BAG 200 MG IVPB (01:10)
[2019-02-05] MEDS: Normal Saline Flush 10 ML SYR IVP ×6 (02:01→22:45)
[2019-02-05] MEDS: Simethicone 80 MG CHEW PO ×2 (02:02→11:53)
[2019-02-05] MEDS: Ketorolac 30 MG/ML VIAL IVP ×2 (06:00→17:07)
[2019-02-05 06:35] VITALS: BP 144/91; PULSE 71; RESP 18; TEMP 36.6; O2SAT 97
--- NOTE | 2019-02-05 08:41 | PGE_ITS ---
Documented by User: YESI Lange 02/05/19 08:47 Date of Service Date of service: 02/05/19 Time of Service: 08:37 Assessment and Plan (1) S/P exploratory laparotomy: Current visit: Yes Status: Acute POD #6 s/p exploratory laparotomy with lysis of adhesions. PAIN- Toradol, tylenol and morphine available. Ordered heating pad for PRN for abdominal cramping/gas pain. Also Simeticone is ordered for gas. DIET- Currently on soft diet. Encouraged increasing PO intake. ? Start [place]. O rdered Nutrition consult for recommendations for increasing PO intake and how to reduce gas TPN- Starting weaning TPN. Reduced TPN to 40mLs/hr [place]- Clear, light yellow urine in [place] bag. Continue [place] placement for an additional 2-4 days (for total of 7-10 days) to allow bladder healing. ACTIVITY- Encouraged sitting in chair for all meals. Ambulation TID. Subjective Interval history since last seen: Last night, was awful. I had the worse abdominal pain, I couldn't stand it, I had to to take the Morphine. Trialled soft foods yesterday, tolerated well. No nausea or vomiting. During the late night, patient describes significant abdominal cramping/gas pain that did not improve with position changes or walking within his room. He reports he has has small, loose BMs. Exam Const General: cooperative and comfortable Orientation: alert and oriented x3 Resp Effort & Inspection: normal respiratory effort, no audible wheezes and no cough GI Inspection: normal to inspection, distended and incision (Midline incision. No erythema, swelling or warmth. Minor ecchymosis ) Palpation: firm in the LLQ and in the RLQ, no guarding and tender in the LLQ and in the RLQ; with no rebound tenderness Auscultation: high-pitched sounds Objective Objective Clinical Data: Vital Signs Temperature 36.6 C 02/05/19 06:35 Temperature Source Tympanic 02/05/19 06:35 Pulse 71 02/05/19 06:35 Pulse Rhythm Regular 02/04/19 20:37 Respiratory Rate 18 02/05/19 06:35 Respiratory Effort Non-Labored 02/04/19 20:37 Respiratory Depth Normal 02/04/19 20:37 Respiratory Pattern Normal 02/04/19 20:37 Blood Pressure 144/91 H 02/05/19 06:35 Blood Pressure Position Sitting 01/23/19 08:49 Pulse Oximetry 97 02/05/19 06:35 Respiratory End-tidal CO2 26 01/30/19 13:10 Oxygen Delivery Method Room Air 02/05/19 06:35 Oxygen Flow Rate 0 02/05/19 06:35 Pain Level 4 02/05/19 08:30 Comment 02/03/19 06:20 Intake & Output 02/04/19 02/05/19 02/05/19 18:59 06:59 18:59 Intake Total 3341.416 / 4713.319 1371.903 / 4713.319 Output Total 1850 / 3250 1400 / 3250 Balance 1491.416 / 1463.319 -28.097 / 1463.319 Intake: IV 2091.416 / 3403.319 1311.903 / 3403.319 Oral 1250 / 1310 60 / 1310 Output: Urine 1850 / 3250 1400 / 3250 Other: Urine Color Straw Dark Annie Urine Appearance Clear Clear Stool Size Small Smear Stool Characteristics Soft Brown Liquid Brown Laboratory Results WBC 4.39 k/cumm (4.4-10.8) L 02/04/19 06:30 RBC 3.51 m/cumm (4.50-6.00) L 02/04/19 06:30 Hgb 10.2 g/dL (13.5-17.5) L 02/04/19 06:30 Hct 31.6 % (40.0-50.0) L 02/04/19 06:30 MCV 90.0 fL (80-95) 02/04/19 06:30 MCH 29.1 pg (27.0-33.0) 02/04/19 06:30 MCHC 32.3 g/dL (32.0-36.0) 02/04/19 06:30 RDW 13.4 % (11.8-14.1) 02/04/19 06:30 Plt Count 158 x1000/uL (130-400) 02/04/19 06:30 MPV 10.5 fL (8.0-11.0) 02/04/19 06:30 Immature Gran % 0.1 01/28/19 06:52 Neutrophils % 56.3 01/28/19 06:52 Band Neutrophils % Cancelled 01/30/19 07:00 Lymphocytes % 27.7 01/28/19 06:52 Atypical Lymphs % Cancelled 01/30/19 07:00 Monocytes % 10.5 01/28/19 06:52 Eosinophils % 5.0 01/28/19 06:52 Basophils % 0.4 01/28/19 06:52 Metamyelocytes % Cancelled 01/30/19 07:00 Myelocytes % Cancelled 01/30/19 07:00 Promyelocytes % Cancelled 01/30/19 07:00 Absolute Neutrophils 4.13 k/cumm (1.2-6.7) 01/28/19 06:52 Absolute Lymphocytes 2.03 k/cumm (1.2-3.4) 01/28/19 06:52 Absolute Monocytes 0.77 k/cumm (0.11-0.7) H 01/28/19 06:52 Absolute Eosinophils 0.37 k/cumm (0.0-0.7) 01/28/19 06:52 Absolute Basophils 0.03 k/cumm (0.0-0.2) 01/28/19 06:52 Nucleated RBCs Cancelled 01/30/19 07:00 Differential Comment Cancelled 01/30/19 07:00 Other Cell Type Cancelled 01/30/19 07:00 RBC Morphology Cancelled 01/30/19 07:00 Polychromasia Cancelled 01/30/19 07:00 Hypochromasia Cancelled 01/30/19 07:00 Poikilocytosis Cancelled 01/30/19 07:00 Basophilic Stippling Cancelled 01/30/19 07:00 Anisocytosis Cancelled 01/30/19 07:00 Microcytosis Cancelled 01/30/19 07:00 Macrocytosis Cancelled 01/30/19 07:00 Spherocytes Cancelled 01/30/19 07:00 Target Cells Cancelled 01/30/19 07:00 Tear Drop Cells Cancelled 01/30/19 07:00 Ovalocytes Cancelled 01/30/19 07:00 Stomatocytes Cancelled 01/30/19 07:00 [place] Bodies Cancelled 01/30/19 07:00 [place] Cells Cancelled 01/30/19 07:00 Acanthocytes (Spur) Cancelled 01/30/19 07:00 Schistocytes Cancelled 01/30/19 07:00 PT 10.0 sec (9.3-11.0) 01/29/19 09:20 INR 1.0 (0.9-1.1) 01/29/19 09:20 Sodium 140 mmol/L (136-145) 02/04/19 06:30 Potassium 3.9 mmol/L (3.5-5.1) 02/04/19 06:30 Chloride 108 mmol/L (98-107) H 02/04/19 06:30 Carbon Dioxide 23.9 mmol/L (21.0-32.0) 02/04/19 06:30 Anion Gap 8.1 mmol/L (3-11) 02/04/19 06:30 BUN 11 mg/dL (7-18) 02/04/19 06:30 Creatinine 0.56 mg/dL (0.70-1.30) L 02/04/19 06:30 Estimated GFR/1.73 m2 >= 60.00 (mL/min/1.73m2) 02/04/19 06:30 Glucose 95 mg/dL (70-100) 02/04/19 06:30 Calcium 8.1 mg/dL (8.5-10.1) L 02/04/19 06:30 Phosphorus 2.5 mg/dL (2.6-4.7) L 02/04/19 06:30 Magnesium 1.7 mg/dL (1.8-2.4) L 02/04/19 06:30 Total Bilirubin 0.2 mg/dL (0.2-1.0) 02/02/19 06:50 AST 14 U/L (15-37) L 02/02/19 06:50 ALT 20 U/L (12-78) 02/02/19 06:50 Alkaline Phosphatase 92 U/L (46-116) 02/02/19 06:50 Total Protein 4.9 g/dL (6.4-8.2) L 02/02/19 06:50 Albumin 1.9 g/dL (3.4-5.0) L 02/02/19 06:50 Prealbumin 14 mg/dL (20-40) L 01/29/19 07:43 Lipase 44 U/L (73-393) L 01/23/19 10:25 Patient ABO/Rh O Positive 01/29/19 16:27 Antibody Screen Negative 01/29/19 16:27 Documented by User: Shani Bynum DO 02/05/19 10:03 Assessment and Plan (1) S/P exploratory laparotomy: Current visit: Yes Status: Acute pt seen agree w/ above add protein supplements simethicone for gas comt supportive care
--- NOTE | 2019-02-05 08:56 | W.PM.PROGNOT ---
Date of Service Date of service: 02/05/19 Time of Service: 08:56 Objective Objective Clinical Data: Vital Signs Temperature 36.6 C 02/05/19 06:35 Temperature Source Tympanic 02/05/19 06:35 Pulse 71 02/05/19 06:35 Pulse Rhythm Regular 02/04/19 20:37 Respiratory Rate 18 02/05/19 06:35 Respiratory Effort Non-Labored 02/04/19 20:37 Respiratory Depth Normal 02/04/19 20:37 Respiratory Pattern Normal 02/04/19 20:37 Blood Pressure 144/91 H 02/05/19 06:35 Blood Pressure Position Sitting 01/23/19 08:49 Pulse Oximetry 97 02/05/19 06:35 Respiratory End-tidal CO2 26 01/30/19 13:10 Oxygen Delivery Method Room Air 02/05/19 06:35 Oxygen Flow Rate 0 02/05/19 06:35 Pain Level 4 02/05/19 08:30 Comment 02/03/19 06:20 Intake & Output 02/04/19 02/04/19 02/05/19 11:59 23:59 11:59 Intake Total 2417.313 / 4767.729 2350.416 / 4767.729 1301.903 / 1301.903 Output Total 1100 / 3150 2050 / 3150 500 / 500 Balance 1317.313 / 1617.729 300.416 / 1617.729 801.903 / 801.903 Intake: IV 2177.313 / 3457.729 1280.416 / 3457.729 1301.903 / 1301.903 Oral 240 / 1310 1070 / 1310 Output: Urine 1100 / 3150 2050 / 3150 500 / 500 Other: Urine Color Straw [place] Dark Annie Urine Appearance Clear Clear Clear Stool Size Small Smear Stool Characteristics Soft Brown Liquid Brown Laboratory Results WBC 4.39 k/cumm (4.4-10.8) L 02/04/19 06:30 RBC 3.51 m/cumm (4.50-6.00) L 02/04/19 06:30 Hgb 10.2 g/dL (13.5-17.5) L 02/04/19 06:30 Hct 31.6 % (40.0-50.0) L 02/04/19 06:30 MCV 90.0 fL (80-95) 02/04/19 06:30 MCH 29.1 pg (27.0-33.0) 02/04/19 06:30 MCHC 32.3 g/dL (32.0-36.0) 02/04/19 06:30 RDW 13.4 % (11.8-14.1) 02/04/19 06:30 Plt Count 158 x1000/uL (130-400) 02/04/19 06:30 MPV 10.5 fL (8.0-11.0) 02/04/19 06:30 Immature Gran % 0.1 01/28/19 06:52 Neutrophils % 56.3 01/28/19 06:52 Band Neutrophils % Cancelled 01/30/19 07:00 Lymphocytes % 27.7 01/28/19 06:52 Atypical Lymphs % Cancelled 01/30/19 07:00 Monocytes % 10.5 01/28/19 06:52 Eosinophils % 5.0 01/28/19 06:52 Basophils % 0.4 01/28/19 06:52 Metamyelocytes % Cancelled 01/30/19 07:00 Myelocytes % Cancelled 01/30/19 07:00 Promyelocytes % Cancelled 01/30/19 07:00 Absolute Neutrophils 4.13 k/cumm (1.2-6.7) 01/28/19 06:52 Absolute Lymphocytes 2.03 k/cumm (1.2-3.4) 01/28/19 06:52 Absolute Monocytes 0.77 k/cumm (0.11-0.7) H 01/28/19 06:52 Absolute Eosinophils 0.37 k/cumm (0.0-0.7) 01/28/19 06:52 Absolute Basophils 0.03 k/cumm (0.0-0.2) 01/28/19 06:52 Nucleated RBCs Cancelled 01/30/19 07:00 Differential Comment Cancelled 01/30/19 07:00 Other Cell Type Cancelled 01/30/19 07:00 RBC Morphology Cancelled 01/30/19 07:00 Polychromasia Cancelled 01/30/19 07:00 Hypochromasia Cancelled 01/30/19 07:00 Poikilocytosis Cancelled 01/30/19 07:00 Basophilic Stippling Cancelled 01/30/19 07:00 Anisocytosis Cancelled 01/30/19 07:00 Microcytosis Cancelled 01/30/19 07:00 Macrocytosis Cancelled 01/30/19 07:00 Spherocytes Cancelled 01/30/19 07:00 Target Cells Cancelled 01/30/19 07:00 Tear Drop Cells Cancelled 01/30/19 07:00 Ovalocytes Cancelled 01/30/19 07:00 Stomatocytes Cancelled 01/30/19 07:00 [place] Bodies Cancelled 01/30/19 07:00 Daniel Cells Cancelled 01/30/19 07:00 Acanthocytes (Spur) Cancelled 01/30/19 07:00 Schistocytes Cancelled 01/30/19 07:00 PT 10.0 sec (9.3-11.0) 01/29/19 09:20 INR 1.0 (0.9-1.1) 01/29/19 09:20 Sodium 140 mmol/L (136-145) 02/04/19 06:30 Potassium 3.9 mmol/L (3.5-5.1) 02/04/19 06:30 Chloride 108 mmol/L (98-107) H 02/04/19 06:30 Carbon Dioxide 23.9 mmol/L (21.0-32.0) 02/04/19 06:30 Anion Gap 8.1 mmol/L (3-11) 02/04/19 06:30 BUN 11 mg/dL (7-18) 02/04/19 06:30 Creatinine 0.56 mg/dL (0.70-1.30) L 02/04/19 06:30 Estimated GFR/1.73 m2 >= 60.00 (mL/min/1.73m2) 02/04/19 06:30 Glucose 95 mg/dL (70-100) 02/04/19 06:30 Calcium 8.1 mg/dL (8.5-10.1) L 02/04/19 06:30 Phosphorus 2.5 mg/dL (2.6-4.7) L 02/04/19 06:30 Magnesium 1.7 mg/dL (1.8-2.4) L 02/04/19 06:30 Total Bilirubin 0.2 mg/dL (0.2-1.0) 02/02/19 06:50 AST 14 U/L (15-37) L 02/02/19 06:50 ALT 20 U/L (12-78) 02/02/19 06:50 Alkaline Phosphatase 92 U/L (46-116) 02/02/19 06:50 Total Protein 4.9 g/dL (6.4-8.2) L 02/02/19 06:50 Albumin 1.9 g/dL (3.4-5.0) L 02/02/19 06:50 Prealbumin 14 mg/dL (20-40) L 01/29/19 07:43 Lipase 44 U/L (73-393) L 01/23/19 10:25 Patient ABO/Rh O Positive 01/29/19 16:27 Antibody Screen Negative 01/29/19 16:27
--- NOTE | 2019-02-05 10:09 | PDOC.CMPRO ---
Care Management Progress Note S/O: Bebeto continues to make gains, and is ambulating consistently through the hallways. Per MD; will likely have carrion removed tomorrow with voiding trial. He continues to have waves of gas pains and continues to be monitored closely during recovery with no change to overall plan. CM will continue to follow. A: 53 y/o male admitted 01/23/19 for Partial SBO; Lysis of adhesions on 01/30/19 P: Drake is currently on soft diet, which will slowly be advanced as tolerated. MD ordered nutrition consult for recommendations for increasing PO intake and how to reduce gas. [place] carrion to remain at this time to allow bladder to heal. Drake's pain continues to be closely monitored with toradol, tylenol and morphine available IV. He will follow up with surgical services, his PCP and plan of care as prescribed. Юлия will transport him home when medically ready for discharge.
[2019-02-05 10:15] LABS: ALT 43 U/L (12-78); AST 26 U/L (15-37); Albumin 2.2 g/dL (3.4-5.0); Alkaline Phosphatase 139 U/L (46-116); Anion Gap 6.3 mmol/L (3-11); BUN 12 mg/dL (7-18); Bilirubin, Total 0.2 mg/dL (0.2-1.0); CO2 25.7 mmol/L (21.0-32.0); CREATININE 0.64 mg/dL (0.70-1.30); Calcium 8.5 mg/dL (8.5-10.1); Chloride 108 mmol/L (98-107); Glucose 105 mg/dL (70-100); PHOSPHORUS 3.6 mg/dL (2.6-4.7); Sodium 140 mmol/L (136-145); Total Protein 5.8 g/dL (6.4-8.2)
[2019-02-05 10:19] LABS: HCT 33.6 % (40.0-50.0); HGB 11.2 g/dL (13.5-17.5); Mean Corp. HGB Concentration 33.3 g/dL (32.0-36.0); Mean Corpuscular Hemoglobin 29.7 pg (27.0-33.0); Mean Corpuscular Volume 89.1 fL (80-95); Mean Platelet Volume 10.6 fL (8.0-11.0); Platelet Count 186 x1000/uL (130-400); RBC 3.77 m/cumm (4.50-6.00); RBC Distribution Width 13.7 % (11.8-14.1); White Blood Cell Count 5.58 k/cumm (4.4-10.8)
--- NOTE | 2019-02-05 11:29 | NUR.NOTE ---
Nursing Note: 1045: pt, pt's and RN have discussion r/t prn medications. at this time, pt has declined the ativan 0.5mg PO and the simethicone. pt is educated to benefits of both medications. pt states he would rather not take anything at this time. RN stresses importance of alerting staff to increasing pain. pt is in agreement at this time
[2019-02-05 11:30] VITALS: BP 143/77; PULSE 66; RESP 18; TEMP 36; O2SAT 98
--- NOTE | 2019-02-05 12:21 | W.NUTRFU ---
Date of service: 02/05/19 Time of Service: 12:21 Nutritional Follow up NOTE: Met with Mr. Galarza to review foods that would likely cause gas and to encourage low sugar, lean proteins, starch, no cooked (or raw of course) cruciferous veggies etc.. He demonstrated some interest in talking about the subject but did verbalize that it is what it is. I noted that he had a straw in his drink. I suggested that he not use straws as they can cause increased gas with the increase in air uptake while drinking. Mr. Galarza did not commit either way to discontinuing his use of straws. I reviewed our discussion with Jany and she stated she will reinforce not using straws. Will continue to follow his progress. I will follow up with him as he continues to increase his PO intake and wean from TPN. I encouraged Mr. Galarza to follow up with me at any time and to just ask for me. Will evaluate nutrition care plan ongoing and adjust as needed. Thank you for the consult. Time Spent in Nutritional Counseling and Treatment: LAILA
--- NOTE | 2019-02-05 16:18 | W.PM.PROGNOT ---
Date of Service Date of service: 02/05/19 Time of Service: 16:18 Assessment and Plan (1) S/P exploratory laparotomy: Current visit: Yes Status: Acute A\\ Doing well. Needs to eat more. P\\ Decrease TPN slowly Continue current supportive care (2) Intraoperative bladder injury: Current visit: Yes Status: Acute Will be able to remove carrion tomorrow Subjective Interval history since last seen: Doing well. Having waves of intense gas pain. He did ask for Morphine this afternoon. Eating a little more Exam GI Inspection: incision (c/d/i) Palpation: soft and tender (mild tenderness along incision) Auscultation: normal bowel sounds Objective Objective Clinical Data: Abnormal lab results 02/05/19 02/05/19 Range/Units 09:30 09:30 RBC 3.77 L (4.50-6.00) m/cumm Hgb 11.2 L (13.5-17.5) g/dL Hct 33.6 L (40.0-50.0) % Chloride 108 H (98-107) mmol/L Creatinine 0.64 L (0.70-1.30) mg/dL Glucose 105 H (70-100) mg/dL Alkaline Phosphatase 139 H (46-116) U/L Total Protein 5.8 L (6.4-8.2) g/dL Albumin 2.2 L (3.4-5.0) g/dL Vital Signs Temperature 96.8 F L 02/05/19 11:30 Temperature Source Tympanic 02/05/19 11:30 Pulse 66 02/05/19 11:30 Pulse Rhythm Regular 02/05/19 09:00 Respiratory Rate 18 02/05/19 11:30 Respiratory Effort Non-Labored 02/05/19 09:00 Respiratory Depth Normal 02/05/19 09:00 Respiratory Pattern Normal 02/05/19 09:00 Blood Pressure 143/77 H 02/05/19 11:30 Blood Pressure Position Sitting 01/23/19 08:49 Pulse Oximetry 98 02/05/19 11:30 Respiratory End-tidal CO2 26 01/30/19 13:10 Oxygen Delivery Method Room Air 02/05/19 11:30 Oxygen Flow Rate 0 02/05/19 11:30 Pain Level 6 02/05/19 14:50 Comment 02/03/19 06:20 Intake & Output 02/04/19 02/05/19 02/05/19 23:59 11:59 23:59 Intake Total 2350.416 / 4767.729 1790.653 / 2392.653 602 / 2392.653 Output Total 2049 / 0 500 / 500 Balance 300.416 / 3031.862 2975.653 / 1892.653 602 / 1892.653 Weight 141 lb 8.588 oz Intake: IV 1280.416 / 3457.729 1790.653 / 2142.653 352 / 2142.653 Oral 1070 / 1310 250 / 250 Output: Urine 2049 3150 500 / 500 Other: Urine Color Haddad Dark Annie Urine Appearance Clear Clear Stool Size Smear Stool Characteristics Brown Laboratory Results WBC 5.58 k/cumm (4.4-10.8) 02/05/19 09:30 RBC 3.77 m/cumm (4.50-6.00) L 02/05/19 09:30 Hgb 11.2 g/dL (13.5-17.5) L 02/05/19 09:30 Hct 33.6 % (40.0-50.0) L 02/05/19 09:30 MCV 89.1 fL (80-95) 02/05/19 09:30 MCH 29.7 pg (27.0-33.0) 02/05/19 09:30 MCHC 33.3 g/dL (32.0-36.0) 02/05/19 09:30 RDW 13.7 % (11.8-14.1) 02/05/19 09:30 Plt Count 186 x1000/uL (130-400) 02/05/19 09:30 MPV 10.6 fL (8.0-11.0) 02/05/19 09:30 Immature Gran % 0.1 01/28/19 06:52 Neutrophils % 56.3 01/28/19 06:52 Band Neutrophils % Cancelled 01/30/19 07:00 Lymphocytes % 27.7 01/28/19 06:52 Atypical Lymphs % Cancelled 01/30/19 07:00 Monocytes % 10.5 01/28/19 06:52 Eosinophils % 5.0 01/28/19 06:52 Basophils % 0.4 01/28/19 06:52 Metamyelocytes % Cancelled 01/30/19 07:00 Myelocytes % Cancelled 01/30/19 07:00 Promyelocytes % Cancelled 01/30/19 07:00 Absolute Neutrophils 4.13 k/cumm (1.2-6.7) 01/28/19 06:52 Absolute Lymphocytes 2.03 k/cumm (1.2-3.4) 01/28/19 06:52 Absolute Monocytes 0.77 k/cumm (0.11-0.7) H 01/28/19 06:52 Absolute Eosinophils 0.37 k/cumm (0.0-0.7) 01/28/19 06:52 Absolute Basophils 0.03 k/cumm (0.0-0.2) 01/28/19 06:52 Nucleated RBCs Cancelled 01/30/19 07:00 Differential Comment Cancelled 01/30/19 07:00 Other Cell Type Cancelled 01/30/19 07:00 RBC Morphology Cancelled 01/30/19 07:00 Polychromasia Cancelled 01/30/19 07:00 Hypochromasia Cancelled 01/30/19 07:00 Poikilocytosis Cancelled 01/30/19 07:00 Basophilic Stippling Cancelled 01/30/19 07:00 Anisocytosis Cancelled 01/30/19 07:00 Microcytosis Cancelled 01/30/19 07:00 Macrocytosis Cancelled 01/30/19 07:00 Spherocytes Cancelled 01/30/19 07:00 Target Cells Cancelled 01/30/19 07:00 Tear Drop Cells Cancelled 01/30/19 07:00 Ovalocytes Cancelled 01/30/19 07:00 Stomatocytes Cancelled 01/30/19 07:00 Sanchez-[place] Bodies Cancelled 01/30/19 07:00 Daniel Cells Cancelled 01/30/19 07:00 Acanthocytes (Spur) Cancelled 01/30/19 07:00 Schistocytes Cancelled 01/30/19 07:00 PT 10.0 sec (9.3-11.0) 02/05/19 09:30 INR 1.0 (0.9-1.1) 02/05/19 09:30 Sodium 140 mmol/L (136-145) 02/05/19 09:30 Potassium 4.0 mmol/L (3.5-5.1) 02/05/19 09:30 Chloride 108 mmol/L (98-107) H 02/05/19 09:30 Carbon Dioxide 25.7 mmol/L (21.0-32.0) 02/05/19 09:30 Anion Gap 6.3 mmol/L (3-11) 02/05/19 09:30 BUN 12 mg/dL (7-18) 02/05/19 09:30 Creatinine 0.64 mg/dL (0.70-1.30) L 02/05/19 09:30 Estimated GFR/1.73 m2 >= 60.00 (mL/min/1.73m2) 02/05/19 09:30 Glucose 105 mg/dL (70-100) H 02/05/19 09:30 Calcium 8.5 mg/dL (8.5-10.1) 02/05/19 09:30 Phosphorus 3.6 mg/dL (2.6-4.7) 02/05/19 09:30 Magnesium 2.0 mg/dL (1.8-2.4) 02/05/19 09:30 Total Bilirubin 0.2 mg/dL (0.2-1.0) 02/05/19 09:30 AST 26 U/L (15-37) 02/05/19 09:30 ALT 43 U/L (12-78) 02/05/19 09:30 Alkaline Phosphatase 139 U/L (46-116) H 02/05/19 09:30 Total Protein 5.8 g/dL (6.4-8.2) L 02/05/19 09:30 Albumin 2.2 g/dL (3.4-5.0) L 02/05/19 09:30 Prealbumin 14 mg/dL (20-40) L 01/29/19 07:43 Lipase 44 U/L (73-393) L 01/23/19 10:25 Patient ABO/Rh O Positive 01/29/19 16:27 Antibody Screen Negative 01/29/19 16:27
[2019-02-05] MEDS: Enoxaparin 40 MG/0.4 ML SYR SC (17:06)
[2019-02-05] MEDS: LORazepam 0.5 MG TAB PO (17:07)
[2019-02-05 18:00] VITALS: BP 158/78; PULSE 69; RESP 18; TEMP 37.5; O2SAT 98
[2019-02-05] MEDS: oxyCODONE 5 MG TAB PO ×2 (21:40→21:51)
[2019-02-05] MEDS: Simethicone 80 MG CHEW 160 MG PO (21:40)
[2019-02-05] MEDS: Ondansetron 4 MG/2 ML VIAL IVP (21:50)
[2019-02-06 00:06] VITALS: BP 137/78; PULSE 77; RESP 16; TEMP 36.9; O2SAT 96
--- NOTE | 2019-02-06 01:40 | NUR.NOTE ---
Patient complaint of gas pain to the abdomen, state he wanted to pass gas or pass stool because he believes that will relieve his discomforts. Pt request for his morphine to be given as prn instead of waiting for every 4hrs as scheduled. Charge nurse informed of same.
--- NOTE | 2019-02-06 01:44 | NUR.NOTE ---
Pt vomited x 1 since night, clear secretions noted. Charge nurse informed
[2019-02-06] MEDS: Ketorolac 30 MG/ML VIAL IVP ×2 (03:43→23:48)
[2019-02-06 06:32] VITALS: BP 116/71; PULSE 61; RESP 16; TEMP 36.8; O2SAT 97
[2019-02-06 07:32] LABS: HCT 35.1 % (40.0-50.0); HGB 11.4 g/dL (13.5-17.5); Mean Corp. HGB Concentration 32.5 g/dL (32.0-36.0); Mean Corpuscular Hemoglobin 28.9 pg (27.0-33.0); Mean Corpuscular Volume 88.9 fL (80-95); Mean Platelet Volume 10.4 fL (8.0-11.0); Platelet Count 220 x1000/uL (130-400); RBC 3.95 m/cumm (4.50-6.00); RBC Distribution Width 13.9 % (11.8-14.1); White Blood Cell Count 6.11 k/cumm (4.4-10.8)
--- NOTE | 2019-02-06 07:41 | PGE_ITS ---
Date of Service Date of service: 02/06/19 Time of Service: 07:35 Assessment and Plan (1) S/P exploratory laparotomy: Current visit: Yes Status: Acute POD #7 s/p exploratory laparotomy with lysis of adhesions. Patient states that he has not been passing flatus over the course of yesterday afternoon until this morning. He has attempted to eat soft foods, however due to lack of appetite and abd discomfort he has not been able to eat much. Will change to NPO status and order an ABD XRAY to r/o ileus. AM labs are pending. PAIN- Colicky, abdominal pain. Toradol, tylenol and morphine available. Also encouraged use of heating pad DIET- Changed to NPO. Due to abdominal distention and firmness. TPN- Starting weaning TPN. Reduced TPN to 40mLs/hr [place]- Dark, Jess urine in [place] bag. Continue [place] placement for an additional 1-3 days (for total of 7-10 days) to allow bladder healing. ACTIVITY- Encouraged sitting in chair for all meals. Ambulation TID. Subjective Interval history since last seen: Mr. Galarza reports that he was not able to tolerate more than half an egg sandwich yesterday, secondary to his abdominal pain. He describes his pain to be colicky in nature and does not improve with the use of Toradol or Ativan. He states that he has been ambulating, sitting in the chair and attempting to change positions to help reduce his pain levels with no change. Exam Const General: cooperative and acute distress mild Orientation: alert and oriented x3 Resp Effort & Inspection: normal respiratory effort, no audible wheezes and no cough GI Inspection: distended Palpation: firm, guarding and tender Auscultation: hyperactive bowel sounds Other: Very dark, jess colored urine in the [place]. Objective Objective Clinical Data: Abnormal lab results 02/05/19 02/05/19 Range/Units 09:30 09:30 RBC 3.77 L (4.50-6.00) m/cumm Hgb 11.2 L (13.5-17.5) g/dL Hct 33.6 L (40.0-50.0) % Chloride 108 H (98-107) mmol/L Creatinine 0.64 L (0.70-1.30) mg/dL Glucose 105 H (70-100) mg/dL Alkaline Phosphatase 139 H (46-116) U/L Total Protein 5.8 L (6.4-8.2) g/dL Albumin 2.2 L (3.4-5.0) g/dL Vital Signs Temperature 36.8 C 02/06/19 06:32 Temperature Source Temporal Artery Scan 02/06/19 06:32 Pulse 61 02/06/19 06:32 Pulse Rhythm Regular 02/05/19 17:02 Respiratory Rate 16 02/06/19 06:32 Respiratory Effort Non-Labored 02/05/19 21:13 Respiratory Depth Normal 02/05/19 21:13 Respiratory Pattern Normal 02/05/19 21:13 Blood Pressure 116/71 02/06/19 06:32 Blood Pressure Position Sitting 01/23/19 08:49 Pulse Oximetry 97 02/06/19 06:32 Respiratory End-tidal CO2 26 01/30/19 13:10 Oxygen Delivery Method Room Air 02/06/19 06:32 Oxygen Flow Rate 0 02/06/19 06:32 Pain Level 9 02/05/19 18:52 Comment 02/03/19 06:20 Intake & Output 02/05/19 02/06/19 02/06/19 18:59 06:59 18:59 Intake Total 1332.00 / 1352.00 20 / 1352.00 Output Total 850 / 850 Balance 1332.00 / 502.00 -830 / 502.00 Weight 64.2 kg Intake: IV 1082.00 / 1102.00 20 / 1102.00 Oral 250 / 250 Output: Urine 850 / 850 Other: Urine Color Dark Jess Urine Appearance Clear Clear Emesis Description Clear/Water Laboratory Results WBC 5.58 k/cumm (4.4-10.8) 02/05/19 09:30 RBC 3.77 m/cumm (4.50-6.00) L 02/05/19 09:30 Hgb 11.2 g/dL (13.5-17.5) L 02/05/19 09:30 Hct 33.6 % (40.0-50.0) L 02/05/19 09:30 MCV 89.1 fL (80-95) 02/05/19 09:30 MCH 29.7 pg (27.0-33.0) 02/05/19 09:30 MCHC 33.3 g/dL (32.0-36.0) 02/05/19 09:30 RDW 13.7 % (11.8-14.1) 02/05/19 09:30 Plt Count 186 x1000/uL (130-400) 02/05/19 09:30 MPV 10.6 fL (8.0-11.0) 02/05/19 09:30 Immature Gran % 0.1 01/28/19 06:52 Neutrophils % 56.3 01/28/19 06:52 Band Neutrophils % Cancelled 01/30/19 07:00 Lymphocytes % 27.7 01/28/19 06:52 Atypical Lymphs % Cancelled 01/30/19 07:00 Monocytes % 10.5 01/28/19 06:52 Eosinophils % 5.0 01/28/19 06:52 Basophils % 0.4 01/28/19 06:52 Metamyelocytes % Cancelled 01/30/19 07:00 Myelocytes % Cancelled 01/30/19 07:00 Promyelocytes % Cancelled 01/30/19 07:00 Absolute Neutrophils 4.13 k/cumm (1.2-6.7) 01/28/19 06:52 Absolute Lymphocytes 2.03 k/cumm (1.2-3.4) 01/28/19 06:52 Absolute Monocytes 0.77 k/cumm (0.11-0.7) H 01/28/19 06:52 Absolute Eosinophils 0.37 k/cumm (0.0-0.7) 01/28/19 06:52 Absolute Basophils 0.03 k/cumm (0.0-0.2) 01/28/19 06:52 Nucleated RBCs Cancelled 01/30/19 07:00 Differential Comment Cancelled 01/30/19 07:00 Other Cell Type Cancelled 01/30/19 07:00 RBC Morphology Cancelled 01/30/19 07:00 Polychromasia Cancelled 01/30/19 07:00 Hypochromasia Cancelled 01/30/19 07:00 Poikilocytosis Cancelled 01/30/19 07:00 Basophilic Stippling Cancelled 01/30/19 07:00 Anisocytosis Cancelled 01/30/19 07:00 Microcytosis Cancelled 01/30/19 07:00 Macrocytosis Cancelled 01/30/19 07:00 Spherocytes Cancelled 01/30/19 07:00 Target Cells Cancelled 01/30/19 07:00 Tear Drop Cells Cancelled 01/30/19 07:00 Ovalocytes Cancelled 01/30/19 07:00 Stomatocytes Cancelled 01/30/19 07:00 Sanchez-[place] Bodies Cancelled 01/30/19 07:00 [place] Cells Cancelled 01/30/19 07:00 Acanthocytes (Spur) Cancelled 01/30/19 07:00 Schistocytes Cancelled 01/30/19 07:00 PT 10.0 sec (9.3-11.0) 02/05/19 09:30 INR 1.0 (0.9-1.1) 02/05/19 09:30 Sodium 140 mmol/L (136-145) 02/05/19 09:30 Potassium 4.0 mmol/L (3.5-5.1) 02/05/19 09:30 Chloride 108 mmol/L (98-107) H 02/05/19 09:30 Carbon Dioxide 25.7 mmol/L (21.0-32.0) 02/05/19 09:30 Anion Gap 6.3 mmol/L (3-11) 02/05/19 09:30 BUN 12 mg/dL (7-18) 02/05/19 09:30 Creatinine 0.64 mg/dL (0.70-1.30) L 02/05/19 09:30 Estimated GFR/1.73 m2 >= 60.00 (mL/min/1.73m2) 02/05/19 09:30 Glucose 105 mg/dL (70-100) H 02/05/19 09:30 Calcium 8.5 mg/dL (8.5-10.1) 02/05/19 09:30 Phosphorus 3.6 mg/dL (2.6-4.7) 02/05/19 09:30 Magnesium 2.0 mg/dL (1.8-2.4) 02/05/19 09:30 Total Bilirubin 0.2 mg/dL (0.2-1.0) 02/05/19 09:30 AST 26 U/L (15-37) 02/05/19 09:30 ALT 43 U/L (12-78) 02/05/19 09:30 Alkaline Phosphatase 139 U/L (46-116) H 02/05/19 09:30 Total Protein 5.8 g/dL (6.4-8.2) L 02/05/19 09:30 Albumin 2.2 g/dL (3.4-5.0) L 02/05/19 09:30 Prealbumin 14 mg/dL (20-40) L 01/29/19 07:43 Lipase 44 U/L (73-393) L 01/23/19 10:25 Patient ABO/Rh O Positive 01/29/19 16:27 Antibody Screen Negative 01/29/19 16:27
[2019-02-06 08:04] LABS: Anion Gap 8.6 mmol/L (3-11); BUN 16 mg/dL (7-18); CO2 26.4 mmol/L (21.0-32.0); CREATININE 0.73 mg/dL (0.70-1.30); Calcium 8.8 mg/dL (8.5-10.1); Chloride 105 mmol/L (98-107); Glucose 96 mg/dL (70-100); Magnesium 1.9 mg/dL (1.8-2.4); PHOSPHORUS 4.9 mg/dL (2.6-4.7); Potassium 4.2 mmol/L (3.5-5.1); Sodium 140 mmol/L (136-145)
--- NOTE | 2019-02-06 08:47 | DI.RAD_ITS ---
SYMPTOM/DIAGNOSIS: ? ILEUS KUB: A considerable quantity of gas is scattered throughout the colon. There are no grossly dilated bowel loops. A minimal quantity of gas is noted in the small bowel. Left paramedian metallic ayan overlie the lower abdomen and pelvis, and a drainage catheter is noted in place ending in the left hemipelvis. SUMMARY: Non specific findings which could certainly represent an ileus.
[2019-02-06 11:15] VITALS: BP 117/68; PULSE 71; RESP 18; TEMP 36.9; O2SAT 96
[2019-02-06] MEDS: Metoclopramide 10 MG/2 ML VIAL IVP ×3 (12:35→23:51)
[2019-02-06] MEDS: Polyethylene Glycol 3350 17 GM PACKET PO (12:36)
[2019-02-06] MEDS: Simethicone 80 MG CHEW 160 MG PO (12:36)
--- NOTE | 2019-02-06 15:19 | PDOC.CMPRO ---
Care Management Progress Note S/O: Bebeto was sitting in his chair when CM met with him. He described unmanageable pains last night and has returned to NPO status. He shared frustrations regarding length of stay and wanting to return home. CM provided supportive listening and reviewed outreach information for CM during off hours. CM will continue to follow. A: 53 y/o male admitted 01/23/19 for Partial SBO; Lysis of adhesions on 01/30/19 P: Drake's pain continues to be closely monitored with toradol, tylenol and morphine available IV. He will follow up with surgical services, his PCP and plan of care as prescribed upon discharge. [facility] will transport him home when medically ready for discharge.
--- NOTE | 2019-02-06 15:46 | W.PM.PROGNOT ---
Date of Service Date of service: 02/06/19 Time of Service: 15:46 Assessment and Plan (1) S/P exploratory laparotomy: Current visit: Yes Status: Acute A\\ ? pseudo-opstruction. Lots of air in colon Pain is colicky P\\ Regaln q6H. If no improvement by tomorrow then may need CT scan ? neostigmine to get his large bowel to work Subjective Interval history since last seen: Having intermittent intense abdominal pain. He is passing flatus ABDO Xray- lots of air in the large bowel. NO air fluid levels Exam GI Inspection: normal to inspection Palpation: soft and tender (mild tenderness to palpation along incision) Objective Objective Clinical Data: Abnormal lab results 02/06/19 02/06/19 Range/Units 06:45 06:45 RBC 3.95 L (4.50-6.00) m/cumm Hgb 11.4 L (13.5-17.5) g/dL Hct 35.1 L (40.0-50.0) % Phosphorus 4.9 H (2.6-4.7) mg/dL Vital Signs Temperature 98.4 F 02/06/19 11:15 Temperature Source Tympanic 02/06/19 11:15 Pulse 71 02/06/19 11:15 Pulse Rhythm Regular 02/06/19 09:30 Respiratory Rate 18 02/06/19 11:15 Respiratory Effort Non-Labored 02/06/19 09:30 Respiratory Depth Normal 02/06/19 09:30 Respiratory Pattern Normal 02/06/19 09:30 Blood Pressure 117/68 02/06/19 11:15 Blood Pressure Position Sitting 01/23/19 08:49 Pulse Oximetry 96 02/06/19 11:15 Respiratory End-tidal CO2 26 01/30/19 13:10 Oxygen Delivery Method Room Air 02/06/19 11:15 Oxygen Flow Rate 0 02/06/19 11:15 Pain Level 9 02/05/19 18:52 Comment 02/03/19 06:20 Intake & Output 02/05/19 02/06/19 02/06/19 23:59 11:59 23:59 Intake Total 843.25 / 2633.903 886.917 / 1110.417 223.5 / 1110.417 Output Total 350 / 850 500 / 500 Balance 493.25 / 1783.903 386.917 / 610.417 223.5 / 610.417 Intake: IV 593.25 / 2383.903 886.917 / 1110.417 223.5 / 1110.417 Oral 250 / 250 Output: Urine 350 / 850 500 / 500 Other: Urine Color Dark Annie Dark Annie Urine Appearance Clear Clear Emesis Description Clear/Water Laboratory Results WBC 6.11 k/cumm (4.4-10.8) 02/06/19 06:45 RBC 3.95 m/cumm (4.50-6.00) L 02/06/19 06:45 Hgb 11.4 g/dL (13.5-17.5) L 02/06/19 06:45 Hct 35.1 % (40.0-50.0) L 02/06/19 06:45 MCV 88.9 fL (80-95) 02/06/19 06:45 MCH 28.9 pg (27.0-33.0) 02/06/19 06:45 MCHC 32.5 g/dL (32.0-36.0) 02/06/19 06:45 RDW 13.9 % (11.8-14.1) 02/06/19 06:45 Plt Count 220 x1000/uL (130-400) 02/06/19 06:45 MPV 10.4 fL (8.0-11.0) 02/06/19 06:45 Immature Gran % 0.1 01/28/19 06:52 Neutrophils % 56.3 01/28/19 06:52 Band Neutrophils % Cancelled 01/30/19 07:00 Lymphocytes % 27.7 01/28/19 06:52 Atypical Lymphs % Cancelled 01/30/19 07:00 Monocytes % 10.5 01/28/19 06:52 Eosinophils % 5.0 01/28/19 06:52 Basophils % 0.4 01/28/19 06:52 Metamyelocytes % Cancelled 01/30/19 07:00 Myelocytes % Cancelled 01/30/19 07:00 Promyelocytes % Cancelled 01/30/19 07:00 Absolute Neutrophils 4.13 k/cumm (1.2-6.7) 01/28/19 06:52 Absolute Lymphocytes 2.03 k/cumm (1.2-3.4) 01/28/19 06:52 Absolute Monocytes 0.77 k/cumm (0.11-0.7) H 01/28/19 06:52 Absolute Eosinophils 0.37 k/cumm (0.0-0.7) 01/28/19 06:52 Absolute Basophils 0.03 k/cumm (0.0-0.2) 01/28/19 06:52 Nucleated RBCs Cancelled 01/30/19 07:00 Differential Comment Cancelled 01/30/19 07:00 Other Cell Type Cancelled 01/30/19 07:00 RBC Morphology Cancelled 01/30/19 07:00 Polychromasia Cancelled 01/30/19 07:00 Hypochromasia Cancelled 01/30/19 07:00 Poikilocytosis Cancelled 01/30/19 07:00 Basophilic Stippling Cancelled 01/30/19 07:00 Anisocytosis Cancelled 01/30/19 07:00 Microcytosis Cancelled 01/30/19 07:00 Macrocytosis Cancelled 01/30/19 07:00 Spherocytes Cancelled 01/30/19 07:00 Target Cells Cancelled 01/30/19 07:00 Tear Drop Cells Cancelled 01/30/19 07:00 Ovalocytes Cancelled 01/30/19 07:00 Stomatocytes Cancelled 01/30/19 07:00 Sanchez-[place] Bodies Cancelled 01/30/19 07:00 Daniel Cells Cancelled 01/30/19 07:00 Acanthocytes (Spur) Cancelled 01/30/19 07:00 Schistocytes Cancelled 01/30/19 07:00 PT 10.0 sec (9.3-11.0) 02/05/19 09:30 INR 1.0 (0.9-1.1) 02/05/19 09:30 Sodium 140 mmol/L (136-145) 02/06/19 06:45 Potassium 4.2 mmol/L (3.5-5.1) 02/06/19 06:45 Chloride 105 mmol/L (98-107) 02/06/19 06:45 Carbon Dioxide 26.4 mmol/L (21.0-32.0) 02/06/19 06:45 Anion Gap 8.6 mmol/L (3-11) 02/06/19 06:45 BUN 16 mg/dL (7-18) 02/06/19 06:45 Creatinine 0.73 mg/dL (0.70-1.30) 02/06/19 06:45 Estimated GFR/1.73 m2 >= 60.00 (mL/min/1.73m2) 02/06/19 06:45 Glucose 96 mg/dL (70-100) 02/06/19 06:45 Calcium 8.8 mg/dL (8.5-10.1) 02/06/19 06:45 Phosphorus 4.9 mg/dL (2.6-4.7) H 02/06/19 06:45 Magnesium 1.9 mg/dL (1.8-2.4) 02/06/19 06:45 Total Bilirubin 0.2 mg/dL (0.2-1.0) 02/05/19 09:30 AST 26 U/L (15-37) 02/05/19 09:30 ALT 43 U/L (12-78) 02/05/19 09:30 Alkaline Phosphatase 139 U/L (46-116) H 02/05/19 09:30 Total Protein 5.8 g/dL (6.4-8.2) L 02/05/19 09:30 Albumin 2.2 g/dL (3.4-5.0) L 02/05/19 09:30 Prealbumin 14 mg/dL (20-40) L 01/29/19 07:43 Lipase 44 U/L (73-393) L 01/23/19 10:25 Patient ABO/Rh O Positive 01/29/19 16:27 Antibody Screen Negative 01/29/19 16:27
[2019-02-06 17:59] VITALS: BP 135/75; PULSE 80; RESP 18; TEMP 36.6; O2SAT 97
[2019-02-06] MEDS: Enoxaparin 40 MG/0.4 ML SYR SC (18:08)
[2019-02-06] MEDS: Normal Saline Flush 10 ML SYR IVP ×3 (18:13→23:41)
[2019-02-06] MEDS: Acetaminophen 325 MG TAB 650 MG PO (18:16)
[2019-02-07] MEDS: Acetaminophen 325 MG TAB 650 MG PO ×2 (00:09→17:09)
[2019-02-07] MEDS: Normal Saline Flush 10 ML SYR IVP ×4 (02:16→19:47)
[2019-02-07] MEDS: Normal Saline 500 ML 30 ML IV (02:33)
[2019-02-07] MEDS: Metoclopramide 10 MG/2 ML VIAL IVP (06:21)
[2019-02-07 07:15] VITALS: BP 150/84; PULSE 71; RESP 18; TEMP 36.7; O2SAT 97
[2019-02-07 07:30] LABS: Anion Gap 7.5 mmol/L (3-11); BUN 16 mg/dL (7-18); CO2 28.5 mmol/L (21.0-32.0); CREATININE 0.79 mg/dL (0.70-1.30); Calcium 8.9 mg/dL (8.5-10.1); Chloride 105 mmol/L (98-107); Glucose 86 mg/dL (70-100); Magnesium 1.7 mg/dL (1.8-2.4); Potassium 4.3 mmol/L (3.5-5.1); Sodium 141 mmol/L (136-145)
[2019-02-07] MEDS: Polyethylene Glycol 3350 17 GM PACKET PO (09:03)
--- NOTE | 2019-02-07 10:24 | PGE_ITS ---
Date of Service Date of service: 02/07/19 Time of Service: 10:15 Assessment and Plan (1) S/P exploratory laparotomy: Current visit: Yes Status: Acute POD #8 s/p exploratory laparotomy with lysis of adhesions. Colicky, abd pain continues. Passing some flatus. Slowly starting PO intake. Discussed that at this time, his PO intake is not enough. He ate a popsicle while speaking with this provider. Discussed trialling the regular ensure, if the clear ensure is not tolerable, however to take it easy for this may cause some gas. Strongly encouraged ambulating laps around med/surg to promote passing flatus. He has baby food in his room, he may eat this as well to increase is caloric intake. PAIN- Colicky, abdominal pain. Toradol, tylenol and morphine available. Also encouraged use of heating pad DIET- Changed to NPO. Due to abdominal distention and firmness. TPN- Starting weaning TPN. Reduced TPN to 40mLs/hr [place]- Dark, Annie urine in [place] bag. Continue [place] placement for an additional 1-3 days (for total of 7-10 days) to allow bladder healing. ACTIVITY- Encouraged sitting in chair for all meals. Ambulation TID. Subjective Interval history since last seen: I am just taking things slow, I am making gas faster then I can pass it at this point. No BM x 2 days. Eating very small portions. Reports that the clear ensure is disgusting and I cannot drink it. [facility] staff reporting concern that Mr. Galarza has not been eating much. He is refusing the clear ensure. Exam Const General: cooperative and comfortable Orientation: alert and oriented x3 GI Inspection: normal to inspection and incision (healing well ayan in place. No erythema, swelling or drainage) Palpation: firm, no guarding and tender in the RLQ and in the LUQ; with no rebound tenderness Auscultation: hyperactive bowel sounds Objective Objective Clinical Data: Abnormal lab results 02/07/19 Range/Units 05:51 Magnesium 1.7 L (1.8-2.4) mg/dL Vital Signs Temperature 36.7 C 02/07/19 07:15 Temperature Source Tympanic 02/07/19 07:15 Pulse 71 02/07/19 07:15 Pulse Rhythm Regular 02/07/19 08:34 Respiratory Rate 18 02/07/19 07:15 Respiratory Effort Non-Labored 02/07/19 08:34 Respiratory Depth Normal 02/07/19 08:34 Respiratory Pattern Normal 02/07/19 08:34 Blood Pressure 150/84 H 02/07/19 07:15 Blood Pressure Position Sitting 01/23/19 08:49 Pulse Oximetry 97 02/07/19 07:15 Respiratory End-tidal CO2 26 01/30/19 13:10 Oxygen Delivery Method Room Air 02/07/19 07:15 Oxygen Flow Rate 0 02/07/19 07:15 Pain Level 7 02/07/19 00:09 Comment 02/07/19 00:12 Intake & Output 02/06/19 02/07/19 02/07/19 18:59 06:59 18:59 Intake Total 1223.000 / 1328.500 105.5 / 1328.500 60 / 60 Output Total 225 / 2475 2250 / 2250 Balance 1223.000 / -1146.500 -119.5 / -1146.500 -2190 / -2190 Weight 62.6 kg Intake: IV 1103.000 / 1208.500 105.5 / 1208.500 Oral 120 / 120 60 / 60 Output: Urine 225 / 2475 2250 / 2250 Other: Urine Color Brown Dark Annie Dark Annie Urine Appearance Clear Clear Urine Odor Normal Normal Voiding Methods Urinal Urinal Laboratory Results WBC 6.11 k/cumm (4.4-10.8) 02/06/19 06:45 RBC 3.95 m/cumm (4.50-6.00) L 02/06/19 06:45 Hgb 11.4 g/dL (13.5-17.5) L 02/06/19 06:45 Hct 35.1 % (40.0-50.0) L 02/06/19 06:45 MCV 88.9 fL (80-95) 02/06/19 06:45 MCH 28.9 pg (27.0-33.0) 02/06/19 06:45 MCHC 32.5 g/dL (32.0-36.0) 02/06/19 06:45 RDW 13.9 % (11.8-14.1) 02/06/19 06:45 Plt Count 220 x1000/uL (130-400) 02/06/19 06:45 MPV 10.4 fL (8.0-11.0) 02/06/19 06:45 Immature Gran % 0.1 01/28/19 06:52 Neutrophils % 56.3 01/28/19 06:52 Band Neutrophils % Cancelled 01/30/19 07:00 Lymphocytes % 27.7 01/28/19 06:52 Atypical Lymphs % Cancelled 01/30/19 07:00 Monocytes % 10.5 01/28/19 06:52 Eosinophils % 5.0 01/28/19 06:52 Basophils % 0.4 01/28/19 06:52 Metamyelocytes % Cancelled 01/30/19 07:00 Myelocytes % Cancelled 01/30/19 07:00 Promyelocytes % Cancelled 01/30/19 07:00 Absolute Neutrophils 4.13 k/cumm (1.2-6.7) 01/28/19 06:52 Absolute Lymphocytes 2.03 k/cumm (1.2-3.4) 01/28/19 06:52 Absolute Monocytes 0.77 k/cumm (0.11-0.7) H 01/28/19 06:52 Absolute Eosinophils 0.37 k/cumm (0.0-0.7) 01/28/19 06:52 Absolute Basophils 0.03 k/cumm (0.0-0.2) 01/28/19 06:52 Nucleated RBCs Cancelled 01/30/19 07:00 Differential Comment Cancelled 01/30/19 07:00 Other Cell Type Cancelled 01/30/19 07:00 RBC Morphology Cancelled 01/30/19 07:00 Polychromasia Cancelled 01/30/19 07:00 Hypochromasia Cancelled 01/30/19 07:00 Poikilocytosis Cancelled 01/30/19 07:00 Basophilic Stippling Cancelled 01/30/19 07:00 Anisocytosis Cancelled 01/30/19 07:00 Microcytosis Cancelled 01/30/19 07:00 Macrocytosis Cancelled 01/30/19 07:00 Spherocytes Cancelled 01/30/19 07:00 Target Cells Cancelled 01/30/19 07:00 Tear Drop Cells Cancelled 01/30/19 07:00 Ovalocytes Cancelled 01/30/19 07:00 Stomatocytes Cancelled 01/30/19 07:00 [place] Bodies Cancelled 01/30/19 07:00 [place] Cells Cancelled 01/30/19 07:00 Acanthocytes (Spur) Cancelled 01/30/19 07:00 Schistocytes Cancelled 01/30/19 07:00 PT 10.0 sec (9.3-11.0) 02/05/19 09:30 INR 1.0 (0.9-1.1) 02/05/19 09:30 Sodium 141 mmol/L (136-145) 02/07/19 05:51 Potassium 4.3 mmol/L (3.5-5.1) 02/07/19 05:51 Chloride 105 mmol/L (98-107) 02/07/19 05:51 Carbon Dioxide 28.5 mmol/L (21.0-32.0) 02/07/19 05:51 Anion Gap 7.5 mmol/L (3-11) 02/07/19 05:51 BUN 16 mg/dL (7-18) 02/07/19 05:51 Creatinine 0.79 mg/dL (0.70-1.30) 02/07/19 05:51 Estimated GFR/1.73 m2 >= 60.00 (mL/min/1.73m2) 02/07/19 05:51 Glucose 86 mg/dL (70-100) 02/07/19 05:51 Calcium 8.9 mg/dL (8.5-10.1) 02/07/19 05:51 Phosphorus 4.9 mg/dL (2.6-4.7) H 02/06/19 06:45 Magnesium 1.7 mg/dL (1.8-2.4) L 02/07/19 05:51 Total Bilirubin 0.2 mg/dL (0.2-1.0) 02/05/19 09:30 AST 26 U/L (15-37) 02/05/19 09:30 ALT 43 U/L (12-78) 02/05/19 09:30 Alkaline Phosphatase 139 U/L (46-116) H 02/05/19 09:30 Total Protein 5.8 g/dL (6.4-8.2) L 02/05/19 09:30 Albumin 2.2 g/dL (3.4-5.0) L 02/05/19 09:30 Prealbumin 14 mg/dL (20-40) L 01/29/19 07:43 Lipase 44 U/L (73-393) L 01/23/19 10:25 Patient ABO/Rh O Positive 01/29/19 16:27 Antibody Screen Negative 01/29/19 16:27
[2019-02-07] MEDS: MAGNESIUM SULFATE 2 GM/50 ML BAG IVPB (10:34)
--- NOTE | 2019-02-07 12:37 | W.PM.PROGNOT ---
Date of Service Date of service: 02/07/19 Time of Service: 12:37 Assessment and Plan (1) Constipation by delayed colonic transit: Current visit: Yes Status: Acute Continue with ambulation and reglan Will try neostigmine x 1 now (2) S/P exploratory laparotomy: Current visit: Yes Status: Acute Continue current care Subjective Interval history since last seen: Eating lunch Doing OK. Still with spikes of pain that resolve. passing flatus but infrequently Exam GI Inspection: incision (ayan intact, no erythema or discharge) Auscultation: normal bowel sounds Objective Objective Clinical Data: Abnormal lab results 02/07/19 Range/Units 05:51 Magnesium 1.7 L (1.8-2.4) mg/dL Vital Signs Temperature 98.1 F 02/07/19 07:15 Temperature Source Tympanic 02/07/19 07:15 Pulse 71 02/07/19 07:15 Pulse Rhythm Regular 02/07/19 08:34 Respiratory Rate 18 02/07/19 07:15 Respiratory Effort Non-Labored 02/07/19 08:34 Respiratory Depth Normal 02/07/19 08:34 Respiratory Pattern Normal 02/07/19 08:34 Blood Pressure 150/84 H 02/07/19 07:15 Blood Pressure Position Sitting 01/23/19 08:49 Pulse Oximetry 97 02/07/19 07:15 Respiratory End-tidal CO2 26 01/30/19 13:10 Oxygen Delivery Method Room Air 02/07/19 07:15 Oxygen Flow Rate 0 02/07/19 07:15 Pain Level 7 02/07/19 00:09 Comment 02/07/19 00:12 Intake & Output 02/06/19 02/07/19 02/07/19 23:59 11:59 23:59 Intake Total 448.083 / 1335.000 125.5 / 125.5 Output Total 2675 / 2675 Balance 448.083 / 835.000 -2549.5 / -2549.5 Weight 138 lb 0.15 oz Intake: IV 328.083 / 1215.000 65.5 / 65.5 Oral 120 / 120 60 / 60 Output: Urine 2675 / 2675 Other: Urine Color Brown Yellow Urine Appearance Clear Clear Urine Odor Normal Voiding Methods Urinal Laboratory Results WBC 6.11 k/cumm (4.4-10.8) 02/06/19 06:45 RBC 3.95 m/cumm (4.50-6.00) L 02/06/19 06:45 Hgb 11.4 g/dL (13.5-17.5) L 02/06/19 06:45 Hct 35.1 % (40.0-50.0) L 02/06/19 06:45 MCV 88.9 fL (80-95) 02/06/19 06:45 MCH 28.9 pg (27.0-33.0) 02/06/19 06:45 MCHC 32.5 g/dL (32.0-36.0) 02/06/19 06:45 RDW 13.9 % (11.8-14.1) 02/06/19 06:45 Plt Count 220 x1000/uL (130-400) 02/06/19 06:45 MPV 10.4 fL (8.0-11.0) 02/06/19 06:45 Immature Gran % 0.1 01/28/19 06:52 Neutrophils % 56.3 01/28/19 06:52 Band Neutrophils % Cancelled 01/30/19 07:00 Lymphocytes % 27.7 01/28/19 06:52 Atypical Lymphs % Cancelled 01/30/19 07:00 Monocytes % 10.5 01/28/19 06:52 Eosinophils % 5.0 01/28/19 06:52 Basophils % 0.4 01/28/19 06:52 Metamyelocytes % Cancelled 01/30/19 07:00 Myelocytes % Cancelled 01/30/19 07:00 Promyelocytes % Cancelled 01/30/19 07:00 Absolute Neutrophils 4.13 k/cumm (1.2-6.7) 01/28/19 06:52 Absolute Lymphocytes 2.03 k/cumm (1.2-3.4) 01/28/19 06:52 Absolute Monocytes 0.77 k/cumm (0.11-0.7) H 01/28/19 06:52 Absolute Eosinophils 0.37 k/cumm (0.0-0.7) 01/28/19 06:52 Absolute Basophils 0.03 k/cumm (0.0-0.2) 01/28/19 06:52 Nucleated RBCs Cancelled 01/30/19 07:00 Differential Comment Cancelled 01/30/19 07:00 Other Cell Type Cancelled 01/30/19 07:00 RBC Morphology Cancelled 01/30/19 07:00 Polychromasia Cancelled 01/30/19 07:00 Hypochromasia Cancelled 01/30/19 07:00 Poikilocytosis Cancelled 01/30/19 07:00 Basophilic Stippling Cancelled 01/30/19 07:00 Anisocytosis Cancelled 01/30/19 07:00 Microcytosis Cancelled 01/30/19 07:00 Macrocytosis Cancelled 01/30/19 07:00 Spherocytes Cancelled 01/30/19 07:00 Target Cells Cancelled 01/30/19 07:00 Tear Drop Cells Cancelled 01/30/19 07:00 Ovalocytes Cancelled 01/30/19 07:00 Stomatocytes Cancelled 01/30/19 07:00 [place] Bodies Cancelled 01/30/19 07:00 [place] Cells Cancelled 01/30/19 07:00 Acanthocytes (Spur) Cancelled 01/30/19 07:00 Schistocytes Cancelled 01/30/19 07:00 PT 10.0 sec (9.3-11.0) 02/05/19 09:30 INR 1.0 (0.9-1.1) 02/05/19 09:30 Sodium 141 mmol/L (136-145) 02/07/19 05:51 Potassium 4.3 mmol/L (3.5-5.1) 02/07/19 05:51 Chloride 105 mmol/L (98-107) 02/07/19 05:51 Carbon Dioxide 28.5 mmol/L (21.0-32.0) 02/07/19 05:51 Anion Gap 7.5 mmol/L (3-11) 02/07/19 05:51 BUN 16 mg/dL (7-18) 02/07/19 05:51 Creatinine 0.79 mg/dL (0.70-1.30) 02/07/19 05:51 Estimated GFR/1.73 m2 >= 60.00 (mL/min/1.73m2) 02/07/19 05:51 Glucose 86 mg/dL (70-100) 02/07/19 05:51 Calcium 8.9 mg/dL (8.5-10.1) 02/07/19 05:51 Phosphorus 4.9 mg/dL (2.6-4.7) H 02/06/19 06:45 Magnesium 1.7 mg/dL (1.8-2.4) L 02/07/19 05:51 Total Bilirubin 0.2 mg/dL (0.2-1.0) 02/05/19 09:30 AST 26 U/L (15-37) 02/05/19 09:30 ALT 43 U/L (12-78) 02/05/19 09:30 Alkaline Phosphatase 139 U/L (46-116) H 02/05/19 09:30 Total Protein 5.8 g/dL (6.4-8.2) L 02/05/19 09:30 Albumin 2.2 g/dL (3.4-5.0) L 02/05/19 09:30 Prealbumin 14 mg/dL (20-40) L 01/29/19 07:43 Lipase 44 U/L (73-393) L 01/23/19 10:25 Patient ABO/Rh O Positive 01/29/19 16:27 Antibody Screen Negative 01/29/19 16:27
[2019-02-07] MEDS: Bisacodyl 10 MG SUPP PR (14:30)
--- NOTE | 2019-02-07 14:34 | NUR.NOTE ---
Nursing Note: Left ducolax suppository with Pt to self administer.
[2019-02-07 15:30] VITALS: RESP 12; O2SAT 96
[2019-02-07] MEDS: Enoxaparin 40 MG/0.4 ML SYR SC (15:33)
--- NOTE | 2019-02-07 17:25 | PDOC.CMPRO ---
- If Service Date Differs Date of service: 02/07/19 Time of Service: 17:25 Care Management Progress Note S/O: Bebeto was ambulating when CM met with him he is alert and engaged. He states he does feel more bloated he is trying to ambulate more frequently. He states he is tolerating some oral intake. He does not regret having procedure he does hope that he will feel improved soon. No change in the discharge plan today he remains inpatient. A: 53 y/o male admitted 01/23/19 for Partial SBO; Lysis of adhesions on 01/30/19 P: Drake's pain continues to be closely monitored with toradol, tylenol and morphine available IV. He will follow up with surgical services, his PCP and plan of care as prescribed upon discharge. Юлия will transport him home when medically ready for discharge.
[2019-02-07] MEDS: Ketorolac 30 MG/ML VIAL IVP (19:46)
[2019-02-07 22:58] VITALS: BP 148/76; PULSE 68; RESP 18; TEMP 37.2; O2SAT 98
[2019-02-07] MEDS: Simethicone 80 MG CHEW 160 MG PO (23:49)
[2019-02-08 00:16] VITALS: BP 148/87; PULSE 75; RESP 18; TEMP 36.6; O2SAT 99
[2019-02-08] MEDS: Ondansetron 4 MG/2 ML VIAL IVP ×2 (05:40→14:17)
[2019-02-08 06:06] VITALS: BP 118/67; PULSE 88; RESP 18; TEMP 35.9; O2SAT 96
--- NOTE | 2019-02-08 06:08 | NUR.NOTE ---
Addendum entered by Renita Galarza 02/08/19 06:22: Addendum entered by Renita Galarza 02/08/19 06:21: Original Note: Patient state he vomited at 04:00 this morning but didn't feel like telling me until just now, Was complaining of nausea and accepted taking Zofran at this time. Vomitus content dark greenish, secretions (900mls)Charge nurse informed of this. Patient refused taking scheduled reglan state this cause wicked abdominal pain whenever he takes it.
[2019-02-08 07:25] VITALS: BP 120/78; PULSE 73; RESP 16; TEMP 37.1; O2SAT 96
[2019-02-08] MEDS: LORazepam 0.5 MG TAB PO (08:50)
[2019-02-08] MEDS: Ketorolac 30 MG/ML VIAL IVP (08:50)
[2019-02-08] MEDS: Acetaminophen 325 MG TAB 650 MG PO (08:50)
[2019-02-08] MEDS: Normal Saline Flush 10 ML SYR IVP ×5 (08:51→18:10)
--- NOTE | 2019-02-08 08:53 | W.PM.PROGNOT ---
Documented by User: [email or web address] Lange 02/08/19 09:02 Date of Service Date of service: 02/08/19 Time of Service: 08:53 Assessment and Plan (1) S/P exploratory laparotomy: Current visit: Yes Status: Acute POD #9 s/p exploratory laparotomy with lysis of adhesions. Poor PO intake over the day yesterday. Nausea and vomiting early this morning of 900cc's. No BM. Severe, colicky abdominal pain with visible peristalsis. Mr. Galarza is very frustrated and discouraged. He is tearful during our discussion. He reports in the past at times he would only have a BM once a week. PAIN- Colicky, abdominal pain. Toradol, tylenol and morphine available. Also encouraged use of heating pad and ambulation. DIET- Normal, soft diet TPN- D/C'd ACTIVITY- Encouraged sitting in chair for all meals. Ambulation TID. Subjective Interval history since last seen: Things are just not moving. I don't know what else to do. Mr. Galarza was tearful and expressed his frustrations with feeling like his symptoms are not improving. Last night he reports using the suppository with no BM. He vomited this morning and has since been refusing his Reglan and Pepcid. Exam Const General: cooperative and comfortable GI Inspection: distended and visible peristalsis Palpation: firm, no guarding and tender in the LLQ and in the RLQ Auscultation: hyperactive bowel sounds Objective Objective Clinical Data: Vital Signs Temperature 37.1 C 02/08/19 07:25 Temperature Source Tympanic 02/08/19 07:25 Pulse 73 02/08/19 07:25 Pulse Rhythm Regular 02/08/19 00:09 Respiratory Rate 16 02/08/19 07:25 Respiratory Effort Non-Labored 02/08/19 00:09 Respiratory Depth Normal 02/08/19 00:09 Respiratory Pattern Normal 02/08/19 00:09 Blood Pressure 120/78 02/08/19 07:25 Blood Pressure Position Sitting 01/23/19 08:49 Pulse Oximetry 96 02/08/19 07:25 Respiratory End-tidal CO2 26 01/30/19 13:10 Oxygen Delivery Method Room Air 02/08/19 07:25 Oxygen Flow Rate 0 02/08/19 07:25 Pain Level 7 02/07/19 00:09 Comment 02/07/19 00:12 Intake & Output 02/07/19 02/08/19 02/08/19 18:59 06:59 18:59 Intake Total 73.5 / 313.5 240 / 313.5 Output Total 3350 / 4250 900 / 4250 Balance -3276.5 / -3936.5 -660 / -3936.5 Weight 62.6 kg 61.8 kg Intake: IV 13.5 / 13.5 Oral 60 / 300 240 / 300 Output: Urine 3350 / 3350 Emesis 900 / 900 Other: Urine Color Light Annie Pale Yellow Urine Appearance Clear Clear Urine Odor None None Comment pt verbalized in voids in the tiolet Voiding Methods Toilet Urinal Laboratory Results WBC 6.11 k/cumm (4.4-10.8) 02/06/19 06:45 RBC 3.95 m/cumm (4.50-6.00) L 02/06/19 06:45 Hgb 11.4 g/dL (13.5-17.5) L 02/06/19 06:45 Hct 35.1 % (40.0-50.0) L 02/06/19 06:45 MCV 88.9 fL (80-95) 02/06/19 06:45 MCH 28.9 pg (27.0-33.0) 02/06/19 06:45 MCHC 32.5 g/dL (32.0-36.0) 02/06/19 06:45 RDW 13.9 % (11.8-14.1) 02/06/19 06:45 Plt Count 220 x1000/uL (130-400) 02/06/19 06:45 MPV 10.4 fL (8.0-11.0) 02/06/19 06:45 Immature Gran % 0.1 01/28/19 06:52 Neutrophils % 56.3 01/28/19 06:52 Band Neutrophils % Cancelled 01/30/19 07:00 Lymphocytes % 27.7 01/28/19 06:52 Atypical Lymphs % Cancelled 01/30/19 07:00 Monocytes % 10.5 01/28/19 06:52 Eosinophils % 5.0 01/28/19 06:52 Basophils % 0.4 01/28/19 06:52 Metamyelocytes % Cancelled 01/30/19 07:00 Myelocytes % Cancelled 01/30/19 07:00 Promyelocytes % Cancelled 01/30/19 07:00 Absolute Neutrophils 4.13 k/cumm (1.2-6.7) 01/28/19 06:52 Absolute Lymphocytes 2.03 k/cumm (1.2-3.4) 01/28/19 06:52 Absolute Monocytes 0.77 k/cumm (0.11-0.7) H 01/28/19 06:52 Absolute Eosinophils 0.37 k/cumm (0.0-0.7) 01/28/19 06:52 Absolute Basophils 0.03 k/cumm (0.0-0.2) 01/28/19 06:52 Nucleated RBCs Cancelled 01/30/19 07:00 Differential Comment Cancelled 01/30/19 07:00 Other Cell Type Cancelled 01/30/19 07:00 RBC Morphology Cancelled 01/30/19 07:00 Polychromasia Cancelled 01/30/19 07:00 Hypochromasia Cancelled 01/30/19 07:00 Poikilocytosis Cancelled 01/30/19 07:00 Basophilic Stippling Cancelled 01/30/19 07:00 Anisocytosis Cancelled 01/30/19 07:00 Microcytosis Cancelled 01/30/19 07:00 Macrocytosis Cancelled 01/30/19 07:00 Spherocytes Cancelled 01/30/19 07:00 Target Cells Cancelled 01/30/19 07:00 Tear Drop Cells Cancelled 01/30/19 07:00 Ovalocytes Cancelled 01/30/19 07:00 Stomatocytes Cancelled 01/30/19 07:00 [place] Bodies Cancelled 01/30/19 07:00 [place] Cells Cancelled 01/30/19 07:00 Acanthocytes (Spur) Cancelled 01/30/19 07:00 Schistocytes Cancelled 01/30/19 07:00 PT 10.0 sec (9.3-11.0) 02/05/19 09:30 INR 1.0 (0.9-1.1) 02/05/19 09:30 Sodium 141 mmol/L (136-145) 02/07/19 05:51 Potassium 4.3 mmol/L (3.5-5.1) 02/07/19 05:51 Chloride 105 mmol/L (98-107) 02/07/19 05:51 Carbon Dioxide 28.5 mmol/L (21.0-32.0) 02/07/19 05:51 Anion Gap 7.5 mmol/L (3-11) 02/07/19 05:51 BUN 16 mg/dL (7-18) 02/07/19 05:51 Creatinine 0.79 mg/dL (0.70-1.30) 02/07/19 05:51 Estimated GFR/1.73 m2 >= 60.00 (mL/min/1.73m2) 02/07/19 05:51 Glucose 86 mg/dL (70-100) 02/07/19 05:51 Calcium 8.9 mg/dL (8.5-10.1) 02/07/19 05:51 Phosphorus 4.9 mg/dL (2.6-4.7) H 02/06/19 06:45 Magnesium 1.7 mg/dL (1.8-2.4) L 02/07/19 05:51 Total Bilirubin 0.2 mg/dL (0.2-1.0) 02/05/19 09:30 AST 26 U/L (15-37) 02/05/19 09:30 ALT 43 U/L (12-78) 02/05/19 09:30 Alkaline Phosphatase 139 U/L (46-116) H 02/05/19 09:30 Total Protein 5.8 g/dL (6.4-8.2) L 02/05/19 09:30 Albumin 2.2 g/dL (3.4-5.0) L 02/05/19 09:30 Prealbumin 14 mg/dL (20-40) L 01/29/19 07:43 Lipase 44 U/L (73-393) L 01/23/19 10:25 Patient ABO/Rh O Positive 01/29/19 16:27 Antibody Screen Negative 01/29/19 16:27 Documented by User: Shani Bynum DO 02/08/19 18:03 Assessment and Plan (1) SBO (small bowel obstruction): Current visit: No Status: Acute pt vomited again this afternoon. Repeat films shows recurrent SBO in LUQ. Pt is very discouraged. Sister very adamant in transfer to [facility] [place]- pt has no fever/ elevated WBC. no peritonitis. - don't know if any underlying neurological problems w/ functioning of Ano/rectal region. restart TPN adjusted electrolytes insulin coverage supportive care will d/w [facility] [place] in am if any further suggestions (pt does not wish to be transferred)
--- NOTE | 2019-02-08 09:20 | PDOC.CMPRO ---
Care Management Progress Note S/O: Drake was lying in bed when CM met with him. He shared frustrations regarding his prolonged hospitalization and lack of progress with advancement of his diet; with resulting emesis last night and ongoing pain. He reported weighing 136 and became a bit teary when placing two hands together around his thigh. He stated he was going to discuss his frustrations with the MD and discuss next steps as well. He reiterated feeling his body functions differently than others. He had a good sense of what recommendations the MD would have, and also his thoughts on how best to recover and stated he would have this discussion with his provider this afternoon. CM will continue to follow. A: 53 y/o male admitted 01/23/19 for Partial SBO; Lysis of adhesions on 01/30/19 P: Drake's pain continues to be closely monitored with toradol, tylenol and morphine available IV. He will follow up with surgical services, his PCP and plan of care as prescribed upon discharge. Юлия will transport him home when medically ready for discharge.
--- NOTE | 2019-02-08 09:50 | NUR.NOTE ---
Nursing Note: Pt is acting defeated this morning. vomited overnight. having gas pains. He has verbalized that he thinks he needs bowel rest, fluids, and morphine. He states he's convinced this would be the best plan of care for him because that is what has worked in the past. He is refusing all other options until he speaks with the surgeon. TERRY Banegas notified.
[2019-02-08] MEDS: Lactated Ringers 1,000 ML 125 ML IV ×2 (12:35→20:38)
--- NOTE | 2019-02-08 14:52 | CHAPLAIN ---
I had a short visit with Drake today, as he was trying to sleep off his morphine.
--- NOTE | 2019-02-08 15:15 | DI.RAD_ITS ---
SYMPTOMS/DIAGNOSIS: VOMITING, PARTIAL SMALL BOWEL OBSTRUCTION KUB AND UPRIGHT: Dilated gas and fluid-containing loops of proximal and mid small bowel are demonstrated. There is a considerable quantity of feces in the right colon and scattered gas and fecal material are noted down to the level of the rectum. Also, an air-fluid level is demonstrated in the proximal stomach. SUMMARY: Findings which would be consistent with at least a partial proximal small bowel obstruction.
[2019-02-08] MEDS: Enoxaparin 40 MG/0.4 ML SYR SC (16:39)
[2019-02-08] MEDS: MAGNESIUM SULFATE 2 GM/50 ML BAG IVPB (18:09)
[2019-02-08] MEDS: Normal Saline Flush 10 ML SYR 20 ML IVP (19:58)
[2019-02-08 19:59] VITALS: PULSE 81; RESP 17; TEMP 36.6; O2SAT 99
[2019-02-08] MEDS: Insulin Aspart 300 UNITS/3 ML PEN SC (23:47)
[2019-02-08 23:55] VITALS: BP 119/71; PULSE 71; RESP 18; TEMP 37.1; O2SAT 97
[2019-02-09] MEDS: Lactated Ringers 1,000 ML 125 ML IV ×2 (03:38→12:01)
[2019-02-09] MEDS: Normal Saline Flush 10 ML SYR IVP ×4 (03:38→19:56)
--- NOTE | 2019-02-09 06:00 | DI.RAD_ITS ---
SYMPTOM/DIAGNOSIS: F/U SMALL BOWEL OBSTRUCTION FLAT AND UPRIGHT ABDOMEN: Comparison is made with 02/08/19. There are again seen mildly dilated loops of small bowel in the upper abdomen and air fluid levels present. Overall the appearance of the abdomen is stable is compared to 02/08/19. No pneumoperitoneum or organomegaly is seen. Surgical clips are seen in the lower abdomen. The visualized lung bases are clear. Degenerative changes are seen in the spine. IMPRESSION: Partial small bowel obstruction versus ileus. Overall no change in appearance of the abdomen.
[2019-02-09 06:50] VITALS: BP 118/73; PULSE 81; RESP 16; TEMP 36.8; O2SAT 97
[2019-02-09 07:27] LABS: Anion Gap 5.4 mmol/L (3-11); BUN 27 mg/dL (7-18); CO2 30.6 mmol/L (21.0-32.0); CREATININE 0.93 mg/dL (0.70-1.30); Calcium 8.8 mg/dL (8.5-10.1); Chloride 105 mmol/L (98-107); Glucose 128 mg/dL (70-100); Magnesium 2.3 mg/dL (1.8-2.4); PHOSPHORUS 3.8 mg/dL (2.6-4.7); Potassium 4.2 mmol/L (3.5-5.1); Sodium 141 mmol/L (136-145)
[2019-02-09] MEDS: Normal Saline Flush 10 ML SYR 20 ML IVP ×2 (07:39→20:10)
--- NOTE | 2019-02-09 08:30 | PDOC.CMPRO ---
Care Management Progress Note S/O: Drake had a repeat abdominal xray with findings consistent of SBO. He is notably frustrated and exacerbated with ongoing struggles and lack of progress. At time of CM meeting, Drake is calm and agreeable, NG tube in place with large amounts of output noted by RN. CM will continue to follow. A: 53 y/o male admitted 01/23/19 for Partial SBO; Lysis of adhesions on 01/30/19 P: Drake's pain continues to be closely monitored with toradol, tylenol and morphine available IV, NG tube placed for recurrent SBO. Anticipate Drake will transfer to tertiary when weather warrants, per MD. He will transport via EMS.
[2019-02-09] MEDS: Lidocaine 2% Jelly 11 ML SYR (09:45)
[2019-02-09 10:00] VITALS: BP 125/80; PULSE 85
[2019-02-09] MEDS: LORazepam 2 MG/ML VIAL 1 MG IVP (10:00)
[2019-02-09 11:10] VITALS: BP 125/78; PULSE 87; RESP 16; TEMP 37; O2SAT 95
[2019-02-09] MEDS: Enoxaparin 40 MG/0.4 ML SYR SC (15:41)
[2019-02-09] MEDS: Pantoprazole 40 MG VIAL IVP (15:57)
[2019-02-09 16:21] LABS: HCT 34.3 % (40.0-50.0); HGB 11.2 g/dL (13.5-17.5); Mean Corp. HGB Concentration 32.7 g/dL (32.0-36.0); Mean Corpuscular Hemoglobin 29.2 pg (27.0-33.0); Mean Corpuscular Volume 89.6 fL (80-95); Mean Platelet Volume 9.5 fL (8.0-11.0); Platelet Count 331 x1000/uL (130-400); RBC 3.83 m/cumm (4.50-6.00); RBC Distribution Width 13.8 % (11.8-14.1)
[2019-02-09 16:50] VITALS: BP 144/73; PULSE 74; RESP 24; TEMP 37.3; O2SAT 96
[2019-02-09] MEDS: Lactated Ringers 1,000 ML 40 ML IV (22:25)
[2019-02-10 00:23] VITALS: BP 146/82; PULSE 78; RESP 16; TEMP 37.3; O2SAT 95
[2019-02-10 07:04] LABS: HCT 34.6 % (40.0-50.0); HGB 11.2 g/dL (13.5-17.5); Mean Corp. HGB Concentration 32.4 g/dL (32.0-36.0); Mean Corpuscular Hemoglobin 29.2 pg (27.0-33.0); Mean Corpuscular Volume 90.1 fL (80-95); Mean Platelet Volume 9.9 fL (8.0-11.0); Platelet Count 277 x1000/uL (130-400); RBC 3.84 m/cumm (4.50-6.00); RBC Distribution Width 13.9 % (11.8-14.1); White Blood Cell Count 4.26 k/cumm (4.4-10.8)
[2019-02-10 07:21] LABS: Anion Gap 5.4 mmol/L (3-11); BUN 19 mg/dL (7-18); CO2 28.6 mmol/L (21.0-32.0); CREATININE 0.74 mg/dL (0.70-1.30); Calcium 8.5 mg/dL (8.5-10.1); Chloride 107 mmol/L (98-107); Glucose 95 mg/dL (70-100); Magnesium 1.8 mg/dL (1.8-2.4); PHOSPHORUS 3.6 mg/dL (2.6-4.7); Sodium 141 mmol/L (136-145)
[2019-02-10] MEDS: Normal Saline Flush 10 ML SYR 20 ML IVP (10:20)
--- NOTE | 2019-02-10 11:49 | W.PM.PROGNOT ---
Date of Service Date of service: 02/10/19 Time of Service: 11:49 Assessment and Plan (1) Small bowel obstruction due to postoperative adhesions: Current visit: Yes Status: Acute pt depressed and frustrated. electrolytes stable cont tpn PPI therapy call out to [facility] to d/w surgery poss transfer awaiting response d/w general sx at [facility]. agreed to transfer. have not rescanned pt/ they will do that. does have beds available stable for trandfer accepting Dr joiner. can go by ambulance 60 mins spent w/ pt and family today arranging transfer (2) Gastritis: Current visit: Yes Status: Acute Subjective Interval history since last seen: pt up walking very depressed and discouraged passing some flatus. no more blood from NGT. putting out about 2L/day occ passes flatus no headaches. No CP or SOB. no productive cough. no dysuria. no leg pain or swelling. Catheter is out. pt cannot tolerate reglan- too painful and didn't help much. refuses to try neostigmine. Exam Const General: cooperative, healthy appearing, comfortable, no acute distress, well developed and well groomed Nutritional Appearance: average body habitus and well nourished Orientation: alert, awake and oriented x3 [facility] Head: normal to inspection, normocephalic and atraumatic Ears: hearing grossly normal bilaterally and external ears normal General nose exam: external nose normal Face and sinus: normal facial exam and sinuses nontender Mouth: lip normal, tongue normal and moist mucous membranes Teeth and gingiva: poor dentition Other: thick coating on tongue- poss thrush. refusing nystatin Eyes General: appearance normal, both eyes and all related structures Conjunctivae: conjunctivae normal Sclera: sclerae normal Pupils: PERRL Neck Neck: normal visual inspection and full ROM Chest Chest: normal inspection of the chest Resp Effort & Inspection: normal respiratory effort, able to speak in complete sentences, no cough, no nasal flaring, not tachypneic and no use of accessory muscles Auscultation: clear to auscultation bilaterally, no rales, no rhonchi and no wheezes Cardio Jugular venous pressure: no JVD Rate: regular rate Rhythm: regular rhythm GI Inspection: normal to inspection, no edema, non-distended and incision (c/d/i) Palpation: soft, no masses, nontender and No ascites Auscultation: normal bowel sounds, abnormal bowel sounds and hypoactive bowel sounds Other: pain in LUQ Skin General skin exam: no rashes or lesions noted Trauma: no lacerations or abrasions Neuro General: alert, oriented x3, oriented, gait normal, moves all extremities, no focal motor deficits and CN's II-XI intact bilaterally Cognition: normal cognition Speech: speech normal Gait: normal gait Motor: muscle tone normal throughout Extrem General: normal to inspection, full ROM and no clubbing, cyanosis or edema Psych Appearance: grossly normal and disheveled Mental Status: mental status grossly normal Speech and Movement: speech and movement normal Mood: labile mood Affect: sad Objective Objective Clinical Data: Abnormal lab results 02/09/19 02/10/19 02/10/19 Range/Units 16:12 06:30 06:30 WBC 4.26 L (4.4-10.8) k/cumm RBC 3.83 L 3.84 L (4.50-6.00) m/cumm Hgb 11.2 L 11.2 L (13.5-17.5) g/dL Hct 34.3 L 34.6 L (40.0-50.0) % BUN 19 H D (7-18) mg/dL Vital Signs Temperature 37.3 C 02/10/19 00:23 Temperature Source Tympanic 02/10/19 00:23 Pulse 78 02/10/19 00:23 Pulse Rhythm Regular 02/09/19 22:33 Respiratory Rate 16 02/10/19 00:23 Respiratory Effort Non-Labored 02/09/19 22:33 Respiratory Depth Normal 02/09/19 22:33 Respiratory Pattern Normal 02/09/19 22:33 Blood Pressure 146/82 H 02/10/19 00:23 Blood Pressure Position Sitting 01/23/19 08:49 Pulse Oximetry 95 02/10/19 00:23 Respiratory End-tidal CO2 26 01/30/19 13:10 Oxygen Delivery Method Room Air 02/10/19 00:23 Oxygen Flow Rate 0 02/10/19 00:23 Pain Level 0 02/09/19 08:39 Comment 02/07/19 00:12 Intake & Output 02/09/19 02/09/19 02/10/19 11:59 23:59 11:59 Intake Total 2888.75 / 4587.584 1698.834 / 4587.584 1323 / 1323 Output Total 1500 / 4000 2500 / 4000 900 / 900 Balance 1388.75 / 587.584 -801.166 / 587.584 423 / 423 Weight 62.5 kg Intake: IV 2888.75 / 4587.584 1698.834 / 4587.584 1083 / 1083 Oral 240 / 240 Output: Gastric Drainage 1300 / 3000 1700 / 3000 800 / 800 Left Nare 1300 / 3000 1700 / 3000 800 / 800 Urine 200 / 1000 800 / 1000 100 / 100 Other: Urine Color Dark Annie Dark Annie Pale Yellow Urine Appearance Clear Clear Urine Odor None Emesis Description Fecal Voiding Methods Urinal Urinal Laboratory Results WBC 4.26 k/cumm (4.4-10.8) L 02/10/19 06:30 RBC 3.84 m/cumm (4.50-6.00) L 02/10/19 06:30 Hgb 11.2 g/dL (13.5-17.5) L 02/10/19 06:30 Hct 34.6 % (40.0-50.0) L 02/10/19 06:30 MCV 90.1 fL (80-95) 02/10/19 06:30 MCH 29.2 pg (27.0-33.0) 02/10/19 06:30 MCHC 32.4 g/dL (32.0-36.0) 02/10/19 06:30 RDW 13.9 % (11.8-14.1) 02/10/19 06:30 Plt Count 277 x1000/uL (130-400) 02/10/19 06:30 MPV 9.9 fL (8.0-11.0) 02/10/19 06:30 Immature Gran % 0.1 01/28/19 06:52 Neutrophils % 56.3 01/28/19 06:52 Band Neutrophils % Cancelled 01/30/19 07:00 Lymphocytes % 27.7 01/28/19 06:52 Atypical Lymphs % Cancelled 01/30/19 07:00 Monocytes % 10.5 01/28/19 06:52 Eosinophils % 5.0 01/28/19 06:52 Basophils % 0.4 01/28/19 06:52 Metamyelocytes % Cancelled 01/30/19 07:00 Myelocytes % Cancelled 01/30/19 07:00 Promyelocytes % Cancelled 01/30/19 07:00 Absolute Neutrophils 4.13 k/cumm (1.2-6.7) 01/28/19 06:52 Absolute Lymphocytes 2.03 k/cumm (1.2-3.4) 01/28/19 06:52 Absolute Monocytes 0.77 k/cumm (0.11-0.7) H 01/28/19 06:52 Absolute Eosinophils 0.37 k/cumm (0.0-0.7) 01/28/19 06:52 Absolute Basophils 0.03 k/cumm (0.0-0.2) 01/28/19 06:52 Nucleated RBCs Cancelled 01/30/19 07:00 Differential Comment Cancelled 01/30/19 07:00 Other Cell Type Cancelled 01/30/19 07:00 RBC Morphology Cancelled 01/30/19 07:00 Polychromasia Cancelled 01/30/19 07:00 Hypochromasia Cancelled 01/30/19 07:00 Poikilocytosis Cancelled 01/30/19 07:00 Basophilic Stippling Cancelled 01/30/19 07:00 Anisocytosis Cancelled 01/30/19 07:00 Microcytosis Cancelled 01/30/19 07:00 Macrocytosis Cancelled 01/30/19 07:00 Spherocytes Cancelled 01/30/19 07:00 Target Cells Cancelled 01/30/19 07:00 Tear Drop Cells Cancelled 01/30/19 07:00 Ovalocytes Cancelled 01/30/19 07:00 Stomatocytes Cancelled 01/30/19 07:00 [place] Bodies Cancelled 01/30/19 07:00 [place] Cells Cancelled 01/30/19 07:00 Acanthocytes (Spur) Cancelled 01/30/19 07:00 Schistocytes Cancelled 01/30/19 07:00 PT 10.0 sec (9.3-11.0) 02/05/19 09:30 INR 1.0 (0.9-1.1) 02/05/19 09:30 Sodium 141 mmol/L (136-145) 02/10/19 06:30 Potassium 4.0 mmol/L (3.5-5.1) 02/10/19 06:30 Chloride 107 mmol/L (98-107) 02/10/19 06:30 Carbon Dioxide 28.6 mmol/L (21.0-32.0) 02/10/19 06:30 Anion Gap 5.4 mmol/L (3-11) 02/10/19 06:30 BUN 19 mg/dL (7-18) H D 02/10/19 06:30 Creatinine 0.74 mg/dL (0.70-1.30) 02/10/19 06:30 Estimated GFR/1.73 m2 >= 60.00 (mL/min/1.73m2) 02/10/19 06:30 Glucose 95 mg/dL (70-100) 02/10/19 06:30 Calcium 8.5 mg/dL (8.5-10.1) 02/10/19 06:30 Phosphorus 3.6 mg/dL (2.6-4.7) 02/10/19 06:30 Magnesium 1.8 mg/dL (1.8-2.4) 02/10/19 06:30 Total Bilirubin 0.2 mg/dL (0.2-1.0) 02/05/19 09:30 AST 26 U/L (15-37) 02/05/19 09:30 ALT 43 U/L (12-78) 02/05/19 09:30 Alkaline Phosphatase 139 U/L (46-116) H 02/05/19 09:30 Total Protein 5.8 g/dL (6.4-8.2) L 02/05/19 09:30 Albumin 2.2 g/dL (3.4-5.0) L 02/05/19 09:30 Prealbumin 14 mg/dL (20-40) L 01/29/19 07:43 Lipase 44 U/L (73-393) L 01/23/19 10:25 Patient ABO/Rh O Positive 01/29/19 16:27 Antibody Screen Negative 01/29/19 16:27
[2019-02-10 11:58] VITALS: BP 145/80; PULSE 75; RESP 18; TEMP 37.1; O2SAT 97
--- NOTE | 2019-02-10 16:22 | PDOC.CMPRO ---
- If Service Date Differs Date of service: 02/10/19 Time of Service: 16:22 Care Management Progress Note Bebeto is being transferred to [facility] today. Ambulance to be coordinated by Nursing ward supervisor. Family is aware of the transfer.
--- NOTE | 2019-02-10 16:23 | CMPROGNOTE_ITS ---
- If Service Date Differs Date of service: 02/10/19 Time of Service: 16:22 Care Management Progress Note Bebeto is being transferred [place] [facility] [place] [facility] [place]. Ambulance to be coordinated by Nursing wet end supervisor. Family is aware of the transfer.
[2019-02-10] MEDS: LORazepam 2 MG/ML VIAL 1 MG IVP (16:33)
[2019-02-10] MEDS: LORazepam 1 MG TAB PO (16:33)
[2019-02-10] MEDS: Pantoprazole 40 MG VIAL IVP (16:34)
--- NOTE | 2019-02-21 13:51 | DSE_ITS ---
DS: Diagnosis Discharge Diagnosis (1) Small bowel obstruction due to postoperative adhesions: Status: Acute (2) Gastritis: Status: Acute Discharge Plan Disposition Patient Disposition: [facility] Condition: Stable Discharge Details Reason For Visit: PARTIAL SBO Admit Date/Time: 01/25/19 18:19 Admit Provider: Shani Bynum Attending Provider: Shani Bynum Primary Care Provider: Raffaele Washington Hospital Course Hospital Course: pt admitted w/ SBO on 01/04. refused ngt. left AMA on 01/06 pt admitted w/ SBO on 01/12. refused NGT left ama on 01/14 pt admitted on 01/23 w/ n/v and abdom pain. refused ngt. NGT was placed on 01/28. pt still not resolved. pt underwent ex lap and extensive lysis of adhesions on 01/30. no resection. Interceed was placed. pt did well postOp. By POD#3 he was walking and passing gas and had BM. tolerating full liquids. on 02/08 he started having vomiting. NGT was placed and 2L removed. TPN re stated. flat plate abdom reveals SBO in same pattern as prior to sx. pt has high anxiety. He did have a bladder injury, which was repaired during surgery. He had a carrion cath placed. Carrion has been since removed and pt has been urinating without problems. no cp or sob. no productive cough. no leg pain or swelling. electrolytes nl. no cardiac problems. no wound infectons. no postOP comps other than reobstruction. VS are stable. L:clear. cardiac is NS. abdom is soft and non tender. pt stable for transport. Home Meds and New Rx's Prescriptions: No Action No Known Home Meds RF: 0 Discharge Instructions Stand Alone Forms: Nursing Discharge Form Referrals: Raffaele Washington MD [Primary Care Provider] - Activity:: bedrest Diet:: ngt Discharge Orders Discharge Orders: Discharge Order (Routine); Ordered 02/10/19 Ordered By: Shani Bynum Discharge Data Discharge Date/Time-TO BE ENTERED AT DEPARTURE: 02/10/19 17:05 DS: Summary Time spent discussing smoking cessation with patient: more than 10 minutes Status at Discharge Cognitive/behavioral status at discharge: anxious Functional status at discharge: independent ambulation Overall status at discharge: patient is not back to baseline Time Spent with Patient Greater than 30 minutes Exam Const General: cooperative, comfortable, no acute distress, well groomed and anxious Nutritional Appearance: average body habitus Orientation: alert, awake and oriented x3 [facility] Head: normal to inspection, normocephalic and atraumatic Ears: hearing grossly normal bilaterally and external ears normal General nose exam: external nose normal Face and sinus: normal facial exam, sinuses nontender and other (NGT+. chornic pain in R max. sinus) Mouth: oral mucosae normal, lip normal, tongue normal and moist mucous membranes Teeth and gingiva: dentition normal Eyes General: appearance normal, both eyes and all related structures Conjunctivae: conjunctivae normal Sclera: sclerae normal Pupils: PERRL Neck Neck: normal visual inspection and full ROM Chest Chest: normal inspection of the chest Resp Effort & Inspection: normal respiratory effort, able to speak in complete sentences, no cough, no nasal flaring, not tachypneic and no use of accessory muscles Auscultation: clear to auscultation bilaterally, no rales, no rhonchi and no wheezes Cardio Jugular venous pressure: no JVD Rate: regular rate Rhythm: regular rhythm GI Inspection: normal to inspection, no edema and non-distended Palpation: soft, no masses, nontender and No ascites Auscultation: normal bowel sounds Other: ayan in plface. incision is c/d/i. carrion is out. Skin General skin exam: no rashes or lesions noted Trauma: no lacerations or abrasions Neuro General: alert, oriented x3, oriented, gait normal, moves all extremities, no focal motor deficits and CN's II-XI intact bilaterally Cognition: normal cognition Speech: speech normal Gait: normal gait Motor: muscle tone normal throughout Extrem General: normal to inspection, full ROM and no clubbing, cyanosis or edema Psych Appearance: grossly normal and well kempt Mental Status: mental status grossly normal Speech and Movement: speech and movement normal Affect: normal affect DS: Data Vitals/I&O Vitals and I&O: Vital Signs Temperature 37.1 C 02/10/19 11:58 Temperature Source Tympanic 02/10/19 11:58 Pulse 75 02/10/19 11:58 Pulse Rhythm Regular 02/10/19 12:33 Respiratory Rate 18 02/10/19 11:58 Respiratory Effort 02/10/19 12:33 Respiratory Depth Normal 02/10/19 12:33 Respiratory Pattern Normal 02/10/19 12:33 Blood Pressure 145/80 H 02/10/19 11:58 Blood Pressure Position Sitting 01/23/19 08:49 Pulse Oximetry 97 02/10/19 11:58 Respiratory End-tidal CO2 26 01/30/19 13:10 Oxygen Delivery Method Room Air 02/10/19 11:58 Oxygen Flow Rate 0 02/10/19 11:58 Pain Level 0 02/09/19 08:39 Comment 02/07/19 00:12 [facility] Medical History Intraoperative bladder injury (Acute) Small bowel obstruction (Acute) Congenital imperforate anus Undescended testicle, unilateral Surgical History S/P exploratory laparotomy (Acute ~01/30/19) Repair of inguinal hernia (02/02/18) Revision, Scar eye surgery imperforate anus repair Social History Smoking/Tobacco Use Status: Current every day Alcohol Intake: never Drug use: Never Substance use type: does not use Do you feel safe in your relationship?: Yes
== END 2019-02-10 17:05 | disposition short-term general hospital (02) | DRG 336 ==
LOC: ER 16:22 → MS 16:39
PROVIDERS: Physical Therapy Assistant; Surgery; Urology; Admitting Provider Surgery; Emergency Provider Emergency Medicine; PCP General Practice; Visit Provider Surgery
PROC: 0DN80ZZ Release Small Intestine, Open Approach (ICD-10-PCS; CPT 49000; principal; 2019-01-30 07:40)
PROC: 0TQB0ZZ Repair Bladder, Open Approach (ICD-10-PCS; CPT 51860; 2019-01-30 07:40)
DX: K56.51 Intestinal adhesions [bands], with partial obstruction (principal); R45.851 Suicidal ideations; N99.72 Accidental puncture and laceration of a genitourinary system organ or structure during other procedure; K56.7 Ileus, unspecified; L72.3 Sebaceous cyst; F17.210 Nicotine dependence, cigarettes, uncomplicated; K59.01 Slow transit constipation; Z91.19 Patient's noncompliance with other medical treatment and regimen; Q43.0 Meckel's diverticulum (displaced) (hypertrophic); E83.42 Hypomagnesemia; N40.0 Benign prostatic hyperplasia without lower urinary tract symptoms; K29.00 Acute gastritis without bleeding
CPT/HCPCS: 44005; 44955; 51860; 10160; 36415; 36569; 71045; 80048; 80053; 83690; 85027; 86850; 86900; 86901; 96361; 96374; 99218; 99232; 99239; 99285; J1650; NC; 74018; 74019; 74022; 83735; 84100; 84134; 85025; 85049; 85610; 88304; 99284; G0378; J0131; J0295; J1100; J1885; J2060; J2250; J2370; J2405; J2543; J2710; J2765; J3475; J3480; J3490

== ENCOUNTER 2020-01-01 09:50 | Emergency (ER) | payer OTHER, SELFPAY ==
[2020-01-01 09:56] VITALS: BP 121/78; PULSE 94; RESP 18; TEMP 36.4; O2SAT 99
--- NOTE | 2020-01-01 10:49 | ED.GENADUL_ITS ---
Discharge Plan Disposition Patient Disposition: HOME Condition: Stable Discharge Details Chief Complaint: HeadInjury Clinical Impression: Fall due to ice or snow, Head injury, acute, Laceration, Scalp hematoma Primary Care Provider: None,None ED Provider: Abebe West Home Meds and New Rx's Prescriptions: No Action No Known Home Meds RF: 0 Discharge Instructions Instructions: Head Injury (ED), Skin Adhesive Care (ED) Additional Instructions: Please contact your primary care physician to arrange follow-up. Return to the ER for any worsening or new concerning symptoms. Medical Decision Making 54-year-old male here after slip and fall with head injury. Patient is neurologically intact. He has no headache. He had no loss of consciousness or any other concerning signs or symptoms for intracranial hemorrhage. I fully palpated his skull and he has no bony tenderness. He does have a focal hematoma and small laceration and abrasion. Wound was cleaned with copious sterile saline. Wound closed with skin adhesive without complication. Usual and customary discharge instructions were provided. HPI General Mode of arrival: ambulatory . Date/Time Provider Initiated Documentation: 01/01/20 10:05 . Limitations to Documentation: no limitations . Information obtained by: patient . HPI Narrative: 54-year-old male here with chief complaint of head injury. Patient notes he slipped and fell on ice outside grocery store just prior to arrival. He fell from standing to the ground and hit posterior/superior head on the asphalt. He did not lose consciousness. He has no headache. No nausea or vomiting. No visual changes. No numbness or tingling. No neck pain. Patient does note wound at site of impact on his scalp. Wound was initially bleeding. Bleeding is stopped. 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 born Intraoperative bladder injury (Acute) Small bowel obstruction (Acute) Undescended testicle, unilateral Surgical History eye surgery imperforate anus repair Repair of inguinal hernia (02/02/18) left Revision, Scar S/P exploratory laparotomy (Acute ~01/30/19) Social History Smoking/Tobacco Use Status: Current every day Tobacco Type: cigarettes Alcohol Intake: never Drug use: Never Substance use type: does not use Do you feel safe at home: Yes Do you feel safe in your relationship?: Yes Exam Const General: cooperative and no acute distress HENMT Head: no palpable skull fracture, no Cook's sign, hematoma (Central superior occiput), laceration (Posterior superior scalp 1cm) and no raccoon eyes Mouth: moist mucous membranes Eyes EOM: EOM intact bilaterally Neck Neck: full ROM, trachea midline, supple and nontender Resp Auscultation: clear to auscultation bilaterally, no rales, no rhonchi and no wheezes Back/Spine/Pelvis Cervical Spine: cervical ROM normal, No cervical spinal tenderness and No step off deformity Thoracic/Lumbar Spine: No thoracic spinal tenderness and No lumbar spinal tenderness Skin General skin exam: no rashes or lesions noted Neuro General: alert, awake, oriented x3 and tone normal Cranial Nerves: CN's II-XI intact bilaterally Cognition: normal cognition Speech: speech normal Gait: normal gait Motor: muscle tone normal throughout and strength 5/5 throughout Sensory Exam: no sensory deficits noted Course Vital Signs Vital signs: Vital Signs Temperature 36.4 C L 01/01/20 09:56 Pulse 94 H 01/01/20 09:56 Respiratory Rate 18 01/01/20 09:56 Blood Pressure 121/78 01/01/20 09:56 Pulse Oximetry 99 01/01/20 09:56 Temperature 36.4 C L 01/01/20 09:56 Temperature Source Skin 01/01/20 09:56 Pulse 94 H 01/01/20 09:56 Respiratory Rate 18 01/01/20 09:56 Respiratory Effort Non-Labored 01/01/20 09:57 Respiratory Depth Normal 01/01/20 09:57 Respiratory Pattern Normal 01/01/20 09:57 Blood Pressure 121/78 01/01/20 09:56 Blood Pressure Position Sitting 01/01/20 09:56 Pulse Oximetry 99 01/01/20 09:56 Oxygen Delivery Method Room Air 01/01/20 09:56 Oxygen Flow Rate 0 01/01/20 09:56 Pain Level 3 01/01/20 09:57 Procedures Laceration Laceration 1: Site: scalp Size (cm): 1 Description: other (jagged) Depth: simple, single layer Skin layer closed with: other (skin adhesive)
[2020-01-01 10:54] VITALS: BP 125/76; PULSE 85; RESP 18; TEMP 36.5; O2SAT 98
== END 2020-01-01 10:54 | disposition home or self-care (01) ==
PROVIDERS: Emergency Provider Student in an Organized Health Care Education/Training Program
DX: S09.90XA Unspecified injury of head, initial encounter (principal); S01.01XA Laceration without foreign body of scalp, initial encounter; W00.0XXA Fall on same level due to ice and snow, initial encounter
CPT/HCPCS: 12001

== ENCOUNTER 2022-07-16 16:45 | Emergency (ER) | payer OTHER, SELFPAY ==
[2022-07-16 17:04] VITALS: BP 157/92; PULSE 84; RESP 17; TEMP 36.6; O2SAT 97
--- NOTE | 2022-07-16 19:17 | ED.GENADUL_ITS ---
Discharge Plan Disposition Patient Disposition: HOME Condition: Stable Discharge Details Clinical Impression: Sebaceous cyst Primary Care Provider: None,None ED Provider: Adenike Wilson Home Meds and New Rx's Prescriptions: No Action No Known Home Meds Discharge Instructions Additional Instructions: Warm compresses Follow-up with surgery Ibuprofen and Tylenol as needed for pain Return for spreading redness, fever, worsening discomfort Discharge Data Discharge Date/Time-TO BE ENTERED AT DEPARTURE: 07/16/22 20:08 Medical Decision Making Patient afebrile and nontoxic No evidence of deep space infection Tolerated procedure without incident Suspect sebaceous cyst Will refer to surgery for additional intervention and review, suspect capsule of cyst remains No antibiotics indicated at this time Return precautions discussed and patient expressed understanding Medical Records Medical records reviewed: Yes I reviewed the patient's medical records. HPI General Date/Time Provider Initiated Documentation: 07/16/22 19:17 . HPI Narrative: This 37-year-old gentleman presents with lump reportedly at the back of his neck for years . He states he has had intervention from surgery before. He denies any fever or chills and states the area was asymptomatic until several days ago when it started becoming uncomfortable. Related Data Home Medications Medication Instructions Recorded Confirmed Unknown [No Known Home Meds] 05/17/18 07/16/22 Allergies Allergy/AdvReac Type Severity Reaction Status Date / Time No Known Allergies Allergy Unverified 07/16/22 17:10 General Stated Complaint: RashLesion CHAVO: 4 Review of Systems All systems reviewed & are unremarkable except as noted in HPI and below PFSH All Active Problems (Updated 07/16/22 @ 19:26 by YESI Drummond) Fall due to ice or snow (Acute) Head injury, acute (Acute) Laceration (Acute) Scalp hematoma (Acute) Sebaceous cyst (Acute) Gastritis (Acute) Small bowel obstruction due to postoperative adhesions (Acute) Enlarged prostate (Acute) Hypomagnesemia (Acute) Intraoperative bladder injury (Acute) S/P exploratory laparotomy (Acute ~01/30/19) Skin lesion (Acute) Noncompliance by refusing intervention or support (Acute) Smoker unmotivated to quit (Acute) Partial small bowel obstruction (Acute) Constipation by delayed colonic transit (Acute) Left lower quadrant pain (Acute) Nausea and vomiting (Acute) SBO (small bowel obstruction) (Acute) Medical History (Updated 07/16/22 @ 19:26 by YESI Drummond) 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 Approximately 1 inch cyst noted, minimal fluctuance, no overlying erythema Neuro General: patient alert and patient oriented x3 Other: Strength and sensation intact to bilateral upper extremities Course Vital Signs Vital signs: Vital Signs Temperature 36.6 C 07/16/22 17:04 Pulse 84 07/16/22 17:04 Respiratory Rate 17 07/16/22 17:04 Blood Pressure 157/92 H 07/16/22 17:04 Pulse Oximetry 97 07/16/22 17:04 Temperature 36.6 C 07/16/22 17:04 Temperature Source Temporal Artery Scan 07/16/22 17:04 Pulse 84 07/16/22 17:04 Respiratory Rate 17 07/16/22 17:04 Respiratory Effort Non-Labored 07/16/22 17:08 Blood Pressure 157/92 H 07/16/22 17:04 Blood Pressure Position Sitting 07/16/22 17:04 Pulse Oximetry 97 07/16/22 17:04 Oxygen Delivery Method Room Air 07/16/22 17:04 Oxygen Flow Rate 0 07/16/22 17:04 Pain Level 3 07/16/22 17:04 Procedures Abscess I/D Site: Neck Side (if applicable): Left Local Anesthetic: Lidocaine 1% and With Epi Amount of anesthesia used (mL): 5 Technique: Incised with #11 Blade Amount of fluid expressed (mL): 10 Irrigation: Yes Packing used?: None
--- NOTE | 2022-07-16 19:28 | NUR.NOTE ---
Referral [facility]ed [facility] to f/u in a week for cyst on back of neck.Nursing Note:
== END 2022-07-16 20:08 | disposition home or self-care (01) ==
PROVIDERS: Emergency Provider Physician Assistant
DX: L72.3 Sebaceous cyst (principal); F17.210 Nicotine dependence, cigarettes, uncomplicated
CPT/HCPCS: 10060; 99281; 99282

== ENCOUNTER 2022-08-30 13:39 | Outpatient (REF) | payer OTHER, SELFPAY ==
--- NOTE | 2022-08-30 13:20 | SOFT_PTH ---
PATIENT: Drake Galarza LOC: N U#:[id number] AGE/SX: 57/M ROOM: RE08/30/[address]: Victor Manuel Briones MD : [id number] BED: DIS: 08/30/2022 SPEC #: [id number] RECD: 08/30/22 13:54 STATUS: SHANT REQ #: [id number] MIKE: 08/30/22 13:[address]: Victor Manuel Briones DEPT: Surgical Specimen RECD BY: Adenike James Tissues: 1 - SOFT TISSUE [facility] [place] [facility] [place] Procedures: GROSS AND MICRO LEVEL 3 Comments: [id number]
== END 2022-08-30 13:40 | disposition home or self-care (01) ==
LOC: LBN 13:39
PROVIDERS: Visit Provider Surgery
DX: L72.8 Other follicular cysts of the skin and subcutaneous tissue (principal); L90.5 Scar conditions and fibrosis of skin; R22.1 Localized swelling, mass and lump, neck
CPT/HCPCS: 88304